=== PATIENT | female | born 1955 | race Caucasian/White ===

== ENCOUNTER 2019-12-30 08:37 | Outpatient (REF) | payer BC, SELFPAY ==
--- NOTE | 2019-12-30 | XR_ITS ---
EXAMINATION: XR SHOULDER, RIGHT CLINICAL INFORMATION: Right shoulder pain COMPARISON: None. TECHNIQUE: Right shoulder is imaged in 4 views. FINDINGS: There is no fracture, dislocation, or destructive process. The acromioclavicular alignment is normal. There are mild degenerative changes glenohumeral joint with spurring at the inferior medial humeral head. There is no erosive change. Small corticated cyst present superior humeral head. There is a 5 mm calcification just inferior to the coracoid process likely calcific tendinosis involving short head biceps. No other visible tendon calcifications. IMPRESSION: 1. Mild degenerative changes glenohumeral joint with inferior medial spur humeral head. 2. Calcific tendinosis in region short head biceps.
== END 2019-12-30 08:38 | disposition home or self-care (01) ==
LOC: HO.HMGCX 08:37
DX: M25.511 Pain in right shoulder (principal)
CPT/HCPCS: 73030

== ENCOUNTER 2019-12-31 11:54 | Outpatient (REF) | payer BC, SELFPAY ==
--- NOTE | 2019-12-31 | XR_ITS ---
EXAMINATION: XR SHOULDER, LEFT CLINICAL INFORMATION: Left shoulder pain. COMPARISON: None. TECHNIQUE: AP external rotation, Grashey, scapular Y, and axillary views of the left shoulder. FINDINGS: There is no evidence of acute fracture or dislocation of the left shoulder. No evidence of calcific tendinitis. There is degenerative spurring seen about the inferior aspect of the left humeral head. There is mild spurring inferior aspect of the glenoid. IMPRESSION: No evidence of acute fracture, dislocation, or calcific tendinitis of the left shoulder. Degenerative change glenohumeral joint.
== END 2019-12-31 11:55 | disposition home or self-care (01) ==
LOC: HO.HMGCX 11:54
DX: M25.512 Pain in left shoulder (principal)
CPT/HCPCS: 73030

== ENCOUNTER 2020-01-29 07:56 | Outpatient (REF) | payer BC, SELFPAY ==
[2020-01-29 12:08] LABS: Estimated Average Glucose 151 mg/dL; Hemoglobin A1c % 6.9 %
[2020-01-29 12:31] LABS: Alanine Aminotransferase 40 U/L (0-31); Albumin Level 3.9 g/dL (3.5-5.0); Alkaline Phosphatase 88 U/L (39-117); Anion Gap 15 (12-20); Aspartate Amino Transferase 39 U/L (5-31); Bilirubin Direct 0.2 mg/dL (0.0-0.5); Bilirubin Total 0.5 mg/dL (0.0-1.0); Blood Urea Nitrogen 20 mg/dL (9-16); Calcium 9.2 mg/dL (8.4-10.2); Carbon Dioxide 27 mmol/L (22-29); Chloride 98 mmol/L (96-108); Cholesterol 151 mg/dL; Estimated Glomerular Filt Rate 46; Glucose Fasting 106 mg/dL (60-99); HDL Cholesterol 28 mg/dL; LDL Cholesterol Calculated 69 mg/dl; Potassium 3.8 mmol/l (3.3-5.1); Sodium 136 mmol/L (135-145); Triglycerides 272 mg/dL
== END 2020-01-29 07:57 | disposition home or self-care (01) ==
LOC: HO.HMGCLDS 07:56
DX: E78.5 Hyperlipidemia, unspecified (principal); E11.9 Type 2 diabetes mellitus without complications
CPT/HCPCS: 80053; 80061; 80076; 82248; 83036

== ENCOUNTER 2020-05-01 07:50 | Outpatient (REF) | payer BC, SELFPAY ==
--- NOTE | ~2020-05-01 | XR_ITS ---
EXAMINATION: XR FOOT, LEFT CLINICAL INFORMATION: Psoriatic arthritis involving the foot joints COMPARISON: None TECHNIQUE: AP, lateral, and oblique views of the left foot. FINDINGS: No fracture or dislocation. Normal mineralization and alignment. Joint spaces are maintained. No erosions or periostitis. Moderate plantar calcaneal osteophyte. There is enthesopathy of the distal Achilles tendon attachment. XR/XR foot LT min 3V IMPRESSION: No findings to suggest active inflammatory arthropathy.
--- NOTE | ~2020-05-01 | XR_ITS ---
EXAMINATION: XR FOOT, RIGHT CLINICAL INFORMATION: Psoriatic arthritis involving the joints COMPARISON: None TECHNIQUE: AP, lateral, and oblique views of the right foot. FINDINGS: No fracture or dislocation. Moderate plantar calcaneal osteophyte. Enthesopathy of the distal Achilles tendon attachment. Joint spaces are maintained. No erosions or periostitis. XR/XR foot RT min 3V IMPRESSION: No findings to suggest active inflammatory arthropathy.
[2020-05-01 11:10] LABS: MANUAL DIFF FLAG NO
[2020-05-01 11:20] LABS: Basophils Percent Auto 0.3 % (0-2); Eosinophils Absolute Auto 0.3 X10*3/uL (0.0-0.4); Eosinophils Percent Auto 2.8 % (0-4); Hematocrit 41.9 % (37-47); Hemoglobin 13.8 g/dl (12.0-16.0); Imm Gran Abs Auto 0.03 X10*3/uL (0.00-0.03); Imm Gran Pct Auto 0.3 % (0.0-0.4); Lymphocytes Absolute Auto 4.7 X10*3/uL (1.2-4.9); Lymphocytes Percent Auto 45.8 % (20-40); Mean Corpuscular HGB Conc 32.9 g/dl (31.0-35.0); Mean Corpuscular Hemoglobin 28.2 pg (27.0-33.0); Mean Corpuscular Volume 85.5 fL (80-98); Mean Platelet Volume 11.1 fL (9.4-12.3); Monocytes Absolute Auto 0.6 X10*3/uL (0.1-1.2); Monocytes Percent Auto 5.4 % (2-11); Neutrophils Absolute Auto 4.6 X10*3/uL (2.0-8.3); Neutrophils Percent Auto 45.4 % (45-73); Platelet Count 262 X10*3/uL (160-400); White Blood Count 10.2 X10*3/uL (4.8-10.8)
[2020-05-01 11:53] LABS: Alanine Aminotransferase 36 U/L (0-31); Albumin Level 3.9 g/dL (3.5-5.0); Alkaline Phosphatase 96 U/L (39-117); Anion Gap 15 (12-20); Aspartate Amino Transferase 36 U/L (5-31); Bilirubin Total 0.6 mg/dL (0.0-1.0); Blood Urea Nitrogen 15 mg/dL (9-16); Calcium 8.9 mg/dL (8.4-10.2); Carbon Dioxide 26 mmol/L (22-29); Chloride 100 mmol/L (96-108); Cholesterol 155 mg/dL; Estimated Glomerular Filt Rate 53; Glucose Fasting 173 mg/dL (60-99); HDL Cholesterol 30 mg/dL; LDL Cholesterol Calculated 68 mg/dl; Potassium 4.4 mmol/L (3.3-5.1); Sodium 137 mmol/L (135-145); Total Protein 7.1 g/dL (6.5-8.0); Triglycerides 286 mg/dL
[2020-05-01 11:59] LABS: Thyroid Stimulating Hormone 1.86 uIU/mL (0.32-4.0)
[2020-05-01 12:07] LABS: Estimated Average Glucose 200 mg/dL; Hemoglobin A1c % 8.6 %
[2020-05-01 12:25] LABS: Erythrocyte Sedimentation Rate 14 MM/HR (0-20)
== END 2020-05-01 07:51 | disposition home or self-care (01) ==
LOC: HO.HMGCX 07:50
PROVIDERS: PCP Internal Medicine; Visit Provider Internal Medicine Rheumatology
DX: Z00.00 Encounter for general adult medical examination without abnormal findings (principal); L40.50 Arthropathic psoriasis, unspecified; M89.49 Other hypertrophic osteoarthropathy, multiple sites; E11.9 Type 2 diabetes mellitus without complications; E03.9 Hypothyroidism, unspecified; Z79.899 Other long term (current) drug therapy
CPT/HCPCS: 36415; 73630; 80053; 80061; 83036; 84443; 85025; 85652; 86140

== ENCOUNTER 2020-05-11 09:37 | Outpatient (REF) | payer BC, SELFPAY ==
[2020-05-11 12:27] LABS: Vitamin D 25-OH Total 99.5 ng/mL (>30)
== END 2020-05-11 09:38 | disposition home or self-care (01) ==
LOC: HO.HMGCLDS 09:37
PROVIDERS: PCP Internal Medicine; Visit Provider Dermatology
DX: L40.0 Psoriasis vulgaris (principal); Z79.899 Other long term (current) drug therapy
CPT/HCPCS: 36415; 82306

== ENCOUNTER 2020-08-21 08:23 | Outpatient (REF) | payer BC, SELFPAY ==
[2020-08-21 11:08] LABS: MANUAL DIFF FLAG NO
[2020-08-21 11:30] LABS: Basophils Percent Auto 0.3 % (0-2); Eosinophils Absolute Auto 0.2 X10*3/uL (0.0-0.4); Eosinophils Percent Auto 1.7 % (0-4); Hematocrit 40.1 % (37-47); Hemoglobin 13.3 g/dl (12.0-16.0); Imm Gran Abs Auto 0.03 X10*3/uL (0.00-0.03); Imm Gran Pct Auto 0.3 % (0.0-0.4); Lymphocytes Absolute Auto 3.2 X10*3/uL (1.2-4.9); Lymphocytes Percent Auto 33.4 % (20-40); Mean Corpuscular HGB Conc 33.2 g/dl (31.0-35.0); Mean Corpuscular Hemoglobin 28.6 pg (27.0-33.0); Mean Corpuscular Volume 86.2 fL (80-98); Mean Platelet Volume 11.2 fL (9.4-12.3); Monocytes Absolute Auto 0.5 X10*3/uL (0.1-1.2); Monocytes Percent Auto 5.3 % (2-11); Neutrophils Absolute Auto 5.6 X10*3/uL (2.0-8.3); Platelet Count 206 X10*3/uL (160-400); Red Blood Count 4.65 X10*6/uL (4.20-5.50); Red Cell Distribution Width 13.3 % (11.0-16.0); White Blood Count 9.5 X10*3/uL (4.8-10.8)
[2020-08-21 12:17] LABS: Erythrocyte Sedimentation Rate 12 MM/HR (0-20); Thyroid Stimulating Hormone 0.86 uIU/mL (0.32-4.0)
[2020-08-21 12:30] LABS: Microalbum/Creatinine Ratio Ur 28.1 ug/mg cr
[2020-08-21 12:36] LABS: Alanine Aminotransferase 26 U/L (0-31); Albumin Level 4.1 g/dL (3.5-5.0); Alkaline Phosphatase 99 U/L (39-117); Anion Gap 17 (12-20); Aspartate Amino Transferase 31 U/L (5-31); Bilirubin Total 0.7 mg/dL (0.0-1.0); Blood Urea Nitrogen 20 mg/dL (9-16); Carbon Dioxide 23 mmol/L (22-29); Chloride 102 mmol/L (96-108); Estimated Glomerular Filt Rate 44; Glucose Fasting 255 mg/dL (60-99); Potassium 4.2 mmol/L (3.3-5.1); Sodium 138 mmol/L (135-145)
[2020-08-21 12:46] LABS: C Reactive Protein 0.34 mg/dL (< or = 0.50)
[2020-08-21 13:45] LABS: Estimated Average Glucose 237 mg/dL; Hemoglobin A1c % 9.9 %
== END 2020-08-21 08:24 | disposition home or self-care (01) ==
LOC: HO.HMGCLDS 08:23
PROVIDERS: PCP Internal Medicine; Visit Provider Internal Medicine Rheumatology
DX: E03.9 Hypothyroidism, unspecified (principal); E11.9 Type 2 diabetes mellitus without complications; L40.50 Arthropathic psoriasis, unspecified; Z79.899 Other long term (current) drug therapy
CPT/HCPCS: 36415; 80053; 82043; 83036; 84443; 85025; 85652; 86140

== ENCOUNTER 2020-12-15 08:57 | Outpatient (REF) | payer BC, SELFPAY ==
[2020-12-15 11:52] LABS: MANUAL DIFF FLAG NO
[2020-12-15 12:01] LABS: Basophils Percent Auto 0.2 % (0-2); Eosinophils Absolute Auto 0.5 X10*3/uL (0.0-0.4); Eosinophils Percent Auto 4.7 % (0-4); Hematocrit 39.8 % (37-47); Hemoglobin 13.4 g/dl (12.0-16.0); Imm Gran Abs Auto 0.03 X10*3/uL (0.00-0.03); Imm Gran Pct Auto 0.3 % (0.0-0.4); Lymphocytes Absolute Auto 4.3 X10*3/uL (1.2-4.9); Lymphocytes Percent Auto 38.5 % (20-40); Mean Corpuscular HGB Conc 33.7 g/dl (31.0-35.0); Mean Corpuscular Hemoglobin 28.8 pg (27.0-33.0); Mean Corpuscular Volume 85.6 fL (80-98); Mean Platelet Volume 11.6 fL (9.4-12.3); Monocytes Absolute Auto 0.6 X10*3/uL (0.1-1.2); Monocytes Percent Auto 4.9 % (2-11); Neutrophils Absolute Auto 5.7 X10*3/uL (2.0-8.3); Neutrophils Percent Auto 51.4 % (45-73); Platelet Count 219 X10*3/uL (160-400); Red Blood Count 4.65 X10*6/uL (4.20-5.50); White Blood Count 11.1 X10*3/uL (4.8-10.8)
[2020-12-15 12:19] LABS: Estimated Average Glucose 200 mg/dL; Hemoglobin A1c % 8.6 %
[2020-12-15 12:30] LABS: Alanine Aminotransferase 31 U/L (0-31); Albumin Level 3.9 g/dL (3.5-5.0); Alkaline Phosphatase 86 U/L (39-117); Anion Gap 16 (12-20); Aspartate Amino Transferase 33 U/L (5-31); Bilirubin Total 0.7 mg/dL (0.0-1.0); Blood Urea Nitrogen 18 mg/dL (9-16); Calcium 9.4 mg/dL (8.4-10.2); Carbon Dioxide 25 mmol/L (22-29); Chloride 102 mmol/L (96-108); Estimated Glomerular Filt Rate 46; Glucose Random 154 mg/dL (60-115); Potassium 4.4 mmol/L (3.3-5.1); Sodium 139 mmol/L (135-145); Total Protein 7.1 g/dL (6.5-8.0)
[2020-12-15 12:43] LABS: Erythrocyte Sedimentation Rate 17 MM/HR (0-20)
== END 2020-12-15 08:58 | disposition home or self-care (01) ==
LOC: HO.HMGCLDS 08:57
PROVIDERS: PCP Internal Medicine; Visit Provider Internal Medicine Rheumatology
DX: L40.50 Arthropathic psoriasis, unspecified (principal); E11.9 Type 2 diabetes mellitus without complications; Z79.899 Other long term (current) drug therapy
CPT/HCPCS: 36415; 80053; 83036; 85025; 85652; 86140

== ENCOUNTER 2021-04-15 11:17 | Outpatient (REF) | payer MEDICARE, BC, SELFPAY ==
--- NOTE | ~2021-04-15 | XR_ITS ---
EXAMINATION: XR foot RT min 3V, XR foot LT min 3V CLINICAL INFORMATION: Psoriatic arthritis. COMPARISON: Bilateral feet radiographs 05/01/2020 TECHNIQUE: 3 views of the bilateral feet XR/XR foot RT min 3V FINDINGS/IMPRESSION: RIGHT FOOT: No fracture or dislocation. Mild degenerative changes of the dorsal midfoot with osteophytosis. Plantar calcaneal and Achilles tendon enthesopathy. No cortical erosion. No joint effusion. Soft tissues are unremarkable. LEFT FOOT: No fracture or dislocation. Small well corticated osseous fragment along the lateral aspect of the base of the fifth metatarsal may reflect squarely of remote avulsion injury. Moderate degenerative changes of the dorsal midfoot with osteophytosis similar to prior. Plantar calcaneal and Achilles tendon enthesopathy. No cortical erosion. No joint effusion. Mild soft tissue swelling along the dorsum of the foot.
--- NOTE | ~2021-04-15 | XR_ITS ---
EXAMINATION: XR foot RT min 3V, XR foot LT min 3V CLINICAL INFORMATION: Psoriatic arthritis. COMPARISON: Bilateral feet radiographs 05/01/2020 TECHNIQUE: 3 views of the bilateral feet XR/XR foot LT min 3V FINDINGS/IMPRESSION: RIGHT FOOT: No fracture or dislocation. Mild degenerative changes of the dorsal midfoot with osteophytosis. Plantar calcaneal and Achilles tendon enthesopathy. No cortical erosion. No joint effusion. Soft tissues are unremarkable. LEFT FOOT: No fracture or dislocation. Small well corticated osseous fragment along the lateral aspect of the base of the fifth metatarsal may reflect squarely of remote avulsion injury. Moderate degenerative changes of the dorsal midfoot with osteophytosis similar to prior. Plantar calcaneal and Achilles tendon enthesopathy. No cortical erosion. No joint effusion. Mild soft tissue swelling along the dorsum of the foot.
[2021-04-15 14:04] LABS: MANUAL DIFF FLAG NO
[2021-04-15 14:05] LABS: Basophils Percent Auto 0.4 % (0-2); Eosinophils Absolute Auto 0.2 X10*3/uL (0.0-0.4); Eosinophils Percent Auto 2.1 % (0-4); Hematocrit 43.6 % (37.0-47.0); Hemoglobin 14.1 g/dl (12.0-16.0); Imm Gran Abs Auto 0.04 X10*3/uL (0.00-0.03); Imm Gran Pct Auto 0.4 % (0.0-0.4); Lymphocytes Absolute Auto 2.9 X10*3/uL (1.2-4.9); Lymphocytes Percent Auto 31.1 % (20-40); Mean Corpuscular HGB Conc 32.3 g/dl (31.0-35.0); Mean Corpuscular Hemoglobin 27.9 pg (27.0-33.0); Mean Corpuscular Volume 86.2 fL (80.0-98.0); Monocytes Absolute Auto 0.6 X10*3/uL (0.1-1.2); Monocytes Percent Auto 6.1 % (2-11); Neutrophils Absolute Auto 5.5 x10*3/uL (2.0-8.3); Neutrophils Percent Auto 59.9 % (45-73); Platelet Count 285 X10*3/uL (160-400); Red Blood Count 5.06 X10*6/uL (4.20-5.50); Red Cell Distribution Width 13.4 % (11.0-16.0); White Blood Count 9.3 X10*3/uL (4.8-10.8)
[2021-04-15 14:37] LABS: Alanine Aminotransferase 56 U/L (0-31); Albumin Level 4.4 g/dL (3.5-5.0); Alkaline Phosphatase 138 U/L (39-117); Anion Gap 15 (12-20); Aspartate Amino Transferase 56 U/L (5-31); Bilirubin Total 0.6 mg/dL (0.0-1.0); Blood Urea Nitrogen 20 mg/dL (9-16); C Reactive Protein 0.48 mg/dL (< or = 0.50); Carbon Dioxide 29 mmol/L (22-29); Chloride 99 mmol/L (96-108); Estimated Glomerular Filt Rate 38; Glucose Random 281 mg/dL (60-115); Potassium 4.8 mmol/L (3.3-5.1); Sodium 138 mmol/L (135-145); Total Protein 8.2 g/dL (6.5-8.0)
[2021-04-15 14:52] LABS: Erythrocyte Sedimentation Rate 27 MM/HR (0-20)
== END 2021-04-15 11:18 | disposition home or self-care (01) ==
LOC: HO.HMGCX 11:17
PROVIDERS: Absent Provider Internal Medicine; PCP Internal Medicine; Visit Provider Internal Medicine Rheumatology
DX: L40.50 Arthropathic psoriasis, unspecified (principal); Z79.899 Other long term (current) drug therapy
CPT/HCPCS: 36415; 73630; 80053; 85025; 85652; 86140

== ENCOUNTER 2021-05-18 09:53 | Outpatient (REF) | payer MEDICARE, BC, SELFPAY ==
[2021-05-20 11:47] LABS: TS Negative Control Passed; TS Panel A 0; TS Panel B 0; TS Positive Control Passed; TSpotTB Negative (Negative)
== END 2021-05-18 09:54 | disposition home or self-care (01) ==
LOC: HO.HMGCLDS 09:53
PROVIDERS: PCP Internal Medicine; Visit Provider Dermatology
DX: L40.0 Psoriasis vulgaris (principal); L40.51 Distal interphalangeal psoriatic arthropathy; Z79.899 Other long term (current) drug therapy
CPT/HCPCS: 36415; 86481

== ENCOUNTER 2021-06-10 08:22 | Outpatient (REF) | payer MEDICARE, BC, SELFPAY ==
[2021-06-10 11:14] LABS: MANUAL DIFF FLAG NO
[2021-06-10 11:37] LABS: Basophils Percent Auto 0.3 % (0-2); Eosinophils Absolute Auto 0.2 X10*3/uL (0.0-0.4); Eosinophils Percent Auto 2.1 % (0-4); Hematocrit 37.9 % (37.0-47.0); Hemoglobin 12.5 g/dl (12.0-16.0); Imm Gran Abs Auto 0.02 X10*3/uL (0.00-0.03); Imm Gran Pct Auto 0.3 % (0.0-0.4); Lymphocytes Absolute Auto 2.9 X10*3/uL (1.2-4.9); Lymphocytes Percent Auto 39.6 % (20-40); Mean Corpuscular Hemoglobin 28.8 pg (27.0-33.0); Mean Corpuscular Volume 87.3 fL (80.0-98.0); Mean Platelet Volume 11.3 fL (9.4-12.3); Monocytes Absolute Auto 0.5 X10*3/uL (0.1-1.2); Neutrophils Absolute Auto 3.7 x10*3/uL (2.0-8.3); Neutrophils Percent Auto 50.7 % (45-73); Platelet Count 223 X10*3/uL (160-400); Red Blood Count 4.34 X10*6/uL (4.20-5.50); White Blood Count 7.3 X10*3/uL (4.8-10.8)
[2021-06-10 11:56] LABS: Alanine Aminotransferase 39 U/L (0-31); Albumin Level 3.9 g/dL (3.5-5.0); Alkaline Phosphatase 127 U/L (39-117); Anion Gap 16 (12-20); Aspartate Amino Transferase 50 U/L (5-31); Bilirubin Total 0.5 mg/dL (0.0-1.0); Blood Urea Nitrogen 16 mg/dL (9-16); C Reactive Protein 0.31 mg/dL (< or = 0.50); Calcium 9.2 mg/dL (8.4-10.2); Carbon Dioxide 25 mmol/L (22-29); Chloride 101 mmol/L (96-108); Estimated Glomerular Filt Rate 41; Glucose Random 267 mg/dL (60-115); Potassium 4.4 mmol/L (3.3-5.1); Sodium 138 mmol/L (135-145); Total Protein 7.5 g/dL (6.5-8.0)
[2021-06-10 11:58] LABS: Cholesterol 149 mg/dL; Glucose Fasting 270 mg/dL (60-99); HDL Cholesterol 29 mg/dL; LDL Cholesterol Calculated 51 mg/dl; Triglycerides 347 mg/dL
[2021-06-10 12:33] LABS: Erythrocyte Sedimentation Rate 23 MM/HR (0-20); Estimated Average Glucose 260 mg/dL; Hemoglobin A1c % 10.7 %
== END 2021-06-10 08:23 | disposition home or self-care (01) ==
LOC: HO.HMGCLDS 08:22
PROVIDERS: PCP Internal Medicine; Visit Provider Internal Medicine Rheumatology
DX: Z00.00 Encounter for general adult medical examination without abnormal findings (principal); E11.65 Type 2 diabetes mellitus with hyperglycemia; L40.50 Arthropathic psoriasis, unspecified; Z79.899 Other long term (current) drug therapy
CPT/HCPCS: 36415; 80053; 80061; 82947; 83036; 85025; 85652; 86140

== ENCOUNTER 2021-07-30 09:25 | Outpatient (REF) | payer MEDICARE, BC, SELFPAY ==
[2021-07-30 11:10] LABS: MANUAL DIFF FLAG NO
[2021-07-30 11:16] LABS: Basophils Percent Auto 0.4 % (0-2); Eosinophils Absolute Auto 0.4 X10*3/uL (0.0-0.4); Hematocrit 38.7 % (37.0-47.0); Hemoglobin 12.8 g/dl (12.0-16.0); Imm Gran Abs Auto 0.03 X10*3/uL (0.00-0.03); Imm Gran Pct Auto 0.4 % (0.0-0.4); Lymphocytes Absolute Auto 2.6 X10*3/uL (1.2-4.9); Mean Corpuscular HGB Conc 33.1 g/dl (31.0-35.0); Mean Corpuscular Hemoglobin 27.7 pg (27.0-33.0); Mean Corpuscular Volume 83.8 fL (80.0-98.0); Mean Platelet Volume 11.3 fL (9.4-12.3); Monocytes Absolute Auto 0.5 X10*3/uL (0.1-1.2); Monocytes Percent Auto 6.4 % (2-11); Neutrophils Absolute Auto 4.4 x10*3/uL (2.0-8.3); Neutrophils Percent Auto 54.8 % (45-73); Platelet Count 233 X10*3/uL (160-400); Red Blood Count 4.62 X10*6/uL (4.20-5.50); Red Cell Distribution Width 13.7 % (11.0-16.0)
[2021-07-30 11:23] LABS: Estimated Average Glucose 223 mg/dL; Hemoglobin A1c % 9.4 %
[2021-07-30 11:34] LABS: Cholesterol 131 mg/dL; Glucose Fasting 214 mg/dL (60-99); HDL Cholesterol 25 mg/dL; LDL Cholesterol Calculated 77 mg/dl; Triglycerides 148 mg/dL
[2021-07-30 11:38] LABS: Alanine Aminotransferase 30 U/L (0-31); Albumin Level 3.8 g/dL (3.5-5.0); Alkaline Phosphatase 109 U/L (39-117); Anion Gap 13 (12-20); Aspartate Amino Transferase 30 U/L (5-31); Bilirubin Total 0.7 mg/dL (0.0-1.0); Blood Urea Nitrogen 17 mg/dL (9-16); C Reactive Protein 0.53 mg/dL (< or = 0.50); Calcium 9.2 mg/dL (8.4-10.2); Carbon Dioxide 29 mmol/L (22-29); Chloride 100 mmol/L (96-108); Estimated Glomerular Filt Rate 41; Glucose Random 214 mg/dL (60-115); Potassium 4.1 mmol/L (3.3-5.1); Sodium 138 mmol/L (135-145); Total Protein 7.1 g/dL (6.5-8.0)
[2021-07-30 11:54] LABS: Erythrocyte Sedimentation Rate 23 MM/HR (0-20)
[2021-08-01 15:47] LABS: TS Negative Control Passed; TS Panel A 0; TS Panel B 0; TS Positive Control Passed; TSpotTB Negative (Negative)
== END 2021-07-30 09:26 | disposition home or self-care (01) ==
LOC: HO.HMGCLR 09:25
PROVIDERS: Absent Provider Internal Medicine Rheumatology; PCP Internal Medicine; Visit Provider Internal Medicine
DX: Z00.00 Encounter for general adult medical examination without abnormal findings (principal); Z11.1 Encounter for screening for respiratory tuberculosis; E11.65 Type 2 diabetes mellitus with hyperglycemia; L40.50 Arthropathic psoriasis, unspecified; Z79.899 Other long term (current) drug therapy
CPT/HCPCS: 36415; 80053; 80061; 82947; 83036; 85025; 85652; 86140; 86481

== ENCOUNTER 2021-09-24 10:07 | Outpatient (REF) | payer MEDICARE, BC, SELFPAY ==
[2021-09-24 11:33] LABS: MANUAL DIFF FLAG NO
[2021-09-24 11:38] LABS: Basophils Percent Auto 0.4 % (0-2); Eosinophils Absolute Auto 0.2 X10*3/uL (0.0-0.4); Hematocrit 37.4 % (37.0-47.0); Hemoglobin 12.5 g/dl (12.0-16.0); Imm Gran Abs Auto 0.02 X10*3/uL (0.00-0.03); Imm Gran Pct Auto 0.3 % (0.0-0.4); Lymphocytes Absolute Auto 3.2 X10*3/uL (1.2-4.9); Lymphocytes Percent Auto 40.3 % (20-40); Mean Corpuscular HGB Conc 33.4 g/dl (31.0-35.0); Mean Corpuscular Hemoglobin 27.8 pg (27.0-33.0); Mean Corpuscular Volume 83.1 fL (80.0-98.0); Mean Platelet Volume 10.6 fL (9.4-12.3); Monocytes Absolute Auto 0.5 X10*3/uL (0.1-1.2); Monocytes Percent Auto 6.1 % (2-11); Neutrophils Percent Auto 50.9 % (45-73); Platelet Count 254 X10*3/uL (160-400); Red Cell Distribution Width 13.8 % (11.0-16.0); White Blood Count 7.8 X10*3/uL (4.8-10.8)
[2021-09-24 11:53] LABS: Alanine Aminotransferase 28 U/L (0-31); Albumin Level 3.8 g/dL (3.5-5.0); Alkaline Phosphatase 108 U/L (39-117); Anion Gap 13 (12-20); Aspartate Amino Transferase 32 U/L (5-31); Bilirubin Total 0.5 mg/dL (0.0-1.0); Blood Urea Nitrogen 19 mg/dL (9-16); C Reactive Protein 0.31 mg/dL (< or = 0.50); Calcium 8.8 mg/dL (8.4-10.2); Carbon Dioxide 27 mmol/L (22-29); Chloride 101 mmol/L (96-108); Estimated Glomerular Filt Rate 40; Glucose Random 178 mg/dL (60-115); Potassium 4.3 mmol/L (3.3-5.1); Sodium 137 mmol/L (135-145); Total Protein 7.3 g/dL (6.5-8.0)
[2021-09-24 12:25] LABS: Erythrocyte Sedimentation Rate 23 MM/HR (0-20)
== END 2021-09-24 10:08 | disposition home or self-care (01) ==
LOC: HO.HMGCLR 10:07
PROVIDERS: PCP Internal Medicine; Visit Provider Internal Medicine Rheumatology
DX: L40.50 Arthropathic psoriasis, unspecified (principal); Z79.899 Other long term (current) drug therapy
CPT/HCPCS: 36415; 80053; 85025; 85652; 86140

== ENCOUNTER 2021-11-18 09:58 | Outpatient (REF) | payer MEDICARE, BC, SELFPAY ==
[2021-11-18 11:17] LABS: MANUAL DIFF FLAG NO
[2021-11-18 11:45] LABS: Basophils Percent Auto 0.4 % (0-2); Eosinophils Absolute Auto 0.2 X10*3/uL (0.0-0.4); Eosinophils Percent Auto 2.2 % (0-4); Hematocrit 40.1 % (37.0-47.0); Hemoglobin 13.2 g/dl (12.0-16.0); Imm Gran Abs Auto 0.01 X10*3/uL (0.00-0.03); Imm Gran Pct Auto 0.1 % (0.0-0.4); Lymphocytes Absolute Auto 2.9 X10*3/uL (1.2-4.9); Lymphocytes Percent Auto 38.4 % (20-40); Mean Corpuscular HGB Conc 32.9 g/dl (31.0-35.0); Mean Corpuscular Hemoglobin 27.6 pg (27.0-33.0); Mean Corpuscular Volume 83.7 fL (80.0-98.0); Monocytes Absolute Auto 0.5 X10*3/uL (0.1-1.2); Monocytes Percent Auto 6.2 % (2-11); Neutrophils Absolute Auto 3.9 x10*3/uL (2.0-8.3); Neutrophils Percent Auto 52.7 % (45-73); Platelet Count 164 X10*3/uL (160-400); Red Blood Count 4.79 X10*6/uL (4.20-5.50); Red Cell Distribution Width 14.5 % (11.0-16.0); White Blood Count 7.4 X10*3/uL (4.8-10.8)
[2021-11-18 12:15] LABS: Erythrocyte Sedimentation Rate 16 MM/HR (0-20)
[2021-11-18 12:49] LABS: Alanine Aminotransferase 53 U/L (0-31); Albumin Level 3.9 g/dL (3.5-5.0); Alkaline Phosphatase 120 U/L (39-117); Anion Gap 19 (12-20); Aspartate Amino Transferase 44 U/L (5-31); Bilirubin Total 0.7 mg/dL (0.0-1.0); Blood Urea Nitrogen 17 mg/dL (9-16); C Reactive Protein 0.25 mg/dL (< or = 0.50); Calcium 9.1 mg/dL (8.4-10.2); Carbon Dioxide 24 mmol/L (22-29); Chloride 101 mmol/L (96-108); Estimated Glomerular Filt Rate 43; Glucose Random 183 mg/dL (60-115); Potassium 4.5 mmol/L (3.3-5.1); Sodium 139 mmol/L (135-145); Total Protein 7.4 g/dL (6.5-8.0)
[2021-11-22 16:11] LABS: TS Negative Control Passed; TS Panel A 3; TS Panel B 1; TS Positive Control Passed; TSpotTB Negative (Negative)
== END 2021-11-18 09:59 | disposition home or self-care (01) ==
LOC: HO.LABR 09:58
PROVIDERS: PCP Internal Medicine; Visit Provider Internal Medicine Rheumatology
DX: Z11.1 Encounter for screening for respiratory tuberculosis (principal); L40.50 Arthropathic psoriasis, unspecified; Z79.899 Other long term (current) drug therapy
CPT/HCPCS: 36415; 80053; 85025; 85652; 86140; 86481

== ENCOUNTER 2022-01-19 08:17 | Outpatient (REF) | payer MEDICARE, BC, SELFPAY ==
[2022-01-19 11:22] LABS: MANUAL DIFF FLAG NO
[2022-01-19 11:33] LABS: Basophils Percent Auto 0.4 % (0-2); Eosinophils Absolute Auto 0.2 X10*3/uL (0.0-0.4); Eosinophils Percent Auto 1.7 % (0-4); Hematocrit 40.8 % (37.0-47.0); Hemoglobin 13.5 g/dl (12.0-16.0); Imm Gran Abs Auto 0.03 X10*3/uL (0.00-0.03); Imm Gran Pct Auto 0.3 % (0.0-0.4); Lymphocytes Absolute Auto 3.7 X10*3/uL (1.2-4.9); Lymphocytes Percent Auto 39.9 % (20-40); Mean Corpuscular HGB Conc 33.1 g/dl (31.0-35.0); Mean Corpuscular Hemoglobin 28.1 pg (27.0-33.0); Mean Platelet Volume 10.9 fL (9.4-12.3); Monocytes Absolute Auto 0.6 X10*3/uL (0.1-1.2); Monocytes Percent Auto 6.2 % (2-11); Neutrophils Absolute Auto 4.8 x10*3/uL (2.0-8.3); Neutrophils Percent Auto 51.5 % (45-73); Platelet Count 319 X10*3/uL (160-400); Red Cell Distribution Width 14.2 % (11.0-16.0); White Blood Count 9.3 X10*3/uL (4.8-10.8)
[2022-01-19 11:55] LABS: Alanine Aminotransferase 36 U/L (0-31); Albumin Level 4.4 g/dL (3.5-5.0); Alkaline Phosphatase 119 U/L (39-117); Anion Gap 18 (12-20); Aspartate Amino Transferase 43 U/L (5-31); Bilirubin Total 0.5 mg/dL (0.0-1.0); Blood Urea Nitrogen 20 mg/dL (9-16); C Reactive Protein 0.18 mg/dL (< or = 0.50); Calcium 9.5 mg/dL (8.4-10.2); Carbon Dioxide 29 mmol/L (22-29); Chloride 97 mmol/L (96-108); Cholesterol 134 mg/dL; Estimated Glomerular Filt Rate 37; Glucose Random 220 mg/dL (60-115); HDL Cholesterol 29 mg/dL; LDL Cholesterol Calculated 65 mg/dl; Potassium 4.3 mmol/L (3.3-5.1); Sodium 140 mmol/L (135-145); Total Protein 7.9 g/dL (6.5-8.0); Triglycerides 204 mg/dL
[2022-01-19 12:13] LABS: Erythrocyte Sedimentation Rate 18 MM/HR (0-20)
== END 2022-01-19 08:18 | disposition home or self-care (01) ==
LOC: HO.HMGCLDS 08:17
PROVIDERS: Absent Provider Internal Medicine Rheumatology; PCP Internal Medicine; Visit Provider Internal Medicine
DX: L40.50 Arthropathic psoriasis, unspecified (principal); E78.5 Hyperlipidemia, unspecified; Z79.899 Other long term (current) drug therapy
CPT/HCPCS: 36415; 80053; 80061; 85025; 85652; 86140

== ENCOUNTER 2022-01-24 08:20 | Outpatient (REF) | payer MEDICARE, BC, SELFPAY ==
[2022-01-26 15:57] LABS: TS Negative Control Passed; TS Panel A 0; TS Panel B 0; TS Positive Control Passed; TSpotTB Negative (Negative)
== END 2022-01-24 08:21 | disposition home or self-care (01) ==
LOC: HO.HMGCLDS 08:20
PROVIDERS: PCP Internal Medicine; Visit Provider Internal Medicine Rheumatology
DX: L40.50 Arthropathic psoriasis, unspecified (principal); Z79.899 Other long term (current) drug therapy
CPT/HCPCS: 36415; 86481

== ENCOUNTER 2022-01-28 10:35 | Outpatient (REF) | payer MEDICARE, BC, SELFPAY ==
--- NOTE | ~2022-01-28 | MM_ITS ---
EXAMINATION: BONE DENSITOMETRY CLINICAL INDICATION: Postmenopausal. COMPARISON: This is the patient's baseline examination. TECHNIQUE: Using a [employer] DXA System (software version: 13.1) manufactured by [email or web address], dual-energy x-ray absorptiometry was performed of the lumbar spine and left hip. The images are of good technical quality. Summary results are attached. FINDINGS: AP SPINE L1-L4: BMD 1.617 g/cm2, Z-score 4.6, T-score 3.6, normal. LEFT FEMUR, NECK: BMD 1.008 g/cm2, Z-score 0.9, T-score -0.2, normal. LEFT FEMUR, TOTAL: BMD 1.130 g/cm2, Z-score 1.7, T-score 1.0, normal. IDENTIFIED RISK FACTORS: Menopause. HISTORY OF FRACTURE: None listed. MEDICATIONS: Vitamin D. MM/XR DEXA axial skeleton IMPRESSION: 1. DIAGNOSIS: Normal bone density based on the lowest T-score value of -0.2 in the femoral neck applying World Health Organization criteria. 2. 10-YEAR FRACTURE RISK PREDICTION, FRAX: According to the guidelines, FRAX calculation should only be performed on patients in the osteopenia bone density category. Therefore, FRAX was not performed on this patient. 3. Treatment Recommendations: NOF guidelines recommend consideration for treatment in postmenopausal women and men age 50 and older presenting with the following: -A hip or vertebral (clinical or morphometric) fracture. -T-score less than or equal to -2.5 at the femoral neck or spine after appropriate evaluation to exclude secondary causes. -Low bone mass at the hip or spine and a 10-year fracture probability by FRAX of greater than or equal to 3% for hip fracture or greater than or equal to 20% for major osteoporotic fracture based on the [place] adapted WHO algorithm. 4. Other Recommendations: All treatment decisions require clinical judgment and consideration of individual patient factors, including patient preferences, comorbidities, previous drug use, risk factors not captured in the FRAX model (e.g. frailty, falls, vitamin D deficiency, increased bone turnover, interval significant decline in bone density) and possible under or overestimation of fracture risk by FRAX. FUTURE SCAN RECOMMENDATION: People with diagnosed cases of osteoporosis or at high risk for fracture should have regular bone mineral density tests. For patients eligible for Medicare, routine testing is allowed once every 2 years. The testing frequency can be increased to one year for patients who have rapidly progressing disease, those who are receiving or discontinuing medical therapy to restore bone mass, or have additional risk factors.
== END 2022-01-28 10:36 | disposition home or self-care (01) ==
LOC: HO.MAMMO 10:35
PROVIDERS: PCP Internal Medicine; Visit Provider Internal Medicine Rheumatology
DX: Z13.820 Encounter for screening for osteoporosis (principal); L40.50 Arthropathic psoriasis, unspecified; Z78.0 Asymptomatic menopausal state
CPT/HCPCS: 77080

== ENCOUNTER 2022-03-10 08:57 | Outpatient (REF) | payer MEDICARE, BC, SELFPAY ==
[2022-03-10 11:14] LABS: MANUAL DIFF FLAG NO
[2022-03-10 11:20] LABS: Basophils Percent Auto 0.4 % (0-2); Eosinophils Absolute Auto 0.1 X10*3/uL (0.0-0.4); Eosinophils Percent Auto 1.4 % (0-4); Hematocrit 38.8 % (37.0-47.0); Hemoglobin 13.1 g/dl (12.0-16.0); Imm Gran Abs Auto 0.02 X10*3/uL (0.00-0.03); Imm Gran Pct Auto 0.2 % (0.0-0.4); Lymphocytes Percent Auto 44.5 % (20-40); Mean Corpuscular HGB Conc 33.8 g/dl (31.0-35.0); Mean Corpuscular Hemoglobin 28.6 pg (27.0-33.0); Mean Corpuscular Volume 84.7 fL (80.0-98.0); Mean Platelet Volume 10.4 fL (9.4-12.3); Monocytes Absolute Auto 0.5 X10*3/uL (0.1-1.2); Monocytes Percent Auto 5.8 % (2-11); Neutrophils Absolute Auto 4.3 x10*3/uL (2.0-8.3); Neutrophils Percent Auto 47.7 % (45-73); Platelet Count 325 X10*3/uL (160-400); Red Blood Count 4.58 X10*6/uL (4.20-5.50); Red Cell Distribution Width 13.9 % (11.0-16.0)
[2022-03-10 11:38] LABS: Alanine Aminotransferase 21 U/L (0-31); Alkaline Phosphatase 75 U/L (39-117); Anion Gap 13 (12-20); Aspartate Amino Transferase 25 U/L (5-31); Bilirubin Total 0.6 mg/dL (0.0-1.0); Blood Urea Nitrogen 20 mg/dL (9-16); C Reactive Protein 0.13 mg/dL (< or = 0.50); Carbon Dioxide 31 mmol/L (22-29); Chloride 101 mmol/L (96-108); Estimated Glomerular Filt Rate 40; Glucose Random 167 mg/dL (60-115); Potassium 3.9 mmol/L (3.3-5.1); Sodium 141 mmol/L (135-145)
[2022-03-10 11:53] LABS: Erythrocyte Sedimentation Rate 18 MM/HR (0-20)
[2022-03-12 08:38] LABS: TS Negative Control Passed; TS Panel A 0; TS Panel B 0; TS Positive Control Passed; TSpotTB Negative (Negative)
== END 2022-03-10 08:58 | disposition home or self-care (01) ==
LOC: HO.HMGCLR 08:57
PROVIDERS: PCP Internal Medicine; Visit Provider Internal Medicine Rheumatology
DX: Z11.1 Encounter for screening for respiratory tuberculosis (principal); L40.50 Arthropathic psoriasis, unspecified; Z79.899 Other long term (current) drug therapy
CPT/HCPCS: 36415; 80053; 85025; 85652; 86140; 86481

== ENCOUNTER 2022-05-06 09:43 | Outpatient (REF) | payer MEDICARE, BC, SELFPAY ==
[2022-05-06 11:32] LABS: MANUAL DIFF FLAG NO
[2022-05-06 11:47] LABS: Basophils Absolute Auto 0.1 X10*3/uL (0.0-0.2); Basophils Percent Auto 0.5 % (0-2); Eosinophils Absolute Auto 0.2 X10*3/uL (0.0-0.4); Eosinophils Percent Auto 2.2 % (0-4); Hematocrit 42.1 % (37.0-47.0); Hemoglobin 14.1 g/dl (12.0-16.0); Imm Gran Abs Auto 0.02 X10*3/uL (0.00-0.03); Imm Gran Pct Auto 0.2 % (0.0-0.4); Lymphocytes Absolute Auto 4.7 X10*3/uL (1.2-4.9); Lymphocytes Percent Auto 46.8 % (20-40); Mean Corpuscular HGB Conc 33.5 g/dl (31.0-35.0); Mean Corpuscular Hemoglobin 28.8 pg (27.0-33.0); Mean Corpuscular Volume 86.1 fL (80.0-98.0); Mean Platelet Volume 10.7 fL (9.4-12.3); Monocytes Absolute Auto 0.6 X10*3/uL (0.1-1.2); Monocytes Percent Auto 5.5 % (2-11); Neutrophils Absolute Auto 4.5 x10*3/uL (2.0-8.3); Neutrophils Percent Auto 44.8 % (45-73); Platelet Count 328 X10*3/uL (160-400); Red Blood Count 4.89 X10*6/uL (4.20-5.50); Red Cell Distribution Width 13.8 % (11.0-16.0)
[2022-05-06 11:50] LABS: Estimated Average Glucose 157 mg/dL; Hemoglobin A1c % 7.1 %
[2022-05-06 11:58] LABS: Glucose Fasting 134 mg/dL (60-99)
[2022-05-06 12:04] LABS: Alanine Aminotransferase 20 U/L (0-31); Albumin Level 4.2 g/dL (3.5-5.0); Alkaline Phosphatase 93 U/L (39-117); Anion Gap 15 (12-20); Aspartate Amino Transferase 24 U/L (5-31); Bilirubin Total 0.9 mg/dL (0.0-1.0); Blood Urea Nitrogen 25 mg/dL (9-16); Calcium 9.5 mg/dL (8.4-10.2); Carbon Dioxide 29 mmol/L (22-29); Chloride 99 mmol/L (96-108); Estimated Glomerular Filt Rate 38; Glucose Random 132 mg/dL (60-115); Potassium 4.3 mmol/L (3.3-5.1); Sodium 139 mmol/L (135-145); Total Protein 7.2 g/dL (6.5-8.0)
[2022-05-06 12:30] LABS: Erythrocyte Sedimentation Rate 18 MM/HR (0-20)
== END 2022-05-06 09:44 | disposition home or self-care (01) ==
LOC: HO.HMGCLR 09:43
PROVIDERS: Absent Provider Internal Medicine Rheumatology; PCP Internal Medicine; Visit Provider Internal Medicine
DX: R73.9 Hyperglycemia, unspecified (principal); L40.50 Arthropathic psoriasis, unspecified; Z79.620 Long term (current) use of immunosuppressive biologic; Z79.61 Long term (current) use of immunomodulator; Z79.1 Long term (current) use of non-steroidal anti-inflammatories (NSAID)
CPT/HCPCS: 36415; 80053; 82947; 83036; 85025; 85652

== ENCOUNTER 2022-08-24 08:49 | Outpatient (REF) | payer MEDICARE, BC, SELFPAY ==
[2022-08-24 11:22] LABS: MANUAL DIFF FLAG NO
[2022-08-24 11:39] LABS: Basophils Percent Auto 0.3 % (0-2); Eosinophils Absolute Auto 0.2 X10*3/uL (0.0-0.4); Eosinophils Percent Auto 2.5 % (0-4); Hematocrit 40.4 % (37.0-47.0); Hemoglobin 13.2 g/dl (12.0-16.0); Imm Gran Abs Auto 0.02 X10*3/uL (0.00-0.03); Imm Gran Pct Auto 0.2 % (0.0-0.4); Lymphocytes Absolute Auto 3.2 X10*3/uL (1.2-4.9); Lymphocytes Percent Auto 35.5 % (20-40); Mean Corpuscular HGB Conc 32.7 g/dl (31.0-35.0); Mean Corpuscular Hemoglobin 28.1 pg (27.0-33.0); Mean Corpuscular Volume 86.1 fL (80.0-98.0); Mean Platelet Volume 10.7 fL (9.4-12.3); Monocytes Absolute Auto 0.6 X10*3/uL (0.1-1.2); Monocytes Percent Auto 6.5 % (2-11); Neutrophils Absolute Auto 4.9 x10*3/uL (2.0-8.3); Platelet Count 278 X10*3/uL (160-400); Red Blood Count 4.69 X10*6/uL (4.20-5.50); Red Cell Distribution Width 13.2 % (11.0-16.0); White Blood Count 8.9 X10*3/uL (4.8-10.8)
[2022-08-24 11:51] LABS: Estimated Average Glucose 143 mg/dL; Hemoglobin A1c % 6.6 %
[2022-08-24 11:59] LABS: Alanine Aminotransferase 32 U/L (0-31); Albumin Level 3.9 g/dL (3.5-5.0); Alkaline Phosphatase 134 U/L (39-117); Anion Gap 15 (12-20); Aspartate Amino Transferase 39 U/L (5-31); Bilirubin Total 0.5 mg/dL (0.0-1.0); Blood Urea Nitrogen 20 mg/dL (9-16); C Reactive Protein 0.19 mg/dL (< or = 0.50); Calcium 9.9 mg/dL (8.4-10.2); Carbon Dioxide 30 mmol/L (22-29); Chloride 99 mmol/L (96-108); Cholesterol 155 mg/dL; Estimated Glomerular Filt Rate 38; Glucose Fasting 201 mg/dL (60-99); Glucose Random 203 mg/dL (60-115); HDL Cholesterol 32 mg/dL; LDL Cholesterol Calculated 64 mg/dl; Potassium 4.3 mmol/L (3.3-5.1); Sodium 140 mmol/L (135-145); Total Protein 7.7 g/dL (6.5-8.0); Triglycerides 297 mg/dL
[2022-08-24 12:12] LABS: Erythrocyte Sedimentation Rate 24 MM/HR (0-20)
== END 2022-08-24 08:50 | disposition home or self-care (01) ==
LOC: HO.HMGCLR 08:49
PROVIDERS: Absent Provider Internal Medicine Rheumatology; PCP Internal Medicine; Visit Provider Internal Medicine
DX: R73.9 Hyperglycemia, unspecified (principal); E78.5 Hyperlipidemia, unspecified; L40.50 Arthropathic psoriasis, unspecified; Z79.620 Long term (current) use of immunosuppressive biologic; Z79.61 Long term (current) use of immunomodulator; Z79.1 Long term (current) use of non-steroidal anti-inflammatories (NSAID)
CPT/HCPCS: 36415; 80053; 80061; 82947; 83036; 85025; 85652; 86140

== ENCOUNTER 2022-10-21 06:40 | Outpatient (REF) | payer MEDICARE, BC, SELFPAY ==
[2022-10-21 11:32] LABS: MANUAL DIFF FLAG NO
[2022-10-21 11:47] LABS: Basophils Percent Auto 0.4 % (0-2); Eosinophils Absolute Auto 0.1 X10*3/uL (0.0-0.4); Eosinophils Percent Auto 1.9 % (0-4); Hematocrit 39.7 % (37.0-47.0); Hemoglobin 12.9 g/dl (12.0-16.0); Imm Gran Abs Auto 0.02 X10*3/uL (0.00-0.03); Imm Gran Pct Auto 0.3 % (0.0-0.4); Lymphocytes Absolute Auto 3.6 X10*3/uL (1.2-4.9); Lymphocytes Percent Auto 48.1 % (20-40); Mean Corpuscular HGB Conc 32.5 g/dl (31.0-35.0); Mean Corpuscular Hemoglobin 27.7 pg (27.0-33.0); Mean Corpuscular Volume 85.4 fL (80.0-98.0); Mean Platelet Volume 10.8 fL (9.4-12.3); Monocytes Absolute Auto 0.6 X10*3/uL (0.1-1.2); Monocytes Percent Auto 7.3 % (2-11); Neutrophils Absolute Auto 3.2 x10*3/uL (2.0-8.3); Platelet Count 260 X10*3/uL (160-400); Red Blood Count 4.65 X10*6/uL (4.20-5.50); Red Cell Distribution Width 13.8 % (11.0-16.0); White Blood Count 7.6 X10*3/uL (4.8-10.8)
[2022-10-21 12:01] LABS: Glucose Fasting 144 mg/dL (60-99)
[2022-10-21 12:14] LABS: Estimated Average Glucose 160 mg/dL; Hemoglobin A1c % 7.2 %
[2022-10-21 12:22] LABS: Erythrocyte Sedimentation Rate 18 MM/HR (0-20)
[2022-10-21 12:47] LABS: Alanine Aminotransferase 65 U/L (0-31); Albumin Level 3.8 g/dL (3.5-5.0); Alkaline Phosphatase 114 U/L (39-117); Anion Gap 13 (12-20); Aspartate Amino Transferase 47 U/L (5-31); Bilirubin Total 0.4 mg/dL (0.0-1.0); Blood Urea Nitrogen 24 mg/dL (9-16); C Reactive Protein 0.15 mg/dL (< or = 0.50); Calcium 9.9 mg/dL (8.4-10.2); Carbon Dioxide 30 mmol/L (22-29); Chloride 102 mmol/L (96-108); Estimated Glomerular Filt Rate 33; Glucose Random 141 mg/dL (60-115); Potassium 4.2 mmol/L (3.3-5.1); Sodium 141 mmol/L (135-145); Total Protein 7.3 g/dL (6.5-8.0)
[2022-10-21 14:30] LABS: Creatinine Urine 100.27 mg/dL; Microalbum/Creatinine Ratio Ur 16.9 ug/mg cr
== END 2022-10-21 06:41 | disposition home or self-care (01) ==
LOC: HO.HMGCLDS 06:40
PROVIDERS: Absent Provider Internal Medicine Rheumatology; PCP Internal Medicine; Visit Provider Internal Medicine
DX: E11.69 Type 2 diabetes mellitus with other specified complication (principal); E11.65 Type 2 diabetes mellitus with hyperglycemia; E66.01 Morbid (severe) obesity due to excess calories; L40.50 Arthropathic psoriasis, unspecified; Z79.620 Long term (current) use of immunosuppressive biologic; Z79.61 Long term (current) use of immunomodulator
CPT/HCPCS: 36415; 80053; 82043; 82947; 83036; 85025; 85652; 86140

== ENCOUNTER 2022-12-16 09:21 | Outpatient (REF) | payer MEDICARE, BC, SELFPAY | END 2022-12-16 09:22 | disposition home or self-care (01) | LOC: HO.HMGCLR 09:21 | PROVIDERS: PCP Internal Medicine; Visit Provider Internal Medicine Rheumatology | DX: L40.50 Arthropathic psoriasis, unspecified (principal); Z79.620 Long term (current) use of immunosuppressive biologic; Z79.61 Long term (current) use of immunomodulator; Z79.1 Long term (current) use of non-steroidal anti-inflammatories (NSAID) | CPT/HCPCS: 36415; 80053; 85025; 85652; 86140 ==

== ENCOUNTER 2022-12-23 10:51 | Outpatient (AMB) | payer MEDICARE, BC, SELFPAY ==
[2022-12-23 10:57] VITALS: BP 102/68; PULSE 92; O2SAT 98; BMI 27.0
--- NOTE | 2022-12-23 10:57 | MHC.PC.OV ---
Vital Signs 12/23/22 10:57 Height 5 ft 10 in Weight 188 lb BMI 27.0 BP 102/68 Blood Pressure Location Lt brachial Position Sitting Pulse 92 Pulse Source Pulse Oximeter Pulse Oximetry (%) 98 Oxygen Delivery Method Room Air Intake Visit Reasons: 3mth f/u Allergies No Known Allergies Allergy (Verified 12/23/22 10:57) Medication List - Last Reconciled 12/23/22 by Harpreet Harvey MD apremilast (Otezla) 30 mg PO BID certolizumab pegol (Cimzia) mg subcut doxepin [id number] mg PO BEDTIME dulaglutide (Trulicity) 1.5 mg subcut QWEEK gabapentin 300 mg PO TID PRN glipizide 5 mg PO BID hydrochlorothiazide 25 mg PO DAILY hydroxyzine HCl 25 mg PO BID PRN insulin degludec (Tresiba U-100 Insulin) 25 units subcut DAILY insulin lispro 5 units subcut TID lisinopril 2.5 mg PO DAILY meloxicam 15 mg PO DAILY metformin 1,000 mg PO DAILY metoclopramide HCl 5 mg PO TID omeprazole magnesium 20 mg PO DAILY propranolol 20 mg PO BID simvastatin 40 mg PO BEDTIME Tobacco use date assessed: 03/21/22 Fall risk assessment: No Falls in past year Last assessed Fall Risk: 12/23/22 Dental Screening Dental Screen Date: 12/23/22 Did you have a dental visit in the last 12 months?: Yes Did you have a dental problem in the last 6 months where you did not have access to dental care?: No Was dental information given to patient?: Patient has dentist HPI 3mth f/u HPI Details DM HTN and hyperlip on rx; sees endo; compliant [facility] Medical History Diabetes mellitus with coincident hypertension Diabetes mellitus Hypertension Surgical History No pertinent past surgical history Family History Father No problems noted. Mother No problems noted. Social History Housing: House Alcohol intake: never Patient Tobacco Use Status: Never used Tobacco e-Cigarette/Vaping Use: Never Used Second Hand Smoke Exposure: No service: No Current occupational status: retired Cognitive needs: No Hearing needs: No Vision needs: Yes (glasses) Questionnaire PHQ-9 Over the last 2 weeks, how often have you been bothered by any of the following problems? 1. Little interest or pleasure in doing things: not at all 2. Feeling down, depressed, or hopeless: not at all 3. Trouble falling or staying asleep, or sleeping too much: not at all 4. Feeling tired or having little energy: not at all 5. Poor appetite or overeating: not at all 6. Feeling bad about yourself - or that you are a failure or have let yourself or your family down: not at all 7. Trouble concentrating on things, such as reading the newspaper or watching television: not at all 8. Moving or speaking so slowly that other people could have noticed. Or the opposite - being so fidgety or restless that you have been moving around a lot more than usual: not at all 9. Thoughts that you would be better off or of hurting yourself in some way: not at all Total score: 0 Depression Screening Interpretation: Negative Depression Screening Done: Yes 31061 - PHQ-9 Billing: Yes Source: Developed by Drs. Gaston Armenta, Trevin Crowe and colleagues, with an educational obey from [employer]. Thrive Questionnaire Date Thrive assessed: 03/21/22 AUDIT C Alcohol Use Questionnaire (AUDIT-C) 1. How often do you have a drink containing alcohol?: Never Total Score: 0 Score Reviewed/Action Taken: Yes SB-7 AMB Questionnaire SB-7 Date SB - 7 assessed: 09/19/22 Source: Developed by Drs. Gaston Armenta, Trevin Crowe and colleagues, with an educational obey from [employer]. Review of Systems Const Denies chills, Denies headache(s) and Denies weight loss ENT Denies headache(s) Card Denies chest pain, Denies syncope, Denies irregular heart rhythm and Denies dyspnea Resp Denies chest congestion, Denies cough and Denies dyspnea GI Denies abdominal pain, Denies change in stool character, Denies nausea and Denies vomiting Musc Denies deformity and Denies joint swelling Neuro Denies syncope and Denies headache(s) Physical exam (Primary Care) Vital Signs: Last Vital Signs Pulse 92 12/23/22 10:57 BP 102/68 12/23/22 10:57 Pulse Ox 98 12/23/22 10:57 Oxygen Delivery Method Room Air 12/23/22 10:57 BMI result Body Mass Index 27.0 Tobacco/Smoking Status: Tobacco use Status Tobacco use date assessed 03/21/22 12/23/22 10:58 Patient Tobacco Use Status Never used Tobacco 12/23/22 10:58 e-Cigarette/Vaping Use Never Used 12/23/22 10:58 PHQ-9: PHQ-9 Score PHQ-9: Total score 0 12/23/22 10:58 Depression Screening Interpretation: Negative Thrive Assessment: Date of Thrive Assessment Date Thrive assessed 03/21/22 12/23/22 10:58 Const General: cooperative, comfortable, no acute distress and alert Neck Neck: Yes no lymphadenopathy Thyroid: Thyroid normal Resp Effort & Inspection: normal respiratory effort Auscultation: clear to auscultation bilaterally Percussion: percussion normal Cardio Jugular venous distension: no JVD Palpation: normal PMI Rate: regular rate Rhythm: regular rhythm Heart sounds: S1 normal heart sound present and S2 normal heart sound present GI Inspection: Yes normal to inspection Palpation (GI): No hepatosplenomegaly present Skin General skin exam: no rashes or lesions noted Extrem General: Yes no clubbing, cyanosis or edema Assessment and Plan Assessment & Plan (1) Hyperlipidemia: Code(s): E78.5 - Hyperlipidemia, unspecified Plan: stable; same rx (2) Diabetes mellitus with coincident hypertension: Code(s): E11.9 - Type 2 diabetes mellitus without complications; I10 - Essential (primary) hypertension Plan: as per endo (3) Hypertension: Code(s): I10 - Essential (primary) hypertension Plan: stable; same rx Orders: Orders Lipid Panel Today E78.5 - Hyperlipidemia, unspecified Thyroid Stimulating Hormone Today E03.9 - Hypothyroidism, unspecified Complete Blood Count Auto Diff Today D64.9 - Anemia, unspecified Comprehensive Wolf. Panel Fast Today N28.9 - Disorder of kidney and ureter, unspecified Microalbumin, Random (w Creat) Today E11.69 - Type 2 diabetes mellitus with other specified complication, E66.01 - Morbid (severe) obesity due to excess calories Hemoglobin A1c Today R73.9 - Hyperglycemia, unspecified Coding Level of Care Code Est Pt Level 4 (17818) Diagnoses Hyperlipidemia E78.5 Diabetes mellitus with coincident hypertension E11.9; I10 Hypertension I10
== END 2022-12-23 11:23 | disposition home or self-care (01) ==
PROVIDERS: PCP Internal Medicine; Visit Provider Internal Medicine
DX: E78.5 Hyperlipidemia, unspecified (principal); E11.65 Type 2 diabetes mellitus with hyperglycemia; I10 Essential (primary) hypertension
CPT/HCPCS: 99214

== ENCOUNTER 2023-02-16 06:05 | Outpatient (REF) | payer MEDICARE, BC, SELFPAY ==
[2023-02-16 11:14] LABS: MANUAL DIFF FLAG NO
[2023-02-16 11:39] LABS: Basophils Percent Auto 0.3 % (0-2); Eosinophils Absolute Auto 0.4 X10*3/uL (0.0-0.4); Eosinophils Percent Auto 4.2 % (0-4); Hematocrit 39.5 % (37.0-47.0); Hemoglobin 12.7 g/dl (12.0-16.0); Imm Gran Abs Auto 0.03 X10*3/uL (0.00-0.03); Imm Gran Pct Auto 0.3 % (0.0-0.4); Lymphocytes Absolute Auto 4.1 X10*3/uL (1.2-4.9); Lymphocytes Percent Auto 42.4 % (20-40); Mean Corpuscular HGB Conc 32.2 g/dl (31.0-35.0); Mean Corpuscular Hemoglobin 27.8 pg (27.0-33.0); Mean Corpuscular Volume 86.4 fL (80.0-98.0); Mean Platelet Volume 10.5 fL (9.4-12.3); Monocytes Absolute Auto 0.7 X10*3/uL (0.1-1.2); Monocytes Percent Auto 7.2 % (2-11); Neutrophils Absolute Auto 4.4 x10*3/uL (2.0-8.3); Neutrophils Percent Auto 45.6 % (45-73); Platelet Count 281 X10*3/uL (160-400); Red Blood Count 4.57 X10*6/uL (4.20-5.50); Red Cell Distribution Width 14.2 % (11.0-16.0); White Blood Count 9.7 X10*3/uL (4.8-10.8)
[2023-02-16 11:51] LABS: Estimated Average Glucose 131 mg/dL; Hemoglobin A1c % 6.2 % (<6.0)
[2023-02-16 12:02] LABS: C Reactive Protein 0.11 mg/dL (< or = 0.50)
[2023-02-16 12:15] LABS: Alanine Aminotransferase 25 U/L (0-31); Albumin Level 3.9 g/dL (3.5-5.0); Alkaline Phosphatase 101 U/L (39-117); Anion Gap 13 (12-20); Aspartate Amino Transferase 27 U/L (5-31); Bilirubin Total 0.5 mg/dL (0.0-1.0); Blood Urea Nitrogen 24 mg/dL (9-16); Calcium 9.6 mg/dL (8.4-10.2); Carbon Dioxide 29 mmol/L (22-29); Chloride 105 mmol/L (96-108); Cholesterol 154 mg/dL (<200); Estimated Glomerular Filt Rate 41; Glucose Fasting 94 mg/dL (60-99); HDL Cholesterol 40 mg/dL (>40); LDL Cholesterol Calculated 81 mg/dL (<100); Potassium 4.9 mmol/L (3.3-5.1); Sodium 142 mmol/L (135-145); Total Protein 7.4 g/dL (6.5-8.0); Triglycerides 166 mg/dL (<150)
[2023-02-16 12:20] LABS: Thyroid Stimulating Hormone 1.89 uIU/mL (0.32-4.0)
[2023-02-16 12:22] LABS: Creatinine Urine 43.27 mg/dL; Erythrocyte Sedimentation Rate 16 MM/HR (0-20); Microalbum/Creatinine Ratio Ur 13.8 ug/mg cr (<30)
[2023-02-16 12:25] LABS: Vitamin B12 207 pg/mL (200-900)
== END 2023-02-16 06:06 | disposition home or self-care (01) ==
LOC: HO.HMGCLDS 06:05
PROVIDERS: Absent Provider Internal Medicine Rheumatology; PCP Internal Medicine; Visit Provider Internal Medicine
DX: E11.65 Type 2 diabetes mellitus with hyperglycemia (principal); E66.01 Morbid (severe) obesity due to excess calories; D64.9 Anemia, unspecified; N28.9 Disorder of kidney and ureter, unspecified; E78.5 Hyperlipidemia, unspecified; E03.9 Hypothyroidism, unspecified; L40.50 Arthropathic psoriasis, unspecified; Z79.61 Long term (current) use of immunomodulator; Z51.81 Encounter for therapeutic drug level monitoring; Z79.1 Long term (current) use of non-steroidal anti-inflammatories (NSAID); Z79.899 Other long term (current) drug therapy
CPT/HCPCS: 36415; 80053; 80061; 82043; 82570; 82607; 83036; 84443; 85025; 85652; 86140

== ENCOUNTER 2023-04-10 08:41 | Outpatient (REF) | payer MEDICARE, BC, SELFPAY ==
[2023-04-10 11:07] LABS: MANUAL DIFF FLAG NO
[2023-04-10 11:09] LABS: Basophils Percent Auto 0.2 % (0-2); Eosinophils Absolute Auto 0.2 X10*3/uL (0.0-0.4); Eosinophils Percent Auto 2.3 % (0-4); Hematocrit 39.1 % (37.0-47.0); Hemoglobin 12.9 g/dl (12.0-16.0); Imm Gran Abs Auto 0.02 X10*3/uL (0.00-0.03); Imm Gran Pct Auto 0.2 % (0.0-0.4); Lymphocytes Percent Auto 41.2 % (20-40); Mean Corpuscular Hemoglobin 27.2 pg (27.0-33.0); Mean Corpuscular Volume 82.3 fL (80.0-98.0); Mean Platelet Volume 10.4 fL (9.4-12.3); Monocytes Absolute Auto 0.7 X10*3/uL (0.1-1.2); Monocytes Percent Auto 7.6 % (2-11); Neutrophils Absolute Auto 4.7 x10*3/uL (2.0-8.3); Neutrophils Percent Auto 48.5 % (45-73); Platelet Count 280 X10*3/uL (160-400); Red Blood Count 4.75 X10*6/uL (4.20-5.50); Red Cell Distribution Width 13.3 % (11.0-16.0); White Blood Count 9.7 X10*3/uL (4.8-10.8)
[2023-04-10 11:48] LABS: Erythrocyte Sedimentation Rate 14 MM/HR (0-20)
[2023-04-10 12:04] LABS: Alanine Aminotransferase 23 U/L (0-31); Albumin Level 3.9 g/dL (3.5-5.0); Alkaline Phosphatase 89 U/L (39-117); Anion Gap 15 (12-20); Aspartate Amino Transferase 27 U/L (5-31); Bilirubin Total 0.5 mg/dL (0.0-1.0); Blood Urea Nitrogen 22 mg/dL (9-16); C Reactive Protein < 0.10 mg/dL (< or = 0.50); Calcium 9.5 mg/dL (8.4-10.2); Carbon Dioxide 25 mmol/L (22-29); Chloride 105 mmol/L (96-108); Estimated Glomerular Filt Rate 40; Glucose Random 135 mg/dL (60-115); Potassium 4.3 mmol/L (3.3-5.1); Sodium 141 mmol/L (135-145); Total Protein 7.3 g/dL (6.5-8.0)
== END 2023-04-10 08:42 | disposition home or self-care (01) ==
LOC: HO.HMGCLR 08:41
PROVIDERS: PCP Internal Medicine; Visit Provider Internal Medicine Rheumatology
DX: L40.50 Arthropathic psoriasis, unspecified (principal); Z79.899 Other long term (current) drug therapy; Z79.61 Long term (current) use of immunomodulator; Z79.1 Long term (current) use of non-steroidal anti-inflammatories (NSAID)
CPT/HCPCS: 36415; 80053; 85025; 85652; 86140

== ENCOUNTER 2023-04-26 09:09 | Outpatient (AMB) | payer MEDICARE, BC, SELFPAY ==
[2023-04-26 09:13] VITALS: BP 128/68; PULSE 97; O2SAT 98; BMI 28.1
--- NOTE | 2023-04-26 09:13 | A.OFFPC_ITS ---
Vital Signs 04/26/23 09:13 Height 5 ft 10 in Weight 196 lb BMI 28.1 BP 128/68 Blood Pressure Location Lt brachial Position Sitting Pulse 97 Pulse Source Pulse Oximeter Pulse Oximetry (%) 98 Oxygen Delivery Method Room Air Intake Visit Reasons: 4 month f/u Food Service Worker Required: No Singing Teacher: Not Required per policy Accompanied by: Self / Same As Patient Allergies No Known Allergies Allergy (Verified 04/26/23 09:13) Medication List - Last Reconciled 04/26/23 by Harpreet Harvey MD apremilast (Otezla) 30 mg PO BID certolizumab pegol (Cimzia) mg subcut doxepin [id number] mg PO BEDTIME dulaglutide (Trulicity) 1.5 mg subcut QWEEK gabapentin 300 mg PO TID PRN glipizide 5 mg PO BID hydrochlorothiazide 25 mg PO DAILY hydroxyzine HCl 25 mg PO BID PRN insulin degludec (Tresiba U-100 Insulin) 25 units subcut DAILY insulin lispro 5 units subcut TID lisinopril 2.5 mg PO DAILY meloxicam 15 mg PO DAILY metformin 1,000 mg PO DAILY metoclopramide HCl 5 mg PO TID omeprazole magnesium 20 mg PO DAILY propranolol 20 mg PO BID simvastatin 40 mg PO BEDTIME Tobacco use date assessed: 04/26/23 Fall risk assessment: No Falls in past year Last assessed Fall Risk: 04/26/23 Dental Screening Dental Screen Date: 04/26/23 Did you have a dental visit in the last 12 months?: Yes Did you have a dental problem in the last 6 months where you did not have access to dental care?: No Was dental information given to patient?: Patient has dentist HPI 4 month f/u HPI Details DM and sees endo in [place]; doing well PFSH Medical History Diabetes mellitus with coincident hypertension Diabetes mellitus Hypertension Surgical History No pertinent past surgical history Family History Father No problems noted. Mother No problems noted. Social History Housing: House Alcohol intake: never Patient Tobacco Use Status: Never used Tobacco e-Cigarette/Vaping Use: Never Used Second Hand Smoke Exposure: No service: No Current occupational status: retired Cognitive needs: No Hearing needs: No Vision needs: Yes (glasses) Questionnaire PHQ-9 Over the last 2 weeks, how often have you been bothered by any of the following problems? 1. Little interest or pleasure in doing things: not at all 2. Feeling down, depressed, or hopeless: not at all 3. Trouble falling or staying asleep, or sleeping too much: not at all 4. Feeling tired or having little energy: not at all 5. Poor appetite or overeating: not at all 6. Feeling bad about yourself - or that you are a failure or have let yourself or your family down: not at all 7. Trouble concentrating on things, such as reading the newspaper or watching television: not at all 8. Moving or speaking so slowly that other people could have noticed. Or the opposite - being so fidgety or restless that you have been moving around a lot more than usual: not at all 9. Thoughts that you would be better off or of hurting yourself in some way: not at all Total score: 0 Depression Screening Interpretation: Negative Depression Screening Done: Yes 35216 - PHQ-9 Billing: Yes Source: Developed by Drs. Gaston Armenta, Elizabeth Goins, Trevin Bello and colleagues, with an educational obey from [employer]. Thrive Questionnaire Date Thrive assessed: 04/26/23 I am a: Patient What is your living situation today?: I have a steady place to live Within the past 12 months, did the food you bought not last and you didn't have the money to get more?: Never true Within the past 12 months, did you worry whether your food would run out before you got money to buy more?: Never true Do you have trouble paying for medicines?: No Do you have trouble getting transportation to medical appointments?: No Do you have trouble paying your heating and electricity bill?: No Do you have trouble taking care of your child, family member or friend?: No Do you have trouble with day-to-day activities such as bathing, preparing meals, shopping, managing finances, etc.?: No Are you currently unemployed and looking for a job?: No Are you interested in more education?: No Please select the resources that you would like help with: None THRIVE Score: 0 AUDIT C Alcohol Use Questionnaire (AUDIT-C) 1. How often do you have a drink containing alcohol?: Never Total Score: 0 Score Reviewed/Action Taken: Yes SB-7 AMB Questionnaire SB-7 Date SB - 7 assessed: 04/26/23 Feeling nervous, anxious, or on edge: 0 = Not at all Not being able to stop or control worryin = Not at all Worrying too much about different things: 0 = Not at all Trouble relaxin = Not at all Being so restless that it is hard to sit still: 0 = Not at all Becoming easily annoyed or irritable: 0 = Not at all Feeling afraid as if something awful might happen: 0 = Not at all Total SB-7 score (0-4 normal; 5-9 mild; 10-14 moderate; 15-21 severe): 0 Source: Developed by Drs. Gaston Armenta, Elizabeth Goins, Trevin Bello and colleagues, with an educational obey from [employer]. Review of Systems Const Denies chills, Denies headache(s) and Denies weight loss ENT Denies headache(s) Card Denies chest pain, Denies syncope, Denies irregular heart rhythm and Denies dyspnea Resp Denies chest congestion, Denies cough and Denies dyspnea GI Denies abdominal pain, Denies change in stool character, Denies nausea and Denies vomiting Musc Denies deformity and Denies joint swelling Neuro Denies syncope and Denies headache(s) Physical exam (Primary Care) Vital Signs: Last Vital Signs Pulse 97 04/26/23 09:13 BP 128/68 04/26/23 09:13 Pulse Ox 98 04/26/23 09:13 Oxygen Delivery Method Room Air 04/26/23 09:13 BMI result Body Mass Index 28.1 Tobacco/Smoking Status: Tobacco use Status Tobacco use date assessed 04/26/23 04/26/23 09:15 Patient Tobacco Use Status Never used Tobacco 04/26/23 09:15 e-Cigarette/Vaping Use Never Used 04/26/23 09:15 PHQ-9: PHQ-9 Score PHQ-9: Total score 0 04/26/23 09:15 Depression Screening Interpretation: Negative Thrive Assessment: Date of Thrive Assessment Date Thrive assessed 04/26/23 04/26/23 09:15 Const General: cooperative, comfortable, no acute distress and alert Neck Neck: Yes no lymphadenopathy Thyroid: Thyroid normal Resp Effort & Inspection: normal respiratory effort Auscultation: clear to auscultation bilaterally Percussion: percussion normal Cardio Jugular venous distension: no JVD Palpation: normal PMI Rate: regular rate Rhythm: regular rhythm Heart sounds: S1 normal heart sound present and S2 normal heart sound present GI Inspection: Yes normal to inspection Palpation (GI): No hepatosplenomegaly present Skin General skin exam: no rashes or lesions noted Extrem General: Yes no clubbing, cyanosis or edema Assessment and Plan Assessment & Plan (1) Diabetes mellitus with coincident hypertension: Code(s): E11.9 - Type 2 diabetes mellitus without complications; I10 - Essential (primary) hypertension Plan: stable; same rx per endo (2) Hypertension: Code(s): I10 - Essential (primary) hypertension Plan: stable; same rx (3) Hyperlipidemia: Code(s): E78.5 - Hyperlipidemia, unspecified Plan: stable; same rx Orders: Orders Glucose Fasting Today R73.9 - Hyperglycemia, unspecified Hemoglobin A1c Today R73.9 - Hyperglycemia, unspecified Lipid Panel Today E78.5 - Hyperlipidemia, unspecified Coding Level of Care Code Est Pt Level 4 (94549) Diagnoses Diabetes mellitus with coincident hypertension E11.9; I10 Hypertension I10 Hyperlipidemia E78.5
== END 2023-04-26 09:41 | disposition home or self-care (01) ==
PROVIDERS: PCP Internal Medicine; Visit Provider Internal Medicine
DX: E11.9 Type 2 diabetes mellitus without complications (principal); I10 Essential (primary) hypertension; E78.5 Hyperlipidemia, unspecified
CPT/HCPCS: 99214

== ENCOUNTER 2023-05-05 14:35 | Outpatient (REF) | payer MEDICARE, BC, SELFPAY ==
--- NOTE | ~2023-05-05 | XR_ITS ---
EXAMINATION: XR ABDOMEN KUB CLINICAL INDICATION: Constipation. COMPARISON: None available. TECHNIQUE: AP view of the abdomen. FINDINGS: There is moderate scattered stool seen throughout the colon without significant distention. The small bowel loops are normal caliber. There is no organomegaly. No bony abnormality. XR/XR abdomen 1V IMPRESSION: Mild constipation. Moderate constipation. No acute process seen.
== END 2023-05-05 14:36 | disposition home or self-care (01) ==
LOC: HO.HMGCX 14:35
PROVIDERS: PCP Internal Medicine; Visit Provider Physician Assistant Medical
DX: K59.00 Constipation, unspecified (principal); K31.84 Gastroparesis
CPT/HCPCS: 74018

== ENCOUNTER 2023-06-09 10:39 | Outpatient (REF) | payer MEDICARE, BC, SELFPAY ==
[2023-06-09 13:37] LABS: MANUAL DIFF FLAG NO
[2023-06-09 13:46] LABS: Basophils Percent Auto 0.4 % (0-2); Eosinophils Absolute Auto 0.3 X10*3/uL (0.0-0.4); Eosinophils Percent Auto 2.9 % (0-4); Hematocrit 40.4 % (37.0-47.0); Hemoglobin 13.2 g/dl (12.0-16.0); Imm Gran Abs Auto 0.02 X10*3/uL (0.00-0.03); Imm Gran Pct Auto 0.2 % (0.0-0.4); Lymphocytes Absolute Auto 3.1 X10*3/uL (1.2-4.9); Mean Corpuscular HGB Conc 32.7 g/dl (31.0-35.0); Mean Corpuscular Hemoglobin 26.7 pg (27.0-33.0); Mean Corpuscular Volume 81.8 fL (80.0-98.0); Monocytes Absolute Auto 0.6 X10*3/uL (0.1-1.2); Monocytes Percent Auto 6.8 % (2-11); Neutrophils Absolute Auto 5.3 x10*3/uL (2.0-8.3); Neutrophils Percent Auto 56.7 % (45-73); Platelet Count 317 X10*3/uL (160-400); Red Blood Count 4.94 X10*6/uL (4.20-5.50); Red Cell Distribution Width 14.6 % (11.0-16.0); White Blood Count 9.4 X10*3/uL (4.8-10.8)
[2023-06-09 14:26] LABS: Alanine Aminotransferase 20 U/L (0-31); Albumin Level 3.9 g/dL (3.5-5.0); Alkaline Phosphatase 83 U/L (39-117); Anion Gap 14 (12-20); Aspartate Amino Transferase 26 U/L (5-31); Bilirubin Total 0.6 mg/dL (0.0-1.0); Blood Urea Nitrogen 20 mg/dL (9-16); C Reactive Protein < 0.10 mg/dL (< or = 0.50); Calcium 9.6 mg/dL (8.4-10.2); Carbon Dioxide 28 mmol/L (22-29); Chloride 102 mmol/L (96-108); Estimated Glomerular Filt Rate 42; Glucose Random 102 mg/dL (60-115); Potassium 4.4 mmol/L (3.3-5.1); Sodium 140 mmol/L (135-145); Total Protein 7.6 g/dL (6.5-8.0)
[2023-06-09 14:36] LABS: Erythrocyte Sedimentation Rate 16 MM/HR (0-20)
== END 2023-06-09 10:40 | disposition home or self-care (01) ==
LOC: HO.HMGCLR 10:39
PROVIDERS: PCP Internal Medicine; Visit Provider Internal Medicine Rheumatology
DX: L40.50 Arthropathic psoriasis, unspecified (principal); Z79.61 Long term (current) use of immunomodulator; Z79.899 Other long term (current) drug therapy; Z79.1 Long term (current) use of non-steroidal anti-inflammatories (NSAID)
CPT/HCPCS: 36415; 80053; 85025; 85652; 86140

== ENCOUNTER 2023-07-05 09:00 | Outpatient (AMB) | payer MEDICARE, BC, SELFPAY ==
--- NOTE | 2023-07-05 09:03 | A.OFFVIS_ITS ---
Vital Signs 07/05/23 09:13 Height 5 ft 10 in Weight 190 lb BMI 27.3 BP 157/67 H Blood Pressure Location Lt brachial Position Sitting Pulse 96 Intake Visit Reasons: Gastroparesis Intake Note: Patient new consult for Gastroparesis. Patient cc: nauseas, abdominal bloating with gas, better BM with Miralax, and denies any other GI. 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 Required: No Accompanied by: Self / Same As Patient Allergies No Known Allergies Allergy (Verified 07/05/23 09:02) Medication List - Last Reconciled 07/05/23 by Yesenia Lawrence PA-C apremilast (Otezla) 30 mg PO BID certolizumab pegol (Cimzia) mg subcut cholecalciferol (vitamin D3) 50 mcg PO DAILY doxepin 2160f69 mg PO BEDTIME dulaglutide (Trulicity) 1.5 mg subcut QWEEK gabapentin 300 mg PO TID PRN hydroxyzine HCl 25 mg PO BID PRN insulin lispro 5 units subcut TID lisinopril 2.5 mg PO DAILY meloxicam 15 mg PO DAILY metformin 1,000 mg PO DAILY metoclopramide HCl 5 mg PO TID omeprazole magnesium 20 mg PO DAILY polyethylene glycol 3350 (Miralax) 17 grams PO DAILY propranolol 20 mg PO BID simvastatin 40 mg PO BEDTIME trazodone 100 mg PO DAILY HPI Comments Details: A 68 y/o female referred for 2nd opinion from [facility] for gastropearesis- initially N/V daily- about 1 year ago she had full w/u- GES, EGD, negative cologuard 1 yr ago-[facility] GI Family hx- gastroparesis- mother, niece, cousin- had surgery She is very frustrated-made dietary change- no better-never hungry- forces herself to eat- Taking metoclopromide- bid or tid no improvement-> year- Trulicity for the past 2 years- dose degreased. C/O early satiety, she is losing wt- intentionally-bloating- glucose has been well controlled- Long hx chronic constipation-she has used many OTC preps currently using stool softeners and MiraLax-without very good response No cardiac or respiratory issues Occ nausea- no further vomiting [facility] Medical History (Updated 07/05/23 @ 15:02 by Yesenia Lawrence PA-C) Diabetes mellitus with coincident hypertension Diabetes mellitus Hypertension Surgical History No pertinent past surgical history Family History (Updated 07/05/23 @ 15:01 by Yesenia Lawrence PA-C) Father No problems noted. Mother Gastroparesis Paternal Grandmother Gastroparesis Family/Other Gastroparesis Social History Housing: House Alcohol intake: never Patient Tobacco Use Status: Never used Tobacco e-Cigarette/Vaping Use: Never Used Second Hand Smoke Exposure: No service: No Current occupational status: retired Cognitive needs: No Hearing needs: No Vision needs: Yes (glasses) Review of Systems Const All systems reviewed & are unremarkable except as noted in HPI and below Card Denies chest pain and Denies dyspnea Resp Denies dyspnea GI Reports bloating, Denies hematochezia, Reports constipation, Denies nausea and Denies vomiting Physical Exam Vital Signs: Last Vital Signs Pulse 96 07/05/23 09:13 BP 157/67 H 07/05/23 09:13 BMI result Body Mass Index 27.3 Const General: cooperative, healthy appearing, comfortable and no acute distress Orientation/consciousness: patient oriented x3 Limitations: no limitations Eyes Sclerae: sclerae normal Resp Effort & Inspection: normal respiratory effort and able to speak in complete sentences Cardio Rate: regular rate Rhythm: regular rhythm Heart sounds: S1 normal heart sound present and S2 normal heart sound present GI Palpation (GI): Soft to palpation and nontender Auscultation: normal bowel sounds Neuro General: patient oriented x3 Extrem General: Yes full ROM Psych Appearance: grossly normal Mental Status: mental status grossly normal Speech and movement: Normal speech and movement present and Clear speech present Affect: normal affect Attitude: cooperative Thought process: Normal thought process present Thought content: Normal thought content present Insight: Good insight present (Psych) Judgement: Good judgement present (Psych) Results Reviewed Results Reviewed: Reviewed [facility] GI note-Rob PAc Assessment & Plan Assessment & Plan (1) Gastroparesis: Comment: DM, trulicity, fam hx- gastrpoparesis Code(s): K31.84 - Gastroparesis Category: Medical Plan: reglan- no improvement > 1 yr- she will d/c (2) Bloating: Code(s): R14.0 - Abdominal distension (gaseous) Category: Medical Plan: Fodmap- hopefully gives some benefit She may continue anti gas Needs further eval (3) Chronic constipation: Comment: Currently MiraLax stool softener Code(s): K59.09 - Other constipation Category: Medical Plan: Consider trulance- Plan Consult with MD given 2nd opinion-previous full GI workup with no symptom improvement Orders: Orders NM gastric emptying study Today E11.9 - Type 2 diabetes mellitus without complications Medications: New plecanatide (Trulance) 3 mg PO DAILY 30 days 30 tabs 0RF Patient Instructions: Very pleasant 68-year-old female diabetic, gastroparesis self-referred for 2nd opinion Review of records- She will continue with dietary modifications and continue to try to identify any culprits She will stay well hydrated Consider Trulance for constipation however-will hold off as she will be seeing MD over the next couple of days. She will follow-up with MD at his expertise will serve her well Plan of care dependent on above Appreciate the opportunity assist in the care this pleasant Coding Level of Care Code Tele New Pt Level 4 (40387) Diagnoses Gastroparesis K31.84 Bloating R14.0 Chronic constipation K59.09 Time Spent (min) 50 Comment 2nd GI opinion
[2023-07-05 09:13] VITALS: BP 157/67; PULSE 96; BMI 27.3
== END 2023-07-05 10:32 | disposition home or self-care (01) ==
PROVIDERS: PCP Internal Medicine; Visit Provider Physician Assistant
DX: K31.84 Gastroparesis (principal); R14.0 Abdominal distension (gaseous); K59.09 Other constipation
CPT/HCPCS: 99204

== ENCOUNTER → 2023-07-05 09:00 | Outpatient (BNVA) | payer MEDICARE, BC, SELFPAY | PROVIDERS: PCP Internal Medicine; Visit Provider Physician Assistant | DX: K31.84 Gastroparesis (principal); K59.09 Other constipation; R14.0 Abdominal distension (gaseous) | CPT/HCPCS: 99202 ==

== ENCOUNTER 2023-07-07 10:06 | Outpatient (AMB) | payer MEDICARE, BC, SELFPAY ==
--- NOTE | 2023-07-07 10:15 | MHC.OFFVIS ---
Vital Signs 07/07/23 10:17 Height 5 ft 10 in Weight 194 lb 0.108 oz BMI 27.8 BP 162/80 H Blood Pressure Location Lt brachial Position Sitting Pulse 85 Intake Visit Reasons: Gastroparesis - 2nd opinion Intake Note: Yumiko presents in the office as a 2nd opinion appt. CC: She seen Yesenia 2 days ago - she states that she needs a second opinion because there is no changes since she has been coming here. States that she is bloated and has an issue with having a bowel movement. She states the gas does not really come out. Design Engineer Required: No Allergies grass pollen Allergy (Mild, Verified 07/07/23 10:17) Unknown HPI HPI Gastroparesis - 2nd opinion: Details: 68 y/o female here for f/u RECAP: [place] [facility] [place] opinion from [facility] for gastroparesis [phone]%--retention) initially N/V daily- about 1 year ago she had full w/u- GES, EGD, negative cologuard 1 yr ago-[facility] GI Trulicity for the past 2 years- Taking metoclopromide- bid or tid no improvement- Long hx chronic constipation-she has used many OTC preps currently using stool softeners and MiraLax-without very good response INTERIM: SHe has issues with constipation all her life, she goes every few days been diabetic for about 15 yrs she feels trulicity has not made her worse no depression she has blaoting and satiety feels like regaln not been working EXAM: GENERAL: The patient is well developed and nontoxic. VITAL SIGNS:see workflow HEENT: Nonicteric sclerae, PERRLA, EOMI. Oropharynx clear. Moist mucous membranes. Conjunctivae appear well perfused. No thyroid mass. CHEST: Chest wall is nontender. HEART: Regular rate and rhythm without murmurs. LUNGS: Clear to auscultation bilaterally. ABDOMEN: Soft, positive bowel sounds, nontender, no organomegaly.no flank tenderness SKIN: No rash, no excessive bruising, petechiae, or purpura. NEUROLOGIC: Cranial nerves II-XII intact without motor/sensory deficit. Psych: normal affect A/P: 1/ Possible global GI tract dysmotility with constipation and gastroparesis, may also have effects from meds and SIBO PLAN: 1/ trial of rifaximin 2/ motegrity, start with 1 mg 3/ increase fluid intake 4/ check for vitmain def, thyroid, and hu ab, Ig levels, RAST [facility] Medical History Diabetes mellitus with coincident hypertension Diabetes mellitus Hypertension Surgical History No pertinent past surgical history Family History (Updated 07/05/23 @ 15:01 by Yesenia Lawrence PA-C) Father No problems noted. Mother Gastroparesis Paternal Grandmother Gastroparesis Family/Other Gastroparesis Social History Housing: House Alcohol intake: never Patient Tobacco Use Status: Never used Tobacco e-Cigarette/Vaping Use: Never Used Second Hand Smoke Exposure: No service: No Current occupational status: retired Cognitive needs: No Hearing needs: No Vision needs: Yes (glasses) Physical Exam Vital Signs: Last Vital Signs Pulse 85 07/07/23 10:17 BP 162/80 H 07/07/23 10:17 BMI result Body Mass Index 27.8 Assessment & Plan Assessment & Plan (1) Gastroparesis: Comment: DM, trulicity, fam hx- gastrpoparesis Code(s): K31.84 - Gastroparesis Category: Medical Plan: PLAN: 1/ trial of rifaximin 2/ motegrity, start with 1 mg 3/ increase fluid intake 4/ check for vitmain def, thyroid, and hu ab, Ig levels, RAST Plan PLAN: 1/ trial of rifaximin 2/ motegrity, start with 1 mg 3/ increase fluid intake 4/ check for vitmain def, thyroid, and hu ab, Ig levels, RAST Orders: Orders Transglutaminase Ab IgG Today E46 - Unspecified protein-calorie malnutrition, G89.29 - Other chronic pain, K31.84 - Gastroparesis, R10.33 - Periumbilical pain Vitamin A Today E46 - Unspecified protein-calorie malnutrition, K31.84 - Gastroparesis Vitamin B1 Today E46 - Unspecified protein-calorie malnutrition, K31.84 - Gastroparesis Vitamin B12 and Folate Today E46 - Unspecified protein-calorie malnutrition, K31.84 - Gastroparesis Vitamin D 25-OH Total Today E46 - Unspecified protein-calorie malnutrition, K3.84 - Gastroparesis Vitamin E Today E46 - Unspecified protein-calorie malnutrition, K3.84 - Gastroparesis Vitamin K1 Today E46 - Unspecified protein-calorie malnutrition, K31.84 - Gastroparesis Zinc Today E46 - Unspecified protein-calorie malnutrition, K3.84 - Gastroparesis Ferritin Today E46 - Unspecified protein-calorie malnutrition, K31.84 - Gastroparesis Magnesium Today E46 - Unspecified protein-calorie malnutrition, K31.84 - Gastroparesis Complete Blood Count Auto Diff Today E46 - Unspecified protein-calorie malnutrition, K3. - Gastroparesis Comprehensive Met. Panel Today E46 - Unspecified protein-calorie malnutrition, K3 - Gastroparesis, K75.81 - Nonalcoholic steatohepatitis (FUENTES) HU Antibody Today E46 - Unspecified protein-calorie malnutrition, K3. - Gastroparesis Transglutaminase IgA Today E46 - Unspecified protein-calorie malnutrition, K3.84 - Gastroparesis Immunoglobulins,IgG IgA IgM Today E46 - Unspecified protein-calorie malnutrition, K3.84 - Gastroparesis Vitamin B3 (Niacin) Today E46 - Unspecified protein-calorie malnutrition, K3.84 - Gastroparesis Vitamin B5 (Pantothenic Acid) Today E46 - Unspecified protein-calorie malnutrition, K3.84 - Gastroparesis Vitamin B6 Today E46 - Unspecified protein-calorie malnutrition, K3. - Gastroparesis Vitamin C Today E46 - Unspecified protein-calorie malnutrition, K3. - Gastroparesis TSH reflex Free T4 Today E46 - Unspecified protein-calorie malnutrition, K3.84 - Gastroparesis Rast Allergen Today E46 - Unspecified protein-calorie malnutrition, K3. - Gastroparesis, Z91.018 - Allergy to other foods Medications: New prucalopride (Motegrity) 1 mg PO DAILY 30 tabs 2RF rifaximin 550 mg PO TID 2 weeks 42 tabs 0RF Discontinued plecanatide (Trulance) Discontinued Reason: Doctor's Order 3 mg PO DAILY 30 days 30 tabs 0RF Coding Level of Care Code Est Pt Level 4 (83700) Diagnoses Gastroparesis K31.84
[2023-07-07 10:17] VITALS: BP 162/80; PULSE 85; BMI 27.8
== END 2023-07-07 11:12 | disposition home or self-care (01) ==
PROVIDERS: PCP Internal Medicine; Visit Provider Internal Medicine Gastroenterology
DX: K31.84 Gastroparesis (principal)
CPT/HCPCS: 99214

== ENCOUNTER 2023-07-07 11:32 | Outpatient (REF) | payer MEDICARE, BC, SELFPAY ==
[2023-07-07 12:45] LABS: MANUAL DIFF FLAG NO
[2023-07-07 12:54] LABS: Basophils Percent Auto 0.5 % (0-2); Eosinophils Absolute Auto 0.2 X10*3/uL (0.0-0.4); Eosinophils Percent Auto 2.5 % (0-4); Hematocrit 40.9 % (37.0-47.0); Hemoglobin 13.4 g/dl (12.0-16.0); Imm Gran Abs Auto 0.01 X10*3/uL (0.00-0.03); Imm Gran Pct Auto 0.1 % (0.0-0.4); Lymphocytes Absolute Auto 3.1 X10*3/uL (1.2-4.9); Lymphocytes Percent Auto 37.2 % (20-40); Mean Corpuscular HGB Conc 32.8 g/dl (31.0-35.0); Mean Corpuscular Hemoglobin 26.6 pg (27.0-33.0); Mean Corpuscular Volume 81.3 fL (80.0-98.0); Mean Platelet Volume 10.4 fL (9.4-12.3); Monocytes Absolute Auto 0.6 X10*3/uL (0.1-1.2); Monocytes Percent Auto 6.7 % (2-11); Neutrophils Absolute Auto 4.4 x10*3/uL (2.0-8.3); Platelet Count 251 X10*3/uL (160-400); Red Blood Count 5.03 X10*6/uL (4.20-5.50); Red Cell Distribution Width 15.1 % (11.0-16.0); White Blood Count 8.3 X10*3/uL (4.8-10.8)
[2023-07-07 13:04] LABS: Estimated Average Glucose 131 mg/dL; Hemoglobin A1c % 6.2 % (<6.0)
[2023-07-07 13:05] LABS: Glucose Fasting 102 mg/dL (60-99)
[2023-07-07 13:21] LABS: Alanine Aminotransferase 47 U/L (0-31); Albumin Level 4.2 g/dL (3.5-5.0); Alkaline Phosphatase 108 U/L (39-117); Anion Gap 12 (12-20); Aspartate Amino Transferase 34 U/L (5-31); Bilirubin Total 0.5 mg/dL (0.0-1.0); Blood Urea Nitrogen 18 mg/dL (9-16); Calcium 9.7 mg/dL (8.4-10.2); Carbon Dioxide 31 mmol/L (22-29); Chloride 104 mmol/L (96-108); Cholesterol 138 mg/dL (<200); Estimated Glomerular Filt Rate 51; Glucose Random 105 mg/dL (60-115); HDL Cholesterol 34 mg/dL (>40); LDL Cholesterol Calculated 74 mg/dL (<100); Magnesium 1.7 mg/dL (1.6-2.6); Sodium 142 mmol/L (135-145); Total Protein 7.8 g/dL (6.5-8.0); Triglycerides 151 mg/dL (<150)
[2023-07-07 13:37] LABS: Ferritin 21 ng/mL (10-250); TSH reflex Free T4 0.57 uIU/mL (0.32-4.0); Vitamin D 25-OH Total 65.2 ng/mL (>30)
[2023-07-07 13:46] LABS: Folate 12.7 ng/mL (> or = 4.0); Vitamin B12 193 pg/mL (200-900)
[2023-07-10 11:04] LABS: IgA 443 mg/dL (70-320); IgG 1134 mg/dL (600-1540); IgM 69 mg/dL (50-300)
[2023-07-10 21:09] LABS: Transglutaminase Ab IgG <1.0 U/mL; Transglutaminase IgA <1.0 U/mL
[2023-07-11 16:48] LABS: Zinc 78 mcg/dL (60-130)
[2023-07-12 02:33] LABS: Vitamin A 48 mcg/dL (38-98)
[2023-07-12 13:04] LABS: Vitamin B6 6.8 ng/mL (2.1-21.7)
[2023-07-12 17:28] LABS: Alpha-Tocopherol 8.4 mg/L (5.7-19.9); Beta-Gamma Tocopherol <1.0 mg/L (<=4.3)
[2023-07-12 21:48] LABS: Vitamin B1 13 nmol/L (8-30)
[2023-07-13 02:59] LABS: Vitamin C 0.7 mg/dL (0.3-2.7)
[2023-07-13 07:38] LABS: Hu Antibody Screen, IFA Serum NEGATIVE (NEGATIVE)
[2023-07-13 15:24] LABS: Vitamin K1 487 pg/mL (130-1500)
[2023-07-14 02:43] LABS: Nicotinamide 22 ng/mL; Vit B3 - Nicotinic Acid <20 ng/mL; Vitamin B5 (Pantothenic Acid) 51 ng/mL (<275)
== END 2023-07-07 11:33 | disposition home or self-care (01) ==
LOC: HO.HMGCLDS 11:32
PROVIDERS: PCP Internal Medicine; Visit Provider Internal Medicine Gastroenterology
DX: E46 Unspecified protein-calorie malnutrition (principal); K31.84 Gastroparesis; R10.33 Periumbilical pain; G89.29 Other chronic pain; K75.81 Nonalcoholic steatohepatitis (NASH); Z91.018 Allergy to other foods; R73.9 Hyperglycemia, unspecified; E78.5 Hyperlipidemia, unspecified
CPT/HCPCS: 36415; 80053; 80061; 82180; 82306; 82607; 82728; 82746; 82784; 82947; 83036; 83735; 84181; 84207; 84425; 84443; 84446; 84590; 84591; 84597; 84630; 85025; 86003; 86255; 86256; 86364; 99212

== ENCOUNTER 2023-07-31 11:20 | Outpatient (REF) | payer MEDICARE, BC, SELFPAY ==
[2023-07-31 13:19] LABS: MANUAL DIFF FLAG NO
[2023-07-31 13:35] LABS: Basophils Percent Auto 0.5 % (0-2); Eosinophils Absolute Auto 0.2 X10*3/uL (0.0-0.4); Hematocrit 40.4 % (37.0-47.0); Hemoglobin 13.1 g/dl (12.0-16.0); Imm Gran Abs Auto 0.02 X10*3/uL (0.00-0.03); Imm Gran Pct Auto 0.2 % (0.0-0.4); Lymphocytes Absolute Auto 3.1 X10*3/uL (1.2-4.9); Lymphocytes Percent Auto 36.9 % (20-40); Mean Corpuscular HGB Conc 32.4 g/dl (31.0-35.0); Mean Corpuscular Hemoglobin 26.8 pg (27.0-33.0); Mean Corpuscular Volume 82.6 fL (80.0-98.0); Mean Platelet Volume 10.4 fL (9.4-12.3); Monocytes Absolute Auto 0.5 X10*3/uL (0.1-1.2); Monocytes Percent Auto 6.5 % (2-11); Neutrophils Absolute Auto 4.5 x10*3/uL (2.0-8.3); Neutrophils Percent Auto 53.9 % (45-73); Platelet Count 316 X10*3/uL (160-400); Red Blood Count 4.89 X10*6/uL (4.20-5.50); Red Cell Distribution Width 15.2 % (11.0-16.0); White Blood Count 8.3 X10*3/uL (4.8-10.8)
[2023-07-31 14:18] LABS: Erythrocyte Sedimentation Rate 11 MM/HR (0-20)
[2023-07-31 14:27] LABS: Alanine Aminotransferase 14 U/L (0-31); Albumin Level 4.1 g/dL (3.5-5.0); Alkaline Phosphatase 77 U/L (39-117); Anion Gap 16 (12-20); Aspartate Amino Transferase 22 U/L (5-31); Bilirubin Total 0.6 mg/dL (0.0-1.0); Blood Urea Nitrogen 21 mg/dL (9-16); C Reactive Protein < 0.10 mg/dL (< or = 0.50); Calcium 9.5 mg/dL (8.4-10.2); Carbon Dioxide 25 mmol/L (22-29); Chloride 105 mmol/L (96-108); Estimated Glomerular Filt Rate 41; Glucose Random 71 mg/dL (60-115); Potassium 4.2 mmol/L (3.3-5.1); Sodium 142 mmol/L (135-145); Total Protein 7.5 g/dL (6.5-8.0)
[2023-07-31 14:52] LABS: Folate 15.5 ng/mL (> or = 4.0); Vitamin B12 > 2000 pg/mL (200-900)
== END 2023-07-31 11:21 | disposition home or self-care (01) ==
LOC: HO.HMGCLR 11:20
PROVIDERS: PCP Internal Medicine; Referring Provider Internal Medicine Gastroenterology; Visit Provider Internal Medicine Rheumatology
DX: L40.50 Arthropathic psoriasis, unspecified (principal); Z51.81 Encounter for therapeutic drug level monitoring; Z79.61 Long term (current) use of immunomodulator; Z79.1 Long term (current) use of non-steroidal anti-inflammatories (NSAID); Z79.899 Other long term (current) drug therapy
CPT/HCPCS: 36415; 80053; 82607; 82746; 85025; 85652; 86140

== ENCOUNTER 2023-08-28 09:03 | Outpatient (AMB) | payer MEDICARE, BC, SELFPAY ==
--- NOTE | 2023-08-28 09:07 | MHC.PC.OV ---
Vital Signs 08/28/23 09:09 Height 5 ft 10 in Weight 183 lb BMI 26.3 BP 116/72 Blood Pressure Location Lt brachial Position Sitting Pulse 115 H Pulse Source Pulse Oximeter Pulse Oximetry (%) 98 Oxygen Delivery Method Room Air Intake Visit Reasons: 4mth f/u Allergies grass pollen Allergy (Mild, Verified 07/07/23 10:17) Unknown Tobacco use date assessed: 04/26/23 Fall risk assessment: No Falls in past year Last assessed Fall Risk: 08/28/23 Dental Screening Dental Screen Date: 04/26/23 HPI 4mth f/u HPI Details cough for 10 days PFSH Medical History Diabetes mellitus with coincident hypertension Diabetes mellitus Hypertension Surgical History No pertinent past surgical history Family History (Updated 07/05/23 @ 15:01 by Yesenia Lawrence PA-C) Father No problems noted. Mother Gastroparesis Paternal Grandmother Gastroparesis Family/Other Gastroparesis Social History Housing: House Alcohol intake: never Patient Tobacco Use Status: Never used Tobacco e-Cigarette/Vaping Use: Never Used Second Hand Smoke Exposure: No service: No Current occupational status: retired Cognitive needs: No Hearing needs: No Vision needs: Yes (glasses) Questionnaire Thrive Questionnaire Date Thrive assessed: 04/26/23 SB-7 AMB Questionnaire SB-7 Date SB - 7 assessed: 04/26/23 Source: Developed by Drs. Gaston Armenta, Elizabeth Goins, Trevin Bello and colleagues, with an educational obey from [employer]. Review of Systems Const Denies chills, Denies headache(s) and Denies weight loss ENT Denies headache(s) Card Denies chest pain, Denies syncope, Denies irregular heart rhythm and Reports dyspnea Resp Reports chest congestion, Reports cough and Reports dyspnea GI Denies abdominal pain, Denies change in stool character, Denies nausea and Denies vomiting Musc Denies deformity and Denies joint swelling Neuro Denies syncope and Denies headache(s) Physical exam (Primary Care) Vital Signs: Last Vital Signs Pulse 115 H 08/28/23 09:09 BP 116/72 08/28/23 09:09 Pulse Ox 98 08/28/23 09:09 Oxygen Delivery Method Room Air 08/28/23 09:09 BMI result Body Mass Index 26.3 Tobacco/Smoking Status: Tobacco use Status Tobacco use date assessed 04/26/23 08/28/23 09:08 Patient Tobacco Use Status Never used Tobacco 08/28/23 09:08 e-Cigarette/Vaping Use Never Used 08/28/23 09:08 Thrive Assessment: Date of Thrive Assessment Date Thrive assessed 04/26/23 08/28/23 09:08 Const General: cooperative, comfortable, no acute distress and alert Neck Neck: Yes no lymphadenopathy Thyroid: Thyroid normal Resp Effort & Inspection: normal respiratory effort Auscultation: clear to auscultation bilaterally Percussion: percussion normal Cardio Jugular venous distension: no JVD Palpation: normal PMI Rate: regular rate Rhythm: regular rhythm Heart sounds: S1 normal heart sound present and S2 normal heart sound present GI Inspection: Yes normal to inspection Palpation (GI): No hepatosplenomegaly present Skin General skin exam: no rashes or lesions noted Extrem General: Yes no clubbing, cyanosis or edema Assessment and Plan Assessment & Plan (1) Cough: Code(s): R05.9 - Cough, unspecified Plan: cxr rx Orders: Orders XR chest 2V Today R05.9 - Cough, unspecified Medications: New azithromycin take 500 mg today (day 1), then 250 mg for 4 days (days 2-5) PO 6 tabs 0RF azithromycin take 500 mg today (day 1), then 250 mg for 4 days (days 2-5) PO 6 tabs 0RF Coding Level of Care Code Est Pt Level 3 (00474) Diagnoses Cough R05.9
[2023-08-28 09:09] VITALS: BP 116/72; PULSE 115; O2SAT 98; BMI 26.3
== END 2023-08-28 09:39 | disposition home or self-care (01) ==
PROVIDERS: PCP Internal Medicine; Visit Provider Internal Medicine
DX: R05.9 Cough, unspecified (principal)
CPT/HCPCS: 99213

== ENCOUNTER 2023-09-01 09:15 | Outpatient (REF) | payer MEDICARE, BC, SELFPAY ==
--- NOTE | ~2023-09-01 | XR_ITS ---
EXAMINATION: XR CHEST CLINICAL INFORMATION: Cough COMPARISON: None available. TECHNIQUE: 2 views of the chest were obtained. FINDINGS: Lungs are well-inflated. There are a few small patchy airspace opacities of the right upper lobe. It is difficult to determine whether a small opacity in the left perihilar region is merely from the pulmonary vasculature or nodule or small airspace focus. Trachea is midline in position. No interstitial disease. No pleural effusion or pneumothorax. Cardiac silhouette and pulmonary vessels are normal in size. The mediastinum and bailey have normal contour. Mild and moderate spondylosis of the visualized spine. There is humeral osteophyte formation at degenerated glenohumeral joints. XR/XR chest 2V IMPRESSION: The small patchy airspace opacities in the right upper lobe are consistent with pneumonia. Possible small airspace opacity in left perihilar region as well. No pleural effusion. If patient clinically has pneumonia, then recommend chest radiographic follow-up in 6 weeks to ensure improvement or resolution of disease.
[2023-09-03 22:53] LABS: TS Negative Control Passed; TS Panel A 0; TS Panel B 0; TS Positive Control Passed; TSpotTB Negative (Negative)
== END 2023-09-01 09:16 | disposition home or self-care (01) ==
LOC: HO.HMGCX 09:15
PROVIDERS: PCP Internal Medicine; Referring Provider Dermatology; Visit Provider Internal Medicine
DX: R05.9 Cough, unspecified (principal); L40.0 Psoriasis vulgaris; Z79.899 Other long term (current) drug therapy
CPT/HCPCS: 36415; 71046; 86481

== ENCOUNTER 2023-09-04 13:04 | Outpatient (REF) | payer MEDICARE, BC, SELFPAY ==
--- NOTE | ~2023-09-04 | XR_ITS ---
EXAMINATION: XR CHEST CLINICAL INFORMATION: Chest pain COMPARISON: None available. TECHNIQUE: 2 views of the chest were obtained. FINDINGS: There is been no interval change in the right upper lobe opacities compared to the study from 3 days ago. The exam is otherwise unremarkable No significant abnormality is noted involving the heart, left lung, mediastinum, bony thorax or soft tissues. XR/XR chest 2V IMPRESSION: No acute intrathoracic disease. Persistent right upper lobe opacities.
== END 2023-09-04 13:05 | disposition home or self-care (01) ==
LOC: HO.HMGCX 13:04
PROVIDERS: PCP Internal Medicine; Visit Provider Internal Medicine
DX: R07.9 Chest pain, unspecified (principal)
CPT/HCPCS: 71046

== ENCOUNTER 2023-09-19 14:14 | Outpatient (AMB) | payer MEDICARE, BC, SELFPAY ==
[2023-09-19 14:16] VITALS: BP 104/67; PULSE 85; O2SAT 97; BMI 26.6
--- NOTE | 2023-09-19 14:16 | MHC.OFFVIS ---
Vital Signs 09/19/23 14:16 Height 5 ft 10 in Weight 185 lb 3.013 oz BMI 26.6 BP 104/67 Blood Pressure Location Rt brachial Position Sitting Pulse 85 Pulse Source Doppler Pulse Oximetry (%) 97 Oxygen Delivery Method Room Air Intake Visit Reasons: Abnormal chest X-ray Allergies grass pollen Allergy (Mild, Verified 09/19/23 14:19) Unknown HPI HPI Abnormal chest X-ray: Details: 68-year-old lady, nonsmoker, with no prior history of pulmonary concerns presents complaining of persistent dry cough after recent COVID-19 infection approximately 1 months prior to presentation. Patient also complains of underlying acid reflux that is well controlled on omeprazole. She does have family history of COPD and lung cancer in her mother and grandfather. [facility] Medical History Diabetes mellitus with coincident hypertension Diabetes mellitus Hypertension Surgical History No pertinent past surgical history Family History (Updated 07/05/23 @ 15:01 by Yesenia Lawrence PA-C) Father No problems noted. Mother Gastroparesis Paternal Grandmother Gastroparesis Family/Other Gastroparesis Social History Housing: House Alcohol intake: never Patient Tobacco Use Status: Never used Tobacco e-Cigarette/Vaping Use: Never Used Second Hand Smoke Exposure: No service: No Current occupational status: retired Cognitive needs: No Hearing needs: No Vision needs: Yes (glasses) Review of Systems Const Denies daytime sleepiness, Denies excessive sweating, Denies fatigue, Denies fever(s), Denies lethargy, Denies malaise, Denies night sweats, Denies snoring and Denies weight loss Eyes Denies blurry vision and Denies itchy eyes ENT Denies nasal congestion, Denies post nasal drip, Denies sinus pain, Denies sinus pressure and Denies other ( Thrush) Card Denies chest pain, Denies pedal edema, Denies dyspnea, Denies orthopnea and Denies paroxysmal nocturnal dyspnea Resp Reports cough, Denies hemoptysis, Denies excessive phlegm production, Denies dyspnea, Denies snoring and Denies wheezing GI Denies abdominal pain and Denies heartburn Musc Denies myalgias, Denies arthralgias and Denies joint swelling Skin/Breast Denies rash Neuro Denies memory loss and Denies seizure-like activity Psych Denies abnormal sleep pattern, Denies anxiety and Denies memory loss Endo Denies excessive sweating, Denies fatigue and Denies heat intolerance Myles/Lymph Denies easy bruising Aller/Immun Denies itchy eyes, Denies seasonal rhinorrhea and Denies wheezing Physical Exam Vital Signs: Last Vital Signs Pulse 85 09/19/23 14:16 BP 104/67 09/19/23 14:16 Pulse Ox 97 09/19/23 14:16 Oxygen Delivery Method Room Air 09/19/23 14:16 BMI result Body Mass Index 26.6 Const General: no acute distress and alert Nutritional Appearance: not obese Orientation/consciousness: Other orientation findings ( oriented) HEENT Head: Yes atraumatic Eyes General: appearance normal, both eyes and all related structures Sclerae: sclerae normal EOM: EOMs intact bilaterally Neck Neck: Yes supple Lymphatic: no lymphadenopathy noted Resp Effort & Inspection: normal respiratory effort and no use of accessory muscles Auscultation: clear to auscultation bilaterally Cardio Rate: regular rate Rhythm: regular rhythm Heart sounds: no gallops, no murmurs and no rubs Skin General skin exam: other ( warm) Extrem General: No clubbing, No cyanosis and No edema Assessment & Plan Assessment & Plan (1) Opacity of lung on imaging study: Code(s): R91.8 - Other nonspecific abnormal finding of lung field Category: Medical Plan: Family history of lung cancer. Will obtain CT chest for further evaluation. (2) Chronic cough: Code(s): R05.3 - Chronic cough Category: Medical Plan: Likely postinfectious/viral syndrome cough. Will proceed with symptomatic therapy with codeine. Orders: Orders CT chest wo IV con Today R91.8 - Other nonspecific abnormal finding of lung field Medications: New codeine-guaifenesin 10-100 mg/5 mL 10 mL PO Q4-6H PRN 473 mL 0RF cough R91.8 - Other nonspecific abnormal finding of lung field Coding Level of Care Code New Pt Level 4 (94363) Diagnoses Opacity of lung on imaging study R91.8 Chronic cough R05.3
== END 2023-09-19 14:33 | disposition home or self-care (01) ==
PROVIDERS: PCP Internal Medicine; Referring Provider Internal Medicine; Visit Provider Internal Medicine Pulmonary Disease
DX: R91.8 Other nonspecific abnormal finding of lung field (principal); R05.3 Chronic cough
CPT/HCPCS: 99204

== ENCOUNTER → 2023-09-19 14:14 | Outpatient (BNVA) | payer MEDICARE, BC, SELFPAY | PROVIDERS: PCP Internal Medicine; Referring Provider Internal Medicine; Visit Provider Internal Medicine Pulmonary Disease | DX: R91.8 Other nonspecific abnormal finding of lung field (principal); R05.3 Chronic cough; Z80.1 Family history of malignant neoplasm of trachea, bronchus and lung | CPT/HCPCS: 99202 ==

== ENCOUNTER 2023-09-22 10:12 | Outpatient (REF) | payer MEDICARE, BC, SELFPAY ==
[2023-09-22 13:08] LABS: MANUAL DIFF FLAG NO
[2023-09-22 13:13] LABS: Basophils Percent Auto 0.4 % (0-2); Eosinophils Absolute Auto 0.1 X10*3/uL (0.0-0.4); Eosinophils Percent Auto 1.7 % (0-4); Hematocrit 41.5 % (37.0-47.0); Hemoglobin 13.3 g/dl (12.0-16.0); Imm Gran Abs Auto 0.01 X10*3/uL (0.00-0.03); Imm Gran Pct Auto 0.1 % (0.0-0.4); Lymphocytes Absolute Auto 2.8 X10*3/uL (1.2-4.9); Lymphocytes Percent Auto 34.7 % (20-40); Mean Corpuscular Hemoglobin 26.8 pg (27.0-33.0); Mean Corpuscular Volume 83.7 fL (80.0-98.0); Monocytes Absolute Auto 0.5 X10*3/uL (0.1-1.2); Monocytes Percent Auto 5.7 % (2-11); Neutrophils Absolute Auto 4.7 x10*3/uL (2.0-8.3); Neutrophils Percent Auto 57.4 % (45-73); Platelet Count 315 X10*3/uL (160-400); Red Blood Count 4.96 X10*6/uL (4.20-5.50); White Blood Count 8.1 X10*3/uL (4.8-10.8)
[2023-09-22 13:42] LABS: Alanine Aminotransferase 18 U/L (0-31); Albumin Level 3.9 g/dL (3.5-5.0); Alkaline Phosphatase 95 U/L (39-117); Anion Gap 12 (12-20); Aspartate Amino Transferase 21 U/L (5-31); Bilirubin Total 0.6 mg/dL (0.0-1.0); Blood Urea Nitrogen 15 mg/dL (9-16); C Reactive Protein 0.13 mg/dL (< or = 0.50); Calcium 10.1 mg/dL (8.4-10.2); Carbon Dioxide 30 mmol/L (22-29); Chloride 102 mmol/L (96-108); Estimated Glomerular Filt Rate 45; Glucose Random 105 mg/dL (60-115); Potassium 5.2 mmol/L (3.3-5.1); Sodium 139 mmol/L (135-145); Total Protein 7.4 g/dL (6.5-8.0)
[2023-09-22 13:52] LABS: Erythrocyte Sedimentation Rate 27 MM/HR (0-20)
== END 2023-09-22 10:13 | disposition home or self-care (01) ==
LOC: HO.HMGCLR 10:12
PROVIDERS: PCP Internal Medicine; Visit Provider Internal Medicine Rheumatology
DX: L40.50 Arthropathic psoriasis, unspecified (principal); Z79.61 Long term (current) use of immunomodulator; Z79.01 Long term (current) use of anticoagulants; Z51.81 Encounter for therapeutic drug level monitoring; Z79.899 Other long term (current) drug therapy
CPT/HCPCS: 36415; 80053; 85025; 85652; 86140

== ENCOUNTER 2023-10-20 13:47 | Outpatient (REF) | payer MEDICARE, BC, SELFPAY ==
--- NOTE | ~2023-10-20 | CT_ITS ---
EXAMINATION: CT CHEST WITHOUT CONTRAST CLINICAL INFORMATION: Prior abnormal imaging. COMPARISON: Chest radiographs 09/04/2023 TECHNIQUE: Multidetector volumetric CT imaging of the chest was done. Axial MIP volume rendering provided. Sagittal and coronal reformatted images were obtained. This CT examination was performed using dose optimization techniques as appropriate, variously including the following: *Automated exposure control *Adjustment of mA and/or kV according to patient size (this includes techniques or standardized protocols for targeted exams where dose is matched to indication/reason for exam; i.e. extremities or head) *Use of iterative reconstruction technique DLP: 146 mGy-cm FINDINGS: LUNGS: Peribronchial groundglass opacities involving right upper lobe, right middle lobe and right lower lobe and to a lesser extent left upper lobe. Central airways are patent. MEDIASTINUM: The thyroid gland is heterogeneous. No bulky axillary, hilar or mediastinal lymphadenopathy. Great vessels are of normal caliber. Heart size is normal. No pericardial effusion. CORONARY ARTERY CALCIFICATION: Mild. PLEURA: No pleural effusion. UPPER ABDOMEN: Unremarkable. OSSEOUS STRUCTURES: No destructive bone lesions. CT/CT chest wo IV con IMPRESSION: Multifocal peribronchial groundglass opacities. An infectious and inflammatory etiologies should be considered. Advise clinical correlation and short interval follow-up imaging. Consider consultation with pulmonology.
== END 2023-10-20 13:48 | disposition home or self-care (01) ==
LOC: HO.CT 13:47
PROVIDERS: PCP Internal Medicine; Visit Provider Internal Medicine Pulmonary Disease
DX: R91.8 Other nonspecific abnormal finding of lung field (principal)
CPT/HCPCS: 71250

== ENCOUNTER 2023-10-26 13:19 | Outpatient (AMB) | payer MEDICARE, BC, SELFPAY ==
--- NOTE | 2023-10-26 13:40 | MHC.OFFVIS ---
Vital Signs 10/26/23 13:41 Height 5 ft 10 in Weight 187 lb BMI 26.8 BP 122/68 Blood Pressure Location Lt brachial Position Sitting Pulse 86 Pulse Source Doppler Pulse Oximetry (%) 98 Oxygen Delivery Method Room Air Intake Visit Reasons: Abnormal chest X-ray Allergies grass pollen Allergy (Mild, Verified 09/19/23 14:19) Unknown HPI HPI Abnormal chest X-ray: Details: 68-year-old lady, nonsmoker, with no prior history of pulmonary concerns presents complaining of persistent dry cough after recent COVID-19 infection approximately 1 months prior to presentation. Patient also complains of underlying acid reflux that is well controlled on omeprazole. She does have family history of COPD and lung cancer in her mother and grandfather. After the last office visit patient was treated with codeine for symptomatic relief and reports resolution of her prior post viral cough. She also had CT chest that showed mild bilateral peribronchial ground-glass opacities that appear to be related to resolving prior infection. Patient states that overall she continues to improve from her prior COVID infection. [facility] Medical History Diabetes mellitus with coincident hypertension Diabetes mellitus Hypertension Surgical History No pertinent past surgical history Family History (Updated 07/05/23 @ 15:01 by Yesenia Lawrence PA-C) Father No problems noted. Mother Gastroparesis Paternal Grandmother Gastroparesis Family/Other Gastroparesis Social History Housing: House Alcohol intake: never Patient Tobacco Use Status: Never used Tobacco e-Cigarette/Vaping Use: Never Used Second Hand Smoke Exposure: No service: No Current occupational status: retired Cognitive needs: No Hearing needs: No Vision needs: Yes (glasses) Review of Systems Const Denies daytime sleepiness, Denies excessive sweating, Denies fatigue, Denies fever(s), Denies lethargy, Denies malaise, Denies night sweats, Denies snoring and Denies weight loss Eyes Denies blurry vision and Denies itchy eyes ENT Denies nasal congestion, Denies post nasal drip, Denies sinus pain, Denies sinus pressure and Denies other ( Thrush) Card Denies chest pain, Denies pedal edema, Denies dyspnea, Denies orthopnea and Denies paroxysmal nocturnal dyspnea Resp Denies cough, Denies hemoptysis, Denies excessive phlegm production, Denies dyspnea, Denies snoring and Denies wheezing GI Denies abdominal pain and Denies heartburn Musc Denies myalgias, Denies arthralgias and Denies joint swelling Skin/Breast Denies rash Neuro Denies memory loss and Denies seizure-like activity Psych Denies abnormal sleep pattern, Denies anxiety and Denies memory loss Endo Denies excessive sweating, Denies fatigue and Denies heat intolerance Myles/Lymph Denies easy bruising Aller/Immun Denies itchy eyes, Denies seasonal rhinorrhea and Denies wheezing Physical Exam Vital Signs: Last Vital Signs Pulse 86 10/26/23 13:41 BP 122/68 10/26/23 13:41 Pulse Ox 98 10/26/23 13:41 Oxygen Delivery Method Room Air 10/26/23 13:41 BMI result Body Mass Index 26.8 Const General: no acute distress and alert Nutritional Appearance: not obese Orientation/consciousness: Other orientation findings ( oriented) HEENT Head: Yes atraumatic Eyes General: appearance normal, both eyes and all related structures Sclerae: sclerae normal EOM: EOMs intact bilaterally Neck Neck: Yes supple Lymphatic: no lymphadenopathy noted Resp Effort & Inspection: normal respiratory effort and no use of accessory muscles Auscultation: clear to auscultation bilaterally Cardio Rate: regular rate Rhythm: regular rhythm Heart sounds: no gallops, no murmurs and no rubs Skin General skin exam: other ( warm) Extrem General: No clubbing, No cyanosis and No edema Assessment & Plan Assessment & Plan (1) Chronic cough: Code(s): R05.3 - Chronic cough Category: Medical (2) Post covid-19 condition, unspecified: Code(s): U09.9 - Post COVID-19 condition, unspecified Category: Medical Plan Post viral cough has essentially resolved. CT chest demonstrates what appears to be resolving sequela of prior infection. Symptomatically continues to improve from her prior COVID infection. Will recheck symptoms in 3 months. Coding Level of Care Code Est Pt Level 4 (51954) Diagnoses Chronic cough R05.3 Post covid-19 condition, unspecified U09.9
[2023-10-26 13:41] VITALS: BP 122/68; PULSE 86; O2SAT 98; BMI 26.8
== END 2023-10-26 13:52 | disposition home or self-care (01) ==
PROVIDERS: PCP Internal Medicine; Visit Provider Internal Medicine Pulmonary Disease
DX: R05.3 Chronic cough (principal); U09.9 Post COVID-19 condition, unspecified
CPT/HCPCS: 99214

== ENCOUNTER → 2023-10-26 13:19 | Outpatient (BNVA) | payer MEDICARE, BC, SELFPAY | PROVIDERS: PCP Internal Medicine; Visit Provider Internal Medicine Pulmonary Disease | DX: R05.3 Chronic cough (principal); U09.9 Post COVID-19 condition, unspecified | CPT/HCPCS: 99212 ==

== ENCOUNTER 2023-11-14 11:55 | Outpatient (REF) | payer MEDICARE, BC, SELFPAY ==
[2023-11-14 13:15] LABS: MANUAL DIFF FLAG NO
[2023-11-14 13:35] LABS: Basophils Percent Auto 0.4 % (0-2); Eosinophils Absolute Auto 0.2 X10*3/uL (0.0-0.4); Eosinophils Percent Auto 1.9 % (0-4); Hematocrit 39.5 % (37.0-47.0); Hemoglobin 12.6 g/dl (12.0-16.0); Imm Gran Abs Auto 0.03 X10*3/uL (0.00-0.03); Imm Gran Pct Auto 0.3 % (0.0-0.4); Lymphocytes Absolute Auto 3.4 X10*3/uL (1.2-4.9); Lymphocytes Percent Auto 36.8 % (20-40); Mean Corpuscular HGB Conc 31.9 g/dl (31.0-35.0); Mean Corpuscular Hemoglobin 26.6 pg (27.0-33.0); Mean Corpuscular Volume 83.5 fL (80.0-98.0); Mean Platelet Volume 10.1 fL (9.4-12.3); Monocytes Absolute Auto 0.6 X10*3/uL (0.1-1.2); Monocytes Percent Auto 6.8 % (2-11); Neutrophils Percent Auto 53.8 % (45-73); Platelet Count 317 X10*3/uL (160-400); Red Blood Count 4.73 X10*6/uL (4.20-5.50); Red Cell Distribution Width 14.8 % (11.0-16.0); White Blood Count 9.4 X10*3/uL (4.8-10.8)
[2023-11-14 13:50] LABS: Alanine Aminotransferase 20 U/L (0-31); Alkaline Phosphatase 101 U/L (39-117); Anion Gap 12 (12-20); Aspartate Amino Transferase 22 U/L (5-31); Bilirubin Total 0.5 mg/dL (0.0-1.0); Blood Urea Nitrogen 19 mg/dL (9-16); C Reactive Protein 0.45 mg/dL (< or = 0.50); Calcium 9.9 mg/dL (8.4-10.2); Carbon Dioxide 30 mmol/L (22-29); Chloride 103 mmol/L (96-108); Estimated Glomerular Filt Rate 44; Glucose Random 177 mg/dL (60-115); Potassium 4.6 mmol/L (3.3-5.1); Sodium 140 mmol/L (135-145); Total Protein 7.8 g/dL (6.5-8.0)
[2023-11-14 14:20] LABS: Erythrocyte Sedimentation Rate 30 MM/HR (0-20)
== END 2023-11-14 11:56 | disposition home or self-care (01) ==
LOC: HO.HMGCLR 11:55
PROVIDERS: PCP Internal Medicine; Visit Provider Internal Medicine Rheumatology
DX: L40.50 Arthropathic psoriasis, unspecified (principal); Z79.61 Long term (current) use of immunomodulator; Z51.81 Encounter for therapeutic drug level monitoring; Z79.899 Other long term (current) drug therapy; Z79.1 Long term (current) use of non-steroidal anti-inflammatories (NSAID)
CPT/HCPCS: 36415; 80053; 85025; 85652; 86140

== ENCOUNTER 2023-12-04 09:20 | Outpatient (AMB) | payer MEDICARE, BC, SELFPAY ==
--- NOTE | 2023-12-04 09:24 | A.OFFVIS_ITS ---
Vital Signs 12/04/23 09:29 Height 5 ft 10 in Weight 189 lb 9.561 oz BMI 27.2 BP 135/77 Blood Pressure Location Lt brachial Position Sitting Pulse 101 H Intake Visit Reasons: Follow up Intake Note: Yumiko presents in the office as a follow up. CC: She states that she still feels bloated although she is having bowel movements every day to every other day. Hardware Installation Coordinator Required: No Allergies grass pollen Allergy (Mild, Verified 12/04/23 09:29) Unknown HPI HPI Follow up: Details: 68 y/o female here for f/u RECAP: Initially [place] [facility] [place] 2nd opinion from [facility] for gastroparesis [phone]%--retention) initially N/V daily- about 1 year ago she had full w/u- [facility], EGD, negative cologuard 1 yr ago-[facility] GI Trulicity for the past 2 years- Taking metoclopromide- bid or tid no improvement- Long hx chronic constipation-she has used many OTC preps currently using stool softeners and MiraLax-without very good response INTERIM: She has been taking motegrity 1 mg daily and she felt it has helped her constipation a lot it has not helped her bloating she feels rifaximin did not help her bloating denies nausea or vomiting no worsening depression with motegrity still taking trulicity EXAM: GENERAL: The patient is well developed and nontoxic. VITAL SIGNS:see workflow HEENT: Nonicteric sclerae, PERRLA, EOMI. Oropharynx clear. Moist mucous membranes. Conjunctivae appear well perfused. No thyroid mass. CHEST: Chest wall is nontender. HEART: Regular rate and rhythm without murmurs. LUNGS: Clear to auscultation bilaterally. ABDOMEN: Soft, positive bowel sounds, nontender, no organomegaly.no flank tenderness SKIN: No rash, no excessive bruising, petechiae, or purpura. NEUROLOGIC: Cranial nerves II-XII intact without motor/sensory deficit. Psych: normal affect A/P: 1/ Possible global GI tract dysmotility with constipation and gastroparesis, may also have effects from meds and SIBO--tsh and hu ab negative PLAN: 1/Sent trial of amitriptiline 10 mg at night, she will stop dothepin as not sure it is working for her--only takes trazodone prn 2/ if not working then fodmap diet 3/ US ovaries, r/o other path 4/ cont with motegrity 1 mg PFSH Medical History Diabetes mellitus with coincident hypertension Diabetes mellitus Hypertension Surgical History No pertinent past surgical history Family History Father No problems noted. Mother Gastroparesis Paternal Grandmother Gastroparesis Family/Other Gastroparesis Social History Housing: House Alcohol intake: never Patient Tobacco Use Status: Never used Tobacco e-Cigarette/Vaping Use: Never Used Second Hand Smoke Exposure: No service: No Current occupational status: retired Cognitive needs: No Hearing needs: No Vision needs: Yes (glasses) Physical Exam Vital Signs: Last Vital Signs Pulse 101 H 12/04/23 09:29 BP 135/77 12/04/23 09:29 BMI result Body Mass Index 27.2 Assessment & Plan Assessment & Plan (1) Bloating: Code(s): R14.0 - Abdominal distension (gaseous) Category: Medical Plan: see above Orders: Orders US pelvic and transvaginal Today R14.0 - Abdominal distension (gaseous) Medications: New amitriptyline 10 mg PO BEDTIME 30 tabs 2RF Discontinued meloxicam Discontinued Reason: Patient no longer taking 15 mg PO DAILY 90 tabs 8RF azithromycin Discontinued Reason: Patient Completed Course take 500 mg today (day 1), then 250 mg for 4 days (days 2-5) PO 6 tabs 0RF azithromycin Discontinued Reason: Patient Completed Course take 500 mg today (day 1), then 250 mg for 4 days (days 2-5) PO 6 tabs 0RF codeine-guaifenesin 8-200 mg/5 mL Discontinued Reason: Patient Completed Course 5 mL PO Q6H PRN 473 mL 0RF allergy symptoms mecobalamin (vitamin B12) Discontinued Reason: Duplicate 5,000 mcg PO DAILY 90 tabs 1RF codeine-guaifenesin 10-100 mg/5 mL Discontinued Reason: Patient Completed Course 10 mL PO Q4-6H PRN 473 mL 0RF cough R91.8 - Other nonspecific abnormal finding of lung field rifaximin Discontinued Reason: Patient Completed Course 550 mg PO TID 2 weeks 42 tabs 0RF Coding Level of Care Code Est Pt Level 3 (88415) Diagnoses Bloating R14.0
[2023-12-04 09:29] VITALS: BP 135/77; PULSE 101; BMI 27.2
== END 2023-12-04 10:13 | disposition home or self-care (01) ==
PROVIDERS: PCP Internal Medicine; Visit Provider Internal Medicine Gastroenterology
DX: R14.0 Abdominal distension (gaseous) (principal)
CPT/HCPCS: 99213

== ENCOUNTER → 2023-12-04 09:20 | Outpatient (BNVA) | payer MEDICARE, BC, SELFPAY | PROVIDERS: PCP Internal Medicine; Visit Provider Internal Medicine Gastroenterology | DX: R14.0 Abdominal distension (gaseous) (principal) | CPT/HCPCS: 99212 ==

== ENCOUNTER 2023-12-11 12:58 | Outpatient (REF) | payer MEDICARE, BC, SELFPAY ==
--- NOTE | ~2023-12-11 | US_ITS ---
EXAMINATION: US PELVIS, LIMITED/FOLLOW UP CLINICAL INFORMATION: Abdominal bloating. COMPARISON: None available. TECHNIQUE: Transabdominal ultrasound was performed. The patient could not tolerate the endovaginal study. The exam is suboptimal as the patient was not prepped for a transabdominal exam. FINDINGS: An anteverted anteflexed uterus is seen measuring 5.5 x 3.0 x 3.5 cm. The endometrium could not be visualized. There is a question of a 0.9 cm fibroid in the lower uterine segment. Neither ovary could be seen. No free fluid present in the cul-de-sac. US/US pelvic limited IMPRESSION: Limited exam. The uterus is grossly normal with a question of a small fibroid. The endometrium could not be adequately evaluated. Neither ovary could be seen. Electronically signed by: Girma Hannon MD 01/26/2024 12:55 PM SARIAH
== END 2023-12-11 12:59 | disposition home or self-care (01) ==
LOC: HO.HMGCX 12:58
PROVIDERS: PCP Internal Medicine; Visit Provider Internal Medicine Gastroenterology
DX: R14.0 Abdominal distension (gaseous) (principal)
CPT/HCPCS: 76857

== ENCOUNTER 2023-12-29 08:22 | Outpatient (AMB) | payer MEDICARE, BC, SELFPAY ==
--- NOTE | 2023-12-29 08:36 | MHC.PC.OV ---
Vital Signs 12/29/23 08:38 Height 5 ft 10 in Weight 194 lb 6 oz BMI 27.9 BP 140/72 H Blood Pressure Location Lt brachial Position Sitting Pulse 92 Pulse Source Pulse Oximeter Pulse Oximetry (%) 98 Oxygen Delivery Method Room Air Intake Visit Reasons: 4mth f/u Intake Note: Patient is here to follow up on DM, HLD, HTN. Business Intelligence Reporting Analyst Required: No Sweet Pickle Maker: Not Required per policy Accompanied by: Self / Same As Patient Allergies grass pollen Allergy (Mild, Verified 12/29/23 08:37) Unknown Medication List - Last Reconciled 12/29/23 by Harpreet Harvey MD amitriptyline 20 mg (2 x 10 mg) PO BEDTIME 90 days apremilast (Otezla) 30 mg PO BID ascorbate calcium (vitamin C) 1 g PO Q6H atogepant (Qulipta) mg PO certolizumab pegol (Cimzia) mg subcut cholecalciferol (vitamin D3) 50 mcg PO DAILY dulaglutide (Trulicity) mg subcut gabapentin 100 mg PO TID PRN hydroxyzine HCl 25 mg PO BID PRN insulin degludec (Tresiba FlexTouch U-100 insulin) units subcut insulin lispro (Humalog Tien KwikPen (U-100)) 1 sliding scale dose subcut USEASDIRECTD lisinopril 2.5 mg PO DAILY metformin ER 500 mg PO DAILY metoclopramide HCl 5 mg PO TID omeprazole magnesium 20 mg PO DAILY propranolol 20 mg PO BID prucalopride (Motegrity) 1 mg PO DAILY simvastatin 40 mg PO BEDTIME Tobacco use date assessed: 12/29/23 Fall risk assessment: 1 Fall in past year Last assessed Fall Risk: 12/29/23 Dental Screening Dental Screen Date: 04/26/23 HPI 4mth f/u HPI Details DM; sees endo; doing well; compliant with regimen [facility] Medical History Diabetes mellitus with coincident hypertension Diabetes mellitus Hypertension Surgical History No pertinent past surgical history Family History Father No problems noted. Mother Gastroparesis Paternal Grandmother Gastroparesis Family/Other Gastroparesis Social History Housing: House Alcohol intake: never Patient Tobacco Use Status: Never used Tobacco e-Cigarette/Vaping Use: Never Used Second Hand Smoke Exposure: No service: No Current occupational status: retired Cognitive needs: No Hearing needs: No Vision needs: Yes (glasses) Questionnaire Thrive Questionnaire Date Thrive assessed: 04/26/23 SB-7 AMB Questionnaire SB-7 Date SB - 7 assessed: 04/26/23 Source: Developed by Drs. Gaston Armenta, Elizabeth Goins, Trevin Bello and colleagues, with an educational obey from [employer]. Review of Systems Const Denies chills, Denies headache(s) and Denies weight loss ENT Denies headache(s) Card Denies chest pain, Denies syncope, Denies irregular heart rhythm and Denies dyspnea Resp Denies chest congestion, Denies cough and Denies dyspnea GI Denies abdominal pain, Denies change in stool character, Denies nausea and Denies vomiting Musc Denies deformity and Denies joint swelling Neuro Denies syncope and Denies headache(s) Physical exam (Primary Care) Vital Signs: Last Vital Signs Pulse 92 12/29/23 08:38 BP 140/72 H 12/29/23 08:38 Pulse Ox 98 12/29/23 08:38 Oxygen Delivery Method Room Air 12/29/23 08:38 BMI result Body Mass Index 27.9 Tobacco/Smoking Status: Tobacco use Status Tobacco use date assessed 12/29/23 12/29/23 08:44 Patient Tobacco Use Status Never used Tobacco 12/29/23 08:44 e-Cigarette/Vaping Use Never Used 12/29/23 08:44 Thrive Assessment: Date of Thrive Assessment Date Thrive assessed 04/26/23 12/29/23 08:44 Const General: cooperative, comfortable, no acute distress and alert Neck Neck: Yes no lymphadenopathy Thyroid: Thyroid normal Resp Effort & Inspection: normal respiratory effort Auscultation: clear to auscultation bilaterally Percussion: percussion normal Cardio Jugular venous distension: no JVD Palpation: normal PMI Rate: regular rate Rhythm: regular rhythm Heart sounds: S1 normal heart sound present and S2 normal heart sound present GI Inspection: Yes normal to inspection Palpation (GI): No hepatosplenomegaly present Skin General skin exam: no rashes or lesions noted Extrem General: Yes no clubbing, cyanosis or edema Results AMB Hemoglobin A1c AMB Hemoglobin A1c 6.6 % Last Edit by LIZ Curry on 12/29/23 08:46 Results Reviewed Results Reviewed: Laboratory Last Values Hgb A1c (Clinic) 6.6 % (4.0-6.0) H 12/29/23 08:35 Coding Level of Care Code Est Pt Level 3 (67263) Diagnoses Diabetes mellitus with coincident hypertension E11.9; I10 Assessment & Plan Assessment & Plan (1) Diabetes mellitus with coincident hypertension: Code(s): E11.9 - Type 2 diabetes mellitus without complications; I10 - Essential (primary) hypertension Category: Medical Plan: stable; as per endo Orders: Orders AMB Hemoglobin A1c Today E11.9 - Type 2 diabetes mellitus without complications, I10 - Essential (primary) hypertension
[2023-12-29 08:38] VITALS: BP 140/72; PULSE 92; O2SAT 98; BMI 27.9
== END 2023-12-29 09:51 | disposition home or self-care (01) ==
PROVIDERS: PCP Internal Medicine; Visit Provider Internal Medicine
DX: E11.9 Type 2 diabetes mellitus without complications (principal); I10 Essential (primary) hypertension

== ENCOUNTER → 2023-12-29 08:22 | Outpatient (BNVA) | payer MEDICARE, BC, SELFPAY | PROVIDERS: PCP Internal Medicine; Visit Provider Internal Medicine | DX: E11.9 Type 2 diabetes mellitus without complications (principal); I10 Essential (primary) hypertension | CPT/HCPCS: 83036; 99212 ==

== ENCOUNTER 2024-01-11 08:21 | Outpatient (REF) | payer MEDICARE, BC, SELFPAY ==
[2024-01-11 09:54] LABS: MANUAL DIFF FLAG NO
[2024-01-11 10:06] LABS: Basophils Percent Auto 0.3 % (0-2); Eosinophils Absolute Auto 0.2 X10*3/uL (0.0-0.4); Eosinophils Percent Auto 2.1 % (0-4); Hematocrit 37.2 % (37.0-47.0); Hemoglobin 11.9 g/dl (12.0-16.0); Imm Gran Abs Auto 0.02 X10*3/uL (0.00-0.03); Imm Gran Pct Auto 0.2 % (0.0-0.4); Lymphocytes Absolute Auto 4.1 X10*3/uL (1.2-4.9); Lymphocytes Percent Auto 47.2 % (20-40); Mean Corpuscular Hemoglobin 26.3 pg (27.0-33.0); Mean Corpuscular Volume 82.3 fL (80.0-98.0); Mean Platelet Volume 9.5 fL (9.4-12.3); Monocytes Absolute Auto 0.5 X10*3/uL (0.1-1.2); Monocytes Percent Auto 5.7 % (2-11); Neutrophils Absolute Auto 3.9 x10*3/uL (2.0-8.3); Neutrophils Percent Auto 44.5 % (45-73); Platelet Count 321 X10*3/uL (160-400); Red Blood Count 4.52 X10*6/uL (4.20-5.50); Red Cell Distribution Width 14.6 % (11.0-16.0); White Blood Count 8.8 X10*3/uL (4.8-10.8)
[2024-01-11 10:42] LABS: Erythrocyte Sedimentation Rate 39 MM/HR (0-20)
[2024-01-11 10:47] LABS: Alanine Aminotransferase 45 U/L (0-31); Albumin Level 3.7 g/dL (3.5-5.0); Alkaline Phosphatase 122 U/L (39-117); Anion Gap 13 (12-20); Aspartate Amino Transferase 47 U/L (5-31); Bilirubin Total 0.3 mg/dL (0.0-1.0); Blood Urea Nitrogen 20 mg/dL (9-16); C Reactive Protein 0.29 mg/dL (< or = 0.50); Calcium 9.5 mg/dL (8.4-10.2); Carbon Dioxide 29 mmol/L (22-29); Chloride 103 mmol/L (96-108); Estimated Glomerular Filt Rate 44; Glucose Random 157 mg/dL (60-115); Potassium 4.4 mmol/L (3.3-5.1); Sodium 141 mmol/L (135-145); Total Protein 7.5 g/dL (6.5-8.0)
== END 2024-01-11 08:22 | disposition home or self-care (01) ==
LOC: HO.HMGCLR 08:21
PROVIDERS: PCP Internal Medicine; Visit Provider Internal Medicine Rheumatology
DX: L40.50 Arthropathic psoriasis, unspecified (principal); Z79.61 Long term (current) use of immunomodulator; Z51.81 Encounter for therapeutic drug level monitoring; Z79.899 Other long term (current) drug therapy; Z79.1 Long term (current) use of non-steroidal anti-inflammatories (NSAID)
CPT/HCPCS: 36415; 80053; 85025; 85652; 86140

== ENCOUNTER 2024-02-26 10:05 | Outpatient (AMB) | payer MEDICARE, BC, SELFPAY ==
[2024-02-26 10:07] VITALS: BP 122/77; PULSE 101; O2SAT 100; BMI 27.1
--- NOTE | 2024-02-26 10:07 | A.OFFVIS_ITS ---
Vital Signs 02/26/24 10:07 Height 5 ft 10 in Weight 189 lb BMI 27.1 BP 122/77 Blood Pressure Location Rt brachial Position Sitting Pulse 101 H Pulse Source Doppler Pulse Oximetry (%) 100 Oxygen Delivery Method Room Air Intake Visit Reasons: Cough Allergies grass pollen Allergy (Mild, Verified 02/26/24 10:12) Unknown HPI HPI Cough: Details: 68-year-old lady, nonsmoker, with no prior history of pulmonary concerns presents complaining of persistent dry cough after recent COVID-19 infection ap proximately 1 months prior to presentation. Patient also complains of underlying acid reflux that is well controlled on omeprazole. She does have family history of COPD and lung cancer in her mother and grandfather. After the last office visit patient states that overall her symptoms have improved, however she did realize that she had a multi residential asbestos exposure she is worried that some of his symptoms are related to asbestos exposure. [facility] Medical History Diabetes mellitus with coincident hypertension Diabetes mellitus Hypertension Surgical History No pertinent past surgical history Family History Father No problems noted. Mother Gastroparesis Paternal Grandmother Gastroparesis Family/Other Gastroparesis Social History Housing: House Alcohol intake: never Patient Tobacco Use Status: Never used Tobacco e-Cigarette/Vaping Use: Never Used Second Hand Smoke Exposure: No service: No Current occupational status: retired Cognitive needs: No Hearing needs: No Vision needs: Yes (glasses) Review of Systems Const Denies daytime sleepiness, Denies excessive sweating, Denies fatigue, Denies fever(s), Denies lethargy, Denies malaise, Denies night sweats, Denies snoring and Denies weight loss Eyes Denies blurry vision and Denies itchy eyes ENT Denies nasal congestion, Denies post nasal drip, Denies sinus pain, Denies sinus pressure and Denies other ( Thrush) Card Denies chest pain, Denies pedal edema, Denies dyspnea, Denies orthopnea and Denies paroxysmal nocturnal dyspnea Resp Denies cough, Denies hemoptysis, Denies excessive phlegm production, Denies dyspnea, Denies snoring and Denies wheezing GI Denies abdominal pain and Denies heartburn Musc Denies myalgias, Denies arthralgias and Denies joint swelling Skin/Breast Denies rash Neuro Denies memory loss and Denies seizure-like activity Psych Denies abnormal sleep pattern, Denies anxiety and Denies memory loss Endo Denies excessive sweating, Denies fatigue and Denies heat intolerance Myles/Lymph Denies easy bruising Aller/Immun Denies itchy eyes, Denies seasonal rhinorrhea and Denies wheezing Physical Exam Vital Signs: Last Vital Signs Pulse 101 H 02/26/24 10:07 BP 122/77 02/26/24 10:07 Pulse Ox 100 02/26/24 10:07 Oxygen Delivery Method Room Air 02/26/24 10:07 BMI result Body Mass Index 27.1 Const General: no acute distress and alert Nutritional Appearance: not obese Orientation/consciousness: Other orientation findings ( oriented) HEENT Head: Yes atraumatic Eyes General: appearance normal, both eyes and all related structures Sclerae: sclerae normal EOM: EOMs intact bilaterally Neck Neck: Yes supple Lymphatic: no lymphadenopathy noted Resp Effort & Inspection: normal respiratory effort and no use of accessory muscles Auscultation: clear to auscultation bilaterally Cardio Rate: regular rate Rhythm: regular rhythm Heart sounds: no gallops, no murmurs and no rubs Skin General skin exam: other ( warm) Extrem General: No clubbing, No cyanosis and No edema Assessment & Plan Assessment & Plan (1) Asbestos in residence: Code(s): Z77.090 - Contact with and (suspected) exposure to asbestos; Z59.19 - Other inadequate housing Category: Medical Plan: Will obtain CT chest and pulmonary function test for further evaluation. (2) Post covid-19 condition, unspecified: Code(s): U09.9 - Post COVID-19 condition, unspecified Category: Medical Plan: Has essentially improved to baseline. Orders: Orders PFT pulmonary function test Today R05.3 - Chronic cough CT chest wo IV con Today R05.3 - Chronic cough, Z77.090 - Contact with and (suspected) exposure to asbestos Coding Level of Care Code Est Pt Level 4 (05405) Diagnoses Asbestos in residence Z77.090; Z59.19 Post covid-19 condition, unspecified U09.9
== END 2024-02-26 10:20 | disposition home or self-care (01) ==
PROVIDERS: PCP Internal Medicine; Visit Provider Internal Medicine Pulmonary Disease
DX: Z77.090 Contact with and (suspected) exposure to asbestos (principal); Z59.19 Other inadequate housing; U09.9 Post COVID-19 condition, unspecified
CPT/HCPCS: 99214

== ENCOUNTER → 2024-02-26 10:05 | Outpatient (BNVA) | payer MEDICARE, BC, SELFPAY | PROVIDERS: PCP Internal Medicine; Visit Provider Internal Medicine Pulmonary Disease | DX: R05.3 Chronic cough (principal); U09.9 Post COVID-19 condition, unspecified; Z59.19 Other inadequate housing; Z77.090 Contact with and (suspected) exposure to asbestos | CPT/HCPCS: 99212 ==

== ENCOUNTER 2024-03-20 08:28 | Outpatient (REF) | payer MEDICARE, BC, SELFPAY ==
[2024-03-20 09:58] LABS: MANUAL DIFF FLAG NO
[2024-03-20 10:06] LABS: Basophils Percent Auto 0.4 % (0-2); Eosinophils Absolute Auto 0.1 X10*3/uL (0.0-0.4); Eosinophils Percent Auto 1.2 % (0-4); Hemoglobin 12.4 g/dl (12.0-16.0); Imm Gran Abs Auto 0.02 X10*3/uL (0.00-0.03); Imm Gran Pct Auto 0.3 % (0.0-0.4); Lymphocytes Absolute Auto 2.9 X10*3/uL (1.2-4.9); Mean Corpuscular HGB Conc 31.8 g/dl (31.0-35.0); Mean Corpuscular Hemoglobin 26.1 pg (27.0-33.0); Mean Corpuscular Volume 82.1 fL (80.0-98.0); Mean Platelet Volume 9.6 fL (9.4-12.3); Monocytes Absolute Auto 0.7 X10*3/uL (0.1-1.2); Neutrophils Absolute Auto 3.6 x10*3/uL (2.0-8.3); Neutrophils Percent Auto 49.1 % (45-73); Platelet Count 406 X10*3/uL (160-400); Red Blood Count 4.75 X10*6/uL (4.20-5.50); Red Cell Distribution Width 15.3 % (11.0-16.0); White Blood Count 7.3 X10*3/uL (4.8-10.8)
[2024-03-20 10:22] LABS: Alanine Aminotransferase 24 U/L (0-31); Albumin Level 3.8 g/dL (3.5-5.0); Alkaline Phosphatase 108 U/L (39-117); Anion Gap 12 (12-20); Aspartate Amino Transferase 30 U/L (5-31); Bilirubin Total 0.5 mg/dL (0.0-1.0); Blood Urea Nitrogen 18 mg/dL (9-16); C Reactive Protein 0.21 mg/dL (< or = 0.50); Calcium 9.3 mg/dL (8.4-10.2); Carbon Dioxide 28 mmol/L (22-29); Chloride 108 mmol/L (96-108); Estimated Glomerular Filt Rate 47; Glucose Random 139 mg/dL (60-115); Sodium 143 mmol/L (135-145); Total Protein 7.1 g/dL (6.5-8.0)
[2024-03-20 10:45] LABS: Erythrocyte Sedimentation Rate 14 MM/HR (0-20)
== END 2024-03-20 08:29 | disposition home or self-care (01) ==
LOC: HO.HMGCLDS 08:28
PROVIDERS: PCP Internal Medicine; Visit Provider Internal Medicine Rheumatology
DX: L40.50 Arthropathic psoriasis, unspecified (principal); Z51.81 Encounter for therapeutic drug level monitoring; Z79.899 Other long term (current) drug therapy; Z79.61 Long term (current) use of immunomodulator; Z79.1 Long term (current) use of non-steroidal anti-inflammatories (NSAID)
CPT/HCPCS: 36415; 80053; 85025; 85652; 86140

== ENCOUNTER 2024-04-01 09:24 | Outpatient (AMB) | payer MEDICARE, BC, SELFPAY ==
[2024-04-01 09:27] VITALS: BP 137/68; PULSE 93; BMI 27.5
--- NOTE | 2024-04-01 09:27 | MHC.OFFVIS ---
Vital Signs 04/01/24 09:27 Height 5 ft 10 in Weight 191 lb 12.835 oz BMI 27.5 BP 137/68 Blood Pressure Location Lt brachial Position Sitting Pulse 93 Intake Visit Reasons: 4 mnth follow up Intake Note: Yumiko presents in the office as a 4 month follow up. CC: She states that she is not having any concerns since she was taken off Metformin BID - her stomach has gotten a lot better. There are some days she suffers from bloating but not as bad as it was before. Power Checker Required: No Allergies grass pollen Allergy (Mild, Verified 04/01/24 09:37) Unknown HPI HPI 4 mnth follow up: Details: 68 y/o female here for f/u RECAP: Initially saw [facility] referred for 2nd opinion from [facility] for gastroparesis 949%--retention) initially N/V daily- about 1 year ago she had full w/u- GES, EGD, negative cologuard 1 yr ago-[facility] Trulicity for the past 2 years- Taking metoclopromide- bid or tid no improvement- Long hx chronic constipation-she has used many OTC preps currently using stool softeners and MiraLax-without very good response INTERIM: she feels better cutting down on metformin less bloating she is happy with motegrity 1 mg and it helps a lot no depression still taking trulicity she feels benefit from 20 mg but not full EXAM: GENERAL: The patient is well developed and nontoxic. VITAL SIGNS:see workflow HEENT: Nonicteric sclerae, PERRLA, EOMI. Oropharynx clear. Moist mucous membranes. Conjunctivae appear well perfused. No thyroid mass. CHEST: Chest wall is nontender. HEART: Regular rate and rhythm without murmurs. LUNGS: Clear to auscultation bilaterally. ABDOMEN: Soft, positive bowel sounds, nontender, no organomegaly.no flank tenderness SKIN: No rash, no excessive bruising, petechiae, or purpura. NEUROLOGIC: Cranial nerves II-XII intact without motor/sensory deficit. Psych: normal affect A/P: 1/ Possible global GI tract dysmotility with constipation and gastroparesis, may also have effects from meds and SIBO--tsh and hu ab negative --doing better with motegrity and reducing metformin --TSH has been normal in past PLAN: 1/ increase amitriptiline to 25 mg at night 2/ increase motegrity to 2 mg prn and cont with scheduled dose 1 mg daily PFSH Medical History Diabetes mellitus with coincident hypertension Diabetes mellitus Hypertension Surgical History No pertinent past surgical history Family History Father No problems noted. Mother Gastroparesis Paternal Grandmother Gastroparesis Family/Other Gastroparesis Social History Housing: House Alcohol intake: never Patient Tobacco Use Status: Never used Tobacco e-Cigarette/Vaping Use: Never Used Second Hand Smoke Exposure: No service: No Current occupational status: retired Cognitive needs: No Hearing needs: No Vision needs: Yes (glasses) Physical Exam Vital Signs: Last Vital Signs Pulse 93 04/01/24 09:27 BP 137/68 04/01/24 09:27 BMI result Body Mass Index 27.5 Assessment & Plan Assessment & Plan (1) Bloating: Code(s): R14.0 - Abdominal distension (gaseous) Category: Medical Plan: as above Medications: New amitriptyline 25 mg PO BEDTIME 60 tabs 1RF prucalopride 1 mg PO DAILY 90 tabs 2RF amitriptyline 25 mg PO BEDTIME 90 tabs 1RF Discontinued amitriptyline Discontinued Reason: Doctor's Order 20 mg (2 x 10 mg) PO BEDTIME 90 days 180 tabs 2RF Coding Level of Care Code Est Pt Level 3 (33742) Diagnoses Bloating R14.0
== END 2024-04-01 10:14 | disposition home or self-care (01) ==
PROVIDERS: PCP Internal Medicine; Visit Provider Internal Medicine Gastroenterology
DX: R14.0 Abdominal distension (gaseous) (principal)
CPT/HCPCS: 99213

== ENCOUNTER → 2024-04-01 09:24 | Outpatient (BNVA) | payer MEDICARE, BC, SELFPAY | PROVIDERS: PCP Internal Medicine; Visit Provider Internal Medicine Gastroenterology | DX: R14.0 Abdominal distension (gaseous) (principal); Z79.84 Long term (current) use of oral hypoglycemic drugs | CPT/HCPCS: 99212 ==

== ENCOUNTER 2024-04-03 07:13 | Outpatient (REF) | payer MEDICARE, BC, SELFPAY ==
--- NOTE | ~2024-04-03 | CT_ITS ---
CLINICAL HISTORY: Z77.090 - Contact with and (suspected) exposure to asbestos CT chest without contrast Comparison: CT/MI/SR - CT CHEST WO IV CON - 10/20/23 13:54 EDT Findings: The heart is normal in size. There is no pericardial effusion. Multiple hypodense thyroid nodules are seen measuring up to 1.0 cm in the left thyroid lobe. There is no mediastinal, hilar, or axillary lymphadenopathy. There is no focal consolidation or pleural effusion. Mild bilateral bronchial wall thickening is present. There is no bronchiectasis or honeycombing. Limited examination of the upper abdomen demonstrates no significant abnormality. [id number]-dz-[id number] degenerative changes are seen in the spine. No acute osseous abnormality is identified. No aggressive lytic or blastic lesion is seen. IMPRESSION: 1. Mild bilateral bronchial wall thickening. No evidence of bronchiectasis. This document has been electronically signed by: Catalina Basilio on 04/04/2024 09:51:22
--- OUTSIDE RECORDS SUMMARY | 2024-04-03 07:15 | XMS_ITS | Patient Health Record ---
[facility] Address [address] [place] [address] Care Team Providers Care Refrigeration Plant Operator Name Role Phone Harpreet Harvey MD Primary Care Provider Tiffany Russell Unavailable [phone] Wang Navas Unavailable [phone] Allergies No Known Allergies Results Component Value Reference Range Notes HEMOGLOBIN A1C (GLYCOHEMOGLO BIN) Reviewed date:08/02/2023 07:56:23 AM Interpretation: Performing Lab: Notes/Report: HEMOGLOBIN A1C % (HH) 5.8 Reason For Referral No Information Medications Medication SIG (Take, Route, Frequency, Duration) Notes Start Date End Date Status Meloxicam 15 MG 1 tablet Orally Once a day for 30 day(s) Not-Taking glipiZIDE 5 MG 1 tablet Orally Once a day for 30 day(s) Not-Taking metFORMIN HCl 500 MG 1 tablet with meals Orally Twice a day for 30 day(s) 1000 mg once a day Active Folic Acid 1 MG 1 tablet Orally Once a day for 30 day(s) Not-Taking Humira 40 MG/0.8ML 0.8 Subcutaneous for 30 day(s) Not-Taking Gabapentin 100 MG 1 capsule Orally Once a day for 30 day(s) Active Januvia 40mg Twice a day Not-T aking Propranolol HCl Acti ve Methotrexate 2.5 MG 1 tablet Orally Three times a Week for 30 day(s) Not-Taking Simvastatin 10 MG 1 tablet in the evening Orally Once a day for 30 day(s) Active CeleBREX 100 MG 1 capsule Orally Twice a day for 30 day(s) Not-Taking Lisinopril 2.5 MG 1 tablet Orally Once a day Active Keflex 500 MG 1 capsule Orally every 12 hrs for 10 day(s) 04/13/2015 Not-Taking Otezla Active Cosentyx Not-Taking Trulicity Active hydroCHLOROthiazide 25 MG 1 tablet Orall y Once a day for 30 day(s) Not-Taking Doxepin HCl 10 MG 1 capsule at bedtime Orally Once a day for 30 day(s) Not-Taking Tresiba Active Lamisil 250 250 MG 1 Tab Oral Daily for 90 02/22/2013 Not-Taking Cimzia Active Extra-Depth Diabetic Shoes with 3 Pair Custom heat-molded multi-density innersoles . 1pair shoes/3sets inserts . . for 1 year 02/20/2013 Active Work Note . . .Dx: Niddm with neuropathy, arthritic toe deformity .Rx: this patient must avoid steel toe shoes permanently to avoid infection for . 08/28/2013 Not-Taking Immunizations Vaccine Route Administration Date Status Comme nts Pneumococcal Unknown 11/11/2020 Administered Influenza Unknown 07/29/2015 Pending Influenza Unknown 02/15/2017 Refused Influenza Unknown 05/24/2017 Refused Influenza Unknown 12/25/2017 Refused Influenza Unknown 09/04/2019 Refused Influenza Unknown 11/25/2020 Administered COVID-19 Justin & Justin/Camilo Unknown 11/25/2020 Administered 1st 05/17/2020 Social History Tobacco Use: Social History Observation Description Date Details (start date - stop date) Never Smoker NA - NA Tobacco Use/Smoking Question Answer Notes Are you a: nonsmoker Alcohol Screen Question Answer Notes Did you have a drink containing alcohol in the p ast year? No Points 0 Interpretation Negative Tobacco use other than smoking: Question Answer Notes Are you an other tobacco user? No Problems Problem Type SNOMED Code ICD Code Onset Dates Problem Status W/U Status Risk Notes Problem Localized, primary osteoarthritis of the ankle and/or foot (641608875) Primary osteoarthritis, right ankle and foot (M19.071) Active confirmed Problem Localized, primary osteoarthritis of the ankle and/or foot (149216125) Primary osteoarthritis, left ankle and foot (M19.072) Active confirmed Problem Polyneuropathy due to type 2 diabetes mellitus (088797805) Type 2 diabetes mellitus with diabetic polyneuropathy (E11.42) Active confirmed Problem Non-pressure chronic ulcer of other part of left foot limited to breakdown of skin (L97.521) Active confirmed Problem Non-pressure chronic ulcer of other part of right foot limited to breakdown of skin (L97.511) Active confirmed Problem Acquired hammer toe of right foot (2496284817405536 ) Other hammer toe(s) (acquired), right foot (M20.41) Active confirmed Problem Acquired hammer toe of left foot (5527353143040905 ) Other hammer toe(s) (acquired), left foot (M20.42) Active confirmed Vital Signs Height [id number] in 12/06/2023 Weight 185 lbs 12/06/2023 BMI 25.8 kg/m2 12/06/2023 Encounters Encounter Location Date Provider Diagnosis [address] [address] 08/02/2023 Wang Navas Tinea unguium B35.1 ; Pain in right toe(s) M79.674 ; Pain in left toe(s) M79.675 ; Type 2 diabetes mellitus with diabetic polyneuropathy E11.42 ; Other hammer toe(s) (acquired), left foot M20.42 ; Other hammer toe(s) (acquired), right foot M20.41 ; Ingrowing nail L60.0 ; Primary osteoarthritis, right ankle and foot M19.071 and Primary osteoarthritis, left ankle and foot M19.[address] [address] 12/06/2023 Wang Navas Tinea unguium B35.1 ; Pain in right toe(s) M79.674 ; Pain in left toe(s) M79.675 ; Type 2 diabetes mellitus with diabetic polyneuropathy E11.42 ; Other hammer toe(s) (acquired), left foot M20.42 ; Other hammer toe(s) (acquired), right foot M20.41 ; Primary osteoarthritis, right ankle and foot M19.071 ; Ingrowing nail L60.0 and Primary osteoarthritis, left ankle and foot M19.[address] [address] 08/02/2023 Wang Navas Assessments Encounter Date Diagnosis (ICD Code) Assessment Notes Treatment Notes Treatment Clinical Notes Section Notes 08/02/2023 Pain in right toe(s) (ICD-10 - M79.674) 08/02/2023 Tinea unguium (ICD-10 - B35.1) 12/06/2023 Pain in right toe(s) (ICD-10 - M79.674) 12/06/2023 Tinea unguium (ICD-10 - B35.1) 12/06/2023 Pain in left toe(s) (ICD-10 - M79.675) 08/02/2023 Pain in left toe(s) (ICD-10 - M79.675) 08/02/2023 Type 2 diabetes mellitus with diabetic polyneuropathy (ICD-10 - E11.42) 12/06/2023 Type 2 diabetes mellitus with diabetic polyneuropathy (ICD-10 - E11.42) 08/02/2023 Other hammer toe(s) (acquired), left foot (ICD-10 - M20.42) 12/06/2023 Other hammer toe(s) (acquired), left foot (ICD-10 - M20.42) 12/06/2023 Other hammer toe(s) (acquired), right foot (ICD-10 - M20.41) 08/02/2023 Other hammer toe(s) (acquired), right foot (ICD-10 - M20.41) 08/02/2023 Ingrowing nail (ICD-10 - L60.0) 12/06/2023 Primary osteoarthritis, right ankle and foot (ICD-10 - M19.071) 08/02/2023 Primary osteoarthritis, right ankle and foot (ICD-10 - M19.071) 08/02/2023 Primary osteoarthritis, left ankle and foot (ICD-10 - M19.072) 12/06/2023 Primary osteoarthritis, left ankle and foot (ICD-10 - M19.072) 12/06/2023 Ingrowing nail (ICD-10 - L60.0) Plan Of Treatment Pending Test Test Name Order Date 30271-JRWGVWQ NAIL, 6 OR MORE 02/20/2013 34411-LJKPJZT NAIL, 6 OR MORE 05/29/2013 52868-JJMQQZQ NAIL, 6 OR MORE 08/28/2013 33213-VJUKZFE NAIL, 6 OR MORE 12/11/2013 77116-AWLSLFL NAIL, 6 OR MORE 05/07/2014 60994-XNOTYCJ NAIL, 6 OR MORE 08/06/2014 71546-MJIQOTD NAIL, 6 OR MORE 04/13/2015 24793-RBPSXWD NAIL, 6 OR MORE 12/31/2014 20764-QVJQLDC NAIL, 6 OR MORE 07/29/2015 11680-HSAEXCO NAIL, 6 OR MORE 10/28/2015 94841-CEXUHDZ NAIL, 6 OR MORE 01/27/2016 03200-GYDLCND NAIL, 6 OR MORE 04/27/2016 49014-UZBRMHO NAIL, 6 OR MORE 11/02/2016 69770-LIDEQFC NAIL, 6 OR MORE 02/15/2017 26012-CMMJULV NAIL, 6 OR MORE 05/24/2017 06858-AMKIBWE NAIL, 6 OR MORE 08/30/2017 85131-JFJOCOL NAIL, 6 OR MORE 12/25/2017 36780-Idjnmvnh Plate 08/30/2017 82472-Xxyywocg Plate 11/02/2016 57643-Ulwpyxdb Plate 12/31/2014 74784-Ysejcbkh Plate 04/13/2015 96226-Kowbylgm Plate 08/06/2014 67315-Ndvybzjt Plate 05/07/2014 70370-Ypsyvqcs Plate 12/11/2013 96475-Bxzcexmp Plate 09/11/2013 38749-Bajrxfno Plate 05/29/2013 47110-Gknusswv Plate 02/20/2013 39578-Nabjfoop Plate Each Additional 04/2013 78022-Pnamkfiv Plate Each Additional 18587-Xzhkulko Plate Each Additional 56718-Jpdbiffz Plate Each Additional 03/2015 57393-Frlpqxdt Plate Each Additional 54879- Debride <25 sq cm 07/06/2020 79262- Debride <25 sq cm 08/28/2013 71490-NYVK SKIN LESIONS, OVER 4 05/07/19 15 00181-QEPY SKIN LESIONS, OVER 4 12/12/19 14 58553-OZDU SKIN LESIONS, OVER 4 02/21/20 13 66355-PVAN SKIN LESIONS, OVER 4 05/30/19 14 45528-LVPR SKIN LESIONS, OVER 4 08/29/19 14 78090-DNZB SKIN LESIONS, OVER 4 04/13/19 16 57791-SXQX SKIN LESIONS, OVER 4 08/07/19 15 11199-BIET SKIN LESIONS, OVER 4 01/01/20 15 01497-CKBS SKIN LESIONS, OVER 4 07/29/19 16 74094-PJXX SKIN LESIONS, OVER 4 01/27/20 16 93820-IMFB SKIN LESIONS, OVER 4 10/28/19 16 10130-DCDC SKIN LESIONS, OVER 4 07/07/19 21 27046-ESPA SKIN LESIONS, OVER 4 01/14/20 81987-ADEO SKIN LESIONS, OVER 4 11/03/19 17 29662-GPUC SKIN LESIONS, OVER 4 04/27/19 17 28264-WTEK SKIN LESIONS, OVER 4 07/28/19 17 58878-LYMX SKIN LESIONS, OVER 4 05/25/19 18 72966-MPEO SKIN LESIONS, OVER 4 02/16/20 85073-FMPC SKIN LESIONS, OVER 4 08/31/19 18 15287-WPTY SKIN LESIONS, OVER 4 12/26/19 18 83418-QHXQ SKIN LESIONS, OVER 4 04/16/19 49693-SPWY SKIN LESIONS, OVER 4 08/16/19 19 10089-DABS SKIN LESIONS, OVER 4 11/15/19 19 24643-XOZD SKIN LESIONS, OVER 4 03/18/19 63666-JFER SKIN LESIONS, OVER 4 09/04/19 35259-ZECA SKIN LESIONS, OVER 4 01/06/20 Next Appt Details Provider Name:Tiffany Gandhi bean, 04/10/2024 09:00:00 AM, [address] [place], [address], Insurance Providers Payer Name Payer Address Payer Phone Subscriber Number Group Number Insured Name Patient Relationship to Insured Coverage Start Date Coverage End Date Medicare [facility] [address] [place] [address] [id number] Yumiko Rodgers Self - patient is the insured [facility] [address] [place] [address] [id number] Yumiko Rodgers Self - patient is the insured Medical (General) History Medical History History ICD Code Arthritis headaches/migraines high blood pressure psoriasis/eczema type II diabetes Surgical History Surgery Date(Month/Year) bx left leg 2015
--- OUTSIDE RECORDS SUMMARY | 2024-04-03 07:15 | XMS_ITS ---
Author Organization [facility] Address [address] [place] [address] Care Team Providers Care Director Stars Name Role Phone Harpreet Harvey MD Primary Care Provider Tiffany Russell Unavailable [phone] Wang Navas [phone] REASON FOR VISIT rs appt 12/03 Encounters Encounter Location Date Provider Diagnosis [address] [address] 08/02/2023 Wang Navas Plan Of Treatment Next Appt Details Provider Name:Tiffany del angel, 04/10/2024 09:00:00 AM, [address] [place] [address], [phone], Progress Notes * Yumiko RODGERS MDOB: (68 yo F)Acc No.[id number]:08/02/2023 Patient:?Yumiko Rodgers :1955???Age:68 Y???Sex:Female Address:[address] [place] [address], [place], [address] * true * Date:? Generated for Richiei he/Azul/eTransmitting on:?04/03/2024 07:14 AM EST
--- OUTSIDE RECORDS SUMMARY | 2024-04-03 07:15 | XMS_ITS ---
Author Organization [facility] Address [address] [place] [address] Care Team Providers Care Blankbook Stitching Machine Operator Name Role Phone Candice SANTOS, Harpreet Primary Care Provider Tiffany Russell Unavailable [phone] Wang Navas [phone] Encounters Encounter Location Date Provider Diagnosis [address] [address] 12/04/2023 Wang Navas Plan Of Treatment Next Appt Details Provider Name:Tiffany del angel, 04/10/2024 09:00:00 AM, [address] [place] [address], [phone], Progress Notes * Yumiko VELÁZQUEZ MDOB: (68 yo F)Acc No.[id number]:12/04/2023 Progress Note Patient:?VISHAL Yumiko Obrien Provider:?Wang Navas DPM :1955???Age:68 Y???Sex:Female D ate:12/04/2023 Address:[address] [place], [place] [id number] Pcp:Harpreet Harvey MD Subjective: * Chief Complaints: * ??? * Medical History:? Objective: * Vitals:? Assessment: Plan: * Treatment: * Images: * The named appointment provid er may or may not be the originator of this progress note, and it is not deemed complete until electronically signed by the appointment provider. Sign off status: Pending * Provider:?Wang Navas DPM Date:? 024 Generated for Raj cutler/Azul/Sonyaitting on:?04/03/2024 07:14 AM EST
== END 2024-04-03 07:14 | disposition home or self-care (01) ==
LOC: HO.CT 07:13
PROVIDERS: PCP Internal Medicine; Visit Provider Internal Medicine Pulmonary Disease
DX: R05.3 Chronic cough (principal); Z77.090 Contact with and (suspected) exposure to asbestos
CPT/HCPCS: 71250

== ENCOUNTER → 2024-04-03 07:14 | Outpatient (BNV) | payer MEDICARE, BC, SELFPAY | PROVIDERS: PCP Internal Medicine; Visit Provider Radiology Vascular & Interventional Radiology | DX: Z77.090 Contact with and (suspected) exposure to asbestos (principal) | CPT/HCPCS: 71250 ==

== ENCOUNTER 2024-04-03 07:32 | Outpatient (REF) | payer MEDICARE, BC, SELFPAY ==
--- OUTSIDE RECORDS SUMMARY | 2024-04-03 07:36 | XMS_ITS ---
Author Organization [facility] Address [address] [place] [address] Care Team Providers Care Podiatric Surgeon Name Role Phone Candice SANTOS, Harpreet Primary Care Provider Tiffany Russell Unavailable [phone] Wang Navas Unavailable [phone] Allergies No Known Allergies REASON FOR VISIT Painful nail(s) aggrevated by shoes and causing difficulty standing/walking., Foot pain Medications Medication SIG (Take, Route, Frequency, Duration) Notes Start Date End Date Status Methotrexate 2.5 MG 1 tablet Orally Three times a Week for 30 day(s) Not-Taking CeleBREX 100 MG 1 capsule Orally Twice a day for 30 day(s) Not-Taking Cosentyx Not-Taking Lamisil 250 250 MG 1 Tab Oral Daily for 90 02/22/2013 Not-Taking Work Note . . .Dx: Niddm with neuropathy, arthritic toe deformity .Rx: this patient must avoid steel toe shoes permanently to avoid infection for . 08/28/2013 Not-Taking glipiZIDE 5 MG 1 tablet Orally Once a day for 30 day(s) Not-Taking Folic Acid 1 MG 1 tablet Orally Once a day for 30 day(s) Not-Taking Humira 40 MG/0.8ML 0.8 Subcutaneous for 30 day(s) Not-Taking Januvia 40mg Twice a day Not-T aking Keflex 500 MG 1 capsule Orally every 12 hrs for 10 day(s) 04/13/2015 Not-Taking Propranolol HCl Acti ve Simvastatin 10 MG 1 tablet in the evening Orally Once a day for 30 day(s) Active hydroCHLOROthiazide 25 MG 1 tablet Orall y Once a day for 30 day(s) Not-Taking Tresiba Active Extra-Depth Diabetic Shoes with 3 Pair Custom heat-molded multi-density innersoles . 1pair shoes/3sets inserts . . for 1 year 02/20/2013 Active Meloxicam 15 MG 1 tablet Orally Once a day for 30 day(s) Not-Taking metFORMIN HCl 500 MG 1 tablet with meals Orally Twice a day for 30 day(s) 1000 mg once a day Active Gabapentin 100 MG 1 capsule Orally Once a day for 30 day(s) Active Lisinopril 2.5 MG 1 tablet Orally Once a day Active Otezla Active Trulicity Active Doxepin HCl 10 MG 1 capsule at bedtime Orally Once a day for 30 day(s) Not-Taking Cimzia Active Social History Tobacco Use: Social History Observation Description Date Details (start date - stop date) Never Smoker NA - NA Tobacco Use/Smoking Question Answer Notes Are you a: nonsmoker Tobacco use other than smoking: Question Answer Notes Are you an other tobacco user? No Vital Signs Height 5xg06eg in 12/06/2023 Weight 185 lbs 12/06/2023 BMI 25.8 kg/m2 12/06/2023 Encounters Encounter Location Date Provider Diagnosis [facility] [place] [address] [place] [address] 12/06/2023 Wang Navas Tinea unguium B35.1 ; Pain in right toe(s) M79.674 ; Pain in left toe(s) M79.675 ; Type 2 diabetes mellitus with diabetic polyneuropathy E11.42 ; Other hammer toe(s) (acquired), left foot M20.42 ; Other hammer toe(s) (acquired), right foot M20.41 ; Primary osteoarthritis, right ankle and foot M19.071 ; Ingrowing nail L60.0 and Primary osteoarthritis, left ankle and foot M19.072 Assessments Encounter Date Diagnosis (ICD Code) Assessment Notes Treatment Notes Treatment Clinical Notes Section Notes 12/06/2023 Tinea unguium (ICD-10 - B35.1) 12/06/2023 Pain in right toe(s) (ICD-10 - M79.674) 12/06/2023 Pain in left toe(s) (ICD-10 - M79.675) 12/06/2023 Type 2 diabetes mellitus with diabetic polyneuropathy (ICD-10 - E11.42) 12/06/2023 Other hammer toe(s) (acquired), left foot (ICD-10 - M20.42) 12/06/2023 Other hammer toe(s) (acquired), right foot (ICD-10 - M20.41) 12/06/2023 Primary osteoarthritis, right ankle and foot (ICD-10 - M19.071) 12/06/2023 Ingrowing nail (ICD-10 - L60.0) 12/06/2023 Primary osteoarthritis, left ankle and foot (ICD-10 - M19.072) Plan Of Treatment Next Appt Details Follow Up: 4 Months, Reason: Provider Name:Tiffany Gandhi bean, 04/10/2024 09:00:00 AM, [address] [place] [address], [id number], Procedure Notes * Category Sub-Category Detail Notes Debride Nail 6-10 Nail debridement Nail debridem ent performed extensively to reduce/remove overall nail length and girth, subungual debris, and necrotic tissue, by manual and electrical means with use of a nail nipper and/or dremel, to more viable healthy nail plate or bed tissue 6-10. Silver nitrate used for any petechial bleeding as necessary. Patient chooses, no pharmaceutical tx (58094) Keratoma Treatment Parring or Cutting o f Benign Hyperkeratotic Lesion(s) 81045 ( >4 Lesions) - The Benign hyperkeratotic lesions, as described above were pared, and/or cut utilizing a sterile #15 blade, tissue nippers, and/or dremel Progress Notes * Yumiko RODGERS MDOB: [birth year] (68 yo F)Acc No.[id number]:12/06/2023 Progress Note Patient:?Yumiko Rodgers Provider:?Wang Navas DPM :1955???Age:68 Y???Sex:Female D ate:12/06/2023 Address:[address] [place], [place] [id number] Pcp:Harpreet Harvey MD Subjective: * Chief Complaints: * ???Painful nail(s) aggrevate d by shoes and causing difficulty standing/walking.Foot pain * HPI: ???Painful Nails:?Pt States Last PCP Visit:?Date:?09/11/2023 ???Foot Pain:?Nature:?aching, tingling.?Location?B/L, Forefoot and ankles.?Duration:?several months.?Onset/Cause:?unknown.?Course:?improved.?Aggrevated:?cold and damp weather.?Treatments:?physical therapy, biofreeze.?Toe pain:?Nature:?aching.?Location:?Great toe, Left foot.?Duration:?several months.?Onset/Cause:?gradual.?Course:?worse.?Aggravated by:?shoes.? * ROS:?General/Constitutional:?Nausea?denies.?Vomiting?denies.?Hunger Thirst?denies.?Loss appetite?denies.?Chills?denies.?Fatigue?denies.?Fever?denies.?Night Sweats?denies.?Unexplained weight loss?denies.?Unexplained weight gain?denies.?HEENTM:?Dentures?denies.?Dizziness?denies.?Glasses/contacts?admits.?Retinopathy?de nies.?Blurred/double vision?denies.?TMJ?denies.?Discharge/drainage?denies.?Implants?denies.?Sore throat?denies.?Dental implants?denies.?Hard of hearing ?denies.?Difficulty chewing/swallowing/speaking?denies.?Nose bleeds?denies.?Sore mouth?denies.?Respiratory:?On Oxygen?denies.?Pneumonia/pleurisy?denies.?Bronchitis?denies.?Emphysema?denies.?C oughing?denies.?Cough blood?denies.?Shortness of breath?denies.?Wheezing?denies.?Cardiovascular:?Pacemaker?denies.?MVP?denies.?WPW?denies.?CHF?denies.?Heart attack?denies.?Septal defect?denies.?Rapid beat?denies.?Chest pain ?denies.?Atrial Fib.?denies.?Murmur/Palpitations?denies.?Gastrointestinal:?Hemorrhoids?denies.?Stomach/Abdominal pain?denies.?Dark blood stool?denies.?Irritable bowel ?denies.?Constipation?denies.?Diarrhea?denies.?Hematology:?Swelling?denies.?Clots?denies.?Varicose Veins?denies.?Bruising?denies.?Bleeding problem?denies.?Genitourinary:?Blood urine?denies.?Frequent/Painfu/urination/bladder control?denies.?Kidney stones?denies.?Infection (UTI)?denies.?Nephropathy?denies.?sex trans dis (STD)?denies.?Prostate?denies.?Musculoskeletal:?Hammertoes?denies.?Bunions?denies.?Back Pain?denies.?Muscle Cramps/ Resting?denies.?Muscle cramps / walking?denies.?Generalized aches and pains?denies.?Weakness?denies.?Integ.:?Lima?denies.?Scars?denies.?Corns/calluses?denies.?Ingrown nails?denies.?Painful nails?denies.?Open Sores?denies.?Rashes?denies.?Neurologic:?Difficulty sleeping?denies.?Brain disorder?denies.?Numbness?denies.?Balance trouble?denies.?Confusion?denies.?Fainting/blackouts?denies.?Tingling?denies.?Tr emors?denies.? * Medical History:? * Surgical History:?bx left le g 2014 * Hospitalization/Major Diagno stic Procedure:?Denies Past Hospitalization * Family History:?Mother: dece ased, diagnosed with Diabetic - NIDDM, Unspecified essential hypertension.?Father: , diagnosed with Diabetic - NIDDM, Unspecified essential hypertension.?Paternal Grand Mother: , type II diabetes, hypertension, diagnosed with Diabetic - NIDDM, Unspecified essential hypertension.?Paternal Grand Father: , type II diabetesh, hypertension, diagnosed with Unspecified essential hypertension, Diabetic - NIDDM.?Maternal Grand Mother: , type II diabetes, hypertension, diagnosed with Unspecified essential hypertension, Diabetic - NIDDM.?Maternal Grand Father: , type II diabetes, hypertension, diagnosed with Diabetic - NIDDM, Unspecified essential hypertension.?Siblings: alive, type II diabetes, diagnosed with Diabetic - NIDDM.? * Social History:?Tobacco Use:?Tobacco Use/Smoking?Are you a:?nonsmoker ?Tobacco use other than smoking?Are you an other tobacco user??No ???Miscellaneous:?Caffeine: yes, frequency: coffee , 1-2 cups per day. ?no Children. ?Exercise: yes, swimming, walking, PT. ?Marital status: single. 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 * Medications:?TakingCimzia Tr ulicity Gabapentin 100 MG Capsule 1 capsule Orally Once a daymetFORMIN HCl 500 MG Tablet 1 tablet with meals Orally Twice a day, Notes: 1000 mg once a dayLisinopril 2.5 MG Tablet 1 tablet Orally Once a dayOtezla Propranolol HCl Simvastatin 10 MG Tablet 1 tablet in the evening Orally Once a dayTresiba Extra- Depth Diabetic Shoes with 3 Pair Custom heat-molded multi-density innersoles . . 1pair shoes/3sets inserts . .Taking Cimzia Taking Trulicity Taking Gabapentin 100 MG Capsule 1 capsule Orally Once a dayTaking metFORMIN HCl 500 MG Tablet 1 tablet with meals Orally Twice a day, Notes: 1000 mg once a dayTaking Lisinopril 2.5 MG Tablet 1 tablet Orally Once a dayTaking Otezla Taking Propranolol HCl Taking Simvastatin 10 MG Tablet 1 tablet in the evening Orally Once a dayTaking Tresiba Taking Extra- Depth Diabetic Shoes with 3 Pair Custom heat-molded multi-density innersoles . . 1pair shoes/3sets inserts . .Not-Taking/PRNDoxepin HCl 10 MG Capsule 1 capsule at bedtime Orally Once a dayMeloxicam 15 MG Tablet 1 tablet Orally Once a dayhydroCHLOROthiazide 25 MG Tablet 1 tablet Orally Once a dayHumira 40 MG/0.8ML Kit 0.8 Subcutaneous Januvia 40mg Twice a dayglipiZIDE 5 MG Tablet 1 tablet Orally Once a dayFolic Acid 1 MG Tablet 1 tablet Orally Once a dayKeflex 500 MG Capsule 1 capsule Orally every 12 hrsCosentyx Methotrexate 2.5 MG Tablet 1 tablet Orally Three times a WeekCeleBREX 100 MG Capsule 1 capsule Orally Twice a dayLamisil 250 250 MG Tablet 1 Tab Oral DailyWork Note . . . .Dx: Niddm with neuropathy, arthritic toe deformity .Rx: this patient must avoid steel toe shoes permanently to avoid infectionMedication List reviewed and reconciled with the patientNot-Taking/PRN Doxepin HCl 10 MG Capsule 1 capsule at bedtime Orally Once a dayNot-Taking/PRN Meloxicam 15 MG Tablet 1 tablet Orally Once a dayNot-Taking/PRN hydroCHLOROthiazide 25 MG Tablet 1 tablet Orally Once a dayNot-Taking/PRN Humira 40 MG/0.8ML Kit 0.8 Subcutaneous Not-Taking/PRN Januvia 40mg Twice a dayNot-Taking/PRN glipiZIDE 5 MG Tablet 1 tablet Orally Once a dayNot-Taking/PRN Folic Acid 1 MG Tablet 1 tablet Orally Once a dayNot- Taking/PRN Keflex 500 MG Capsule 1 capsule Orally every 12 hrsNot-Taking/PRN Cosentyx Not-Taking/PRN Methotrexate 2.5 MG Tablet 1 tablet Orally Three times a WeekNot-Taking/PRN CeleBREX 100 MG Capsule 1 capsule Orally Twice a dayNot- Taking/PRN Lamisil 250 250 MG Tablet 1 Tab Oral DailyNot-Taking/PRN Work Note . . . .Dx: Niddm with neuropathy, arthritic toe deformity .Rx: this patient must avoid steel toe shoes permanently to avoid infectionMedication List reviewed and reconciled with the patient * Allergies:?N.K.D.A.yes[Aller gies Verified] Objective: * Vitals:?Ht: 9wn07tg, Wt:185, BMI:25.8, Shoe size: 10, BS: 139, Ht-cm: 180.34 cm, Wt-k.91 kg. * ???Past Orders: ???Lab:HEMOGLOBIN A1C (GLYCO HEMOGLOBIN) (Order Date - 08/02/2023) (Collection Date - 08/02/2023) ? Value Reference Range ?HEMOGLOBIN A1C % (HH) 5.8 * Examination: ???Dermatologic: ?SKIN FINDINGS:?Skin exam reveals Keratotic lesion(s) located at, SUB MTH (s), 1, 5, B/L , Heel(s), B/L , T9, SUB MTH (s), 2, 3, Right .?Nails: ?NAILS are:?Elongated, overgrown, dystrophic, lytic, greater than 3mm thick, discolored and friable with crumbly malodorous subungual debris, with dull to no pain on palpation due to neuropathy, 1-5 B/L.?Neurological: ?SENSORY:? Neurological exam demonstrates, reduced vibration sensation, B/L, at Forefoot, ..., Neurological exam demonstrates pop AL chelsey ankles.?Ophthalmology Referral: ?DIABETES EYE EXAM?Orthopedic: ?MUSCLE STRENGTH:?5/5 all groups in a symmetrical fashion , B/L.?DIGITAL DEFORMITIES:? Digital contracture, PIPJ, 2-5 B/L, incompl- reducable with WB, or to push-up test, no over, nor underlapping.?General Examination: ?GENERAL APPEARANCE:?Reveals a pleasant, alert, well nourished, well developed, well hydrated individual, who demonstrates proper attention to hygene/body habitus, and is in no acute distress.?ORIENTED:?person, place, and time.?FOOT EXAM:?Vascular: ?DP PULSES(B):? 1/4, B/L.?PT PULSES(B):? 0/4, B/L.?Ingrown Nail: ?INSPECTION:? Reveals nail incurvation, dull pain on palpation due to neuropathy, groove hypertrophy, Medial nail border, T5.? Assessment: * Assessment: 1.?Pain in right toe(s) - M7 9.674?2.?Tinea unguium - B35.1 (Primary)?3.?Pain in left toe(s) - M79.675?4.?Type 2 diabetes mellitus with diabetic polyneuropathy - E11.42?5.?Other hammer toe(s) (acquired), left foot - M20.42?6.?Other hammer toe(s) (acquired), right foot - M20.41?7.?Primary osteoarthritis, right ankle and foot - M19.071?8.?Primary osteoarthritis, left ankle and foot - M19.072?9.?Ingrowing nail - L60.0 (Primary)? Plan: * Treatment: * Procedures:?Debride Nail 6-10:?Nail debridement?Nail debridement performed extensively to reduce/remove overall nail length and girth, subungual debris, and necrotic tissue, by manual and electrical means with use of a nail nipper and/or dremel, to more viable healthy nail plate or bed tissue 6-10. Silver nitrate used for any petechial bleeding as necessary. Patient chooses, no pharmaceutical tx (23026).?Keratoma Treatment:?Parring or Cutting of Benign Hyperkeratotic Lesion(s)?99729 ( >4 Lesions) - The Benign hyperkeratotic lesions, as described above were pared, and/or cut utilizing a sterile #15 blade, tissue nippers, and/or dremel.? * Procedure Codes:?26774 DEBRI DE NAIL, 6 OR MORE, Modifiers: XS 26912 TRIM SKIN LESIONS, OVER 4, Modifiers: XS * Follow Up:?4 Months * Images: * Sign off status: Completed true * Provider:?Wang Navas DPM Date:? 024 Generated for Richiei he/Azul/eTransmitting on:?04/03/2024 07:36 AM EST History and Physical Notes * HPI (History of Present Illness) Category Sub-Category Detail Notes Category Not es Toe pain Nature: aching Location: Great toe, Left foot Duration: several months Onset/Cause: gradual Course: worse Aggravated by: shoes Painful Nails Pt States Last PCP Visit: Date:: 09/11/2023 Foot Pain Aggrevated: cold and damp weather Onset/Cause: unknown Course: improved Duration: several months Nature: aching, tingling Treatments: physical therapy, bi ofreeze Location B/L, Forefoot and an kles Examination Category Sub-Category Detail Notes Category Not es Ingrown Nail INSPECTION: Reveals nail inc urvation, dull pain on palpation due to neuropathy, groove hypertrophy, Medial nail border, T5 Neurological SENSORY: Neurological exa m demonstrates, reduced vibration sensation, B/L, at Forefoot, ..., Neurological exam demonstrates pop AL chelsey ankles Dermatologic SKIN FINDINGS: Skin exam reveal s Keratotic lesion(s) located at, SUB MTH (s), 1, 5, B/L , Heel(s), B/L , T9, SUB MTH (s), 2, 3, Right Orthopedic DIGITAL DEFORMITIES: Digital con tracture, PIPJ, 2-5 B/L, incompl-reducable with WB, or to push-up test, no over, nor underlapping MUSCLE STRENGTH: 5/5 all groups in a symmetrical fashion , B/L General Examination GENERAL APPEARANCE: Reveals a pleasant, alert, well nourished, well developed, well hydrated individual, who demonstrates proper attention to hygene/body habitus, and is in no acute distress FOOT EXAM: Lower Extremity Neurological Exa m performed:: Yes Visual exam of foot performed:: Yes Sensory and motor testing performed:: [facility] diminished Pedal pulse taking performed:: absent ORIENTED: person, place, and t wilner Ophthalmology Referral DIABETES EYE EXAM Diabetic Retinopa thy Screening:: Yes Findings of Diabetic Eye Exam:: no retin opathy Vascular DP PULSES (B): 1/4, B/L PT PULSES (B): 0/4, B/L Nails NAILS are: Elongated, overg rown, dystrophic, lytic, greater than 3mm thick, discolored and friable with crumbly malodorous subungual debris, with dull to no pain on palpation due to neuropathy, 1-5 B/L
--- NOTE | 2024-04-03 08:34 | PFT_ITS ---
Indication: Cough Spirometry FEV1 to FVC 71%; FEV1 2.33 L; FVC 3.27 L. no significant response to bronchodilators noted. Lung Volumes Total lung capacity 75% predicted; expiratory reserve volume 80% predicted Diffusion Capacity DLCO 70% predicted Comparisons [none] Interpretation The patient appears have a mild obstructive ventilatory defect based on a concavity to the expiratory limb of the flow volume loop. No significant response to bronchodilators noted. In addition, the patient also has a restrictive ventilatory defect consistent mild restrictive lung disease. There is a mild diffusion impairment. MTDD
== END 2024-04-03 07:33 | disposition home or self-care (01) ==
LOC: HO.RESP 07:32
PROVIDERS: PCP Internal Medicine; Visit Provider Internal Medicine Pulmonary Disease
DX: R05.3 Chronic cough (principal)
CPT/HCPCS: 71250; 94010; 94640; 94727; 94729

== ENCOUNTER 2024-04-26 10:49 | Outpatient (AMB) | payer MEDICARE, BC, SELFPAY ==
[2024-04-26 10:52] VITALS: BP 136/70; PULSE 92; O2SAT 100; BMI 28.1
--- NOTE | 2024-04-26 10:52 | MHC.OFFVIS ---
Vital Signs 04/26/24 10:52 Height 5 ft 10 in Weight 196 lb BMI 28.1 BP 136/70 Blood Pressure Location Lt brachial Position Sitting Pulse 92 Pulse Source Doppler Pulse Oximetry (%) 100 Oxygen Delivery Method Room Air Intake Visit Reasons: cough Allergies grass pollen Allergy (Mild, Verified 04/26/24 10:59) Unknown HPI HPI cough: Details: 68-year-old lady, nonsmoker, with no prior history of pulmonary concerns presents complaining of persistent dry cough after recent COVID-19 infection approximately 1 months prior to presentation. Patient also complains of underlying acid reflux that is well controlled on omeprazole. She does have family history of COPD and lung cancer in her mother and grandfather. After the last office visit patient states that her cough has flared up after pulmonary function testing, but has essentially resolved after that. She does get very intermittent paroxysms of cough rarely productive of some clear phlegm. She did complete her CT chest. [facility] Medical History Diabetes mellitus with coincident hypertension Diabetes mellitus Hypertension Surgical History No pertinent past surgical history Family History Father No problems noted. Mother Gastroparesis Paternal Grandmother Gastroparesis Family/Other Gastroparesis Social History Housing: House Alcohol intake: never Patient Tobacco Use Status: Never used Tobacco e-Cigarette/Vaping Use: Never Used Second Hand Smoke Exposure: No service: No Current occupational status: retired Cognitive needs: No Hearing needs: No Vision needs: Yes (glasses) Review of Systems Const Denies daytime sleepiness, Denies excessive sweating, Denies fatigue, Denies fever(s), Denies lethargy, Denies malaise, Denies night sweats, Denies snoring and Denies weight loss Eyes Denies blurry vision and Denies itchy eyes ENT Denies nasal congestion, Denies post nasal drip, Denies sinus pain, Denies sinus pressure and Denies other ( Thrush) Card Denies chest pain, Denies pedal edema, Denies dyspnea, Denies orthopnea and Denies paroxysmal nocturnal dyspnea Resp Denies cough, Denies hemoptysis, Denies excessive phlegm production, Denies dyspnea, Denies snoring and Denies wheezing GI Denies abdominal pain and Denies heartburn Musc Denies myalgias, Denies arthralgias and Denies joint swelling Skin/Breast Denies rash Neuro Denies memory loss and Denies seizure-like activity Psych Denies abnormal sleep pattern, Denies anxiety and Denies memory loss Endo Denies excessive sweating, Denies fatigue and Denies heat intolerance Myles/Lymph Denies easy bruising Aller/Immun Denies itchy eyes, Denies seasonal rhinorrhea and Denies wheezing Physical Exam Vital Signs: Last Vital Signs Pulse 92 04/26/24 10:52 BP 136/70 04/26/24 10:52 Pulse Ox 100 04/26/24 10:52 Oxygen Delivery Method Room Air 04/26/24 10:52 BMI result Body Mass Index 28.1 Const General: no acute distress and alert Nutritional Appearance: not obese Orientation/consciousness: Other orientation findings ( oriented) HEENT Head: Yes atraumatic Eyes General: appearance normal, both eyes and all related structures Sclerae: sclerae normal EOM: EOMs intact bilaterally Neck Neck: Yes supple Lymphatic: no lymphadenopathy noted Resp Effort & Inspection: normal respiratory effort and no use of accessory muscles Auscultation: clear to auscultation bilaterally Cardio Rate: regular rate Rhythm: regular rhythm Heart sounds: no gallops, no murmurs and no rubs Skin General skin exam: other ( warm) Extrem General: No clubbing, No cyanosis and No edema Assessment & Plan Assessment & Plan (1) Chronic cough: Code(s): R05.3 - Chronic cough Category: Medical Plan: Essentially resolved. Patient does complain of rare episodes of paroxysmal cough productive of small amount of clear phlegm. She does continue on as needed cough suppressant. (2) Restrictive ventilatory defect: Code(s): R94.2 - Abnormal results of pulmonary function studies Category: Medical Plan: Results of pulmonary function test reviewed, underlying borderline restrictive ventilatory defect with decreased diffusion capacity. CT chest with no evidence of underlying fibrosis. At this time would monitor clinically. Coding Level of Care Code Est Pt Level 4 (19962) Diagnoses Chronic cough R05.3 Restrictive ventilatory defect R94.2
--- OUTSIDE RECORDS SUMMARY | 2024-04-26 11:45 | XMS_ITS ---
Author Organization [facility] Address [address] [place] [address] Care Team Providers Care Financial Systems Manager Name Role Phone Candice SANTOS, Harpreet Primary Care Provider Tiffany Russell Unavailable [phone] Wang Navas Unavailable [phone] Allergies No Known Allergies REASON FOR VISIT [...] other tobacco user? No Vital Signs Height 5pn12rg in 12/06/2023 Weight 185 lbs 12/06/2023 BMI 25.8 kg/m2 12/06/2023 Encounters Encounter Location Date Provider Diagnosis [facility] [place] [address] [place] [address] 12/06/2023 Wang Navas Tinea unguium B35.1 ; [...] 4 Months, Reason: Provider Name:Tiffany Gandhi bean, 07/11/2024 09:45:00 AM, [address] [place] [address], [phone], Procedure Notes * Category Sub-Category Detail Notes [...] as necessary. Patient chooses, no pharmaceutical tx (03820) Keratoma Treatment Parring or Cutting o f Benign Hyperkeratotic Lesion(s) 01356 ( >4 Lesions) - The Benign hyperkeratotic lesions, as described above were pared, and/or cut utilizing a sterile #15 blade, tissue nippers, and/or dremel Progress Notes * Yumiko RODGERS MDOB: 7 (68 yo F)Acc No.[id number]:12/06/2023 Progress Note Patient:?Yumiko Rodgers Provider:?Wang Navas DPM :1955???Age:68 Y???Sex:Female D ate:12/06/2023 Address:[address] [place], [place] [id number] Pcp:Harpreet Harvey MD Subjective: * Chief Complaints: [...] * Allergies:?N.K.D.A.yes[Aller gies Verified] Objective: * Vitals:?Ht: 2kv87ev, Wt:185, BMI:25.8, Shoe size: 10, BS: 139, [...] as necessary. Patient chooses, no pharmaceutical tx (06096).?Keratoma Treatment:?Parring or Cutting of Benign Hyperkeratotic Lesion(s)?10263 ( >4 Lesions) - The Benign hyperkeratotic lesions, as described above were pared, and/or cut utilizing a sterile #15 blade, tissue nippers, and/or dremel.? * Procedure Codes:?78413 DEBRI DE NAIL, 6 OR MORE, Modifiers: XS 33779 TRIM SKIN LESIONS, OVER 4, Modifiers: XS * Follow Up:?4 Months * Images: * Sign off status: Completed true * Provider:?Wang Navas DPM Date:? 024 Generated for Richiei he/Azul/eTransmitting on:?04/26/2024 11:45 AM EST History and Physical Notes * [...] Yes Sensory and motor testing performed:: [facility] diminished Pedal pulse taking performed:: absent ORIENTED: [...]
--- OUTSIDE RECORDS SUMMARY | 2024-04-26 11:46 | XMS_ITS ---
Author Organization [facility] Address [address] [place] [id number] Care Team Providers Care Author Agent Name Role Phone Candice SANTOS, Harpreet Primary Care Provider Tiffany Russell Unavailable [phone] Wang Navas [phone] Encounters Encounter Location Date Provider Diagnosis [address] [address] 12/04/2023 Wang Navas Plan Of Treatment Next Appt Details Provider Name:Tiffany del angel, 07/11/2024 09:45:00 AM, [address] [place] [address], [phone], Progress Notes * Yumiko VELÁZQUEZ MDOB: (68 yo F)Acc No.[id number]:12/04/2023 Progress Note Patient:?VISHAL Yumiko Obrien Provider:?Wang Navas DPM :1955???Age:68 Y???Sex:Female D ate:12/04/2023 Address:[address] [place], [place] [phone] Pcp:Harpreet Harvey MD Subjective: * Chief Complaints: [...] DPM Date:? 024 Generated for Raj cutler/Azul/Sonyaitting on:?04/26/2024 11:45 AM EST
--- OUTSIDE RECORDS SUMMARY | 2024-04-26 11:46 | XMS_ITS | Patient Health Record ---
[facility] Address [address] [place] [address] Care Team Providers Care Filler Feeder Name Role Phone Harpreet Harvey MD Primary Care Provider Tiffany Russell Unavailable [phone] NavasWang Unavailable [phone] Allergies No Known Allergies Results Component Value Reference Range Notes HEMOGLOBIN A1C (GLYCOHEMOGLO BIN) Reviewed date:08/02/2023 07:56:23 AM Interpretation: Performing Lab: Notes/Report: HEMOGLOBIN A1C % (HH) 5.8 HEMOGLOBIN A1C (GLYCOHEMOGLO BIN) Reviewed date:04/10/2024 08:56:04 AM Interpretation: Performing Lab: Notes/Report: HEMOGLOBIN A1C % (HH) 6.7 Reason For Referral No Information Medications Medication SIG (Take, Route, Frequency, Duration) Notes Start Date End Date Status Cimzia Active Work Note . . .Dx: Niddm with neuropathy, arthritic toe deformity .Rx: this patient must avoid steel toe shoes permanently to avoid infection for . 08/28/2013 Not-Taking Trulicity Active CeleBREX 100 MG 1 capsule Orally Twice a day for 30 day(s) Not-Taking Lamisil 250 250 MG 1 Tab Oral Daily for 90 02/22/2013 Not-Taking Lisinopril 2.5 MG 1 tablet Orally Once a day Active Otezla Active Gabapentin 100 MG 1 capsule Orally Once a day for 30 day(s) Active metFORMIN HCl 500 MG 1 tablet with meals Orally Twice a day for 30 day(s) 1000 mg once a day Active Tresiba Active Extra-Depth Diabetic Shoes with 3 Pair Custom heat-molded multi-density innersoles . 1pair shoes/3sets inserts . . for 1 year 02/20/2013 Active Propranolol HCl Acti ve Simvastatin 10 MG 1 tablet in the evening Orally Once a day for 30 day(s) Active Meloxicam 15 MG 1 tablet Orally Once a day for 30 day(s) Not-Taking hydroCHLOROthiazide 25 MG 1 tablet Orall y Once a day for 30 day(s) Not-Taking Doxepin HCl 10 MG 1 capsule at bedtime Orally Once a day for 30 day(s) Not-Taking Omeprazole Active glipiZIDE 5 MG 1 tablet Orally Once a day for 30 day(s) Not-Taking Folic Acid 1 MG 1 tablet Orally Once a day for 30 day(s) Not-Taking Humira 40 MG/0.8ML 0.8 Subcutaneous for 30 day(s) Not-Taking Januvia 40mg Twice a day Not-T aking Extra Depth Orthopedic Shoes (1 Pair) with Customized Heat Molded Multidensity Innersoles (3 Pair) as directed Dx: IDDM/Polyneuropathy (E10.42), Hammertoe Foot Deformity (M20.41,M20.42), Preulcerative Skin Lesion(s) (L85.1) 04/10/2024 Active Amitriptyline HCl Ac tive Methotrexate 2.5 MG 1 tablet Orally Three times a Week for 30 day(s) Not-Taking HumaLOG Active Keflex 500 MG 1 capsule Orally every 12 hrs for 10 day(s) 04/13/2015 Not-Taking Cosentyx Not-Taking Immunizations Vaccine Route Administration Date Status Comme nts COVID-19 Justin & Justin/Camilo Unknown 11/25/2020 Administered 1st 05/17/2020 Influenza Unknown 07/29/2015 Pending Influenza Unknown 02/15/2017 Refused Influenza Unknown 05/24/2017 Refused Influenza Unknown 12/25/2017 Refused Influenza Unknown 09/04/2019 Refused Influenza Unknown 11/25/2020 Administered Pneumococcal Unknown 11/11/2020 Administered Social History Tobacco Use: Social History Observation Description Date Details (start date - stop date) Never Smoker NA - NA Tobacco use other than smoking: Question Answer Notes Are you an other tobacco user? No Tobacco Control (Standard) Question Answer Notes Tobacco use: Nonsmoker Additional Findings: Tobacco non-user Current no nsmoker AUDIT-C (Standard) Question Answer Notes Did you have a drink containing alcohol in the p ast year? No Points 0 Interpretation Negative Problems Problem Type SNOMED Code ICD Code Onset Dates Problem Status W/U Status Risk Notes Problem Polyneuropathy due to type 2 diabetes mellitus (903514290) Type 2 diabetes mellitus with diabetic polyneuropathy (E11.42) Active confirmed Vital Signs Blood pressure diastolic 80 mm Hg 04/10/2024 Height 5hz01vf in 04/10/2024 Blood pressure systolic 120 mm Hg 04/10/2024 Weight 185 lbs 04/10/2024 BMI 25.8 kg/m2 04/10/2024 Procedures Procedure Date Ordered Date Performed Result Body Sit e 50371-YSMHALQ NAIL, 6 OR MORE 04/10/2024 N/A 55461-VNKY SKIN LESIONS, 2 TO 4 04/10/2024 N/A Encounters Encounter Location Date Provider Diagnosis [address] [address] 08/02/2023 Wang Navas Tinea unguium B35.1 ; Pain in right toe(s) M79.674 ; Pain in left toe(s) M79.675 ; Type 2 diabetes mellitus with diabetic polyneuropathy E11.42 ; Other hammer toe(s) (acquired), left foot M20.42 ; Other hammer toe(s) (acquired), right foot M20.41 ; Ingrowing nail L60.0 ; Primary osteoarthritis, right ankle and foot M19.071 and Primary osteoarthritis, left ankle and foot M19.[address] [address] 12/06/2023 Wang Navas Tinea unguium B35.1 ; Pain in right toe(s) M79.674 ; Pain in left toe(s) M79.675 ; Type 2 diabetes mellitus with diabetic polyneuropathy E11.42 ; Other hammer toe(s) (acquired), left foot M20.42 ; Other hammer toe(s) (acquired), right foot M20.41 ; Primary osteoarthritis, right ankle and foot M19.071 ; Ingrowing nail L60.0 and Primary osteoarthritis, left ankle and foot M19.[address] [address] 04/10/2024 Tiffany Salas Other hammer toe(s) (acquired), right foot M20.41 ; Other hammer toe(s) (acquired), left foot M20.42 ; Type 2 diabetes mellitus with diabetic polyneuropathy E11.42 and Tinea unguium B35.1 [facility] [address] [place] [address] 08/02/2023 Wang Navas Assessments Encounter Date Diagnosis (ICD Code) Assessment Notes Treatment Notes Treatment Clinical Notes Section Notes 08/02/2023 Pain in right toe(s) (ICD-10 - M79.674) 08/02/2023 Tinea unguium (ICD-10 - B35.1) 12/06/2023 Pain in right toe(s) (ICD-10 - M79.674) 12/06/2023 Tinea unguium (ICD-10 - B35.1) 04/10/2024 Other hammer toe(s) (acquired), right foot (ICD-10 - M20.41) Patient Educated with: DIABETIC FOOT CARE INSTRUCTIONS. pdf (DIABETIC FOOT CARE INSTRUCTIONS. pdf) 04/10/2024 Other hammer toe(s) (acquired), left foot (ICD-10 - M20.42) 04/10/2024 Type 2 diabetes mellitus with diabetic polyneuropathy (ICD-10 - E11.42) 12/06/2023 Pain in left toe(s) (ICD-10 - M79.675) 08/02/2023 Pain in left toe(s) (ICD-10 - M79.675) 08/02/2023 Type 2 diabetes mellitus with diabetic polyneuropathy (ICD-10 - E11.42) 04/10/2024 Tinea unguium (ICD-10 - B35.1) 12/06/2023 Type 2 diabetes mellitus with diabetic [...] Treatment Pending Test Test Name Order Date 34335-DAOXGKR NAIL, 6 OR MORE 02/20/2013 92766-RNDUKSE NAIL, 6 OR MORE 05/29/2013 36168-QYXLKLR NAIL, 6 OR MORE 08/28/2013 31069-FEEPJXU NAIL, 6 OR MORE 12/11/2013 93472-WRZBRLN NAIL, 6 OR MORE 05/07/2014 02886-HPJGAJX NAIL, 6 OR MORE 08/06/2014 03165-CEPLMHH NAIL, 6 OR MORE 04/13/2015 29306-CWMEZTW NAIL, 6 OR MORE 12/31/2014 66023-WAYFAOZ NAIL, 6 OR MORE 07/29/2015 91047-SPDLSYK NAIL, 6 OR MORE 10/28/2015 46652-FEXRUWY NAIL, 6 OR MORE 01/27/2016 22743-ZVMCLLU NAIL, 6 OR MORE 04/27/2016 83030-XYHQIWQ NAIL, 6 OR MORE 11/02/2016 96465-WTSULUV NAIL, 6 OR MORE 02/15/2017 17280-ZXVAGZN NAIL, 6 OR MORE 05/24/2017 12950-VAKPAQC NAIL, 6 OR MORE 08/30/2017 96479-GCDZMNM NAIL, 6 OR MORE 12/25/2017 46433-IDMQLMY NAIL, 6 OR MORE 04/10/2024 05259-Kvykgvbh Plate 08/30/2017 61423-Mtmpjjxt Plate 11/02/2016 32499-Thagzulb Plate 12/31/2014 45152-Ubvrykyw Plate 04/13/2015 33837-Lskiwvwb Plate 08/06/2014 36312-Pveqcosm Plate 05/07/2014 90210-Geodafqb Plate 12/11/2013 22947-Banmcnxm Plate 09/11/2013 01856-Mhzrqfmr Plate 05/29/2013 86184-Zojmxhjc Plate 02/20/2013 85532-Iwjfizep Plate Each Additional 04/2013 35225-Zafptyqk Plate Each Additional 04651-Gocjcggv Plate Each Additional 89158-Vmklpcgf Plate Each Additional 03/2015 60387-Asmlnpvh Plate Each Additional 19745- Debride <25 sq cm 07/06/2020 94860- Debride <25 sq cm 08/28/2013 07330-QPBM SKIN LESIONS, OVER 4 05/07/19 15 88874-KUPN SKIN LESIONS, OVER 4 12/12/19 14 26282-LWDU SKIN LESIONS, OVER 4 02/21/20 13 71306-TCKT SKIN LESIONS, OVER 4 05/30/19 14 03508-SNAQ SKIN LESIONS, OVER 4 08/29/19 14 44647-DXUV SKIN LESIONS, OVER 4 04/13/19 16 07901-OUPX SKIN LESIONS, OVER 4 08/07/19 15 33949-LKZO SKIN LESIONS, OVER 4 01/01/20 15 25994-BPZV SKIN LESIONS, OVER 4 07/29/19 16 33472-OJLZ SKIN LESIONS, OVER 4 01/27/20 16 29384-LJTX SKIN LESIONS, OVER 4 10/28/19 16 31415-NRYC SKIN LESIONS, OVER 4 07/07/19 21 22421-HSGP SKIN LESIONS, OVER 4 01/14/20 21 80319-SQRN SKIN LESIONS, OVER 4 11/03/19 17 31005-UYFD SKIN LESIONS, OVER 4 04/27/19 17 02224-IKUS SKIN LESIONS, OVER 4 07/28/19 17 97738-GSWS SKIN LESIONS, OVER 4 05/25/19 18 49841-HTGI SKIN LESIONS, OVER 4 02/16/20 17 96826-JZRM SKIN LESIONS, OVER 4 08/31/19 18 20439-NSOT SKIN LESIONS, OVER 4 12/26/19 18 99082-EFSD SKIN LESIONS, OVER 4 04/16/19 19 78195-XCMO SKIN LESIONS, OVER 4 08/16/19 19 19497-OUUO SKIN LESIONS, OVER 4 11/15/19 19 79408-XQHR SKIN LESIONS, OVER 4 03/18/19 20 25170-DLWI SKIN LESIONS, OVER 4 09/04/19 20 81710-LRIY SKIN LESIONS, OVER 4 01/06/20 20 58337-JTJE SKIN LESIONS, 2 TO 4 04/10/19 25 Next Appt Details Provider Name:Tiffany del angel, 07/11/2024 09:45:00 AM, [address] [place], [address], Insurance Providers Payer Name Payer Address Payer Phone Subscriber Number Group Number Insured Name Patient Relationship to Insured Coverage Start Date Coverage End Date [employer] [address] [place] [address] [id number] Yumiko Rodgers Self - patient is the insured [facility] [address] [place] [address] [id number] Yumiko Rodgers Self - patient is the insured Medical (General) History Medical History History ICD Code Arthritis headaches/migraines high blood pressure psoriasis/eczema type II diabetes Surgical History Surgery Date(Month/Year) bx left leg 2014
--- OUTSIDE RECORDS SUMMARY | 2024-04-26 11:46 | XMS_ITS ---
Author Organization [facility] Address [address] [place] [address] Care Team Providers Care Cuff Runner Name Role Phone Candice SANTOS, Harpreet Primary Care Provider Tiffany Russell Unavailable [phone] Allergies No Known Allergies REASON FOR VISIT Toe Irritation, At Risk Footcare Medications Medication SIG (Take, Route, Frequency, Duration) Notes Start Date End Date Status Work Note . . .Dx: Niddm with neuropathy, arthritic toe deformity .Rx: this patient must avoid steel toe shoes permanently to avoid infection for . 08/28/2013 Not-Taking CeleBREX 100 MG 1 capsule Orally Twice a day for 30 day(s) Not-Taking Lamisil 250 250 MG 1 Tab Oral Daily for 90 02/22/2013 Not-Taking Methotrexate 2.5 MG 1 tablet Orally Three times a Week for 30 day(s) Not-Taking Cosentyx Not-Taking glipiZIDE 5 MG 1 tablet Orally Once a day for 30 day(s) Not-Taking Folic Acid 1 MG 1 tablet Orally Once a day for 30 day(s) Not-Taking Januvia 40mg Twice a day Not-T aking Extra Depth Orthopedic Shoes (1 Pair) with Customized Heat Molded Multidensity Innersoles (3 Pair) as directed Dx: IDDM/Polyneuropathy (E10.42), Hammertoe Foot Deformity (M20.41,M20.42), Preulcerative Skin Lesion(s) (L85.1) 04/10/2024 Active Keflex 500 MG 1 capsule Orally every 12 hrs for 10 day(s) 04/13/2015 Not-Taking Meloxicam 15 MG 1 tablet Orally Once a day for 30 day(s) Not-Taking hydroCHLOROthiazide 25 MG 1 tablet Orall y Once a day for 30 day(s) Not-Taking Doxepin HCl 10 MG 1 capsule at bedtime Orally Once a day for 30 day(s) Not-Taking Humira 40 MG/0.8ML 0.8 Subcutaneous for 30 day(s) Not-Taking Extra-Depth Diabetic Shoes with 3 Pair Custom heat-molded multi-density innersoles . 1pair shoes/3sets inserts . . for 1 year 02/20/2013 Active Lisinopril 2.5 MG 1 tablet Orally Once a day Active Otezla Active Tresiba Active Propranolol HCl Acti ve Simvastatin 10 MG 1 tablet in the evening Orally Once a day for 30 day(s) Active Omeprazole Active Cimzia Active Trulicity Active Gabapentin 100 MG 1 capsule Orally Once a day for 30 day(s) Active metFORMIN HCl 500 MG 1 tablet with meals Orally Twice a day for 30 day(s) 1000 mg once a day Active Amitriptyline HCl Ac tive HumaLOG Active Social History Tobacco Use: Social History [...] ast year? No Points 0 Interpretation Negative Vital Signs Height 4bt10cl in 04/10/2024 Weight 185 lbs 04/10/2024 BMI 25.8 kg/m2 04/10/2024 Blood pressure systolic 120 mm Hg 04/10/19 25 Blood pressure diastolic 80 mm Hg 025 Procedures Procedure Date Ordered Date Performed Result Body Sit e 08155-FFXJWXN NAIL, 6 OR MORE 04/10/2024 N/A 61250-EFZZ SKIN LESIONS, 2 TO 4 04/10/2024 N/A Encounters Encounter Location Date Provider Diagnosis [facility] [address] [place] [address] 04/10/2024 Tiffany Salas Other hammer toe(s) (acquired), right foot M20.41 ; Other hammer toe(s) (acquired), left foot M20.42 ; Type 2 diabetes mellitus with diabetic polyneuropathy E11.42 and Tinea unguium B35.1 Assessments Encounter Date Diagnosis (ICD Code) Assessment Notes Treatment Notes Treatment Clinical Notes Section Notes 04/10/2024 Other hammer toe(s) (acquired), right foot (ICD-10 - M20.41) Patient Educated with: DIABETIC FOOT CARE INSTRUCTIONS. pdf (DIABETIC FOOT CARE INSTRUCTIONS. pdf) 04/10/2024 Other hammer toe(s) (acquired), left foot (ICD-10 - M20.42) 04/10/2024 Type 2 diabetes mellitus with diabetic polyneuropathy (ICD-10 - E11.42) 04/10/2024 Tinea unguium (ICD-10 - B35.1) Plan Of Treatment Medication Medication Name Sig Start Date Stop Date Notes Extra Depth Orthopedic Shoes (1 Pair) with Customized Heat Molded Multidensity Innersoles (3 Pair) as directed Dx: IDDM/Polyneuropathy (E10.42), Hammertoe Foot Deformity (M20.41,M20.42), Preulcerative Skin Lesion(s) (L85.1) 04/10/2024 Treatment Notes Assessment Notes Other hammer toe(s) (acquired), right fo ot Patient Educated with: DIABETIC FOOT CARE INSTRUCTIONS.pdf (DIABETIC FOOT CARE INSTRUCTIONS.pdf) Pending Test Test Name Order Date [id number]-[id number] NAIL, 6 OR MORE 04/10/2024 78688-DQOE SKIN LESIONS, 2 TO 4 04/10/19 25 Next Appt Details Follow Up: 3 Months, Reason: Provider Name:Tiffany del angel, 07/11/2024 09:45:00 AM, [address] [place] [address], [id number], Procedure Notes * Category Sub-Category Detail Notes Debride Nail 6-10 Nail debridement Due to the cl inical pathology outlined in the exam findings, performance of this nail treatment is medically necessary as its management by an unskilled/untrained nonprofessional would put this patients foot and overall health at risk. Therefore, debridement to affected nail(s), as described in exam ( TA, T1, T2, T3, T4, T5, T6, T7, T8, T9, ), was performed exclusively by the physician of record to reduce/remove overall nail length, girth, thickness, subungual debris, and necrotic tissue, by manual and/or electrical means through the use of a nail nipper and/or dremel-type bench grinder, to a more viable healthy nail plate or bed tissue 6-10 nails in total. Silver nitrate was used for any petechial bleeding as necessary. Definitive antifungal treatment options, both pharmaceutical and surgical, have been reviewed and discussed with the patient. The patient solely prefers the use of intermittent/as needed professional debridement services for their nail condition and understands the need for additional periodic treatments to maintain effectiveness in symptomatic relief - 64735 Keratoma Treatment Parring or Cutting o f Benign Hyperkeratotic Lesion(s) (-56) 2-4 Lesions - Due to the at risk nature of the patients medical condition as documented in the exam findings, performance of this keratoderma treatment is medically necessary as its management by an unskilled/untrained nonprofessional would put this patients foot and overall health at risk. Therefore, the benign hyperkeratotic lesions, ( 2 ) in total, locations as stated and described in the exam ( plantar heels B/L ), were pared, and/or cut utilizing a sterile 15 blade, tissue nippers, and/or power dremel instrumentation by the physician of record - 82130 Progress Notes * Yumiko RODGERS MDOB: (68 yo F)Acc No.[id number]:04/10/2024 Progress Note Patient:?Yumiko RODGERS Provider:?Tiffany Salas DPM :1955???Age:68 Y???Sex:Female D ate:04/10/2024 Address:[address] [place] [address] Pcp:Harpreet Harvey MD Subjective: * Chief Complaints: * ???Toe IrritationAt Risk Jered tcare * HPI: ???Toe pain:?Location:?B/L feet.?Duration:?several years.?Course:?worse.?Aggravated by:?shoes, any pressure.?Treatments:?change in shoes.?At Risk footcare:?Pt States Last PCP Visit:?Date?02/12/2024 * ROS:?General/Constitutional:?Nausea?denies.?Vomiting?denies.?Hunger Thirst?denies.?Loss appetite?denies.?Chills?denies.?Fatigue?denies.?Fever?denies.?Night Sweats?denies.?Unexplained weight loss?denies.?Unexplained weight gain?denies.?HEENTM:?Dentures?denies.?Dizziness?denies.?Glasses/contacts?admits.?Retinopathy?den ies.?Blurred/double vision?denies.?TMJ?denies.?Discharge/drainage?denies.?Implants?denies.?Sore throat?denies.?Dental implants?denies.?Hard of hearing ?denies.?Difficulty chewing/swallowing/speaking?denies.?Nose bleeds?denies.?Sore mouth?denies.?Respiratory:?On O xygen?denies.?Pneumonia/pleurisy?denies.?Bronchitis?denies.?Emphysema?denies.?Co ughing?denies.?Cough blood?denies.?Shortness of breath?denies.?Wheezing?denies.?Cardiovascular:?Pacemaker?denies.?MVP?denies.?WPW?denies.?CHF?denies.?Heart attack?denies.?Septal defect?denies.?Rapid beat?denies.?Chest pain ?denies.?Atrial Fib.?denies.?Murmur/Palpitations?denies.?Gastrointestinal:?Hemorrhoids?denies.?Stomach/Abdominal pain?denies.?Dark blood stool?denies.?Irritable bowel ?denies.?Constipation?denies.?Diarrhea?denies.?Hematology:?Swelling?denies.?Clots?denies.?Varicose Veins?denies.?Bruising?denies.?Bleeding problem?denies.?Genitourinary:?Blood urine?denies.?Frequent/Painfu/urination/bladder control?denies.?Kidney stones?denies.?Infection (UTI)?denies.?Nephropathy?denies.?sex trans dis (STD)?denies.?Prostate?denies.?Musculoskeletal:?Hammertoes?denies.?Bunions?denies.?Back Pain?denies.?Muscle Cramps/ Resting?denies.?Muscle cramps / walking?denies.?Generalized aches and pains?denies.?Weakness?denies.?Integ.:?Lima?denies.?Scars?denies.?Corns/calluses?denies.?Ingrown nails?denies.?Painful nails?denies.?Open Sores?denies.?Rashes?denies.?Neurologic:?Difficulty sleeping?denies.?Brain disorder?denies.?Numbness?denies.?Balance t rouble?denies.?Confusion?denies.?Fainting/blackouts?denies.?Tingling?denies.?Blane mors?denies.? * Medical History:? * Surgical History:?bx left le g 2014 * Hospitalization/Major Diagno stic Procedure:?Denies Past Hospitalization * Family History:?Mother: dece ased, diagnosed with Diabetic - NIDDM, Unspecified essential hypertension.?Father: , diagnosed with Diabetic - NIDDM, Unspecified essential hypertension.?Paternal Grand Mother: , type II diabetes, hypertension, diagnosed with Diabetic - NIDDM, Unspecified essential hypertension.?Paternal Grand Father: , type II diabetesh, hypertension, diagnosed with Diabetic - NIDDM, Unspecified essential hypertension.?Maternal Grand Mother: , type II diabetes, hypertension, diagnosed with Diabetic - NIDDM, Unspecified essential hypertension.?Maternal Grand Father: , type II diabetes, hypertension, diagnosed with Diabetic - NIDDM, Unspecified essential hypertension.?Siblings: alive, type II diabetes, diagnosed with Diabetic - NIDDM.? * Social History:?Tobacco Use:?Tobacco use other than smoking?Are you an other tobacco user??No ?Tobacco Control (Standard)?Tobacco use:?Nonsmoker ?Additional Findings: Tobacco non-user?Current nonsmoker ???Drugs/Alcohol:?Drugs?Have you used drugs other than those for medical reasons in the past 12 months??No ???Miscellaneous:?Caffeine: yes, frequency: coffee , 1-2 cups per day. ?Children: no. ?Exercise: yes, swimming, walking, PT. ?Marital status: single. 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 ???Drug/Alcohol:?AUDIT-C (Standard)?Did you have a drink containing alcohol in the past year??No ?Points?0 ?Interpretation?Negative * Medications:?TakingAmitripty line HCl HumaLOG Omeprazole Cimzia Trulicity Gabapentin 100 MG Capsule 1 capsule Orally Once a day metFORMIN HCl 500 MG Tablet 1 tablet with meals Orally Twice a day , Notes to Pharmacist: 1000 mg once a dayLisinopril 2.5 MG Tablet 1 tablet Orally Once a day Otezla Propranolol HCl Simvastatin 10 MG Tablet 1 tablet in the evening Orally Once a day Tresiba Extra-Depth Diabetic Shoes with 3 Pair Custom heat-molded multi-density innersoles . . 1pair shoes/3sets inserts . . Taking Amitriptyline HCl Taking HumaLOG Taking Omeprazole Taking Cimzia Taking Trulicity Taking Gabapentin 100 MG Capsule 1 capsule Orally Once a day Taking metFORMIN HCl 500 MG Tablet 1 tablet with meals Orally Twice a day , Notes to Pharmacist: 1000 mg once a dayTaking Lisinopril 2.5 MG Tablet 1 tablet Orally Once a day Taking Otezla Taking Propranolol HCl Taking Simvastatin 10 MG Tablet 1 tablet in the evening Orally Once a day Taking Tresiba Taking Extra-Depth Diabetic Shoes with 3 Pair Custom heat-molded multi-density innersoles . . 1pair shoes/3sets inserts . . Not-Taking/PRNDoxepin HCl 10 MG Capsule 1 capsule at bedtime Orally Once a day Meloxicam 15 MG Tablet 1 tablet Orally Once a day hydroCHLOROthiazide 25 MG Tablet 1 tablet Orally Once a day Humira 40 MG/0.8ML Kit 0.8 Subcutaneous Januvia 40mg Twice a day glipiZIDE 5 MG Tablet 1 tablet Orally Once a day Folic Acid 1 MG Tablet 1 tablet Orally Once a day Keflex 500 MG Capsule 1 capsule Orally every 12 hrs Cosentyx Methotrexate 2.5 MG Tablet 1 tablet Orally Three times a Week CeleBREX 100 MG Capsule 1 capsule Orally Twice a day Lamisil 250 250 MG Tablet 1 Tab Oral Daily Work Note . . . .Dx: Niddm with neuropathy, arthritic toe deformity .Rx: this patient must avoid steel toe shoes permanently to avoid infection Medication List reviewed and reconciled with the patientNot-Taking/PRN Doxepin HCl 10 MG Capsule 1 capsule at bedtime Orally Once a day Not-Taking/PRN Meloxicam 15 MG Tablet 1 tablet Orally Once a day Not-Taking/PRN hydroCHLOROthiazide 25 MG Tablet 1 tablet Orally Once a day Not-Taking/PRN Humira 40 MG/0.8ML Kit 0.8 Subcutaneous Not-Taking/PRN Januvia 40mg Twice a day Not-Taking/PRN glipiZIDE 5 MG Tablet 1 tablet Orally Once a day Not-Taking/PRN Folic Acid 1 MG Tablet 1 tablet Orally Once a day Not-Taking/PRN Keflex 500 MG Capsule 1 capsule Orally every 12 hrs Not-Taking/PRN Cosentyx Not-Taking/PRN Methotrexate 2.5 MG Tablet 1 tablet Orally Three times a Week Not-Taking/PRN CeleBREX 100 MG Capsule 1 capsule Orally Twice a day Not- Taking/PRN Lamisil 250 250 MG Tablet 1 Tab Oral Daily Not-Taking/PRN Work Note . . . .Dx: Niddm with neuropathy, arthritic toe deformity .Rx: this patient must avoid steel toe shoes permanently to avoid infection Medication List reviewed and reconciled with the patient * Allergies:?N.K.D.A.yes[Aller gies Verified] Objective: * Vitals:?Ht:1ms43yg, Wt:185, BMI:25.8, Shoe size:10, BP:120/80mm Hg, BS:172, Ht- cm: 180.34 cm, Wt-k.92 kg. * ???Past Orders: ???Lab:HEMOGLOBIN A1C (GLYCO HEMOGLOBIN) (Order Date - 04/01/2024) (Collection Date & Time - 04/10/2024 08:55 AM) ? Value Reference Range ?HEMOGLOBIN A1C % (HH) 6.7 * Examination: ???Ophthalmology Referral: ?DIABETES EYE EXAM?Orthopedic: ?MUSCLE STRENGTH:?5/5 all groups in a symmetrical fashion, B/L.?DIGITAL DEFORMITIES:?Digital contracture, PIPJ, 2-5 B/L, incompl-reducible to push-up test, no over, nor underlapping,?there is?evidence of shoe producing skin irritation.?FOOTWEAR:?worn, non-supportive, shoe gear properties exacerbate patient's foot/toe deformity.?General Examination: ?GENERAL APPEARANCE:?Reveals a pleasant, alert, well nourished, well- developed, well hydrated individual, who demonstrates proper attention to hygiene/body habitus, and is in no acute distress, Pt serves as own historian for office visit today.?ORIENTED:?person, place, and time.?FOOT EXAM:?Footwear Evaluation?Neurological: ?SENSORY:? Neurological exam demonstrates, reduced light touch sensation, reduced sharp/dull pin prick discrimination , B/L, 5.07 monofilament test performed at plantar aspects of 5 varied sites per foot shows sensation, reduced , B/L.?Nails: ?NAILS are:?Elongated, overgrown, dystrophic, lytic, greater than 3mm thick, discolored and friable with crumbly malodorous subungual debris, with dull to no pain on palpation due to neuropathy, TA, T1, T2, T3, T4, T5, T6, T7, T8, T9.?Dermatologic: ?SKIN FINDINGS:?Skin exam reveals Keratotic lesion(s) located at plantar heels B/L.?Vascular: ?DP PULSES (B):?03/16, B/L.?PT PULSES (B):?/, B/L.? Assessment: * Assessment: 1.?Other hammer toe(s) (acqu ired), right foot - M20.41 (Primary)???Specify :Chronic problem, Worse (4),Rx Management (4)???2.?Other hammer toe(s) (acquired), left foot - M20.42???Specify :Chronic problem, Worse (4),Rx Management (4)???3.?Type 2 diabetes mellitus with diabetic polyneuropathy - E11.42???4.?Tinea unguium - B35.1??? Plan: * Treatment: 2.?Other hammer toe(s) (acqu ired), left foot? Start Extra Depth Orthopedic Shoes (1 Pair) with Customized Heat Molded Multidensity Innersoles (3 Pair), as directed, Dx: IDDM/Polyneuropathy (E10.42), Hammertoe Foot Deformity (M20.41,M20.42), Preulcerative Skin Lesion(s) (L85.1), 1, Refills 0.?? 3.?Type 2 diabetes mellitus with diabetic polyneuropathy?Procedure: 26898-QYMIDEU NAIL, 6 OR MORE ?Procedure: 81121-MBIP SKIN LESIONS, 2 TO 4 * Procedures:?Debride Nail 6-10:?Nail debridement?Due to the clinical pathology outlined in the exam findings, performance of this nail treatment is medically necessary as its management by an unskilled/untrained nonprofessional would put this patients foot and overall health at risk. Therefore, debridement to affected nail(s), as described in exam ( TA, T1, T2, T3, T4, T5, T6, T7, T8, T9, ), was performed exclusively by the physician of record to reduce/remove overall nail length, girth, thickness, subungual debris, and necrotic tissue, by manual and/or electrical means through the use of a nail nipper and/or dremel-type bench grinder, to a more viable healthy nail plate or bed tissue 6- 10 nails in total. Silver nitrate was used for any petechial bleeding as necessary. Definitive antifungal treatment options, both pharmaceutical and surgical, have been reviewed and discussed with the patient. The patient solely prefers the use of intermittent/as needed professional debridement services for their nail condition and understands the need for additional periodic treatments to maintain effectiveness in symptomatic relief - 54957.?Keratoma Treatment:?Parring or Cutting of Benign Hyperkeratotic Lesion(s)?(-56) 2-4 Lesions - Due to the at risk nature of the patients medical condition as documented in the exam findings, performance of this keratoderma treatment is medically necessary as its management by an unskilled/untrained nonprofessional would put this patients foot and overall health at risk. Therefore, the benign hyperkeratotic lesions, ( 2 ) in total, locations as stated and described in the exam ( plantar heels B/L ), were pared, and/or cut utilizing a sterile 15 blade, tissue nippers, and/or power dremel instrumentation by the physician of record - 23416.? * Procedure Codes:?28836 DEBRI DE NAIL, 6 OR MORE, Modifiers: XS 74916 TRIM SKIN LESIONS, 2 TO 4, Modifiers: XS 3044F HG A1C LEVEL LT 7.0% * Preventive Medicine:? ??Counseling:?Discussion:?-14: Office or other outpatient visit for the evaluation and management of an established patient, which required a medically appropriate history and/or examination and MODERATE level of DECISION MAKING for: 1 OR MORE CHRONIC PROBLEM(S) THATS WORSENING, 2 STABLE CHRONIC PROBLEMS, A NEWLY DIAGNOSED PROBLEM WITH UNCERTAIN PROGNOSIS, AN ACUTE COMPLICATED INJURY WITH MULTIPLE TREATMENT OPTIONS, OR AN ACUTE PROBLEM WITH ACCOMPANYING SYSTEMIC SYMPTOMS, THAT POSE(S) A MODERATE RISK OF MORBIDITY. THIS CONDITION MAY ALSO INCLUDE RX DRUG MANAGEMENT, OR A DECISON FOR MINOR SURGERY. The visit on the day of the encounter encompassed interpreting the data and educating the patient as to the nature of their condition, treatment options available according to their individual PMH, meds, allergies, and overall health/living conditions, as well as any potential risks or complications that may occur from a failure to adhere to, and participate in, the recommended course of therapy. The discussion included a complete verbal, and/or written explanation of the examination results, any x-rays taken, the proposed diagnosis, and outline of the treatment plan. A schedule for future care needs was also explained. The patient verbalized an understanding of the instructions at this time and agreed to be an active participant in their treatment. If the patient should think of any questions or concerns after the visit, I have encouraged the patient to call the office.?Digital Surgery:?Digital surgery was discussed with the patient, We elected to try conservative treatment at the present time, due to the patients medical history and increased asssociated post-operative risks.?Digital Treatment:?HT- I explained to the patient the possible etiologies of Hammertoes, including genetics/foot type/shoegear/activity level/exercise routine and the risks/benefits of all the different treatment options for their pain including: No treatment at all, Rest, Ice, New/supportive/wider/deeper Shoegear, Digital Padding/Strapping/Taping/Bracing/Gel protective sleeves, Foot/Ankle AFO Bracing, Stretching exercises, Deep Tissue Massage, Arch support/shoe inserts with splay metatarsal padding, and Custom orthoses. I insisted that any digital devices be removed daily and not worn overnight for safety. The patient is to carefully examine the toes daily for any skin irritation while using any splinting or padding device. The advantages and disadvantages of each option were discussed and the patients questions re: shoegear, padding, custom vs prefabricated inserts, activity level, and consistency in home treatment regimens for optimal success were answered to their verbally confirmed satisfaction.?Shoe Gear Counseling:?SHOE Rx - The patient was counseled in great detail on their muscoloskeletal foot and toe deformities which coincided with the dermatological presentations visualized on exam. We discussed how their deformities put the integrity of their feet at risk for potential pedal complications which makes the accomidative diabetic shoes and cutomizable inserts medically necessary. We discussed the different shoe and insert treatment types and options, as well as the important advantages for adhering to regularly wearing these accomidative devices daily. The patient was made aware of the fact that a failure to abide by these recommedations may be deleterious to their foot health as they are able to prevent many pedal complications such as skin irritation, skin ulceration, infection, and even loss of toe/foot/leg/or life. Time was also spent with the patient dispensing and discussing proper diabetic footcare techniques including daily skin moisturization, daily foot inspection for any interruption in skin integrity including open lesions, or sign of infection such as redness/malodor/drainage/swelling. Also discussed and recommended were procedures regarding daily shoe inspection for the presence of internal foreign bodies as well as any visualized irregular shoe or insert wear. Patient questions re: shoes, inserts, and self foot inspections were answered to their satisfaction as the patient verbally confirmed a full understanding of the above information. A Rx for Extra Depth Orthopedic Shoes with 3 pair of custom heat-molded inserts was dispensed.? ??Screening/Special Tests:?Fall Risk?Screening:?No falls in the past year ?FALLS: Screening for Future Fall Risk?Have you had any falls with injury in the past year??No * Follow Up:?3 Months * Images: * Sign off status: Completed true * Provider:?Tiffany Salas DPM Date:?0 04/10/2024 Generated for Raj cutler/Azul/Antoinettesmitting on:?04/26/2024 11:45 AM EST History and Physical Notes * HPI (History of Present Illness) Category Sub-Category Detail Notes Category Not es Toe pain Location: B/L feet Duration: several years Course: worse Aggravated by: shoes, any pressure Treatments: change in shoes At Risk footcare Pt States Last PCP Visit: Date: Examination Category Sub-Category Detail Notes Category Not es Neurological SENSORY: Neurological exa m demonstrates, reduced light touch sensation, reduced sharp/dull pin prick discrimination , B/L, 5.07 monofilament test performed at plantar aspects of 5 varied sites per foot shows sensation, reduced , B/L Dermatologic SKIN FINDINGS: Skin exam reveal s Keratotic lesion(s) located at plantar heels B/L Orthopedic FOOTWEAR: worn, non-suppor tive, shoe gear properties exacerbate patient's foot/toe deformity DIGITAL DEFORMITIES: Digital contracture , PIPJ, 2-5 B/L, incompl-reducible to push-up test, no over, nor underlapping, there is evidence of shoe producing skin irritation MUSCLE STRENGTH: 5/5 all groups in a symmetrical fashion, B/L General Examination GENERAL APPEARANCE: Reveals a pleasant, alert, well nourished, well-developed, well hydrated individual, who demonstrates proper attention to hygiene/body habitus, and is in no acute distress, Pt serves as own historian for office visit today FOOT EXAM: Lower Extremity Neurological Exa m performed:: Yes Date 04/10/24 Visual exam of foot performed:: Yes Date: 04/10/2024 Sensory testing performed:: sensations d iminished Sensory and motor testing performed:: st renh normal Pedal pulse taking performed:: 1+ ORIENTED: person, place, and t wilner Footwear Evaluation Footwear Evaluation performe d:: Yes Ophthalmology Referral DIABETES EYE EXAM Procedure Perform ed:: Yes ?Date of Exam Performed: 11/13/2023 Retinal Screening Performed:: Yes Findings of Diabetic Eye Exam:: no retin opathy Vascular DP PULSES (B): 1/4, B/L PT PULSES (B): 1/4, B/L Nails NAILS are: Elongated, overg rown, dystrophic, lytic, greater than 3mm thick, discolored and friable with crumbly malodorous subungual debris, with dull to no pain on palpation due to neuropathy, TA, T1, T2, T3, T4, T5, T6, T7, T8, T9
== END 2024-04-26 11:17 | disposition home or self-care (01) ==
PROVIDERS: PCP Internal Medicine; Visit Provider Internal Medicine Pulmonary Disease
DX: R05.3 Chronic cough (principal); R94.2 Abnormal results of pulmonary function studies
CPT/HCPCS: 99214

== ENCOUNTER → 2024-04-26 10:49 | Outpatient (BNVA) | payer MEDICARE, BC, SELFPAY | PROVIDERS: PCP Internal Medicine; Visit Provider Internal Medicine Pulmonary Disease | DX: R05.3 Chronic cough (principal); R94.2 Abnormal results of pulmonary function studies | CPT/HCPCS: 99212 ==

== ENCOUNTER 2024-05-01 08:14 | Outpatient (AMB) | payer MEDICARE, BC, SELFPAY ==
--- OUTSIDE RECORDS SUMMARY | 2024-05-01 08:19 | XMS_ITS ---
Author Organization [facility] Address [address] [place] [address] Care Team Providers Care Measurement Operator Name Role Phone Candice SANTOS, Harpreet Primary Care Provider Tiffany Russell Unavailable [phone] Wang Navas Unavailable [phone] Allergies No Known Allergies REASON FOR VISIT [...] other tobacco user? No Vital Signs Height 4ib78ue in 12/06/2023 Weight 185 lbs 12/06/2023 BMI 25.8 kg/m2 12/06/2023 Encounters Encounter Location Date Provider Diagnosis [facility] [place] [address] [place] [address] 12/06/2023 Wang Navas Tinea unguium B35.1 ; [...] Provider Name:Tiffany Gandhi bean, 07/11/2024 09:45:00 AM, [address] [place] [address], [phone], Procedure Notes * Category Sub-Category Detail Notes [...] as necessary. Patient chooses, no pharmaceutical tx (41429) Keratoma Treatment Parring or Cutting o f Benign Hyperkeratotic Lesion(s) 65059 ( >4 Lesions) - The Benign hyperkeratotic lesions, as described above were pared, and/or cut utilizing a sterile #15 blade, tissue nippers, and/or dremel Progress Notes * Yumiko RODGERS MDOB: 7 (68 yo F)Acc No.[id number]:12/06/2023 Progress Note Patient:?Yumiko Rodgers Provider:?Wang Navas DPM :1955???Age:68 Y???Sex:Female D ate:12/06/2023 Address:[address] [place], [place] [address] Pcp:Harpreet Harvey MD Subjective: * Chief Complaints: [...] * Allergies:?N.K.D.A.yes[Aller gies Verified] Objective: * Vitals:?Ht: 5ab33mm, Wt:185, BMI:25.8, Shoe size: 10, BS: 139, [...] as necessary. Patient chooses, no pharmaceutical tx (15997).?Keratoma Treatment:?Parring or Cutting of Benign Hyperkeratotic Lesion(s)?80583 ( >4 Lesions) - The Benign hyperkeratotic lesions, as described above were pared, and/or cut utilizing a sterile #15 blade, tissue nippers, and/or dremel.? * Procedure Codes:?07653 DEBRI DE NAIL, 6 OR MORE, Modifiers: XS 55143 TRIM SKIN LESIONS, OVER 4, Modifiers: XS * Follow Up:?4 Months * Images: * Sign off status: Completed true * Provider:?Wang Navas DPM Date:? 024 Generated for Richiei he/Azul/eTransmitting on:?05/01/2024 08:19 AM EST History and Physical Notes * [...] Yes Sensory and motor testing performed:: [facility] diminished Pedal pulse taking performed:: absent [...]
--- OUTSIDE RECORDS SUMMARY | 2024-05-01 08:19 | XMS_ITS | Patient Health Record ---
[facility] Address [address] [place] [address] Care Team Providers Care Bond Manager Name Role Phone Harpreet Harvey MD Primary Care Provider Tiffany Russell Unavailable [phone] NavasWang Unavailable [phone] Allergies No Known Allergies Results Component Value Reference Range Notes HEMOGLOBIN A1C (GLYCOHEMOGLO BIN) Reviewed date:04/10/2024 08:56:04 AM Interpretation: Performing Lab: Notes/Report: HEMOGLOBIN A1C % (HH) 6.7 HEMOGLOBIN A1C (GLYCOHEMOGLO BIN) Reviewed date:08/02/2023 07:56:23 [...] Polyneuropathy due to type 2 diabetes mellitus (904934770) Type 2 diabetes mellitus with diabetic polyneuropathy (E11.42) Active confirmed Vital Signs Blood pressure diastolic 80 mm Hg 04/10/2024 Height 5ic71us in 04/10/2024 Blood pressure systolic 120 mm Hg 04/10/2024 Weight 185 lbs 04/10/2024 BMI 25.8 kg/m2 04/10/2024 Procedures Procedure Date Ordered Date Performed Result Body Sit e 20319-YOFXQFR NAIL, 6 OR MORE 04/10/2024 N/A 25787-ZFPN SKIN LESIONS, 2 TO 4 04/10/2024 N/A Encounters Encounter Location Date Provider Diagnosis [address] [address] 08/02/2023 Wang Navas Tinea unguium B35.1 ; Pain in right toe(s) M79.674 ; Pain in left toe(s) M79.675 ; Type 2 diabetes mellitus with diabetic polyneuropathy E11.42 ; Other hammer toe(s) (acquired), left foot M20.42 ; Other hammer toe(s) (acquired), right foot M20.41 ; Ingrowing nail L60.0 ; Primary osteoarthritis, right ankle and foot M19.071 and Primary osteoarthritis, left ankle and foot M19.[address] [address] 12/06/2023 Wang Navas Tinea unguium B35.1 ; Pain in right toe(s) M79.674 ; Pain in left toe(s) M79.675 ; Type 2 diabetes mellitus with diabetic polyneuropathy E11.42 ; Other hammer toe(s) (acquired), left foot M20.42 ; Other hammer toe(s) (acquired), right foot M20.41 ; Primary osteoarthritis, right ankle and foot M19.071 ; Ingrowing nail L60.0 and Primary osteoarthritis, left ankle and foot M19.[address] [address] 04/10/2024 Tiffany Salas Other hammer toe(s) (acquired), right foot M20.41 ; Other hammer toe(s) (acquired), left foot M20.42 ; Type 2 diabetes mellitus with diabetic polyneuropathy E11.42 and Tinea unguium B35.1 [facility] [place] [address] [place] [address] 08/02/2023 Wang Navas Assessments Encounter Date Diagnosis [...] Treatment Pending Test Test Name Order Date 86262-MKPJJNL NAIL, 6 OR MORE 02/20/2013 54264-NALBUFK NAIL, 6 OR MORE 05/29/2013 14856-SPQHWSX NAIL, 6 OR MORE 08/28/2013 03285-LXAZWJK NAIL, 6 OR MORE 12/11/2013 78294-WLHFIIM NAIL, 6 OR MORE 05/07/2014 91847-DVOBRTX NAIL, 6 OR MORE 08/06/2014 57019-DAIFGUX NAIL, 6 OR MORE 04/13/2015 08959-HRGZJGG NAIL, 6 OR MORE 12/31/2014 73959-PDIQXXQ NAIL, 6 OR MORE 07/29/2015 79160-BCFSUVA NAIL, 6 OR MORE 10/28/2015 23711-FZSPIGS NAIL, 6 OR MORE 01/27/2016 19307-YAGGCXI NAIL, 6 OR MORE 04/27/2016 78856-CORREES NAIL, 6 OR MORE 11/02/2016 54507-EBVWBGJ NAIL, 6 OR MORE 02/15/2017 82599-JQZGTBL NAIL, 6 OR MORE 05/24/2017 92334-BXUVNSW NAIL, 6 OR MORE 08/30/2017 01986-WTNNIGJ NAIL, 6 OR MORE 12/25/2017 01484-DNBUAPQ NAIL, 6 OR MORE 04/10/2024 19435-Mfqqaeib Plate 08/30/2017 00778-Cvphotpn Plate 11/02/2016 79242-Ddioyguf Plate 12/31/2014 04410-Huipyuzx Plate 04/13/2015 61951-Qdiouvls Plate 08/06/2014 59620-Jlgjrsju Plate 05/07/2014 35112-Pzqbsprq Plate 12/11/2013 33848-Evdbtlcb Plate 09/11/2013 82616-Tsfsohfw Plate 05/29/2013 88652-Ekpbdbvj Plate 02/20/2013 50440-Qsdnujdb Plate Each Additional 04/2013 02070-Naxropnv Plate Each Additional 28713-Wfmmupie Plate Each Additional 37699-Zjyinspc Plate Each Additional 03/2015 78316-Snwtbcnn Plate Each Additional 88606- Debride <25 sq cm 07/06/2020 65920- Debride <25 sq cm 08/28/2013 61073-ICZG SKIN LESIONS, OVER 4 05/07/19 15 17910-IMUG SKIN LESIONS, OVER 4 12/12/19 14 85878-AJJX SKIN LESIONS, OVER 4 02/21/20 13 33392-IIRI SKIN LESIONS, OVER 4 05/30/19 14 89379-OMOF SKIN LESIONS, OVER 4 08/29/19 14 32935-LIOJ SKIN LESIONS, OVER 4 04/13/19 16 46022-ZPDW SKIN LESIONS, OVER 4 08/07/19 15 58010-DLBV SKIN LESIONS, OVER 4 01/01/20 15 87909-DRXJ SKIN LESIONS, OVER 4 07/29/19 16 01133-PGTZ SKIN LESIONS, OVER 4 01/27/20 16 54992-YTKD SKIN LESIONS, OVER 4 10/28/19 16 93342-DANV SKIN LESIONS, OVER 4 07/07/19 21 18094-KVND SKIN LESIONS, OVER 4 01/14/20 21 22696-YGAH SKIN LESIONS, OVER 4 11/03/19 17 86687-XQDE SKIN LESIONS, OVER 4 04/27/19 17 45109-CMOD SKIN LESIONS, OVER 4 07/28/19 17 04247-IOUC SKIN LESIONS, OVER 4 05/25/19 18 50283-YCIT SKIN LESIONS, OVER 4 02/16/20 17 74522-IUHD SKIN LESIONS, OVER 4 08/31/19 18 47770-NVEN SKIN LESIONS, OVER 4 12/26/19 18 07208-RUZN SKIN LESIONS, OVER 4 04/16/19 19 44311-ITSM SKIN LESIONS, OVER 4 08/16/19 19 67738-BZLS SKIN LESIONS, OVER 4 11/15/19 19 76612-AAZH SKIN LESIONS, OVER 4 03/18/19 20 75887-BGZB SKIN LESIONS, OVER 4 09/04/19 20 27744-MESE SKIN LESIONS, OVER 4 01/06/20 20 07634-OCRX SKIN LESIONS, 2 TO 4 04/10/19 25 Next Appt Details Provider Name:Tiffany del angel, 07/11/2024 09:45:00 AM, [address] [place], [address], Insurance Providers Payer Name Payer Address Payer Phone Subscriber Number Group Number Insured Name Patient Relationship to Insured Coverage Start Date Coverage End Date Medicare National [employer]t [employer] [address] [facility] [address] [id number] Yumiko Rodgers Self - patient is the insured [facility] [address] [place] [address] [id number] Yumiko Rodgers Self - patient is the insured Medical (General) History Medical History History ICD Code Arthritis headaches/migraines high blood pressure psoriasis/eczema type II diabetes Surgical History Surgery Date(Month/Year) bx left leg 2014
--- OUTSIDE RECORDS SUMMARY | 2024-05-01 08:20 | XMS_ITS ---
Author Organization [facility] Address [address] [place] [address] Care Team Providers Care Distribution A Class Lineman Name Role Phone Candice SANTOS, Harpreet Primary Care Provider Tiffany Russell Unavailable [phone] Allergies No Known Allergies REASON FOR VISIT [...] Points 0 Interpretation Negative Vital Signs Height 7zg39dj in 04/10/2024 Weight 185 lbs 04/10/2024 BMI 25.8 kg/m2 04/10/2024 Blood pressure systolic 120 mm Hg 04/10/19 25 Blood pressure diastolic 80 mm Hg 025 Procedures Procedure Date Ordered Date Performed Result Body Sit e 77385-YCLCADH NAIL, 6 OR MORE 04/10/2024 N/A 68741-NRWF SKIN LESIONS, 2 TO 4 04/10/2024 N/A Encounters Encounter Location Date Provider Diagnosis [facility] [place] [address] [place] [address] 04/10/2024 Tiffany Salas Other hammer toe(s) (acquired), [...] INSTRUCTIONS.pdf) Pending Test Test Name Order Date 51632-HRAMTWJ NAIL, 6 OR MORE 04/10/2024 57567-SSIW SKIN LESIONS, 2 TO 4 04/10/19 25 Next Appt Details Follow Up: 3 Months, Reason: Provider Name:Tiffany del angel, 07/11/2024 09:45:00 AM, [address] [place] [address], [phone], Procedure Notes * Category Sub-Category Detail [...] use of a nail nipper and/or dremel-type grinder operator surface tool, to a more viable healthy nail plate [...] to maintain effectiveness in symptomatic relief - 93224 Keratoma Treatment Parring or Cutting o f [...] instrumentation by the physician of record - 10400 Progress Notes * Yumiko RODGERS MDOB: (68 yo F)Acc No.[id number]:04/10/2024 Progress Note Patient:?Yumiko RODGERS Provider:?Tiffany Salas DPM :1955???Age:68 Y???Sex:Female D ate:04/10/2024 Address:[address] [place] [address] Pcp:Harpreet Harvey MD Subjective: * Chief Complaints: [...] patient * Allergies:?N.K.D.A.yes[Aller gies Verified] Objective: * Vitals:?Ht:2wm04ry, Wt:185, BMI:25.8, Shoe size:10, BP:120/80mm Hg, BS:172, [...] 3.?Type 2 diabetes mellitus with diabetic polyneuropathy?Procedure: 16987-BHOELIR NAIL, 6 OR MORE ?Procedure: 70275-VWYF SKIN LESIONS, 2 TO 4 * Procedures:?Debride [...] use of a nail nipper and/or dremel-type grinder operator surface tool, to a more viable healthy nail plate [...] to maintain effectiveness in symptomatic relief - 50231.?Keratoma Treatment:?Parring or Cutting of Benign Hyperkeratotic Lesion(s)?(-56) [...] instrumentation by the physician of record - 15927.? * Procedure Codes:?92687 DEBRI DE NAIL, 6 OR MORE, Modifiers: XS 47472 TRIM SKIN LESIONS, 2 TO 4, Modifiers: [...] DPM Date:?0 04/10/2024 Generated for Raj cutler/Azul/Antoinettesmitting on:?05/01/2024 08:19 AM EST History and Physical [...]
--- OUTSIDE RECORDS SUMMARY | 2024-05-01 08:20 | XMS_ITS ---
Author Organization [facility] Address [address] [place] [address] Care Team Providers Care Wheel Alignment Technician Name Role Phone Candice SANTOS, Harpreet Primary Care Provider Tiffany Russell Unavailable [phone] Wang Navas [phone] Encounters Encounter Location Date Provider Diagnosis [address] [address] 12/04/2023 Wang Navas Plan Of Treatment Next Appt Details Provider Name:Tiffany del angel, 07/11/2024 09:45:00 AM, [address] [place] [address], [phone], Progress Notes * Yumiko VELÁZQUEZ MDOB: (69 yo F)Acc No.[id number]:12/04/2023 Progress Note Patient:?VISHAL Yumiko Obrien Provider:?Wang Navas DPM :1955???Age:68 Y???Sex:Female D ate:12/04/2023 Address:[address] [place], [place] [id number] Pcp:Harpreet Harvey MD Subjective: * Chief Complaints: [...] DPM Date:? 024 Generated for Raj cutler/Azul/Sonyaitting on:?05/01/2024 08:20 AM EST
--- NOTE | 2024-05-01 08:25 | A.OFFPC_ITS ---
Vital Signs 05/01/24 08:29 Height 5 ft 10 in Weight 196 lb 6 oz BMI 28.2 BP 112/66 Blood Pressure Location Rt brachial Position Sitting Pulse 92 Pulse Source Pulse Oximeter Temp 97.1 F Temp Source Temporal Artery Scan Pulse Oximetry (%) 98 Oxygen Delivery Method Room Air Intake Visit Reasons: 4mth f/u Intake Note: Patient is here to follow up on HTN, DM. Pump Servicer Helper Required: No Urgent Care: Not Required per policy Accompanied by: Self / Same As Patient Allergies grass pollen Allergy (Mild, Verified 05/01/24 08:28) Unknown Medication List - Last Reconciled 05/01/24 by Harpreet Harvey MD amitriptyline 25 mg PO BEDTIME apremilast (Otezla) 30 mg PO BID ascorbate calcium (vitamin C) 1 g PO Q6H atogepant (Qulipta) mg PO certolizumab pegol (Cimzia) mg subcut cholecalciferol (vitamin D3) 50 mcg PO DAILY cyanocobalamin (vitamin B-12) 5,000 mcg PO DAILY dulaglutide (Trulicity) mg subcut flash glucose scanning reader (SesameaStyle Natasha 2 [place]) As directed flash glucose sensor (FreeStyle Natasha 2 Sensor kit) As directed gabapentin 100 mg PO TID PRN hydroxyzine HCl 25 mg PO BID PRN insulin degludec (Tresiba FlexTouch U-100 insulin) units subcut insulin lispro subcut lisinopril 2.5 mg PO DAILY metformin ER 500 mg PO DAILY metoclopramide HCl 5 mg PO TID omeprazole magnesium 20 mg PO DAILY propranolol 20 mg PO BID prucalopride 1 mg PO DAILY simvastatin 40 mg PO BEDTIME Tobacco use date assessed: 05/01/24 Fall risk assessment: No Falls in past year Last assessed Fall Risk: 05/01/24 Dental Screening Dental Screen Date: 05/01/24 Did you have a dental visit in the last 12 months?: Yes Did you have a dental problem in the last 6 months where you did not have access to dental care?: No Was dental information given to patient?: Patient has dentist HPI 4mth f/u HPI Details DM; stable and doing well; A1C 7.2; difficulty with diet PFSH Medical History Diabetes mellitus with coincident hypertension Diabetes mellitus Hypertension Surgical History No pertinent past surgical history Family History Father No problems noted. Mother Gastroparesis Paternal Grandmother Gastroparesis Family/Other Gastroparesis Social History Housing: House Alcohol intake: never Patient Tobacco Use Status: Never used Tobacco e-Cigarette/Vaping Use: Never Used Second Hand Smoke Exposure: No service: No Current occupational status: retired Cognitive needs: No Hearing needs: No Vision needs: Yes (glasses) Questionnaire PHQ-9 Over the last 2 weeks, how often have you been bothered by any of the following problems? 1. Little interest or pleasure in doing things: not at all 2. Feeling down, depressed, or hopeless: not at all 3. Trouble falling or staying asleep, or sleeping too much: not at all 4. Feeling tired or having little energy: not at all 5. Poor appetite or overeating: not at all 6. Feeling bad about yourself - or that you are a failure or have let yourself or your family down: not at all 7. Trouble concentrating on things, such as reading the newspaper or watching television: not at all 8. Moving or speaking so slowly that other people could have noticed. Or the opposite - being so fidgety or restless that you have been moving around a lot more than usual: not at all 9. Thoughts that you would be better off or of hurting yourself in some way: not at all Total score: 0 Depression Screening Interpretation: Negative Depression Screening Done: Yes Source: Developed by Drs. Gaston Armenta, Elizabeth Goins, Trevin Bello and colleagues, with an educational obey from [employer]. Thrive Questionnaire Date Thrive assessed: 05/01/24 I am a: Patient What is your living situation today?: I have a steady place to live Within the past 12 months, did the food you bought not last and you didn't have the money to get more?: Never true Within the past 12 months, did you worry whether your food would run out before you got money to buy more?: Never true Do you have trouble paying for medicines?: No Do you have trouble getting transportation to medical appointments?: No Do you have trouble paying your heating and electricity bill?: No Do you have trouble taking care of your child, family member or friend?: No Do you have trouble with day-to-day activities such as bathing, preparing meals, shopping, managing finances, etc.?: No Are you currently unemployed and looking for a job?: No Are you interested in more education?: No Please select the resources that you would like help with: None Currently or been in a relationship where the following occur: No concerns reported THRIVE Score: 0 AUDIT C Alcohol Use Questionnaire (AUDIT-C) 1. How often do you have a drink containing alcohol?: Never Total Score: 0 SB-7 AMB Questionnaire SB-7 Date SB - 7 assessed: 05/01/24 Feeling nervous, anxious, or on edge: 0 = Not at all Not being able to stop or control worryin = Not at all Worrying too much about different things: 0 = Not at all Trouble relaxin = Not at all Being so restless that it is hard to sit still: 0 = Not at all Becoming easily annoyed or irritable: 0 = Not at all Feeling afraid as if something awful might happen: 0 = Not at all Total SB-7 score (0-4 normal; 5-9 mild; 10-14 moderate; 15-21 severe): 0 Source: Developed by Drs. Gaston Armenta, Elizabeth Goins, Trevin Bello and colleagues, with an educational obey from [employer]. Review of Systems Const Denies chills, Denies headache(s) and Denies weight loss ENT Denies headache(s) Card Denies chest pain, Denies syncope, Denies irregular heart rhythm and Denies dyspnea Resp Denies chest congestion, Denies cough and Denies dyspnea GI Denies abdominal pain, Denies change in stool character, Denies nausea and Denies vomiting Musc Denies deformity and Denies joint swelling Neuro Denies syncope and Denies headache(s) Physical exam (Primary Care) Vital Signs: Last Vital Signs Temp 97.1 F 05/01/24 08:29 Pulse 92 05/01/24 08:29 BP 112/66 05/01/24 08:29 Pulse Ox 98 05/01/24 08:29 Oxygen Delivery Method Room Air 05/01/24 08:29 BMI result Body Mass Index 28.2 Tobacco/Smoking Status: Tobacco use Status Tobacco use date assessed 05/01/24 05/01/24 08:40 Patient Tobacco Use Status Never used Tobacco 05/01/24 08:27 e-Cigarette/Vaping Use Never Used 05/01/24 08:27 PHQ-9: PHQ-9 Score PHQ-9: Total score 0 05/01/24 08:27 Depression Screening Interpretation: Negative Thrive Assessment: Date of Thrive Assessment Date Thrive assessed 05/01/24 05/01/24 08:27 Currently or been in a relationship where the following occur: No concerns reported Const General: cooperative, comfortable, no acute distress and alert Neck Neck: Yes no lymphadenopathy Thyroid: Thyroid normal Resp Effort & Inspection: normal respiratory effort Auscultation: clear to auscultation bilaterally Percussion: percussion normal Cardio Jugular venous distension: no JVD Palpation: normal PMI Rate: regular rate Rhythm: regular rhythm Heart sounds: S1 normal heart sound present and S2 normal heart sound present GI Inspection: Yes normal to inspection Palpation (GI): No hepatosplenomegaly present Skin General skin exam: no rashes or lesions noted Extrem General: Yes no clubbing, cyanosis or edema Results AMB Hemoglobin A1c AMB Hemoglobin A1c 7.2 % Last Edit by LIZ Curry on 05/01/24 08:43 Results Reviewed Results Reviewed: Laboratory Last Values Hgb A1c (Clinic) 7.2 % (4.0-6.0) H 05/01/24 08:28 Coding Level of Care Code Est Pt Level 3 (54548) Diagnoses Diabetes mellitus with coincident hypertension E11.9; I10 Assessment & Plan Assessment & Plan (1) Diabetes mellitus with coincident hypertension: Code(s): E11.9 - Type 2 diabetes mellitus without complications; I10 - Essential (primary) hypertension Category: Medical Plan: same rx Orders: Orders AMB Hemoglobin A1c Today E11.9 - Type 2 diabetes mellitus without complications
[2024-05-01 08:29] VITALS: BP 112/66; PULSE 92; TEMP 36.2; O2SAT 98; BMI 28.2
== END 2024-05-01 09:08 | disposition home or self-care (01) ==
PROVIDERS: PCP Internal Medicine; Visit Provider Internal Medicine
DX: E11.9 Type 2 diabetes mellitus without complications (principal); I10 Essential (primary) hypertension

== ENCOUNTER → 2024-05-01 08:14 | Outpatient (BNVA) | payer MEDICARE, BC, SELFPAY | PROVIDERS: PCP Internal Medicine; Visit Provider Internal Medicine | DX: E11.9 Type 2 diabetes mellitus without complications (principal); I10 Essential (primary) hypertension | CPT/HCPCS: 83036; 99212 ==

== ENCOUNTER 2024-06-19 09:14 | Outpatient (REF) | payer MEDICARE, BC, SELFPAY ==
--- OUTSIDE RECORDS SUMMARY | 2024-06-19 09:53 | XMS_ITS ---
Author Organization [facility] Address [address] [place] [address] Care Team Providers Care Fire Tower Keeper Name Role Phone Candice SANTOS, Harpreet Primary Care Provider Tiffany Russell Unavailable [phone] Wang Navas Unavailable [phone] Allergies No Known Allergies REASON FOR VISIT [...] other tobacco user? No Vital Signs Height 6vh34gm in 12/06/2023 Weight 185 lbs 12/06/2023 BMI 25.8 kg/m2 12/06/2023 Encounters Encounter Location Date Provider Diagnosis [facility] [place] [address] [place] [address] 12/06/2023 Wang Navas Tinea unguium B35.1 ; [...] Provider Name:Tiffany Gandhi bean, 07/11/2024 09:45:00 AM, [address] [place] [address], [phone], Procedure Notes * Category Sub-Category Detail Notes [...] as necessary. Patient chooses, no pharmaceutical tx (10085) Keratoma Treatment Parring or Cutting o f Benign Hyperkeratotic Lesion(s) 25697 ( >4 Lesions) - The Benign hyperkeratotic lesions, as described above were pared, and/or cut utilizing a sterile #15 blade, tissue nippers, and/or dremel Progress Notes * Yumiko RODGERS MDOB: 7 (68 yo F)Acc No.[id number]:12/06/2023 Progress Note Patient:?Yumiko Rodgers Provider:?Wang Navas DPM :1955???Age:68 Y???Sex:Female D ate:12/06/2023 Address:[address] [place], [place] [id number] Pcp:Harpreet Harvey MD Subjective: * Chief Complaints: [...] * Allergies:?N.K.D.A.yes[Aller gies Verified] Objective: * Vitals:?Ht: 2cy72nr, Wt:185, BMI:25.8, Shoe size: 10, BS: 139, [...] Forefoot, ..., Neurological exam demonstrates pop AL hcelsey ankles.?Ophthalmology Referral: ?DIABETES EYE EXAM?Diabetic Retinopathy Screening:?Yes ?Findings of Diabetic Eye Exam:?no retinopathy?Orthopedic: ?MUSCLE STRENGTH:?5/5 all groups in a symmetrical fashion , B/L.?DIGITAL DEFORMITIES:? Digital contracture, PIPJ, 2-5 B/L, incompl- reducable with WB, or to push-up test, no over, nor underlapping.?General Examination: ?GENERAL APPEARANCE:?Reveals a pleasant, alert, well nourished, well developed, well hydrated individual, who demonstrates proper attention to hygene/body habitus, and is in no acute distress.?ORIENTED:?person, place, and time.?FOOT EXAM:?Lower Extremity Neurological Exam performed:?Yes ?Visual exam of foot performed:?Yes ?Sensory and motor testing performed:?strength diminished ?Pedal pulse taking performed:?absent?Vascular: ?DP PULSES(B):? 1/4, B/L.?PT PULSES(B):? 0/4, B/L.?Ingrown [...] as necessary. Patient chooses, no pharmaceutical tx (50652).?Keratoma Treatment:?Parring or Cutting of Benign Hyperkeratotic Lesion(s)?46186 ( >4 Lesions) - The Benign hyperkeratotic lesions, as described above were pared, and/or cut utilizing a sterile #15 blade, tissue nippers, and/or dremel.? * Procedure Codes:?68105 DEBRI DE NAIL, 6 OR MORE, Modifiers: XS 26538 TRIM SKIN LESIONS, OVER 4, Modifiers: XS * Follow Up:?4 Months * Images: * Sign off status: Completed true * Provider:?Wang Navas DPM Date:? 024 Generated for Raj cutler/Azul/eTransmitting on:?06/19/2024 09:53 AM EDT History and Physical Notes * HPI (History [...] Yes Sensory and motor testing performed:: [facility] diminished Pedal pulse taking performed:: absent ORIENTED: [...]
--- OUTSIDE RECORDS SUMMARY | 2024-06-19 09:53 | XMS_ITS | Patient Health Record ---
[facility] Address [address] [place] [address] Care Team Providers Care Director Patient Name Role Phone Harpreet Harvey MD Primary Care Provider Tiffany Russell Unavailable [phone] NavasWang Unavailable [phone] Allergies No Known Allergies Results Component Value [...] Polyneuropathy due to type 2 diabetes mellitus (685093590) Type 2 diabetes mellitus with diabetic polyneuropathy (E11.42) Active confirmed Vital Signs Blood pressure diastolic 80 mm Hg 04/10/2024 Height 8mx54no in 04/10/2024 Blood pressure systolic 120 mm Hg 04/10/2024 Weight 185 lbs 04/10/2024 BMI 25.8 kg/m2 04/10/2024 Procedures Procedure Date Ordered Date Performed Result Body Sit e 34633-SPYKTMF NAIL, 6 OR MORE 04/10/2024 N/A 04472-JSIB SKIN LESIONS, 2 TO 4 04/10/2024 N/A Encounters Encounter Location Date Provider Diagnosis [address] [address] 08/02/2023 Wang Navas Tinea unguium B35.1 ; Pain in right toe(s) M79.674 ; Pain in left toe(s) M79.675 ; Type 2 diabetes mellitus with diabetic polyneuropathy E11.42 ; Other hammer toe(s) (acquired), left foot M20.42 ; Other hammer toe(s) (acquired), right foot M20.41 ; Ingrowing nail L60.0 ; Primary osteoarthritis, right ankle and foot M19.071 and Primary osteoarthritis, left ankle and foot M19.[address] [address] 12/06/2023 Wang Navas Tinea unguium B35.1 ; Pain in right toe(s) M79.674 ; Pain in left toe(s) M79.675 ; Type 2 diabetes mellitus with diabetic polyneuropathy E11.42 ; Other hammer toe(s) (acquired), left foot M20.42 ; Other hammer toe(s) (acquired), right foot M20.41 ; Primary osteoarthritis, right ankle and foot M19.071 ; Ingrowing nail L60.0 and Primary osteoarthritis, left ankle and foot M19.[address] [address] 04/10/2024 Tiffany Salas Other hammer toe(s) (acquired), right foot M20.41 ; Other hammer toe(s) (acquired), left foot M20.42 ; Type 2 diabetes mellitus with diabetic polyneuropathy E11.42 and Tinea unguium B35.1 [facility] [place] [address] [place] [address] 08/02/2023 Wang Navas Assessments Encounter Date Diagnosis [...] Treatment Pending Test Test Name Order Date 76439-YTDKUEV NAIL, 6 OR MORE 02/20/2013 93685-GBNMBAR NAIL, 6 OR MORE 05/29/2013 48347-EQAZBJI NAIL, 6 OR MORE 08/28/2013 10357-ZGTYHWY NAIL, 6 OR MORE 12/11/2013 08914-OJFXQWU NAIL, 6 OR MORE 05/07/2014 80869-QMZNZNX NAIL, 6 OR MORE 08/06/2014 21444-IXNMOOP NAIL, 6 OR MORE 04/13/2015 75402-YCSCREU NAIL, 6 OR MORE 12/31/2014 94926-NATYBEV NAIL, 6 OR MORE 07/29/2015 38428-IZGUGAA NAIL, 6 OR MORE 10/28/2015 69827-YMJSPRY NAIL, 6 OR MORE 01/27/2016 14680-KENEHNJ NAIL, 6 OR MORE 04/27/2016 29879-GVCXRLB NAIL, 6 OR MORE 11/02/2016 98181-SPHIBIQ NAIL, 6 OR MORE 02/15/2017 72178-OTBMDLN NAIL, 6 OR MORE 05/24/2017 84978-OOCTDXZ NAIL, 6 OR MORE 08/30/2017 27612-HBFDGDV NAIL, 6 OR MORE 12/25/2017 05865-AFROZOV NAIL, 6 OR MORE 04/10/2024 78946-Prnnxkan Plate 08/30/2017 02370-Arxqdhsc Plate 11/02/2016 74600-Olojtuef Plate 12/31/2014 09835-Mjpudunr Plate 04/13/2015 21177-Aqghalfx Plate 08/06/2014 00691-Szynpmlu Plate 05/07/2014 76540-Tpuygpxh Plate 12/11/2013 53470-Ufwgovjv Plate 09/11/2013 48725-Cgygukuf Plate 05/29/2013 11739-Rqlwmpvi Plate 02/20/2013 51048-Mlmtlltd Plate Each Additional 04/2013 29961-Etorqscb Plate Each Additional 57365-Ahexglek Plate Each Additional 86524-Nlfzjtsu Plate Each Additional 03/2015 03771-Icnceizu Plate Each Additional 08058- Debride <25 sq cm 07/06/2020 66465- Debride <25 sq cm 08/28/2013 55018-NNHD SKIN LESIONS, OVER 4 05/07/19 15 54127-VRUL SKIN LESIONS, OVER 4 12/12/19 14 78336-XEOI SKIN LESIONS, OVER 4 02/21/20 13 80646-DATQ SKIN LESIONS, OVER 4 05/30/19 14 66886-JJAC SKIN LESIONS, OVER 4 08/29/19 14 88277-WAFT SKIN LESIONS, OVER 4 04/13/19 16 16728-ZHJF SKIN LESIONS, OVER 4 08/07/19 15 59160-ZQKL SKIN LESIONS, OVER 4 01/01/20 15 56232-RUNO SKIN LESIONS, OVER 4 07/29/19 16 97601-KALT SKIN LESIONS, OVER 4 01/27/20 16 67717-RPAM SKIN LESIONS, OVER 4 10/28/19 16 33222-PTXZ SKIN LESIONS, OVER 4 07/07/19 21 65691-OOGN SKIN LESIONS, OVER 4 01/14/20 21 75904-BZIT SKIN LESIONS, OVER 4 11/03/19 17 27447-JBWJ SKIN LESIONS, OVER 4 04/27/19 17 31606-RSDV SKIN LESIONS, OVER 4 07/28/19 17 52858-FBYH SKIN LESIONS, OVER 4 05/25/19 18 89216-EOEZ SKIN LESIONS, OVER 4 02/16/20 17 14239-MVEK SKIN LESIONS, OVER 4 08/31/19 18 34490-YYOY SKIN LESIONS, OVER 4 12/26/19 18 82859-BWPS SKIN LESIONS, OVER 4 04/16/19 19 42336-ASAA SKIN LESIONS, OVER 4 08/16/19 19 16154-WHUR SKIN LESIONS, OVER 4 11/15/19 19 63107-QVQW SKIN LESIONS, OVER 4 03/18/19 20 05258-SDZQ SKIN LESIONS, OVER 4 09/04/19 20 48910-ZFCR SKIN LESIONS, OVER 4 01/06/20 20 85738-FDYG SKIN LESIONS, 2 TO 4 04/10/19 25 Next Appt Details Provider Name:Tiffany del angel, 07/11/2024 09:45:00 AM, [address] [place], [address], Insurance Providers Payer Name Payer Address Payer Phone Subscriber Number Group Number Insured Name Patient Relationship to Insured Coverage Start Date Coverage End Date Medicare National [employer] [address] [place] [address] [id number] Yumiko Rodgers Self - patient is the insured [facility] [address] [place] [address] [id number] Yumiko Rodgers Self - patient is the insured Medical (General) History Medical History History ICD Code Arthritis headaches/migraines high blood pressure psoriasis/eczema type II diabetes Surgical History Surgery Date(Month/Year) bx left leg 2014
--- OUTSIDE RECORDS SUMMARY | 2024-06-19 09:54 | XMS_ITS ---
[facility] Address [address] [place] [address] Care Team Providers Care Hot Car Charger Name Role Phone Candice SANTOS, Harpreet Primary Care Provider Tiffany Russell Unavailable [phone] Allergies No Known Allergies REASON FOR VISIT [...] Points 0 Interpretation Negative Vital Signs Height 7zc53pj in 04/10/2024 Weight 185 lbs 04/10/2024 BMI 25.8 kg/m2 04/10/2024 Blood pressure systolic 120 mm Hg 04/10/19 25 Blood pressure diastolic 80 mm Hg 025 Procedures Procedure Date Ordered Date Performed Result Body Sit e 66431-FCQITUW NAIL, 6 OR MORE 04/10/2024 N/A 81305-QPPI SKIN LESIONS, 2 TO 4 04/10/2024 N/A Encounters Encounter Location Date Provider Diagnosis [facility] [place] [address] [place] [address] 04/10/2024 Tiffany Salas Other hammer toe(s) (acquired), [...] INSTRUCTIONS.pdf) Pending Test Test Name Order Date 36373-BNZAZXH NAIL, 6 OR MORE 04/10/2024 33427-GYKA SKIN LESIONS, 2 TO 4 04/10/19 25 Next Appt Details Follow Up: 3 Months, Reason: Provider Name:Tiffany del angel, 07/11/2024 09:45:00 AM, [address] [place] [address], [phone], Procedure Notes * Category Sub-Category Detail [...] of a nail nipper and/or dremel-type grinder chipper, to a more viable healthy nail plate [...] to maintain effectiveness in symptomatic relief - 24624 Keratoma Treatment Parring or Cutting o f [...] instrumentation by the physician of record - 23787 Progress Notes * Yumiko RODGERS MDOB: (68 yo F)Acc No.[id number]:04/10/2024 Progress Note Patient:?Yumiko RODGERS Provider:?Tiffany Salas DPM :1955???Age:68 Y???Sex:Female D ate:04/10/2024 Address:[address] [place] [address] Pcp:Harpreet Harvey MD Subjective: * Chief Complaints: [...] patient * Allergies:?N.K.D.A.yes[Aller gies Verified] Objective: * Vitals:?Ht:4ao29kc, Wt:185, BMI:25.8, Shoe size:10, BP:120/80mm Hg, BS:172, Ht- cm: 180.34 cm, Wt-k.92 kg. * ???Past Orders: ???Lab:HEMOGLOBIN A1C (GLYCO HEMOGLOBIN) (Order Date - 04/01/2024) (Collection Date & Time - 04/10/2024 08:55 AM) ? Value Reference Range ?HEMOGLOBIN A1C % (HH) 6.7 * Examination: ???Ophthalmology Referral: ?DIABETES EYE EXAM?Procedure Performed:?Yes ?Date of Exam Performed?11/13/2023 ?Retinal Screening Performed:?Yes ?Findings of Diabetic Eye Exam:?no retinopathy?Orthopedic: ?MUSCLE [...] for office visit today.?ORIENTED:?person, place, and time.?FOOT EXAM:?Lower Extremity Neurological Exam performed:?Yes Date 04/10/24 ?Visual exam of foot performed:?Yes ?Date?04/10/2024 ?Sensory testing performed:?sensations diminished ?Sensory and motor testing performed:?strength normal ?Pedal pulse taking performed:?1+ ?Footwear Evaluation?Footwear Evaluation performed:?Yes?Neurological: ?SENSORY:? Neurological exam demonstrates, reduced light touch [...] heels B/L.?Vascular: ?DP PULSES (B):?03/16, B/L.?PT PULSES (B):?03/16, B/L.? Assessment: * Assessment: 1.?Other hammer toe(s) [...] 3.?Type 2 diabetes mellitus with diabetic polyneuropathy?Procedure: 75012-IVTYPAV NAIL, 6 OR MORE ?Procedure: 28795-WHBH SKIN LESIONS, 2 TO 4 * Procedures:?Debride [...] of a nail nipper and/or dremel-type grinder chipper, to a more viable healthy nail plate [...] to maintain effectiveness in symptomatic relief - 72738.?Keratoma Treatment:?Parring or Cutting of Benign Hyperkeratotic Lesion(s)?(-56) [...] instrumentation by the physician of record - 46553.? * Procedure Codes:?86956 DEBRI DE NAIL, 6 OR MORE, Modifiers: XS 92808 TRIM SKIN LESIONS, 2 TO 4, Modifiers: [...] Provider:?Tiffany Salas DPM Date:?0 04/10/2024 Generated for Richiei he/Azul/eTransmitting on:?06/19/2024 09:53 AM EDT History and Physical Notes * HPI (History of Present Illness) Category Sub-Category Detail Notes Category Not es Toe pain Location: B/L feet Duration: several years Course: worse Aggravated by: shoes, any pressure Treatments: change in shoes At Risk footcare Pt States Last PCP Visit: Date: 4 Examination Category Sub-Category Detail Notes Category Not es Neurological SENSORY: Neurological exa m demonstrates, reduced light touch sensation, reduced sharp/dull pin prick discrimination , B/L, 5.07 monofilament test performed at plantar aspects of 5 varied sites per foot shows sensation, reduced , B/L Dermatologic SKIN FINDINGS: Skin exam reveal s Keratotic lesion(s) located at plantar heels B/L Orthopedic FOOTWEAR EVALUATION: worn, non-s upportive, shoe gear properties exacerbate patient's foot/toe deformity [...] no retin opathy Vascular DP PULSES (B): 03/16, B/L PT PULSES (B): 03/16, B/L Nails NAILS are: Elongated, overg rown, dystrophic, lytic, greater than 3mm thick, discolored and friable with crumbly malodorous subungual debris, with dull to no pain on palpation due to neuropathy, TA, T1, T2, T3, T4, T5, T6, T7, T8, T9
--- OUTSIDE RECORDS SUMMARY | 2024-06-19 09:54 | XMS_ITS ---
Author Organization [facility] Address [address] [place] [address] Care Team Providers Care Adaptive Physical Education Specialist Name Role Phone Candiec SANTOS, Harpreet Primary Care Provider Tiffany Russell Unavailable [phone] Wang Navas [phone] Encounters Encounter Location Date Provider Diagnosis [address] [address] 12/04/2023 Wang Navas Plan Of Treatment Next Appt Details Provider Name:Tiffany del angel, 07/11/2024 09:45:00 AM, [address] [place] [address], [phone], Progress Notes * Yumiko VELÁZQUEZ MDOB: (69 yo F)Acc No.[id number]:12/04/2023 Progress Note Patient:?VISHAL Yumiko Obrien Provider:?Wang Navas DPM :1955???Age:68 Y???Sex:Female D ate:12/04/2023 Address:[address] [place], [place] [id number] Pcp:Harpreet Harvey MD Subjective: * Chief Complaints: [...] DPM Date:? 024 Generated for Raj cutler/Azul/Sonyaitting on:?06/19/2024 09:53 AM EDT
[2024-06-19 10:47] LABS: MANUAL DIFF FLAG NO
[2024-06-19 11:04] LABS: Basophils Percent Auto 0.4 % (0-2); Eosinophils Absolute Auto 0.2 X10*3/uL (0.0-0.4); Eosinophils Percent Auto 1.9 % (0-4); Hematocrit 38.8 % (37.0-47.0); Hemoglobin 12.7 g/dl (12.0-16.0); Imm Gran Abs Auto 0.03 X10*3/uL (0.00-0.03); Imm Gran Pct Auto 0.3 % (0.0-0.4); Lymphocytes Absolute Auto 3.4 X10*3/uL (1.2-4.9); Lymphocytes Percent Auto 37.7 % (20-40); Mean Corpuscular HGB Conc 32.7 g/dl (31.0-35.0); Mean Corpuscular Hemoglobin 25.9 pg (27.0-33.0); Mean Platelet Volume 9.5 fL (9.4-12.3); Monocytes Absolute Auto 0.6 X10*3/uL (0.1-1.2); Monocytes Percent Auto 6.1 % (2-11); Neutrophils Absolute Auto 4.8 x10*3/uL (2.0-8.3); Neutrophils Percent Auto 53.6 % (45-73); Platelet Count 312 X10*3/uL (160-400); Red Blood Count 4.91 X10*6/uL (4.20-5.50)
[2024-06-19 11:42] LABS: Alanine Aminotransferase 18 U/L (0-31); Albumin Level 3.9 g/dL (3.5-5.0); Alkaline Phosphatase 119 U/L (39-117); Anion Gap 13 (12-20); Aspartate Amino Transferase 24 U/L (5-31); Bilirubin Total 0.5 mg/dL (0.0-1.0); Blood Urea Nitrogen 23 mg/dL (9-16); C Reactive Protein 1.01 mg/dL (< or = 0.50); Calcium 9.6 mg/dL (8.4-10.2); Carbon Dioxide 28 mmol/L (22-29); Chloride 104 mmol/L (96-108); Estimated Glomerular Filt Rate 45; Glucose Random 142 mg/dL (60-115); Potassium 4.6 mmol/L (3.3-5.1); Sodium 140 mmol/L (135-145); Total Protein 7.6 g/dL (6.5-8.0)
[2024-06-19 12:13] LABS: Erythrocyte Sedimentation Rate 36 MM/HR (0-20)
== END 2024-06-19 09:15 | disposition home or self-care (01) ==
LOC: HO.HMGCLR 09:14
PROVIDERS: PCP Internal Medicine; Visit Provider Internal Medicine Rheumatology
DX: L40.50 Arthropathic psoriasis, unspecified (principal); Z79.899 Other long term (current) drug therapy; Z51.81 Encounter for therapeutic drug level monitoring; Z79.1 Long term (current) use of non-steroidal anti-inflammatories (NSAID); Z79.61 Long term (current) use of immunomodulator
CPT/HCPCS: 36415; 80053; 85025; 85652; 86140

== ENCOUNTER 2024-07-31 10:43 | Outpatient (AMB) | payer MEDICARE, BC, SELFPAY ==
[2024-07-31 10:46] VITALS: BP 126/80; PULSE 100; O2SAT 99; BMI 27.0
--- NOTE | 2024-07-31 10:46 | A.OFFPC_ITS ---
Vital Signs 07/31/24 10:46 Height 5 ft 10 in Weight 188 lb BMI 27.0 BP 126/80 Blood Pressure Location Lt brachial Position Sitting Pulse 100 Pulse Source Pulse Oximeter Pulse Oximetry (%) 99 Oxygen Delivery Method Room Air Intake Visit Reasons: low bp Data Visualization Developer Required: No Accompanied by: Self / Same As Patient Allergies grass pollen Allergy (Mild, Verified 07/31/24 11:09) Unknown Medication List - Last Reconciled 07/31/24 by Vinod Borjas MD apremilast (Otezla) 30 mg PO BID ascorbate calcium (vitamin C) 1 g PO Q6H atogepant (Qulipta) 60 mg PO PRN certolizumab pegol (Cimzia) 200 mg subcut QWEEK cholecalciferol (vitamin D3) 50 mcg PO DAILY cyanocobalamin (vitamin B-12) 5,000 mcg PO DAILY dulaglutide (Trulicity) 3 mg subcut QWEEK flash glucose scanning reader ([employer] Natasha 2 Welches) As directed flash glucose sensor (FreeStyle Natasha 2 Sensor kit) As directed gabapentin 100 to 300 mg orally bedtime PRN; hydroxyzine HCl 25 mg PO BID PRN insulin degludec (Tresiba FlexTouch U-100 insulin) 38 units subcut DAILY insulin lispro 10 units subcut .TID with meals lisinopril 2.5 mg PO DAILY metoclopramide HCl 5 mg PO TID omeprazole magnesium 20 mg PO DAILY propranolol 20 mg PO BID prucalopride 1 mg PO DAILY simvastatin 40 mg PO BEDTIME Tobacco use date assessed: 07/31/24 Fall risk assessment: No Falls in past year Last assessed Fall Risk: 07/31/24 Dental Screening Dental Screen Date: 07/31/24 Did you have a dental visit in the last 12 months?: Yes Did you have a dental problem in the last 6 months where you did not have access to dental care?: No Was dental information given to patient?: Patient has dentist HPI low bp HPI Details Patient comes in for further evaluation of her low blood pressure She used to see Dr. Harvey, who retired from the practice a couple of months ago Recalls that she felt very dizzy the other day and checked her blood pressure, which was at 99/51 mm and patient states that this is the lowest her blood pressure has gotten She has been on Propranolol 20 mg BID and Lisinopril 2.5 mg QD for years, ever since she was still seeing Dr. Fisher prior to starting with Dr. Harvey Patient states that she has since stopped taking both her Propranolol and Lisinopril and she has not had any recurrence of her dizziness - states that it did take almost the remainder of the day for her dizziness that she had back then to completely subside States that she currently feels okay She denies any headaches, chest pains or SOB lately No nausea/vomiting, no abdominal pain No change in bowel habits noted [facility] Medical History (Updated 07/31/24 @ 12:25 by Vinod Borjsa MD) Vitamin B12 deficiency Overweight (BMI 25.0-29.9) GERD without esophagitis Vitamin D deficiency Neuropathy Chronic kidney disease, stage III (moderate) Migraine Psoriatic arthritis Pure hypercholesterolemia Essential hypertension Diabetes mellitus Surgical History No pertinent past surgical history Family History Father No problems noted. Mother Gastroparesis Paternal Grandmother Gastroparesis Family/Other Gastroparesis Social History Housing: House Alcohol intake: never Patient Tobacco Use Status: Never used Tobacco e-Cigarette/Vaping Use: Never Used Second Hand Smoke Exposure: No service: No Current occupational status: retired Cognitive needs: No Hearing needs: No Vision needs: Yes (glasses) Questionnaire PHQ-9 Over the last 2 weeks, how often have you been bothered by any of the following problems? 1. Little interest or pleasure in doing things: not at all 2. Feeling down, depressed, or hopeless: not at all 3. Trouble falling or staying asleep, or sleeping too much: several days 4. Feeling tired or having little energy: not at all 5. Poor appetite or overeating: several days 6. Feeling bad about yourself - or that you are a failure or have let yourself or your family down: not at all 7. Trouble concentrating on things, such as reading the newspaper or watching television: not at all 8. Moving or speaking so slowly that other people could have noticed. Or the opposite - being so fidgety or restless that you have been moving around a lot more than usual: not at all 9. Thoughts that you would be better off or of hurting yourself in some way: not at all Total score: 2 Depression Screening Interpretation: Negative Depression Screening Done: Yes 88716 - PHQ-9 Billing: Yes Source: Developed by Drs. Gaston Amrenta, Elizabeth Goins, Trevin Bello and colleagues, with an educational obey from [employer]. Thrive Questionnaire Date Thrive assessed: 07/31/24 I am a: Patient What is your living situation today?: I have a steady place to live Within the past 12 months, did the food you bought not last and you didn't have the money to get more?: Never true Within the past 12 months, did you worry whether your food would run out before you got money to buy more?: Never true Do you have trouble paying for medicines?: No Do you have trouble getting transportation to medical appointments?: No Do you have trouble paying your heating and electricity bill?: No Do you have trouble taking care of your child, family member or friend?: No Do you have trouble with day-to-day activities such as bathing, preparing meals, shopping, managing finances, etc.?: No Are you currently unemployed and looking for a job?: No Are you interested in more education?: No Please select the resources that you would like help with: None Currently or been in a relationship where the following occur: No concerns reported THRIVE Score: 0 AUDIT C Alcohol Use Questionnaire (AUDIT-C) 1. How often do you have a drink containing alcohol?: Never 3. How often do you have six or more drinks on one occasion?: Never Total Score: 0 Score Reviewed/Action Taken: Yes SB-7 AMB Questionnaire SB-7 Date SB - 7 assessed: 07/31/24 Feeling nervous, anxious, or on edge: 0 = Not at all Not being able to stop or control worryin = Not at all Worrying too much about different things: 0 = Not at all Trouble relaxin = Not at all Being so restless that it is hard to sit still: 0 = Not at all Becoming easily annoyed or irritable: 0 = Not at all Feeling afraid as if something awful might happen: 0 = Not at all Total SB-7 score (0-4 normal; 5-9 mild; 10-14 moderate; 15-21 severe): 0 Source: Developed by Drs. Gaston Armenta, Elizabeth Goins, Trevin Bello and colleagues, with an educational obey from [employer]. Review of Systems Const Denies chills, Denies fatigue, Denies fever(s) and Denies headache(s) ENT Denies dysphagia, Reports dizziness (a couple of days ago - see HPI for d etails), Denies otalgia, Denies headache(s), Denies neck pain, Denies odynophagia and Denies sore throat Card Denies chest pain, Denies palpitations and Denies dyspnea Resp Denies chest congestion, Denies cough and Denies dyspnea GI Denies abdominal pain, Denies constipation, Denies dysphagia, Denies heartburn, Denies diarrhea, Denies nausea, Denies odynophagia and Denies vomiting Denies difficulty voiding, Denies nocturia, Denies dysuria and Denies urinary urgency Musc Denies back pain, Reports arthralgias (involving multiple joints) and Denies neck pain Skin/Breast Denies rash Neuro Reports dizziness (a couple of days ago - see HPI for details) and Denies headache(s) Endo Denies fatigue and Denies palpitations Physical exam (Primary Care) Vital Signs: Last Vital Signs Pulse 100 07/31/24 10:46 BP 126/80 07/31/24 10:46 Pulse Ox 99 07/31/24 10:46 Oxygen Delivery Method Room Air 07/31/24 10:46 BMI result Body Mass Index 27.0 Tobacco/Smoking Status: Tobacco use Status Tobacco use date assessed 07/31/24 07/31/24 10:48 Patient Tobacco Use Status Never used Tobacco 07/31/24 10:48 e-Cigarette/Vaping Use Never Used 07/31/24 10:48 PHQ-9: PHQ-9 Score PHQ-9: Total score 2 07/31/24 10:48 Depression Screening Interpretation: Negative Thrive Assessment: Date of Thrive Assessment Date Thrive assessed 07/31/24 07/31/24 10:48 Currently or been in a relationship where the following occur: No concerns reported Const General: no acute distress and alert HENMT Ears: TM's normal bilaterally and EAC's normal Throat: Yes posterior oropharynx normal and Yes tonsils normal (no TP congestion) Neck Neck: Yes supple and No lymphadenopathy Thyroid: Thyroid normal Resp Auscultation: clear to auscultation bilaterally, no rales and no wheezes Cardio Rate: regular rate Rhythm: regular rhythm Heart sounds: no murmurs GI Palpation (GI): Soft to palpation and nontender Auscultation: normal bowel sounds General: Yes no CVA tenderness Back/Spine/Pelvis Back: no CVA tenderness Thoracic/Lumbar Spine: No lumbar spinal tenderness Skin Rashes: no rashes Extrem General: Yes no clubbing, cyanosis or edema Results AMB Hemoglobin A1c AMB Hemoglobin A1c 7.0 % Last Edit by LIZ Marcano on 07/31/24 11 :13 Coding Level of Care Code Est Pt Level 4 (90534) Diagnoses Dizziness R42 Essential hypertension I10 Pure hypercholesterolemia E78.00 Type 2 diabetes mellitus with stage 3a chronic kidney disease, without long-term current use of insulin E11.22; N18.31 Diabetes mellitus type: type 2 Diabetes mellitus residential insulin use: without residential use Diabetes mellitus complication status: with kidney complications Diabetes mellitus complication detail: with chronic kidney disease Chronic kidney disease stage: stage 3 (moderate) Chronic kidney disease stage 3 subtype: stage 3a (GFR 45-59) Stage 3a chronic kidney disease N18.31 Chronic kidney disease stage 3 subtype: stage 3a (GFR 45-59) Migraine without status migrainosus, not intractable, unspecified migraine type G43.909 Migraine type: unspecified Status migrainosus presence: without status migrainosus Intractability: not intractable Neuropathy G62.9 Psoriatic arthritis L40.50 Chronic constipation K59.09 Vitamin D deficiency E55.9 Gastroparesis K31.84 GERD without esophagitis K21.9 Vitamin B12 deficiency E53.8 Overweight (BMI 25.0-29.9) E66.3 Additional Codes PHQ-9 - 11326 - PHQ-9 Billing: Yes ([id number]) Assessment & Plan Assessment & Plan (1) Dizziness: Code(s): R42 - Dizziness and giddiness Category: Medical Plan: Discussed with patient that it is possible that her recent dizzy spell was from low blood pressure As she has already been holding her Propranolol and Lisinopril for the past couple of days, will have her continue to hold these 2 Rx for now Have advised patient to continue monitoring her blood pressure regularly and as long as her systolic BP does not consistently go over 140 mm, she is to continue HOLDING her BP meds until her next follow up appointment in September 2024 She is instructed to call for further instructions if her systolic BP is consistently >140 mm (2) Essential hypertension: Code(s): I10 - Essential (primary) hypertension Category: Medical Plan: Reinforced low sodium diet - goal is systolic BP of at least 130 to 140 mm or less She was on Lisinopril 2.5 mg QD and Propranolol 20 mg BID but will be having her hold these meds for now - see above (3) Pure hypercholesterolemia: Code(s): E78.00 - Pure hypercholesterolemia, unspecified Category: Medical Plan: Reinforced low cholesterol diet Continue Simvastatin 40 mg QD Will have patient recheck her labs and fasting lipids in a couple of months for follow up (4) Diabetes mellitus: Code(s): E11.9 - Type 2 diabetes mellitus without complications Category: Medical Qualifiers: Diabetes mellitus type: type 2 Diabetes mellitus residential insulin use: without residential use Diabetes mellitus complication status: with kidney complications Diabetes mellitus complication detail: with chronic kidney disease Chronic kidney disease stage: stage 3 (moderate) Chronic kidney disease stage 3 subtype: stage 3a (GFR 45-59) Qualified Code(s): E11.22 - Type 2 diabetes mellitus with diabetic chronic kidney disease; N18.31 - Chronic kidney disease, stage 3a Plan: Her in-office HgbA1c done today is at 7.0% - goal is at least >7.0% Reinforced diabetic diet Continue Trulicity 3 mg SQ once a week, Tresiba 38 units QD and Humalog TID with meals per sliding scale Follow up with [facility] as scheduled (5) Chronic kidney disease, stage III (moderate): Code(s): N18.30 - Chronic kidney disease, stage 3 unspecified Category: Medical Qualifiers: Chronic kidney disease stage 3 subtype: stage 3a (GFR 45-59) Qualified Code(s): N18.31 - Chronic kidney disease, stage 3a Plan: Stable Will continue to monitor her renal function regularly (6) Migraine: Code(s): G43.909 - Migraine, unspecified, not intractable, without status migrainosus Category: Medical Qualifiers: Migraine type: unspecified Status migrainosus presence: without status migrainosus Intractability: not intractable Qualified Code(s): G43.909 - Migraine, unspecified, not intractable, without status migrainosus Plan: Patient states that this has been better controlled lately She takes Qulipta 60 mg PRN but states that she has not needed to take this in a while now Reinforced avoidance of any potential migraine triggers (7) Neuropathy: Code(s): G62.9 - Polyneuropathy, unspecified Category: Medical Plan: Continue Gabapentin 100 mg to 300 mg Q HS PRN (8) Psoriatic arthritis: Code(s): L40.50 - Arthropathic psoriasis, unspecified Category: Medical Plan: Continue Otezla 30 mg BID and Cimzia 200 mg SQ once a week Follow up with rheumatology (Dr. Kramer at [facility]) as scheduled (9) Chronic constipation: Comment: Currently MiraLax stool softener Code(s): K59.09 - Other constipation Category: Medical Plan: Reinforced increased oral fluids and dietary fiber Continue Prucalopride (Motegrity) 1 mg QD Follow up with GI as scheduled (10) Vitamin D deficiency: Code(s): E55.9 - Vitamin D deficiency, unspecified Category: Medical Plan: Continue Vitamin D3 2000 units QD (11) Gastroparesis: Comment: DM, trulicity, fam hx- gastrpoparesis Code(s): K31.84 - Gastroparesis Category: Medical Plan: Continue Metoclopramide 5 mg TID Follow up with GI as scheduled (12) GERD without esophagitis: Code(s): K21.9 - Gastro-esophageal reflux disease without esophagitis Category: Medical Plan: Dietary restrictions reinforced Continue Omeprazole 20 mg QD (13) Vitamin B12 deficiency: Code(s): E53.8 - Deficiency of other specified B group vitamins Category: Medical Plan: Continue Vitamin B12 tablets 5000 mcg QD (14) Overweight (BMI 25.0-29.9): Code(s): E66.3 - Overweight Category: Medical Plan: Reinforced diet; exercise and weight may not be realistic due to patient's physical issues and multiple comorbidities Plan Follow up as scheduled in September 2024 Orders: Orders Complete Blood Count Auto Diff 09/10/24 D64.9 - Anemia, unspecified TSH reflex Free T4 09/10/24 E78.00 - Pure hypercholesterolemia, unspecified Hemoglobin A1c 09/10/24 E11.9 - Type 2 diabetes mellitus without complications AMB Hemoglobin A1c Today Z13.9 - Encounter for screening, unspecified Comprehensive [place]. Panel Fast 09/10/24 E78.00 - Pure hypercholesterolemia, unspecified Lipid Panel 09/10/24 E78.00 - Pure hypercholesterolemia, unspecified UA CC w/rflx Micro + Cult 09/10/24 R30.0 - Dysuria Microalbumin, Random (w Creat) 09/10/24 E11.9 - Type 2 diabetes mellitus without complications
--- OUTSIDE RECORDS SUMMARY | 2024-07-31 12:10 | XMS_ITS | Patient Health Record ---
[facility] Address [address] [place] [address] Care Team Providers Care Corrugator Helper Name Role Phone Vinod Borjas MD Primary Care Provider Tiffany Stein Unavailable [phone] Wang Navas Unavailable [phone] Allergies No Known Allergies Results Component Value Reference Range Notes HEMOGLOBIN A1C (GLYCOHEMOGLO BIN) Reviewed date:08/02/2023 07:56:23 AM Interpretation: Performing Lab: Notes/Report: HEMOGLOBIN A1C % (HH) 5.8 HEMOGLOBIN A1C (GLYCOHEMOGLO BIN) Reviewed date:04/10/2024 08:56:04 AM Interpretation: Performing Lab: Notes/Report: HEMOGLOBIN A1C % (HH) 6.7 Reason For Referral No Information Medications Medication SIG (Take, Route, Frequency, Duration) Notes Start Date End Date Status Tresiba Active Extra-Depth Diabetic Shoes with 3 Pair Custom heat-molded multi-density innersoles . 1pair shoes/3sets inserts . . for 1 year 02/20/2013 Active Extra Depth Orthopedic Shoes (1 Pair) with Customized Heat Molded Multidensity Innersoles (3 Pair) as directed Dx: IDDM/Polyneuropathy (E10.42), Hammertoe Foot Deformity (M20.41,M20.42), Preulcerative Skin Lesion(s) (L85.1) 04/10/2024 Active Januvia 40mg Twice a day Not-T aking glipiZIDE 5 MG 1 tablet Orally Once a day for 30 day(s) Not-Taking Folic Acid 1 MG 1 tablet Orally Once a day for 30 day(s) Not-Taking Doxepin HCl 10 MG 1 capsule at bedtime Orally Once a day for 30 day(s) Not-Taking Meloxicam 15 MG 1 tablet Orally Once a day for 30 day(s) Not-Taking hydroCHLOROthiazide 25 MG 1 tablet Orall y Once a day for 30 day(s) Not-Taking Humira 40 MG/0.8ML 0.8 Subcutaneous for 30 day(s) Not-Taking Amitriptyline HCl Ac tive Keflex 500 MG 1 capsule Orally every 12 hrs for 10 day(s) 04/13/2015 Not-Taking Cosentyx Not-Taking HumaLOG Active Methotrexate 2.5 MG 1 tablet Orally Three times a Week for 30 day(s) Not-Taking Omeprazole Active CeleBREX 100 MG 1 capsule Orally Twice a day for 30 day(s) Not-Taking Lisinopril 2.5 MG 1 tablet Orally Once a day Active Otezla Active Propranolol HCl Acti ve Simvastatin 10 MG 1 tablet in the evening Orally Once a day for 30 day(s) Active Cimzia Active Lamisil 250 250 MG 1 Tab Oral Daily for 90 02/22/2013 Not-Taking Trulicity Active Work Note . . .Dx: Niddm with neuropathy, arthritic toe deformity .Rx: this patient must avoid steel toe shoes permanently to avoid infection for . 08/28/2013 Not-Taking Gabapentin 100 MG 1 capsule Orally Once a day for 30 day(s) Active metFORMIN HCl 500 MG 1 tablet with meals Orally Twice a day for 30 day(s) 1000 mg once a day Not-Taking Immunizations Vaccine Route Administration Date Status [...] Problem Status W/U Status Risk Notes Problem Acquired hammer toe of right foot (4797935704010642 ) Other hammer toe(s) (acquired), right foot (M20.41) Active confirmed Response to treatment, Danica calderon Problem Acquired hammer toe of left foot (2032228208511962 ) Other hammer toe(s) (acquired), left foot (M20.42) Active confirmed Response to treatment, Danica t Problem Polyneuropathy due to diabetes mellitus type I (943808419) Type 1 diabetes mellitus with diabetic polyneuropathy (E10.42) Active confirmed Problem Polyneuropathy due to type 2 diabetes mellitus (920324840) Type 2 diabetes mellitus with diabetic polyneuropathy (E11.42) Active confirmed Vital Signs Blood pressure diastolic 65 mm Hg 07/11/2024 Height 0fq28ul in 07/11/2024 Blood pressure systolic 115 mm Hg 07/11/2024 Weight 185 lbs 07/11/2024 BMI 25.8 kg/m2 07/11/2024 Procedures Procedure Date Ordered Date Performed Result Body Sit e 69264-LKBOZKB NAIL, 6 OR MORE 04/10/2024 N/A 27353-LBDM SKIN LESIONS, 2 TO 4 04/10/2024 N/A 98659-AKPRPYB NAIL, 6 OR MORE 07/11/2024 N/A 02854-JJXQ SKIN LESIONS, 2 TO 4 07/11/2024 N/A Encounters Encounter Location Date Provider Diagnosis [address] [address] 08/02/2023 Wang Navas Tinea unguium B35.1 ; Pain in right toe(s) M79.674 ; Pain in left toe(s) M79.675 ; Type 2 diabetes mellitus with diabetic polyneuropathy E11.42 ; Other hammer toe(s) (acquired), left foot M20.42 ; Other hammer toe(s) (acquired), right foot M20.41 ; Ingrowing nail L60.0 ; Primary osteoarthritis, right ankle and foot M19.071 and Primary osteoarthritis, left ankle and foot M19.[address] [address] 12/06/2023 Wang Navas Tinea unguium B35.1 ; Pain in right toe(s) M79.674 ; Pain in left toe(s) M79.675 ; Type 2 diabetes mellitus with diabetic polyneuropathy E11.42 ; Other hammer toe(s) (acquired), left foot M20.42 ; Other hammer toe(s) (acquired), right foot M20.41 ; Primary osteoarthritis, right ankle and foot M19.071 ; Ingrowing nail L60.0 and Primary osteoarthritis, left ankle and foot M19.[address] [address] 04/10/2024 Tiffany Salas Other hammer toe(s) (acquired), right foot M20.41 ; Other hammer toe(s) (acquired), left foot M20.42 ; Type 2 diabetes mellitus with diabetic polyneuropathy E11.42 and Tinea unguium B35.[address] [address] 07/11/2024 Tiffany Salas Type 2 diabetes mellitus with diabetic polyneuropathy E11.42 ; Tinea unguium B35.1 ; Other hammer toe(s) (acquired), right foot M20.41 and Other hammer toe(s) (acquired), left foot M20.[address] [address] 08/02/2023 Wang Navas Assessments Encounter Date Diagnosis [...] toe(s) (acquired), left foot (ICD-10 - M20.42) 07/11/2024 Type 2 diabetes mellitus with diabetic polyneuropathy (ICD-10 - E11.42) 07/11/2024 Tinea unguium (ICD-10 - B35.1) 07/11/2024 Other hammer toe(s) (acquired), right foot (ICD-10 - M20.41) Response to treatment,Impro vement 04/10/2024 Type 2 diabetes mellitus with diabetic polyneuropathy (ICD-10 - E11.42) 12/06/2023 Pain in left toe(s) (ICD-10 - M79.675) 08/02/2023 Pain in left toe(s) (ICD-10 - M79.675) 08/02/2023 Type 2 diabetes mellitus with diabetic polyneuropathy (ICD-10 - E11.42) 04/10/2024 Tinea unguium (ICD-10 - B35.1) 12/06/2023 Type 2 diabetes mellitus with diabetic polyneuropathy (ICD-10 - E11.42) 07/11/2024 Other hammer toe(s) (acquired), left foot (ICD-10 - M20.42) Response to treatment,Impro vement 08/02/2023 Other hammer toe(s) (acquired), left foot [...] Treatment Pending Test Test Name Order Date 62980-VCSFNFL NAIL, 6 OR MORE 02/20/2013 98341-OUDYVKR NAIL, 6 OR MORE 05/29/2013 43217-DBQLDWM NAIL, 6 OR MORE 08/28/2013 59357-KPFQURJ NAIL, 6 OR MORE 12/11/2013 93228-RPBXPMU NAIL, 6 OR MORE 05/07/2014 03523-BGDULQR NAIL, 6 OR MORE 08/06/2014 51419-ISGEPSN NAIL, 6 OR MORE 04/13/2015 33571-FBUJZNQ NAIL, 6 OR MORE 12/31/2014 09092-CETXVRR NAIL, 6 OR MORE 07/29/2015 67288-YFZEJSH NAIL, 6 OR MORE 10/28/2015 17225-IYMXRCO NAIL, 6 OR MORE 01/27/2016 40045-FBWMVNU NAIL, 6 OR MORE 04/27/2016 92533-JFQLZWN NAIL, 6 OR MORE 11/02/2016 32347-TKPPCQD NAIL, 6 OR MORE 02/15/2017 24427-GXSORSA NAIL, 6 OR MORE 05/24/2017 02185-WXVEMJI NAIL, 6 OR MORE 08/30/2017 73640-XMLIDJW NAIL, 6 OR MORE 12/25/2017 12162-IHFALAH NAIL, 6 OR MORE 04/10/2024 31484-YLRQECV NAIL, 6 OR MORE 07/11/2024 51909-Bxctjvhp Plate 08/30/2017 12889-Ymsoflwz Plate 11/02/2016 66630-Jwlenfhi Plate 12/31/2014 74945-Cyjkwrif Plate 04/13/2015 69359-Ewvekbbo Plate 08/06/2014 84093-Gzvjlyhe Plate 05/07/2014 63927-Tohrewzt Plate 12/11/2013 60604-Levuuqie Plate 09/11/2013 82735-Lygzndha Plate 05/29/2013 28994-Ltfyofgb Plate 02/20/2013 59443-Ovrpdxik Plate Each Additional 04/2013 74179-Czhyxynm Plate Each Additional 76743-Uqtvfatk Plate Each Additional 38125-Nxbtazav Plate Each Additional 03/2015 53421-Cpyazyvq Plate Each Additional 52485- Debride <25 sq cm 07/06/2020 06236- Debride <25 sq cm 08/28/2013 02193-FFZZ SKIN LESIONS, OVER 4 05/07/19 15 27501-RBAW SKIN LESIONS, OVER 4 12/12/19 14 58139-ESDE SKIN LESIONS, OVER 4 02/21/20 13 56029-NYOX SKIN LESIONS, OVER 4 05/30/19 14 10438-FWQV SKIN LESIONS, OVER 4 08/29/19 14 20725-ZVNM SKIN LESIONS, OVER 4 04/13/19 16 33060-QGVZ SKIN LESIONS, OVER 4 08/07/19 15 65259-JJOQ SKIN LESIONS, OVER 4 01/01/20 15 80156-GTQR SKIN LESIONS, OVER 4 07/29/19 16 07186-TNOL SKIN LESIONS, OVER 4 01/27/20 16 26831-GNUL SKIN LESIONS, OVER 4 10/28/19 16 64366-BZZR SKIN LESIONS, OVER 4 07/07/19 21 55351-XFBU SKIN LESIONS, OVER 4 01/14/20 21 09875-MLVS SKIN LESIONS, OVER 4 11/03/19 17 67712-SCYE SKIN LESIONS, OVER 4 04/27/19 17 34900-GOQX SKIN LESIONS, OVER 4 07/28/19 17 58148-ZAOS SKIN LESIONS, OVER 4 05/25/19 18 04322-KWMS SKIN LESIONS, OVER 4 02/16/20 17 49323-DEKC SKIN LESIONS, OVER 4 08/31/19 18 68639-XTZY SKIN LESIONS, OVER 4 12/26/19 18 46100-KJMU SKIN LESIONS, OVER 4 04/16/19 19 36699-TFDE SKIN LESIONS, OVER 4 08/16/19 19 21091-UWVE SKIN LESIONS, OVER 4 11/15/19 19 03972-BNRP SKIN LESIONS, OVER 4 03/18/19 20 93731-ODHE SKIN LESIONS, OVER 4 09/04/19 20 95151-JBQW SKIN LESIONS, OVER 4 01/06/20 20 38599-ACET SKIN LESIONS, 2 TO 4 04/10/19 90153-AFDF SKIN LESIONS, 2 TO 4 07/12/19 Next Appt Details Provider Name:Tiffany Oksana del angel, 10/16/2024 09:00:00 AM, [address] [facility], [place], [address], Insurance Providers Payer Name Payer Address Payer Phone Subscriber Number Group Number Insured Name Patient Relationship to Insured Coverage Start Date Coverage End Date Medicare National [employer] [address] [place] [address] [id number] Yumiko Rodgers Self - patient is the insured [facility] [address] [place] [address] [id number] Yumiko Rodgers Self - patient is the insured Medical (General) History Medical History History ICD Code Arthritis headaches/migraines high blood pressure psoriasis/eczema type II diabetes Surgical History Surgery Date(Month/Year) bx left leg 2015
--- OUTSIDE RECORDS SUMMARY | 2024-07-31 12:10 | XMS_ITS ---
Author Organization [facility] Address [address] [place] [address] Care Team Providers Care Draw In Hand Name Role Phone Indio SANTOS, [place] Primary Care Provider Tiffany Stein Unavailable [phone] Allergies No Known Allergies REASON FOR VISIT At Risk Footcare, Toe Irritation Medications Medication SIG (Take, Route, Frequency, Duration) Notes Start Date End Date Status Cosentyx Not-Taking Methotrexate 2.5 MG 1 tablet Orally [...] to avoid infection for . 08/28/2013 Not-Taking Keflex 500 MG 1 capsule Orally every 12 hrs for 10 day(s) 04/13/2015 Not-Taking Januvia 40mg Twice a day Not-T [...] (M20.41,M20.42), Preulcerative Skin Lesion(s) (L85.1) 04/10/2024 Active Doxepin HCl 10 MG 1 capsule at bedtime Orally Once a day for 30 day(s) Not-Taking Meloxicam 15 MG 1 tablet Orally Once a day for 30 day(s) Not-Taking hydroCHLOROthiazide 25 MG 1 tablet Orall y Once a day for 30 day(s) Not-Taking Tresiba Active Lisinopril 2.5 MG 1 tablet Orally [...] day(s) 1000 mg once a day Not-Taking HumaLOG Active Amitriptyline HCl Ac tive Social History Tobacco Use: Social History Observation [...] Status Risk Notes Problem Polyneuropathy due to diabetes mellitus type I (015371070) Type 1 diabetes mellitus with diabetic polyneuropathy (E10.42) Active confirmed Problem Acquired hammer toe of right foot (0854943868697642 ) Other hammer toe(s) (acquired), right foot (M20.41) Active confirmed Response to treatment, Improvemen t Problem Acquired hammer toe of left foot (7482494054839228 ) Other hammer toe(s) (acquired), left foot (M20.42) Active confirmed Response to treatment, Improvemen t Vital Signs Height 0us36vv in 07/11/2024 Weight 185 lbs 07/11/2024 BMI 25.8 kg/m2 07/11/2024 Blood pressure systolic 115 mm Hg 07/12/19 25 Blood pressure diastolic 65 mm Hg 025 Procedures Procedure Date Ordered Date Performed Result Body Sit e 62102-DXAMTQQ NAIL, 6 OR MORE 07/11/2024 N/A 71145-PFQS SKIN LESIONS, 2 TO 4 07/11/2024 N/A Encounters Encounter Location Date Provider Diagnosis [facility] [address] [place] [address] 07/11/2024 Tiffany Saals Type 2 diabetes mellitus with diabetic polyneuropathy E11.42 ; Tinea unguium B35.1 ; Other hammer toe(s) (acquired), right foot M20.41 and Other hammer toe(s) (acquired), left foot M20.42 Assessments Encounter Date Diagnosis (ICD Code) Assessment Notes Treatment Notes Treatment Clinical Notes Section Notes 07/11/2024 Type 2 diabetes mellitus with diabetic polyneuropathy (ICD-10 - E11.42) 07/11/2024 Tinea unguium (ICD-10 - B35.1) 07/11/2024 Other hammer toe(s) (acquired), right foot (ICD-10 - M20.41) Response to treatment,Impro vement 07/11/2024 Other hammer toe(s) (acquired), left foot (ICD-10 - M20.42) Response to treatment,Impro vement Plan Of Treatment Pending Test Test Name Order Date 63623-BKWKBAH NAIL, 6 OR MORE 07/11/2024 57203-GHTM SKIN LESIONS, 2 TO 4 07/12/19 25 Next Appt Details Follow Up: 3 Months, Reason: Provider Name:Tiffany Alonzojames bean, 10/16/2024 09:00:00 AM, [address] [place] [address], [phone], Procedure Notes * Category Sub-Category Detail Notes [...] use of a nail nipper and/or dremel-type coffee grinder, to a more viable healthy nail [...] to maintain effectiveness in symptomatic relief - 20529 Keratoma Treatment Parring or Cutting o f Benign Hyperkeratotic Lesion(s) (-56) 2-4 Lesions - Due to the at risk nature of the patients medical condition as documented in the exam findings, performance of this keratoderma treatment is medically necessary as its management by an unskilled/untrained nonprofessional would put this patients foot and overall health at risk. Therefore, the benign hyperkeratotic lesions, (2) in total, locations as stated and described in the exam (plantar heels B/L ), were pared, and/or cut utilizing a sterile 15 blade, tissue nippers, and/or power dremel instrumentation by the physician of record - 98490 Progress Notes * Yumiko RODGERS MDOB: (69 yo F)Acc No.[id number]:07/11/2024 Progress Note Patient:?Yumiko RODGERS M Provider:?Tiffany Salas DPM :1955???Age:69 Y???Sex:Female D ate:07/11/2024 Address:[address] [place], [place] [id number] Pcp:Vinod Borjas MD Subjective: * Chief Complaints: * ???At Risk FootcareToe Irrit ation * HPI: ???At Risk footcare:?Pt States Last PCP Visit:?Date?05/22/2024 ???Toe pain:?Treatments:?Rx shoes .? * ROS:?General/Constitutional:?Nausea?denies.?Vomiting?denies.?Hunger Thirst?denies.?Loss appetite?denies.?Chills?denies.?Fatigue?denies.?Fever?denies.?Night Sweats?denies.?Unexplained weight loss?denies.?Unexplained [...] * Medical History:? * Surgical History:?bx left marilyn g 2014 * Hospitalization/Major Diagno stic Procedure:?Denies Past Hospitalization * Family History:?Mother: dece ased, diagnosed with Diabetic - NIDDM, Unspecified essential hypertension.?Father: , diagnosed with Diabetic - NIDDM, Unspecified essential hypertension.?Paternal Grand Mother: , type II diabetes, hypertension, diagnosed with Unspecified essential hypertension, Diabetic - NIDDM.?Paternal Grand Father: , type II diabetesh, hypertension, [...] Capsule 1 capsule Orally Once a day Lisinopril 2.5 MG Tablet 1 tablet Orally Once a day Otezla Propranolol HCl Simvastatin 10 MG Tablet 1 tablet in the evening Orally Once a day Tresiba Extra-Depth Diabetic Shoes with 3 Pair Custom heat- molded multi-density innersoles . . 1pair shoes/3sets inserts . . Extra Depth Orthopedic Shoes (1 Pair) with Customized Heat Molded Multidensity Innersoles (3 Pair) as directed Dx: IDDM/Polyneuropathy (E10.42), Hammertoe Foot Deformity (M20.41,M20.42), Preulcerative Skin Lesion(s) (L85.1) Taking Amitriptyline HCl Taking HumaLOG Taking Omeprazole Taking Cimzia Taking Trulicity Taking Gabapentin 100 MG Capsule 1 capsule Orally Once a day Taking Lisinopril 2.5 MG Tablet 1 tablet Orally Once a day Taking Otezla Taking Propranolol HCl Taking Simvastatin 10 MG Tablet 1 tablet in the evening Orally Once a day Taking Tresiba Taking Extra-Depth Diabetic Shoes with 3 Pair Custom heat-molded multi-density innersoles . . 1pair shoes/3sets inserts . . Taking Extra Depth Orthopedic Shoes (1 Pair) with Customized Heat Molded Multidensity Innersoles (3 Pair) as directed Dx: IDDM/Polyneuropathy (E10.42), Hammertoe Foot Deformity (M20.41,M20.42), Preulcerative Skin Lesion(s) (L85.1) Not-Taking/PRNmetFORMIN HCl 500 MG Tablet 1 tablet with meals Orally Twice a day , Notes to Pharmacist: 1000 mg once a dayDoxepin HCl 10 MG Capsule 1 capsule at [...] List reviewed and reconciled with the patientNot-Taking/PRN metFORMIN HCl 500 MG Tablet 1 tablet with meals Orally Twice a day , Notes to Pharmacist: 1000 mg once a dayNot-Taking/PRN Doxepin HCl 10 MG Capsule 1 capsule [...] Tablet 1 tablet Orally Once a day Not- Taking/PRN Keflex 500 MG Capsule 1 capsule [...] patient * Allergies:?N.K.D.A.yes[Aller gies Verified] Objective: * Vitals:?Ht:4ni72dz, Wt:185, BMI:25.8, Shoe size:10, BP:115/65mm Hg, BS:143, Ht- cm: 180.34 cm, Wt-k.92 kg. * ???Past Orders: ???Lab:HEMOGLOBIN A1C (GLYCO HEMOGLOBIN) (Order Date - 04/01/2024) (Collection Date & Time - 04/10/2024 08:55 AM) ? Value Reference Range ?HEMOGLOBIN A1C % (HH) 6.7 * Examination: ???Ophthalmology Referral: ?DIABETES EYE EXAM?Procedure Performed:?Yes ?Date of Exam Performed?02/12/2024 ?Diabetic Retinopathy Screening:?Yes ?Findings of Diabetic Eye Exam:?no retinopathy?Neurological: ?SENSORY:? Neurological exam demonstrates, reduced light touch sensation, reduced sharp/dull pin prick discrimination , B/L, 5.07 monofilament test performed at plantar aspects of 5 varied sites per foot shows sensation, reduced , B/L.?Nails: ?NAILS are:?Elongated, overgrown, dystrophic, lytic, greater than 3mm thick, discolored and friable with crumbly malodorous subungual debris, TA, T1, T2, T3, T4, T5, T6, T7, T8, T9.?Dermatologic: ?SKIN FINDINGS:?Skin exam reveals Keratotic lesion(s) located at plantar heels B/L.?Vascular: ?DP PULSES (B):?03/16, B/L.?PT PULSES (B):?/, B/L.?Orthopedic: ?MUSCLE STRENGTH:?5/5 all groups in a symmetrical fashion, B/L.?FOOTWEAR EVALUATION:?good condition, exhibit proper fit and accommodation for pedal deformities. OT were inspected and noted to be worn, but in good condition giving proper support at the present time.?General Examination: ?GENERAL APPEARANCE:?Reveals a pleasant, alert, well nourished, well- developed, well hydrated individual, who demonstrates proper attention to hygiene/body habitus, and is in no acute distress, Pt serves as own historian for office visit today.?ORIENTED:?person, place, and time.?Footwear Evaluation?Footwear Evaluation performed:?Yes??? Assessment: * Assessment: 1.?Type 2 diabetes mellitus with diabetic polyneuropathy - E11.42 (Primary)???2.?Tinea unguium - B35.1???3.?Other hammer toe(s) (acquired), right foot - M20.41???Specify :Chronic problem, Stable (1=3,2=4)???Notes :Response to treatment,Improvement???4.?Other hammer toe(s) (acquired), left foot - M20.42???Specify :Chronic problem, Stable (1=3,2=4)???Notes :Response to treatment,Improvement??? Plan: * Treatment: * Procedures:?Debride Nail 6-10:?Nail debridement?Due to the [...] use of a nail nipper and/or dremel-type coffee grinder, to a more viable healthy nail [...] to maintain effectiveness in symptomatic relief - 24231.?Keratoma Treatment:?Parring or Cutting of Benign Hyperkeratotic Lesion(s)?(-56) 2-4 Lesions - Due to the at risk nature of the patients medical condition as documented in the exam findings, performance of this keratoderma treatment is medically necessary as its management by an unskilled/untrained nonprofessional would put this patients foot and overall health at risk. Therefore, the benign hyperkeratotic lesions, (2) in total, locations as stated and described in the exam (plantar heels B/L ), were pared, and/or cut utilizing a sterile 15 blade, tissue nippers, and/or power dremel instrumentation by the physician of record - 86006.? * Procedure Codes:?86332 DEBRI DE NAIL, 6 OR MORE, Modifiers: XS 14042 TRIM SKIN LESIONS, 2 TO 4, Modifiers: XS 3044F HG A1C LEVEL LT 7.0% * Preventive Medicine:? ??Counseling:?Discussion:?-13: Office or other outpatient visit for the evaluation and management of an established patient, which required a medically appropriate history and/or examination and LOW level of DECISION MAKING for: 1 STABLE ACUTE UNCOMPLICATED PROBLEM, 2 OR MORE MINOR PROBLEMS, OR 1 STABLE CHRONIC PROBLEM, THAT POSE(S) A LOW RISK FOR MORBIDITY/MORTALITY. The visit on the day of the [...] have encouraged the patient to call the office.?Shoe Gear Counseling:?A thorough inspection of the patients Rxed shoegear and inserts was performed and findings communicated. We reviewed the many important medical advantages for adhering to regularly wearing these shoe and insert accomidative devices daily as well as reviewed the fact that a failure in accepting these recommedations may be deleterious, unable to prevent, and disadvantagely result in, many pedal complications such as skin irritation, skin ulceration, infection, and even loss of toe/foot/leg/or even their life. Time was also spent reviewing the proper footcare techniques including daily skin moisturization, daily foot inspection for any interruption in skin integrity, open lesions, or sign of infection such as redness/malodor/drainage/swelling as well as daily shoe inspection for the presence of internal foreign bodies and shoe as well as insert wear. Patient questions re: shoes, inserts, and self foot inspections were answered to their satisfaction as the patient verbally confirmed a full understanding of the above information.? ??Screening/Special Tests:?Fall Risk?Screening:?No falls in the past year ?FALLS: Screening for Future Fall Risk?Have you had any falls with injury in the past year??No * Follow Up:?3 Months * Images: * Sign off status: Completed true * Provider:?Tiffany Salas DPM Date:?0 07/11/2024 Generated for Raj cutler/Azul/eTransmitting on:?07/31/2024 12:10 PM EDT History and Physical Notes * HPI (History of Present Illness) Category Sub-Category Detail Notes Category Not es Toe pain Treatments: Rx shoes At Risk footcare Pt States Last PCP Visit: Date: 5 Examination Category Sub-Category Detail Notes Category Not es Neurological SENSORY: Neurological exa m demonstrates, reduced light touch sensation, reduced sharp/dull pin prick discrimination , B/L, 5.07 monofilament test performed at plantar aspects of 5 varied sites per foot shows sensation, reduced , B/L Dermatologic SKIN FINDINGS: Skin exam reveal s Keratotic lesion(s) located at plantar heels B/L Orthopedic FOOTWEAR EVALUATION: good condit ion, exhibit proper fit and accommodation for pedal deformities. OT were inspected and noted to be worn, but in good condition giving proper support at the present time MUSCLE STRENGTH: 5/5 all groups in a symmetrical fashion, B/L General Examination GENERAL APPEARANCE: Reveals a pleasant, alert, well nourished, well-developed, well hydrated individual, who demonstrates proper attention to hygiene/body habitus, and is in no acute distress, Pt serves as own historian for office visit today ORIENTED: person, place, and t wilner Footwear Evaluation Footwear Evaluation performe d:: Yes Ophthalmology Referral DIABETES EYE EXAM Procedure Perform ed:: Yes ?Date of Exam Performed: 02/12/2024 Diabetic Retinopathy Screening:: Yes Findings of Diabetic Eye Exam:: no retin opathy Vascular DP PULSES (B): 1/4, B/L PT PULSES (B): 1/4, B/L Nails NAILS are: Elongated, overg rown, dystrophic, lytic, greater than 3mm thick, discolored and friable with crumbly malodorous subungual debris, TA, T1, T2, T3, T4, T5, T6, T7, T8, T9
--- OUTSIDE RECORDS SUMMARY | 2024-07-31 12:10 | XMS_ITS ---
Author Organization [facility] Address [address] [place] [address] Care Team Providers Care Top Frame Fitter Name Role Phone Indio SANTOS, Vinod Primary Care Provider Tiffany Stein Unavailable [phone] Wang Navas Unavailable [phone] Allergies No Known Allergies REASON FOR VISIT [...] other tobacco user? No Vital Signs Height 6pr51ef in 12/06/2023 Weight 185 lbs 12/06/2023 BMI 25.8 kg/m2 12/06/2023 Encounters Encounter Location Date Provider Diagnosis [facility] [address] [place] [address] 12/06/2023 Wang Navas Tinea unguium B35.1 ; [...] 4 Months, Reason: Provider Name:Tiffany Gandhi bean, 10/16/2024 09:00:00 AM, [address] [place] [address], [phone], Procedure Notes * Category Sub-Category Detail Notes [...] as necessary. Patient chooses, no pharmaceutical tx (48245) Keratoma Treatment Parring or Cutting o f Benign Hyperkeratotic Lesion(s) 07626 ( >4 Lesions) - The Benign hyperkeratotic lesions, as described above were pared, and/or cut utilizing a sterile #15 blade, tissue nippers, and/or dremel Progress Notes * Yumiko RODGERS MDOB: 7 (68 yo F)Acc No.[id number]:12/06/2023 Progress Note Patient:?Yumiko Rodgers Provider:?Wang Navas DPM :1955???Age:68 Y???Sex:Female D ate:12/06/2023 Address:[address] [place], [place] [id number] Pcp:Harpreet Harvey MD Subjective: * Chief Complaints: [...] * Allergies:?N.K.D.A.yes[Aller gies Verified] Objective: * Vitals:?Ht: 0jb42ty, Wt:185, BMI:25.8, Shoe size: 10, BS: 139, [...] pop [place] chelsey ankles.?Ophthalmology Referral: ?DIABETES EYE EXAM?Diabetic Retinopathy Screening:?Yes [...] as necessary. Patient chooses, no pharmaceutical tx (53938).?Keratoma Treatment:?Parring or Cutting of Benign Hyperkeratotic Lesion(s)?65246 ( >4 Lesions) - The Benign hyperkeratotic lesions, as described above were pared, and/or cut utilizing a sterile #15 blade, tissue nippers, and/or dremel.? * Procedure Codes:?18764 DEBRI DE NAIL, 6 OR MORE, Modifiers: XS 47440 TRIM SKIN LESIONS, OVER 4, Modifiers: XS * Follow Up:?4 Months * Images: * Sign off status: Completed true * Provider:?Wang Navas DPM Date:? 024 Generated for Raj cutler/Azul/eTransmitting on:?07/31/2024 12:10 PM [...] Yes Sensory and [facility] testing performed[facility] Pedal pulse taking performed:: absent [...]
--- OUTSIDE RECORDS SUMMARY | 2024-07-31 12:11 | XMS_ITS ---
Author Organization [facility] Address [address] [place] [address] Care Team Providers Care Parts Administrator Name Role Phone Indio SANTOS, Vinod Primary Care Provider Tiffany Stein Unavailable [phone] Allergies No Known Allergies REASON FOR VISIT [...] Points 0 Interpretation Negative Vital Signs Height 1ws28va in 04/10/2024 Weight 185 lbs 04/10/2024 BMI 25.8 kg/m2 04/10/2024 Blood pressure systolic 120 mm Hg 04/10/19 25 Blood pressure diastolic 80 mm Hg 025 Procedures Procedure Date Ordered Date Performed Result Body Sit e 54930-DXRBNDF NAIL, 6 OR MORE 04/10/2024 N/A 37673-VMER SKIN LESIONS, 2 TO 4 04/10/2024 N/A Encounters Encounter Location Date Provider Diagnosis [facility] [place] [address] [place] [address] 04/10/2024 Tiffany Salas Other hammer toe(s) (acquired), [...] INSTRUCTIONS.pdf) Pending Test Test Name Order Date 43451-BNBHHQT NAIL, 6 OR MORE 04/10/2024 60083-BMYT SKIN LESIONS, 2 TO 4 04/10/19 25 Next Appt Details Follow Up: 3 Months, Reason: Provider Name:Tiffany del angel, 10/16/2024 09:00:00 AM, [address] [place] [address], [phone], Procedure Notes * Category Sub-Category Detail [...] use of a nail nipper and/or dremel-type universal grinder operator, to a more viable healthy nail plate [...] to maintain effectiveness in symptomatic relief - 48725 Keratoma Treatment Parring or Cutting o f [...] instrumentation by the physician of record - 82648 Progress Notes * Yumiko RODGERS MDOB: (68 yo F)Acc No.[id number]:04/10/2024 Progress Note Patient:?Yumiko RODGERS Provider:?Tiffany Salas DPM :1955???Age:68 Y???Sex:Female D ate:04/10/2024 Address:[address] [place] [address], [place], [place] Pcp:Harpreet Harvey MD Subjective: * Chief Complaints: [...] patient * Allergies:?N.K.D.A.yes[Aller gies Verified] Objective: * Vitals:?Ht:7pb20fj, Wt:185, BMI:25.8, Shoe size:10, BP:120/80mm Hg, BS:172, [...] 3.?Type 2 diabetes mellitus with diabetic polyneuropathy?Procedure: 16437-QPQVUAR NAIL, 6 OR MORE ?Procedure: 87632-WZZL SKIN LESIONS, 2 TO 4 * Procedures:?Debride [...] use of a nail nipper and/or dremel-type universal grinder operator, to a more viable healthy nail plate [...] to maintain effectiveness in symptomatic relief - 28034.?Keratoma Treatment:?Parring or Cutting of Benign Hyperkeratotic Lesion(s)?(-56) [...] instrumentation by the physician of record - 49993.? * Procedure Codes:?74234 DEBRI DE NAIL, 6 OR MORE, Modifiers: XS 98202 TRIM SKIN LESIONS, 2 TO 4, Modifiers: [...] Provider:?Tiffany Salas DPM Date:?0 04/10/2024 Generated for Printi ng/Azul/eTransmitting on:?07/31/2024 12:10 PM EDT History and Physical [...] iminished Sensory and motor testing performed:: [facility] normal Pedal pulse taking performed:: 1+ ORIENTED: [...]
== END 2024-07-31 11:23 | disposition home or self-care (01) ==
LOC: HO.HMCH 10:44
PROVIDERS: PCP Internal Medicine; Visit Provider Internal Medicine
DX: I12.9 Hypertensive chronic kidney disease with stage 1 through stage 4 chronic kidney disease, or unspecified chronic kidney disease (principal); E11.22 Type 2 diabetes mellitus with diabetic chronic kidney disease; N18.31 Chronic kidney disease, stage 3a; L40.50 Arthropathic psoriasis, unspecified; R42 Dizziness and giddiness; E78.00 Pure hypercholesterolemia, unspecified; G43.909 Migraine, unspecified, not intractable, without status migrainosus; G62.9 Polyneuropathy, unspecified; K59.09 Other constipation; E55.9 Vitamin D deficiency, unspecified; K31.84 Gastroparesis; K21.9 Gastro-esophageal reflux disease without esophagitis

== ENCOUNTER → 2024-07-31 10:43 | Outpatient (BNVA) | payer MEDICARE, BC, SELFPAY | PROVIDERS: PCP Internal Medicine; Visit Provider Internal Medicine | DX: R42 Dizziness and giddiness (principal); I12.9 Hypertensive chronic kidney disease with stage 1 through stage 4 chronic kidney disease, or unspecified chronic kidney disease; E11.22 Type 2 diabetes mellitus with diabetic chronic kidney disease; N18.31 Chronic kidney disease, stage 3a; E78.00 Pure hypercholesterolemia, unspecified; G43.909 Migraine, unspecified, not intractable, without status migrainosus; G62.9 Polyneuropathy, unspecified; L40.50 Arthropathic psoriasis, unspecified; K59.09 Other constipation; K31.84 Gastroparesis; K21.9 Gastro-esophageal reflux disease without esophagitis; E53.8 Deficiency of other specified B group vitamins; E55.9 Vitamin D deficiency, unspecified; E66.3 Overweight; Z68.27 Body mass index [BMI] 27.0-27.9, adult; Z71.3 Dietary counseling and surveillance | CPT/HCPCS: 83036; 96127; 99212 ==

== ENCOUNTER 2024-08-06 14:40 | Outpatient (REF) | payer MEDICARE, BC, SELFPAY ==
--- NOTE | ~2024-08-06 | XR_ITS ---
EXAMINATION: XR ABDOMEN KUB CLINICAL INDICATION: R10.31 - Right lower quadrant pain COMPARISON: None available. TECHNIQUE: AP view of the abdomen. FINDINGS: Bowel gas pattern is normal/nonspecific. There is no focally dilated loop. There is moderate retained fecal material throughout the colon and rectum. No organomegaly. No abnormal soft tissue calcifications. Lung bases appear clear. Osseous structures appear normal. XR/XR KUB IMPRESSION: 1. No evidence of bowel obstruction. 2. Moderate constipation. Electronically signed by: Hector Christianson MD 08/06/2024 04:38 PM EDT
== END 2024-08-06 14:41 | disposition home or self-care (01) ==
LOC: HO.HMGCX 14:40
PROVIDERS: PCP Internal Medicine; Visit Provider Nurse Practitioner Family
DX: R10.31 Right lower quadrant pain (principal); K59.01 Slow transit constipation
CPT/HCPCS: 74018; 99212

== ENCOUNTER 2024-08-06 14:40 | Outpatient (AMB) | payer MEDICARE, BC, SELFPAY ==
--- OUTSIDE RECORDS SUMMARY | 2024-08-06 14:42 | XMS_ITS ---
Author Organization [facility] Address [address] [place] [address] Care Team Providers Care Finance Associate Name Role Phone Indio SANTOS, Vinod Primary Care Provider Tiffany Stein Unavailable [phone] Wang Navas Unavailable [phone] Allergies No Known Allergies REASON FOR VISIT [...] other tobacco user? No Vital Signs Height 8il81ui in 12/06/2023 Weight 185 lbs 12/06/2023 BMI 25.8 kg/m2 12/06/2023 Encounters Encounter Location Date Provider Diagnosis [facility] [place] [address] [place] [address] 12/06/2023 Wang Navas Tinea unguium B35.1 ; [...] Provider Name:Tiffany Gandhi bean, 10/16/2024 09:00:00 AM, [address] [place] [address], [phone], Procedure Notes * Category Sub-Category Detail Notes [...] as necessary. Patient chooses, no pharmaceutical tx (35255) Keratoma Treatment Parring or Cutting o f Benign Hyperkeratotic Lesion(s) 12559 ( >4 Lesions) - The Benign hyperkeratotic lesions, as described above were pared, and/or cut utilizing a sterile #15 blade, tissue nippers, and/or dremel Progress Notes * Yumiko RODGERS MDOB: 7 (68 yo F)Acc No.[id number]:12/06/2023 Progress Note Patient:?Yumiko Rodgers Provider:?Wang Navas DPM :1955???Age:68 Y???Sex:Female D ate:12/06/2023 Address:[address] [place], [place] [id number] Pcp:Harpreet Harvey MD Subjective: * Chief Complaints: [...] * Allergies:?N.K.D.A.yes[Aller gies Verified] Objective: * Vitals:?Ht: 6ql39gg, Wt:185, BMI:25.8, Shoe size: 10, BS: 139, [...] as necessary. Patient chooses, no pharmaceutical tx (22919).?Keratoma Treatment:?Parring or Cutting of Benign Hyperkeratotic Lesion(s)?04519 ( >4 Lesions) - The Benign hyperkeratotic lesions, as described above were pared, and/or cut utilizing a sterile #15 blade, tissue nippers, and/or dremel.? * Procedure Codes:?09791 DEBRI DE NAIL, 6 OR MORE, Modifiers: XS 30191 TRIM SKIN LESIONS, OVER 4, Modifiers: XS * Follow Up:?4 Months * Images: * Sign off status: Completed true * Provider:?Wang Navas DPM Date:? 024 Generated for Raj cutler/Azul/eTransmitting on:?08/06/2024 02:41 PM EDT History and Physical Notes * [...]
[2024-08-06 15:24] VITALS: BP 116/70; PULSE 120; O2SAT 93
--- NOTE | 2024-08-06 15:24 | AM.OFFWIN_ITS ---
Intake Vital Signs 08/06/24 15:24 Weight 192 lb BP 116/70 Blood Pressure Location Rt brachial Position Sitting Pulse 120 H Pulse Source Pulse Oximeter Pulse Oximetry (%) 93 Oxygen Delivery Method Room Air Intake Visit Reasons: EP pain on RT side from abdomen to groin area Intake Note: Patient here for right sided abdominal pain that radiates to the groin. Denies any lower back pain, burning on urination. Patient Tobacco Use Status: Never used Tobacco Allergies grass pollen Allergy (Mild, Verified 08/06/24 15:26) Unknown Do you need a note to return to daycare/school/sports/work: No HPI HPI Comments History of Present Illness Details 69 y/o Female patient who presents to [facility] in clinic with c/o RLQ abdominal pain associated with constipation. Denies Nausea or vomiting. Denies fevers or chills. [facility] Medical History (Updated 08/06/24 @ 17:40 by Ana Encarnacion NP) Constipation Abdominal pain, right lower quadrant Vitamin B12 deficiency Overweight (BMI 25.0-29.9) GERD without esophagitis Vitamin D deficiency Neuropathy Chronic kidney disease, stage III (moderate) Migraine Psoriatic arthritis Pure hypercholesterolemia Essential hypertension Diabetes mellitus Surgical History No pertinent past surgical history Family History Father No problems noted. Mother Gastroparesis Paternal Grandmother Gastroparesis Family/Other Gastroparesis Social History Housing: House Alcohol intake: never Patient Tobacco Use Status: Never used Tobacco e-Cigarette/Vaping Use: Never Used Second Hand Smoke Exposure: No service: No Current occupational status: retired Cognitive needs: No Hearing needs: No Vision needs: Yes (glasses) Review of Systems Const All systems reviewed & are unremarkable except as noted in HPI and below Physical Exam Vital Signs: Last Vital Signs Pulse 120 H 08/06/24 15:24 BP 116/70 08/06/24 15:24 Pulse Ox 93 08/06/24 15:24 Oxygen Delivery Method Room Air 08/06/24 15:24 Const General: no acute distress Nutritional Appearance: overweight Orientation/consciousness: patient oriented x3 Resp Effort & Inspection: normal respiratory effort Cardio Heart sounds: S1 normal heart sound present and S2 normal heart sound present GI Inspection: Yes normal to inspection Palpation (GI): Soft to palpation, not firm, Tenderness to palpation present (GI) in the RLQ, no guarding, not rigid and No hepatosplenomegaly present Auscultation: normal bowel sounds Neuro General: patient oriented x3, gait normal and moves all extremities Psych Speech and movement: Normal speech and movement present Assessment & Plan Assessment & Plan (1) Abdominal pain, right lower quadrant: Code(s): R10.31 - Right lower quadrant pain Plan: Ordered KUB. Ordered SenoKot-S Probably Pain is due to Constipation. Increase Fiber intake and hydrate well with water. (2) Constipation: Code(s): K59.00 - Constipation, unspecified Qualifiers: Constipation type: slow transit constipation Qualified Code(s): K59.01 - Slow transit constipation Plan: Ordered KUB. Ordered SenoKot-S Probably Pain is due to Constipation. Increase Fiber intake and hydrate well with water. Orders: Orders XR KUB Today R10.31 - Right lower quadrant pain Medications: New sennosides-docusate sodium 8.6-50 mg (Senokot-S) 1 tab-cap PO BEDTIME 20 tabs 0RF K59.00 - Constipation, unspecified, R10.31 - Right lower quadrant pain Coding Level of Care Code Est Pt Level 4 (70484) Diagnoses Abdominal pain, right lower quadrant R10.31 Slow transit constipation K59.01 Constipation type: slow transit constipation Time Spent (min) 20
== END 2024-08-06 16:33 | disposition home or self-care (01) ==
PROVIDERS: PCP Internal Medicine; Visit Provider Nurse Practitioner Family
DX: R10.31 Right lower quadrant pain (principal); K59.01 Slow transit constipation

== ENCOUNTER → 2024-08-06 16:26 | Outpatient (BNV) | payer MEDICARE, BC, SELFPAY | PROVIDERS: PCP Internal Medicine; Visit Provider Radiology Diagnostic Radiology | DX: K59.00 Constipation, unspecified (principal) | CPT/HCPCS: 74018 ==

== ENCOUNTER 2024-08-22 12:21 | Outpatient (AMB) | payer MEDICARE, BC, SELFPAY ==
[2024-08-22 12:48] VITALS: BP 152/84; PULSE 114; O2SAT 98; BMI 27.1
--- NOTE | 2024-08-22 12:48 | A.OFFVIS_ITS ---
Vital Signs 08/22/24 12:48 Height 5 ft 10 in Weight 189 lb BMI 27.1 BP 152/84 H Blood Pressure Location Lt brachial Position Sitting Pulse 114 H Pulse Source Pulse Oximeter Pulse Oximetry (%) 98 Oxygen Delivery Method Room Air Intake Visit Reasons: cough Allergies grass pollen Allergy (Mild, Verified 08/06/24 15:26) Unknown HPI HPI cough: Details: 68-year-old lady, nonsmoker, followed for restrictive ventilatory defect and dyspnea on exertion, previously chronic cough after COVID that has essentially resolved at this time. Patient does complain of slowly worsening dyspnea on exertion with no other associated symptoms. [facility] Medical History (Updated 08/22/24 @ 13:19 by Abel Montanez MD) Constipation Abdominal pain, right lower quadrant Vitamin B12 deficiency Overweight (BMI 25.0-29.9) GERD without esophagitis Vitamin D deficiency Neuropathy Chronic kidney disease, stage III (moderate) Migraine Psoriatic arthritis Pure hypercholesterolemia Essential hypertension Diabetes mellitus Surgical History No pertinent past surgical history Family History Father No problems noted. Mother Gastroparesis Paternal Grandmother Gastroparesis Family/Other Gastroparesis Social History Housing: House Alcohol intake: never Patient Tobacco Use Status: Never used Tobacco e-Cigarette/Vaping Use: Never Used Second Hand Smoke Exposure: No service: No Current occupational status: retired Cognitive needs: No Hearing needs: No Vision needs: Yes (glasses) Review of Systems Const Denies daytime sleepiness, Denies excessive sweating, Denies fatigue, Denies fever(s), Denies lethargy, Denies malaise, Denies night sweats, Denies snoring and Denies weight loss Eyes Denies blurry vision and Denies itchy eyes ENT Denies nasal congestion, Denies post nasal drip, Denies sinus pain, Denies sinus pressure and Denies other ( Thrush) Card Denies chest pain, Denies pedal edema, Denies dyspnea, Reports dyspnea on exertion, Denies orthopnea and Denies paroxysmal nocturnal dyspnea Resp Denies cough, Denies hemoptysis, Denies excessive phlegm production, Denies dyspnea, Reports dyspnea on exertion, Denies snoring and Denies wheezing GI Denies abdominal pain and Denies heartburn Musc Denies myalgias, Denies arthralgias and Denies joint swelling Skin/Breast Denies rash Neuro Denies memory loss and Denies seizure-like activity Psych Denies abnormal sleep pattern, Denies anxiety and Denies memory loss Endo Denies excessive sweating, Denies fatigue and Denies heat intolerance Myles/Lymph Denies easy bruising Aller/Immun Denies itchy eyes, Denies seasonal rhinorrhea and Denies wheezing Physical Exam Vital Signs: Last Vital Signs Pulse 114 H 08/22/24 12:48 BP 152/84 H 08/22/24 12:48 Pulse Ox 98 08/22/24 12:48 Oxygen Delivery Method Room Air 08/22/24 12:48 BMI result Body Mass Index 27.1 Const General: no acute distress and alert Nutritional Appearance: not obese Orientation/consciousness: Other orientation findings ( oriented) HEENT Head: Yes atraumatic Eyes General: appearance normal, both eyes and all related structures Sclerae: sclerae normal EOM: EOMs intact bilaterally Neck Neck: Yes supple Lymphatic: no lymphadenopathy noted Resp Effort & Inspection: normal respiratory effort and no use of accessory muscles Auscultation: clear to auscultation bilaterally Cardio Rate: regular rate Rhythm: regular rhythm Heart sounds: no gallops, no murmurs and no rubs Skin General skin exam: other ( warm) Extrem General: No clubbing, No cyanosis and No edema Assessment & Plan Assessment & Plan (1) Restrictive ventilatory defect: Code(s): R94.2 - Abnormal results of pulmonary function studies Category: Medical Plan: No evidence of underlying interstitial lung disease. Continue to monitor clinically. (2) Dyspnea on exertion: Code(s): R06.09 - Other forms of dyspnea Category: Medical Plan: Unclear etiology. Will obtain cardiopulmonary exercise test for further evaluation. Orders: Orders CA cardiopulmonary stress test Today R06.09 - Other forms of dyspnea Coding Level of Care Code Est Pt Level 4 (82153) Diagnoses Restrictive ventilatory defect R94.2 Dyspnea on exertion R06.09
--- OUTSIDE RECORDS SUMMARY | 2024-08-22 14:19 | XMS_ITS | Patient Health Record ---
Author Organization [facility] Address [address] [place] [address] Care Team Providers Care Air Vice Marshal Name Role Phone Vinod Borjas MD Primary Care Provider Tiffany Stein Unavailable [phone] Wang Navas Unavailable [phone] Allergies No Known Allergies Results Component Value [...] Problem Acquired hammer toe of right foot (5071259037585541 ) Other hammer toe(s) (acquired), right foot (M20.41) Active confirmed Response to treatment, Improvemen t Problem Acquired hammer toe of left foot (2798786202868425 ) Other hammer toe(s) (acquired), left foot (M20.42) Active confirmed Response to treatment, Improvemen t Problem Polyneuropathy due to diabetes mellitus type I (372844015) Type 1 diabetes mellitus with diabetic polyneuropathy (E10.42) Active confirmed Problem Polyneuropathy due to type 2 diabetes mellitus (714192444) Type 2 diabetes mellitus with diabetic polyneuropathy (E11.42) Active confirmed Vital Signs Blood pressure diastolic 65 mm Hg 07/11/2024 Height 7ov47ps in 07/11/2024 Blood pressure systolic 115 mm Hg 07/11/2024 Weight 185 lbs 07/11/2024 BMI 25.8 kg/m2 07/11/2024 Procedures Procedure Date Ordered Date Performed Result Body Sit e 54046-WQXODBL NAIL, 6 OR MORE 04/10/2024 N/A 10142-IHVV SKIN LESIONS, 2 TO 4 04/10/2024 N/A 30331-VDMGTBQ NAIL, 6 OR MORE 07/11/2024 N/A 25501-OXSY SKIN LESIONS, 2 TO 4 07/11/2024 N/A Encounters Encounter Location Date Provider Diagnosis [address] [address] 12/06/2023 WangDsouza Tinea unguium B35.1 ; Pain in right toe(s) M79.674 ; Pain in left toe(s) M79.675 ; Type 2 diabetes mellitus with diabetic polyneuropathy E11.42 ; Other hammer toe(s) (acquired), left foot M20.42 ; Other hammer toe(s) (acquired), right foot M20.41 ; Primary osteoarthritis, right ankle and foot M19.071 ; Ingrowing nail L60.0 and Primary osteoarthritis, left ankle and foot M19.[address] [address] 04/10/2024 Tiffany Salas Other hammer toe(s) (acquired), right foot M20.41 ; Other hammer toe(s) (acquired), left foot M20.42 ; Type 2 diabetes mellitus with diabetic polyneuropathy E11.42 and Tinea unguium B35.1 [facility] [address] [place] [address] 07/11/2024 Tiffany Salas Type 2 diabetes mellitus with diabetic polyneuropathy E11.42 ; Tinea unguium B35.1 ; Other hammer toe(s) (acquired), right foot M20.41 and Other hammer toe(s) (acquired), left foot M20.42 Assessments Encounter Date Diagnosis (ICD Code) Assessment Notes Treatment Notes Treatment Clinical Notes Section Notes 12/06/2023 Pain in right toe(s) (ICD-10 - [...] Pain in left toe(s) (ICD-10 - M79.675) 04/10/2024 Tinea unguium (ICD-10 - B35.1) 12/06/2023 Type 2 diabetes mellitus with diabetic polyneuropathy (ICD-10 - E11.42) 07/11/2024 Other hammer toe(s) (acquired), left foot (ICD-10 - M20.42) Response to treatment,Impro vement 12/06/2023 Other hammer toe(s) (acquired), left foot (ICD-10 - M20.42) 12/06/2023 Other hammer toe(s) (acquired), right foot (ICD-10 - M20.41) 12/06/2023 Primary osteoarthritis, right ankle and foot (ICD-10 - M19.071) 12/06/2023 Primary osteoarthritis, left ankle and foot (ICD-10 - M19.072) 12/06/2023 Ingrowing nail (ICD-10 - L60.0) Plan Of Treatment Pending Test Test Name Order Date 42723-TVFYJYZ NAIL, 6 OR MORE 02/20/2013 69225-JJSYZMN NAIL, 6 OR MORE 05/29/2013 87246-YZVOTAS NAIL, 6 OR MORE 08/28/2013 55690-OTTDUIJ NAIL, 6 OR MORE 12/11/2013 33636-OZFTZIT NAIL, 6 OR MORE 05/07/2014 80362-XNJQVFR NAIL, 6 OR MORE 08/06/2014 08291-OSQAZKP NAIL, 6 OR MORE 04/13/2015 61182-SVZACFG NAIL, 6 OR MORE 12/31/2014 71800-TRTXCBX NAIL, 6 OR MORE 07/29/2015 74843-UDUHCWC NAIL, 6 OR MORE 10/28/2015 84128-BTZJSBN NAIL, 6 OR MORE 01/27/2016 76293-JFRDRNK NAIL, 6 OR MORE 04/27/2016 81837-SJQUXWN NAIL, 6 OR MORE 11/02/2016 21345-AGQHAMD NAIL, 6 OR MORE 02/15/2017 62452-LDMGOVM NAIL, 6 OR MORE 05/24/2017 69373-XFGZRLE NAIL, 6 OR MORE 08/30/2017 46639-XILYQDB NAIL, 6 OR MORE 12/25/2017 22079-VLOMVIE NAIL, 6 OR MORE 04/10/2024 49294-LDAVXEP NAIL, 6 OR MORE 07/11/2024 74881-Qvqdtdng Plate 08/30/2017 20045-Izjhymzg Plate 11/02/2016 36847-Xygmppom Plate 12/31/2014 22629-Mhzxfwup Plate 04/13/2015 90045-Evckvres Plate 08/06/2014 32916-Aklcnnfs Plate 05/07/2014 22812-Uhshwfjy Plate 12/11/2013 27790-Qbnvasqp Plate 09/11/2013 89572-Eldqbgrm Plate 05/29/2013 10396-Eblvbxww Plate 02/20/2013 71962-Dzoxpzjy Plate Each Additional 04/2013 76097-Nfklfsae Plate Each Additional 55657-Utbgtgqp Plate Each Additional 61352-Xzeoimem Plate Each Additional 03/2015 88515-Vbzlvcat Plate Each Additional 94753- Debride <25 sq cm 07/06/2020 86088- Debride <25 sq cm 08/28/2013 80520-NMEE SKIN LESIONS, OVER 4 05/07/19 15 08333-WYJA SKIN LESIONS, OVER 4 12/12/19 14 48764-WPAB SKIN LESIONS, OVER 4 02/21/20 13 92538-FSLA SKIN LESIONS, OVER 4 05/30/19 14 27954-SXBG SKIN LESIONS, OVER 4 08/29/19 14 54307-ZPRU SKIN LESIONS, OVER 4 04/13/19 16 03171-HOBU SKIN LESIONS, OVER 4 08/07/19 15 58223-VGZX SKIN LESIONS, OVER 4 01/01/20 15 60147-TVKC SKIN LESIONS, OVER 4 07/29/19 16 73483-QUIN SKIN LESIONS, OVER 4 01/27/20 16 44210-SPED SKIN LESIONS, OVER 4 10/28/19 16 99223-UDIX SKIN LESIONS, OVER 4 07/07/19 21 77365-GNML SKIN LESIONS, OVER 4 01/14/20 21 82920-TKQV SKIN LESIONS, OVER 4 11/03/19 17 69984-PDXO SKIN LESIONS, OVER 4 04/27/19 17 72595-ODUW SKIN LESIONS, OVER 4 07/28/19 17 85809-LUAL SKIN LESIONS, OVER 4 05/25/19 18 38997-GINU SKIN LESIONS, OVER 4 02/16/20 17 22528-ECZQ SKIN LESIONS, OVER 4 08/31/19 18 34074-QZIU SKIN LESIONS, OVER 4 12/26/19 18 97954-BMOC SKIN LESIONS, OVER 4 04/16/19 19 31739-SVPN SKIN LESIONS, OVER 4 08/16/19 19 49289-XDMC SKIN LESIONS, OVER 4 11/15/19 19 80351-YEID SKIN LESIONS, OVER 4 03/18/19 20 07498-VGFA SKIN LESIONS, OVER 4 09/04/19 20 70369-VXTF SKIN LESIONS, OVER 4 01/06/20 20 61901-MCPG SKIN LESIONS, 2 TO 4 04/10/19 25 23372-VUGK SKIN LESIONS, 2 TO 4 07/12/19 25 Next Appt Details Provider Name:Tiffany del angel, 10/16/2024 09:00:00 AM, [address] [place], [address], Insurance Providers Payer Name Payer Address Payer Phone Subscriber Number Group Number Insured Name Patient Relationship to Insured Coverage Start Date Coverage End Date Medicare [employer] [address] [place] [address] [id number] Yumiko Rodgers Self - patient is the insured [facility] [address] [place] [address] [id number] Yumiko Rodgers Self - patient is the insured Medical (General) History Medical History History ICD Code Arthritis headaches/migraines high blood pressure psoriasis/eczema type II diabetes Surgical History Surgery Date(Month/Year) bx left leg 2015
== END 2024-08-22 13:14 | disposition home or self-care (01) ==
LOC: HO.HPS 12:22
PROVIDERS: PCP Internal Medicine; Visit Provider Internal Medicine Pulmonary Disease
DX: R94.2 Abnormal results of pulmonary function studies (principal); R06.09 Other forms of dyspnea
CPT/HCPCS: 99214

== ENCOUNTER → 2024-08-22 12:21 | Outpatient (BNVA) | payer MEDICARE, BC, SELFPAY | PROVIDERS: PCP Internal Medicine; Visit Provider Internal Medicine Pulmonary Disease | DX: R94.2 Abnormal results of pulmonary function studies (principal); R06.09 Other forms of dyspnea | CPT/HCPCS: 99212 ==

== ENCOUNTER 2024-09-04 07:51 | Outpatient (REF) | payer MEDICARE, BC, SELFPAY ==
--- OUTSIDE RECORDS SUMMARY | 2024-09-04 07:57 | XMS_ITS | Patient Health Record ---
[facility] Organization [facility] Address [address] [place] [address] Care Team Providers Care Broadcast Maintenance Technician Name Role Phone Vinod Borjas MD Primary Care Provider Tiffany Stein Unavailable [phone] Wang Navas Unavailable [phone] Allergies No Known Allergies Results Component Value [...] Problem Acquired hammer toe of right foot (4885064713826045 ) Other hammer toe(s) (acquired), right foot (M20.41) Active confirmed Response to treatment, Improvemen t Problem Acquired hammer toe of left foot (2420635328161564 ) Other hammer toe(s) (acquired), left foot (M20.42) Active confirmed Response to treatment, Improvemen t Problem Polyneuropathy due to diabetes mellitus type I (792300570) Type 1 diabetes mellitus with diabetic polyneuropathy (E10.42) Active confirmed Problem Polyneuropathy due to type 2 diabetes mellitus (012512488) Type 2 diabetes mellitus with diabetic polyneuropathy (E11.42) Active confirmed Vital Signs Blood pressure diastolic 65 mm Hg 07/11/2024 Height 3jf80df in 07/11/2024 Blood pressure systolic 115 mm Hg 07/11/2024 Weight 185 lbs 07/11/2024 BMI 25.8 kg/m2 07/11/2024 Procedures Procedure Date Ordered Date Performed Result Body Sit e 35631-TOYSYXL NAIL, 6 OR MORE 04/10/2024 N/A 66183-PHDK SKIN LESIONS, 2 TO 4 04/10/2024 N/A 48340-JGSHSCB NAIL, 6 OR MORE 07/11/2024 N/A 50835-HEAC SKIN LESIONS, 2 TO 4 07/11/2024 N/A Encounters Encounter Location Date Provider Diagnosis [address] [address] 12/06/2023 WangDsouza Tinea unguium B35.1 ; Pain in right toe(s) M79.674 ; Pain in left toe(s) M79.675 ; Type 2 diabetes mellitus with diabetic polyneuropathy E11.42 ; Other hammer toe(s) (acquired), left foot M20.42 ; Other hammer toe(s) (acquired), right foot M20.41 ; Primary osteoarthritis, right ankle and foot M19.071 ; Ingrowing nail L60.0 and Primary osteoarthritis, left ankle and foot M19.[address] [address] 04/10/2024 Tiffany Salas Other hammer toe(s) (acquired), right foot M20.41 ; Other hammer toe(s) (acquired), left foot M20.42 ; Type 2 diabetes mellitus with diabetic polyneuropathy E11.42 and Tinea unguium B35.1 [facility] [place] [address] [place] [address] 07/11/2024 Tiffany Salas Type 2 diabetes mellitus [...] Treatment Pending Test Test Name Order Date 06537-QUBPALF NAIL, 6 OR MORE 02/20/2013 30623-BNFJPCJ NAIL, 6 OR MORE 05/29/2013 08089-EAUHFVF NAIL, 6 OR MORE 08/28/2013 89584-CHAMTVN NAIL, 6 OR MORE 12/11/2013 27428-MJXXVKP NAIL, 6 OR MORE 05/07/2014 31236-BVPWBEO NAIL, 6 OR MORE 08/06/2014 73987-KFRARGA NAIL, 6 OR MORE 04/13/2015 16351-GLAKKWX NAIL, 6 OR MORE 12/31/2014 85399-MGEHAQL NAIL, 6 OR MORE 07/29/2015 95205-ZHEVOTA NAIL, 6 OR MORE 10/28/2015 58559-JHMUYZK NAIL, 6 OR MORE 01/27/2016 27963-RAQKPZY NAIL, 6 OR MORE 04/27/2016 41567-IAVONWT NAIL, 6 OR MORE 11/02/2016 61068-MYFLULE NAIL, 6 OR MORE 02/15/2017 42208-WEYBHBS NAIL, 6 OR MORE 05/24/2017 27152-YLZJRYD NAIL, 6 OR MORE 08/30/2017 69485-MLBEULZ NAIL, 6 OR MORE 12/25/2017 23512-ANOWMMF NAIL, 6 OR MORE 04/10/2024 11663-YNVCNIU NAIL, 6 OR MORE 07/11/2024 27982-Vfznrrxe Plate 08/30/2017 03717-Wrpnpcge Plate 11/02/2016 89239-Kzlzvciy Plate 12/31/2014 49155-Woyushov Plate 04/13/2015 04532-Kwwplyht Plate 08/06/2014 83159-Mmwoiszo Plate 05/07/2014 57604-Dyqqexop Plate 12/11/2013 87484-Mowshtdt Plate 09/11/2013 23648-Hbmtvsfq Plate 05/29/2013 63580-Rvyujoqy Plate 02/20/2013 37711-Htbvlelw Plate Each Additional 04/2013 44389-Zgzczcwg Plate Each Additional 07161-Utuqiopj Plate Each Additional 43836-Fcfschwd Plate Each Additional 03/2015 04998-Zdrqytwu Plate Each Additional 49830- Debride <25 sq cm 07/06/2020 51259- Debride <25 sq cm 08/28/2013 94879-CQON SKIN LESIONS, OVER 4 05/07/19 15 61637-VSKM SKIN LESIONS, OVER 4 12/12/19 14 36463-FKSK SKIN LESIONS, OVER 4 02/21/20 13 36269-JFFL SKIN LESIONS, OVER 4 05/30/19 14 15947-XANP SKIN LESIONS, OVER 4 08/29/19 14 54512-ZSHH SKIN LESIONS, OVER 4 04/13/19 16 72653-UFAP SKIN LESIONS, OVER 4 08/07/19 15 76266-MWOZ SKIN LESIONS, OVER 4 01/01/20 15 11400-SSTZ SKIN LESIONS, OVER 4 07/29/19 16 66186-FLYZ SKIN LESIONS, OVER 4 01/27/20 16 07477-FULZ SKIN LESIONS, OVER 4 10/28/19 16 17132-WICW SKIN LESIONS, OVER 4 07/07/19 21 86117-PJPG SKIN LESIONS, OVER 4 01/14/20 21 40556-DYPY SKIN LESIONS, OVER 4 11/03/19 17 03729-RLXF SKIN LESIONS, OVER 4 04/27/19 17 76868-SWBB SKIN LESIONS, OVER 4 07/28/19 17 71522-USSD SKIN LESIONS, OVER 4 05/25/19 18 89518-TJPU SKIN LESIONS, OVER 4 02/16/20 17 88168-JMAI SKIN LESIONS, OVER 4 08/31/19 18 59158-DIUX SKIN LESIONS, OVER 4 12/26/19 18 94123-XBFP SKIN LESIONS, OVER 4 04/16/19 19 72842-KLOC SKIN LESIONS, OVER 4 08/16/19 19 94166-PMAR SKIN LESIONS, OVER 4 11/15/19 19 09634-TZZX SKIN LESIONS, OVER 4 03/18/19 20 59046-AGRU SKIN LESIONS, OVER 4 09/04/19 20 78281-XXWT SKIN LESIONS, OVER 4 01/06/20 20 88713-DOEC SKIN LESIONS, 2 TO 4 04/10/19 25 97895-TJRZ SKIN LESIONS, 2 TO 4 07/12/19 25 Next Appt Details Provider Name:Tiffany del angel, 10/16/2024 09:00:00 AM, [address] [place], [address], Insurance Providers Payer Name Payer Address Payer Phone Subscriber Number Group Number Insured Name Patient Relationship to Insured Coverage Start Date Coverage End Date Medicare National [employer] [address] [place] [address] [id number] Yumiko Rodgers Self - patient is the insured [facility] [address] [place] [address] [id number] Yumiko Rodgers Self - patient is the insured Medical (General) History Medical History History ICD Code Arthritis headaches/migraines high blood pressure psoriasis/eczema type II diabetes Surgical History Surgery Date(Month/Year) bx left leg 2015
[2024-09-04 10:25] LABS: MANUAL DIFF FLAG NO
[2024-09-04 10:30] LABS: Basophils Percent Auto 0.3 % (0-2); Eosinophils Absolute Auto 0.2 X10*3/uL (0.0-0.4); Hematocrit 37.8 % (37.0-47.0); Hemoglobin 12.1 g/dl (12.0-16.0); Imm Gran Abs Auto 0.03 X10*3/uL (0.00-0.03); Imm Gran Pct Auto 0.3 % (0.0-0.4); Lymphocytes Absolute Auto 3.3 X10*3/uL (1.2-4.9); Lymphocytes Percent Auto 33.2 % (20-40); Mean Corpuscular Hemoglobin 25.7 pg (27.0-33.0); Mean Corpuscular Volume 80.4 fL (80.0-98.0); Monocytes Absolute Auto 0.7 X10*3/uL (0.1-1.2); Monocytes Percent Auto 6.9 % (2-11); Neutrophils Absolute Auto 5.7 x10*3/uL (2.0-8.3); Neutrophils Percent Auto 57.3 % (45-73); Platelet Count 315 X10*3/uL (160-400); Red Cell Distribution Width 15.9 % (11.0-16.0); White Blood Count 9.9 X10*3/uL (4.8-10.8)
[2024-09-04 10:38] LABS: Estimated Average Glucose 154 mg/dL
[2024-09-04 10:43] LABS: C Reactive Protein 0.94 mg/dL (< or = 0.50)
[2024-09-04 10:49] LABS: Appearance Urine Cloudy; Color Urine Yellow; Glucose Urine UA Negative (Negative); Leukocyte Esterase Urine Large (3+) (Negative); Nitrite Urine Negative (Negative); PH 6.5 (5.0-9.0); Specific Gravity - Urine 1.015 (1.005-1.025); UMIC TRIGGER UACC YES; Urine Blood Small (1+) (Negative); Urine Ketones Negative (Negative); Urine Protein 30 (1+) mg/dL (Neg-Trace)
[2024-09-04 10:54] LABS: Bacteria Urine 4+ (None Seen); Hyaline Casts Urine 0-2 /LPF (0-2); RBC Urine 0-2 /HPF (0-2); Squamous Epithelial Cell Urine 0-2 /HPF (0-2); UACC Culture Trigger YES; WBC Urine >50 /HPF (0-5)
[2024-09-04 11:03] LABS: Alanine Aminotransferase 19 U/L (0-31); Albumin Level 3.9 g/dL (3.5-5.0); Alkaline Phosphatase 115 U/L (39-117); Anion Gap 13 (12-20); Aspartate Amino Transferase 36 U/L (5-31); Bilirubin Total 0.6 mg/dL (0.0-1.0); Blood Urea Nitrogen 16 mg/dL (9-16); Calcium 9.7 mg/dL (8.4-10.2); Carbon Dioxide 29 mmol/L (22-29); Chloride 104 mmol/L (96-108); Cholesterol 152 mg/dL (<200); Estimated Glomerular Filt Rate 39; Glucose Fasting 156 mg/dL (60-99); HDL Cholesterol 30 mg/dL (>40); LDL Cholesterol Calculated 87 mg/dL (<100); Potassium 4.7 mmol/L (3.3-5.1); Sodium 141 mmol/L (135-145); Total Protein 7.6 g/dL (6.5-8.0); Triglycerides 176 mg/dL (<150)
[2024-09-04 11:07] LABS: TSH reflex Free T4 1.05 uIU/mL (0.32-4.0)
[2024-09-04 11:12] LABS: Erythrocyte Sedimentation Rate 56 MM/HR (0-20)
[2024-09-04 11:36] LABS: Creatinine Urine 73.57 mg/dL; Microalbum/Creatinine Ratio Ur 216.1 ug/mg cr (<30)
== END 2024-09-04 07:52 | disposition home or self-care (01) ==
LOC: HO.HMGCLDS 07:51
PROVIDERS: PCP Internal Medicine; Referring Provider Internal Medicine Rheumatology; Visit Provider Internal Medicine
DX: E11.9 Type 2 diabetes mellitus without complications (principal); E78.00 Pure hypercholesterolemia, unspecified; D64.9 Anemia, unspecified; L40.50 Arthropathic psoriasis, unspecified; Z51.81 Encounter for therapeutic drug level monitoring; Z79.899 Other long term (current) drug therapy; Z79.61 Long term (current) use of immunomodulator; Z79.1 Long term (current) use of non-steroidal anti-inflammatories (NSAID)
CPT/HCPCS: 36415; 80053; 80061; 81001; 82043; 82570; 83036; 84443; 85025; 85652; 86140; 87086; 87088; 87186

== ENCOUNTER 2024-09-10 09:48 | Outpatient (REF) | payer MEDICARE, BC, SELFPAY ==
--- OUTSIDE RECORDS SUMMARY | 2024-09-10 10:40 | XMS_ITS | Patient Health Record ---
Author Organization [facility] Address [address] [place] [address] Care Team Providers Care Dredge Or Barge Shore Hand Name Role Phone Vinod Borjas MD Primary Care Provider Tiffany Stein Unavailable [phone] Wang Navas Unavailable [phone] Allergies No Known Allergies Results Component Value Reference Range Notes HEMOGLOBIN A1C (GLYCOHEMOGLO BIN) Reviewed date:04/10/2024 08:56:04 AM Interpretation: Performing Lab: Notes/Report: HEMOGLOBIN A1C % (HH) 6.7 Reason For Referral No Information Medications Medication SIG (Take, Route, Frequency, Duration) Notes Start Date End Date Status Tresiba Active Extra-Depth Diabetic Shoes with 3 Pair Custom heat-molded multi-density innersoles . 1pair shoes/3sets inserts . .; Duration: 1 year 02/20/2013 Active Extra Depth Orthopedic Shoes (1 Pair) with Customized Heat Molded Multidensity Innersoles (3 Pair) as directed Dx: IDDM/Polyneuropathy (E10.42), Hammertoe Foot Deformity (M20.41,M20.42), Preulcerative Skin Lesion(s) (L85.1) 04/10/2024 Active Januvia 40mg Twice a day Not-T aking glipiZIDE 5 MG 1 tablet Orally Once a day; Duration: 30 day(s) Not-Taking Folic Acid 1 MG 1 tablet Orally Once a day; Duration: 30 day(s) Not-Taking Doxepin HCl 10 MG 1 capsule at bedtime Orally Once a day; Duration: 30 day(s) Not-Taking Meloxicam 15 MG 1 tablet Orally Once a day; Duration: 30 day(s) Not-Taking hydroCHLOROthiazide 25 MG 1 tablet Orall y Once a day; Duration: 30 day(s) Not-Taking Humira 40 MG/0.8ML 0.8 Subcutaneous; Duration: 30 day(s) Not-Taking Amitriptyline HCl Ac tive Keflex 500 MG 1 capsule Orally every 12 hrs; Duration: 10 day(s) 04/13/2015 Not-Taking Cosentyx Not-Taking HumaLOG Active Methotrexate 2.5 MG 1 tablet Orally Three times a Week; Duration: 30 day(s) Not-Taking Omeprazole Active CeleBREX 100 MG 1 capsule Orally Twice a day; Duration: 30 day(s) Not-Taking Lisinopril 2.5 MG 1 tablet Orally Once a day Active Otezla Active Propranolol HCl Acti ve Simvastatin 10 MG 1 tablet in the evening Orally Once a day; Duration: 30 day(s) Active Cimzia Active Lamisil 250 250 MG 1 Tab Oral Daily; Duration: 90 02/22/2013 Not-Taking Trulicity Active Work Note . . .Dx: Niddm with neuropathy, arthritic toe deformity .Rx: this patient must avoid steel toe shoes permanently to avoid infection; Duration: . 08/28/2013 Not-Taking Gabapentin 100 MG 1 capsule Orally Once a day; Duration: 30 day(s) Active metFORMIN HCl 500 MG 1 tablet with meals Orally Twice a day; Duration: 30 day(s) 1000 mg once a day [...] Problem Acquired hammer toe of right foot (8541425648606527 ) Other hammer toe(s) (acquired), right foot (M20.41) Active confirmed Response to treatment, Danica calderon Problem Acquired hammer toe of left foot (5021060591381163 ) Other hammer toe(s) (acquired), left foot (M20.42) Active confirmed Response to treatment, Improvelyle t Problem Polyneuropathy due to diabetes mellitus type I (959842033) Type 1 diabetes mellitus with diabetic polyneuropathy (E10.42) Active confirmed Problem Polyneuropathy due to type 2 diabetes mellitus (401209785) Type 2 diabetes mellitus with diabetic polyneuropathy (E11.42) Active confirmed Vital Signs Blood pressure diastolic 65 mm Hg 07/11/2024 Height 4tg50gb in 07/11/2024 Blood pressure systolic 115 mm Hg 07/11/2024 Weight 185 lbs 07/11/2024 BMI 25.8 kg/m2 07/11/2024 Procedures Procedure Date Ordered Date Performed Result Body Sit e 21320-GOVQOZP NAIL, 6 OR MORE 04/10/2024 N/A 39107-DYVP SKIN LESIONS, 2 TO 4 04/10/2024 N/A 89489-AFSUIEY NAIL, 6 OR MORE 07/11/2024 N/A 03026-ERLU SKIN LESIONS, 2 TO 4 07/11/2024 N/A Encounters Encounter Location Date Provider Diagnosis [address] [address] 12/06/2023 Wang Navas Tinea unguium B35.1 ; Pain in right toe(s) M79.674 ; Pain in left toe(s) M79.675 ; Type 2 diabetes mellitus with diabetic polyneuropathy E11.42 ; Other hammer toe(s) (acquired), left foot M20.42 ; Other hammer toe(s) (acquired), right foot M20.41 ; Primary osteoarthritis, right ankle and foot M19.071 ; Ingrowing nail L60.0 and Primary osteoarthritis, left ankle and foot M19.[address] [address] 04/10/2024 Tiffany Salas Other hammer toe(s) (acquired), right foot M20.41 ; Other hammer toe(s) (acquired), left foot M20.42 ; Type 2 diabetes mellitus with diabetic polyneuropathy E11.42 and Tinea unguium B35.1 [facility] [place] [address] [place] [address] 07/11/2024 Tiffany Salas Type 2 diabetes mellitus [...] Treatment Pending Test Test Name Order Date 42070-HPYRZFG NAIL, 6 OR MORE 02/20/2013 34293-KRSBTMH NAIL, 6 OR MORE 05/29/2013 25084-OVSUSNL NAIL, 6 OR MORE 08/28/2013 77531-TEYOSTS NAIL, 6 OR MORE 12/11/2013 07483-XWTWWUU NAIL, 6 OR MORE 05/07/2014 50263-DJOSKQN NAIL, 6 OR MORE 08/06/2014 02322-GBUDFHO NAIL, 6 OR MORE 04/13/2015 17997-SKBWRDS NAIL, 6 OR MORE 12/31/2014 61388-EXUTBJT NAIL, 6 OR MORE 07/29/2015 10762-ZFYOWFC NAIL, 6 OR MORE 10/28/2015 84898-DGPWORT NAIL, 6 OR MORE 01/27/2016 25398-DHTMXYS NAIL, 6 OR MORE 04/27/2016 49293-OMAOBBO NAIL, 6 OR MORE 11/02/2016 77275-PTNEJMJ NAIL, 6 OR MORE 02/15/2017 47202-JEEQBHT NAIL, 6 OR MORE 05/24/2017 62616-GTHZDBC NAIL, 6 OR MORE 08/30/2017 53424-JCZUTQQ NAIL, 6 OR MORE 12/25/2017 29199-EPTRSKS NAIL, 6 OR MORE 04/10/2024 74176-VRNDKRH NAIL, 6 OR MORE 07/11/2024 80127-Dfknhsaf Plate 08/30/2017 35089-Byrgzufx Plate 11/02/2016 78229-Jnapjlod Plate 12/31/2014 80610-Jqnyvehd Plate 04/13/2015 35668-Ktuppocg Plate 08/06/2014 19524-Illvlodj Plate 05/07/2014 51525-Mqdhufrh Plate 12/11/2013 57382-Cgvdyosg Plate 09/11/2013 88744-Dtefqzlx Plate 05/29/2013 94226-Zndehcam Plate 02/20/2013 87348-Iopcgoiw Plate Each Additional 04/2013 47127-Efzxxbwr Plate Each Additional 51063-Druivnfz Plate Each Additional 36382-Bxfiziek Plate Each Additional 03/2015 03987-Eokcujap Plate Each Additional 55462- Debride <25 sq cm 07/06/2020 00947- Debride <25 sq cm 08/28/2013 03911-QONX SKIN LESIONS, OVER 4 05/07/19 15 81968-ZFWC SKIN LESIONS, OVER 4 12/12/19 14 68197-SXCS SKIN LESIONS, OVER 4 02/21/20 13 52726-YWQF SKIN LESIONS, OVER 4 05/30/19 14 40599-JCOR SKIN LESIONS, OVER 4 08/29/19 14 49478-TZZP SKIN LESIONS, OVER 4 04/13/19 16 98437-SBAX SKIN LESIONS, OVER 4 08/07/19 15 63602-QMDK SKIN LESIONS, OVER 4 01/01/20 15 03555-KYVU SKIN LESIONS, OVER 4 07/29/19 16 15463-SAWL SKIN LESIONS, OVER 4 01/27/20 16 34637-YVHI SKIN LESIONS, OVER 4 10/28/19 16 02885-UDVX SKIN LESIONS, OVER 4 07/07/19 21 60988-GVGF SKIN LESIONS, OVER 4 01/14/20 21 83266-WFOV SKIN LESIONS, OVER 4 11/03/19 17 94324-TOCS SKIN LESIONS, OVER 4 04/27/19 17 86681-OGRS SKIN LESIONS, OVER 4 07/28/19 17 85944-HAEH SKIN LESIONS, OVER 4 05/25/19 18 72109-GNAO SKIN LESIONS, OVER 4 02/16/20 17 56499-XXLN SKIN LESIONS, OVER 4 08/31/19 18 26861-NXJR SKIN LESIONS, OVER 4 12/26/19 18 86023-NEEQ SKIN LESIONS, OVER 4 04/16/19 19 11659-WKJV SKIN LESIONS, OVER 4 08/16/19 19 89722-ZEEV SKIN LESIONS, OVER 4 11/15/19 19 16983-VEUK SKIN LESIONS, OVER 4 03/18/19 20 16056-NDCE SKIN LESIONS, OVER 4 09/04/19 20 15852-HBSH SKIN LESIONS, OVER 4 01/06/20 20 54736-SSFJ SKIN LESIONS, 2 TO 4 04/10/19 25 01136-MQTU SKIN LESIONS, 2 TO 4 07/12/19 Next Appt Details Provider Name:Tiffany del angel, 10/16/2024 09:00:00 AM, [address] [place] [address], [address], Insurance Providers Payer Name Payer Address Payer Phone Subscriber Number Group Number Insured Name Patient Relationship to Insured Coverage Start Date Coverage End Date Medicare National Govt Sv[employer] [address] [place] [address] [id number] Yumiko Rodgers Self - patient is the insured [facility] [address] [place] [address] [id number] Yumiko Rodgers Self - patient is the insured Medical (General) History Medical History History ICD Code Arthritis headaches/migraines high blood pressure psoriasis/eczema type II diabetes Surgical History Surgery Date(Month/Year) bx left leg 2014
[2024-09-14 06:24] LABS: Quantiferon TB Gold Plus 1 NEGATIVE (NEGATIVE); TB Test (QFT) Mitogen -Nil 9.03 IU/mL; TB Test (QFT) Nil 0.01 IU/mL; TB Test (QFT) Plus TB1 -Nil 0.00 IU/mL; TB Test (QFT) Plus TB2 -Nil 0.01 IU/mL
== END 2024-09-10 09:49 | disposition home or self-care (01) ==
LOC: HO.HMGCLDS 09:48
PROVIDERS: PCP Internal Medicine; Visit Provider Dermatology
DX: L40.0 Psoriasis vulgaris (principal); Z79.899 Other long term (current) drug therapy
CPT/HCPCS: 36415; 86480

== ENCOUNTER 2024-09-17 09:33 | Outpatient (AMB) | payer MEDICARE, BC, SELFPAY ==
[2024-09-17 09:43] VITALS: BP 128/82; PULSE 92; O2SAT 97; BMI 27.0
--- NOTE | 2024-09-17 09:43 | MHC.PC.OV ---
Vital Signs 09/17/24 09:43 Height 5 ft 10 in Weight 188 lb BMI 27.0 BP 128/82 Blood Pressure Location Lt brachial Position Sitting Pulse 92 Pulse Source Pulse Oximeter Pulse Oximetry (%) 97 Oxygen Delivery Method Room Air Intake Visit Reasons: Transfer Care from Dr. Harvey [facility] f/u Manager Academic Required: No Accompanied by: Self / Same As Patient Allergies grass pollen Allergy (Mild, Verified 09/17/24 10:56) Unknown Medication List - Last Reconciled 09/17/24 by Vinod Borjas MD apremilast (Otezla) 30 mg PO BID ascorbate calcium (vitamin C) 1 g PO Q6H atogepant (Qulipta) 60 mg PO PRN certolizumab pegol (Cimzia) 200 mg subcut QWEEK cholecalciferol (vitamin D3) 50 mcg PO DAILY cyanocobalamin (vitamin B-12) 5,000 mcg PO DAILY dulaglutide (Trulicity) 3 mg subcut QWEEK flash glucose scanning reader (RoyaltyShareStyle Natasha 2 [place]) As directed flash glucose sensor (FreeStyle Natasha 2 Sensor kit) As directed gabapentin 100 to 300 mg orally bedtime PRN; hydroxyzine HCl 25 mg PO BID PRN insulin degludec (Tresiba FlexTouch U-100 insulin) 38 units subcut DAILY insulin lispro 10 units subcut .TID with meals metoclopramide HCl 5 mg PO TID omeprazole magnesium 20 mg PO DAILY prucalopride 1 mg PO DAILY sennosides-docusate sodium 8.6-50 mg (Senokot-S) 1 tab-cap PO BEDTIME simvastatin 40 mg PO BEDTIME Tobacco use date assessed: 09/17/24 Fall risk assessment: No Falls in past year Last assessed Fall Risk: 09/17/24 Dental Screening Dental Screen Date: 09/17/24 Did you have a dental visit in the last 12 months?: Yes Did you have a dental problem in the last 6 months where you did not have access to dental care?: No Was dental information given to patient?: Patient has dentist HPI Transfer Care from Dr. Harvey [facility] f/u HPI Details Patient comes in today for her follow up visit She brought in her BP log for the past couple of months - log shows systolic BP ranging from 100 to 140 mm and diastolic BP from 59 to 86 mm Patient adds that she was sent for an exercise stress test by Dr. Montanez last month for further evaluation of her exertional dyspnea States that she just had her stress testing done at [facility] recently and does not know how her test came out She denies any headaches or any further dizziness lately Denies any exertional chest pains No nausea/vomiting, no abdominal pain No change in bowel habits noted Adds that she just started experiencing some mild dysuria and urinary urgency a couple of days ago She had her follow up labs done a couple of weeks ago - to discuss her results [facility] Medical History Constipation Abdominal pain, right lower quadrant Vitamin B12 deficiency Overweight (BMI 25.0-29.9) GERD without esophagitis Vitamin D deficiency Neuropathy Chronic kidney disease, stage III (moderate) Migraine Psoriatic arthritis Pure hypercholesterolemia Essential hypertension Diabetes mellitus Surgical History No pertinent past surgical history Family History Father No problems noted. Mother Gastroparesis Paternal Grandmother Gastroparesis Family/Other Gastroparesis Social History Housing: House Alcohol intake: never Patient Tobacco Use Status: Never used Tobacco e-Cigarette/Vaping Use: Never Used Second Hand Smoke Exposure: No service: No Current occupational status: retired Cognitive needs: No Hearing needs: No Vision needs: Yes (glasses) Questionnaire PHQ-9 Over the last 2 weeks, how often have you been bothered by any of the following problems? 1. Little interest or pleasure in doing things: not at all 2. Feeling down, depressed, or hopeless: not at all 3. Trouble falling or staying asleep, or sleeping too much: several days 4. Feeling tired or having little energy: not at all 5. Poor appetite or overeating: several days 6. Feeling bad about yourself - or that you are a failure or have let yourself or your family down: not at all 7. Trouble concentrating on things, such as reading the newspaper or watching television: not at all 8. Moving or speaking so slowly that other people could have noticed. Or the opposite - being so fidgety or restless that you have been moving around a lot more than usual: not at all 9. Thoughts that you would be better off or of hurting yourself in some way: not at all Total score: 2 Depression Screening Interpretation: Negative Depression Screening Done: Yes 04223 - PHQ-9 Billing: Yes Source: Developed by Drs. Gaston Armenta, Elizabeth Goins, Trevin Bello and colleagues, with an educational obey from [employer]. Thrive Questionnaire Date Thrive assessed: 09/17/24 I am a: Patient What is your living situation today?: I have a steady place to live Within the past 12 months, did the food you bought not last and you didn't have the money to get more?: Never true Within the past 12 months, did you worry whether your food would run out before you got money to buy more?: Never true Do you have trouble paying for medicines?: No Do you have trouble getting transportation to medical appointments?: No Do you have trouble paying your heating and electricity bill?: No Do you have trouble taking care of your child, family member or friend?: No Do you have trouble with day-to-day activities such as bathing, preparing meals, shopping, managing finances, etc.?: No Are you currently unemployed and looking for a job?: No Are you interested in more education?: No Please select the resources that you would like help with: None Currently or been in a relationship where the following occur: No concerns reported THRIVE Score: 0 AUDIT C Alcohol Use Questionnaire (AUDIT-C) 1. How often do you have a drink containing alcohol?: Monthly or less 2. How many drinks containing alcohol do you have on a typical day when you are drinking?: 1 or 2 3. How often do you have six or more drinks on one occasion?: Less than monthly Total Score: 2 Score Reviewed/Action Taken: Yes SB-7 AMB Questionnaire SB-7 Date SB - 7 assessed: 09/17/24 Feeling nervous, anxious, or on edge: 0 = Not at all Not being able to stop or control worryin = Not at all Worrying too much about different things: 0 = Not at all Trouble relaxin = Not at all Being so restless that it is hard to sit still: 0 = Not at all Becoming easily annoyed or irritable: 0 = Not at all Feeling afraid as if something awful might happen: 0 = Not at all Total SB-7 score (0-4 normal; 5-9 mild; 10-14 moderate; 15-21 severe): 0 Source: Developed by Drs. Gaston Armenta, Elizabeth Goins, Trevin Bello and colleagues, with an educational obey from [employer]. Review of Systems Const Denies chills, Denies fatigue, Denies fever(s) and Denies headache(s) ENT Denies dysphagia, Denies dizziness, Denies otalgia, Denies headache(s), Denies neck pain, Denies odynophagia and Denies sore throat Card Denies chest pain, Denies palpitations and Reports dyspnea on exertion (mild) Resp Denies chest congestion, Denies cough and Reports dyspnea on exertion (mild) GI Denies abdominal pain, Denies constipation, Denies dysphagia, Denies heartburn, Denies diarrhea, Denies nausea, Denies odynophagia and Denies vomiting Denies difficulty voiding, Denies nocturia, Reports dysuria (mild, recently) and Reports urinary urgency Musc Denies back pain, Reports arthralgias (involving multiple joints) and Denies neck pain Skin/Breast Denies rash Neuro Denies dizziness and Denies headache(s) Endo Denies fatigue and Denies palpitations Physical exam (Primary Care) Vital Signs: Last Vital Signs Pulse 92 09/17/24 09:43 BP 128/82 09/17/24 09:43 Pulse Ox 97 09/17/24 09:43 Oxygen Delivery Method Room Air 09/17/24 09:43 BMI result Body Mass Index 27.0 Tobacco/Smoking Status: Tobacco use Status Tobacco use date assessed 09/17/24 09/17/24 09:46 Patient Tobacco Use Status Never used Tobacco 09/17/24 09:46 e-Cigarette/Vaping Use Never Used 09/17/24 09:46 PHQ-9: PHQ-9 Score PHQ-9: Total score 2 09/17/24 11:02 Depression Screening Interpretation: Negative Thrive Assessment: Date of Thrive Assessment Date Thrive assessed 09/17/24 09/17/24 09:46 Currently or been in a relationship where the following occur: No concerns reported Const General: no acute distress and alert HENMT Ears: TM's normal bilaterally and EAC's normal Throat: Yes posterior oropharynx normal and Yes tonsils normal (no TP congestion) Neck Neck: Yes supple and No lymphadenopathy Thyroid: Thyroid normal Resp Auscultation: clear to auscultation bilaterally, no rales and no wheezes Cardio Rate: regular rate Rhythm: regular rhythm Heart sounds: no murmurs GI Palpation (GI): Soft to palpation and nontender Auscultation: normal bowel sounds General: Yes no CVA tenderness Back/Spine/Pelvis Back: no CVA tenderness Thoracic/Lumbar Spine: No lumbar spinal tenderness Skin Rashes: no rashes Extrem General: Yes no clubbing, cyanosis or edema Results Reviewed Results Reviewed: Laboratory Tests 09/04/24 09/10/24 08:01 09:55 WBC 9.9 Hgb 12.1 Hct 37.8 Plt Count 315 ESR 56 H Sodium 141 Potassium 4.7 Creatinine 1.34 Estimated GFR 39 Fasting Glucose 156 H Hemoglobin A1c % 7.0 H Calcium 9.7 AST 36 H ALT 19 C-Reactive Protein 0.94 H Triglycerides 176 H Cholesterol 152 LDL Cholesterol, Calc 87 HDL Cholesterol 30 L TSH 1.05 Ur Specific Raymond 1.015 Urine Protein 30 (1+) H Urine Glucose (UA) Negative Urine Blood Small (1+) H Urine Nitrite Negative Ur Leukocyte Esterase Large (3+) H Microalb/Creat Ratio 216.1 H TB Test (QFT) Gold Plus NEGATIVE Coding Level of Care Code Est Pt Level 4 (42391) Complex EM visit Add On G2211 Diagnoses Dizziness R42 Essential hypertension I10 Pure hypercholesterolemia E78.00 Type 2 diabetes mellitus with stage 3a chronic kidney disease, without long-term current use of insulin E11.22; N18.31 Chronic kidney disease stage: stage 3 (moderate) Chronic kidney disease stage 3 subtype: stage 3a (GFR 45-59) Diabetes mellitus complication detail: with chronic kidney disease Diabetes mellitus complication status: with kidney complications Diabetes mellitus superintendent container terminal insulin use: without [facility] use Diabetes mellitus type: type 2 Stage 3a chronic kidney disease N18.31 Chronic kidney disease stage 3 subtype: stage 3a (GFR 45-59) Migraine without status migrainosus, not intractable, unspecified migraine type G43.909 Intractability: not intractable Migraine type: unspecified Status migrainosus presence: without status migrainosus Neuropathy G62.9 Psoriatic arthritis L40.50 Chronic constipation K59.09 Gastroparesis K31.84 GERD without esophagitis K21.9 Vitamin D deficiency E55.9 Vitamin B12 deficiency E53.8 Urinary tract infection without hematuria, site unspecified N39.0 Urinary tract infection type: site unspecified Hematuria presence: without hematuria Overweight (BMI 25.0-29.9) E66.3 Additional Codes PHQ-9 - 42792 - PHQ-9 Billing: Yes ([id number]) Assessment & Plan Assessment & Plan (1) Dizziness: Code(s): R42 - Dizziness and giddiness Category: Medical Plan: Have discussed with patient before about the possibility that her recent dizzy spell was from low blood pressure Patient states that she has not had any recurrence of her dizziness since her Propranolol and Lisinopril were both held just prior to her last visit Have advised patient to just continue monitoring her blood pressure regularly since She brought in her BP log for the past couple of months - log shows systolic BP ranging from 100 to 140 mm and diastolic BP from 59 to 86 mm She is instructed to continue monitoring her BP for now and will not start her back on any BP med at this time (2) Essential hypertension: Code(s): I10 - Essential (primary) hypertension Category: Medical Plan: Reinforced low sodium diet - goal is systolic BP of at least 130 to 140 mm or less She was on Lisinopril 2.5 mg QD and Propranolol 20 mg BID previously but these were both held for the past few months (see above) (3) Pure hypercholesterolemia: Code(s): E78.00 - Pure hypercholesterolemia, unspecified Category: Medical Plan: Results of her labs done a couple of weeks ago reviewed and discussed with patient Reinforced low cholesterol diet Continue Simvastatin 40 mg QD Will have patient recheck her labs and fasting lipids in 4 months for follow up (4) Diabetes mellitus: Code(s): E11.9 - Type 2 diabetes mellitus without complications Category: Medical Qualifiers: Chronic kidney disease stage: stage 3 (moderate) Chronic kidney disease stage 3 subtype: stage 3a (GFR 45-59) Diabetes mellitus complication detail: with chronic kidney disease Diabetes mellitus complication status: with kidney complications Diabetes mellitus superintendent container terminal insulin use: without [place] use Diabetes mellitus type: type 2 Qualified Code(s): E11.22 - Type 2 diabetes mellitus with diabetic chronic kidney disease; N18.31 - Chronic kidney disease, stage 3a Plan: Her HgbA1c was at 7.0% on her recent labs (in-office HgbA1c was also at 7.0% a couple of months ago) - goal is at least >7.0% Reinforced diabetic diet Continue Trulicity 3 mg SQ once a week, Tresiba 38 units QD and Humalog TID with meals per sliding scale She was taken off her Metformin previously as it was reportedly aggravating her GI symptoms (gastroparesis) Follow up with [facility] Endocrinology as scheduled (5) Chronic kidney disease, stage III (moderate): Code(s): N18.30 - Chronic kidney disease, stage 3 unspecified Category: Medical Qualifiers: Chronic kidney disease stage 3 subtype: stage 3a (GFR 45-59) Qualified Code(s): N18.31 - Chronic kidney disease, stage 3a Plan: Stable Will continue to monitor her renal function regularly (6) Migraine: Code(s): G43.909 - Migraine, unspecified, not intractable, without status migrainosus Category: Medical Qualifiers: Intractability: not intractable Migraine type: unspecified Status migrainosus presence: without status migrainosus Qualified Code(s): G43.909 - Migraine, unspecified, not intractable, without status migrainosus Plan: Patient states that her headaches have been better controlled lately She takes Qulipta 60 mg PRN but states that she has not needed to take this in a while now Reinforced avoidance of any potential migraine triggers (7) Neuropathy: Code(s): G62.9 - Polyneuropathy, unspecified Category: Medical Plan: Continue Gabapentin 100 mg to 300 mg Q HS PRN (8) Psoriatic arthritis: Code(s): L40.50 - Arthropathic psoriasis, unspecified Category: Medical Plan: Continue Otezla 30 mg BID and Cimzia 200 mg SQ once a week Follow up with rheumatology (Dr. Kramer at [facility]) as scheduled (9) Chronic constipation: Comment: Currently MiraLax stool softener Code(s): K59.09 - Other constipation Category: Medical Plan: Reinforced increased oral fluids and dietary fiber Continue Prucalopride (Motegrity) 1 mg QD Follow up with GI as scheduled (10) Gastroparesis: Comment: DM, trulicity, fam hx- gastrpoparesis Code(s): K31.84 - Gastroparesis Category: Medical Plan: Continue Metoclopramide 5 mg TID Follow up with GI as scheduled (11) GERD without esophagitis: Code(s): K21.9 - Gastro-esophageal reflux disease without esophagitis Category: Medical Plan: Dietary restrictions reinforced Continue Omeprazole 20 mg QD (12) Vitamin D deficiency: Code(s): E55.9 - Vitamin D deficiency, unspecified Category: Medical Plan: Continue Vitamin D3 2000 units QD (13) Vitamin B12 deficiency: Code(s): E53.8 - Deficiency of other specified B group vitamins Category: Medical Plan: Continue Vitamin B12 tablets 5000 mcg QD (14) Urinary tract infection: Code(s): N39.0 - Urinary tract infection, site not specified Category: Medical Qualifiers: Urinary tract infection type: site unspecified Hematuria presence: without hematuria Qualified Code(s): N39.0 - Urinary tract infection, site not specified Plan: Her recent urinalysis revealed (+) findings of pyuria As patient is reporting (+) symptoms of dysuria and urgency lately, will go ahead and start her empirically on Macrobid 100 mg BID x 7 days (15) Overweight (BMI 25.0-29.9): Code(s): E66.3 - Overweight Category: Medical Plan: Reinforced diet; exercise and weight may not be realistic due to patient's physical issues and multiple comorbidities Plan Follow up in 4 months Orders: Orders Lipid Panel 4 Months E78.00 - Pure hypercholesterolemia, unspecified Comprehensive [employer] Panel Fast 4 Months E78.00 - Pure hypercholesterolemia, unspecified UA CC w/rflx Micro + Cult 4 Months R30.0 - Dysuria Hemoglobin A1c 4 Months E11.9 - Type 2 diabetes mellitus without complications Complete Blood Count Auto Diff 4 Months D64.9 - Anemia, unspecified Microalbumin, Random (w Creat) 4 Months E11.9 - Type 2 diabetes mellitus without complications TSH reflex Free T4 4 Months E78.00 - Pure hypercholesterolemia, unspecified Vitamin B12 and Folate 4 Months E53.8 - Deficiency of other specified B group vitamins Vitamin D 25-OH Total 4 Months E55.9 - Vitamin D deficiency, unspecified Medications: New nitrofurantoin monohyd/m-cryst 100 mg (Macrobid) must administer with a meal/food 100 mg PO Q12H 14 caps 0RF 7 days
--- OUTSIDE RECORDS SUMMARY | 2024-09-17 10:03 | XMS_ITS | Patient Health Record ---
[facility] Address [address] [place] [address] Care Team Providers Care Nutrition Internship Name Role Phone Vinod Borjas MD Primary Care Provider Tiffany Stein Unavailable [phone] Wang Navas Unavailable [phone] Allergies No Known Allergies Results Component Value [...] Problem Acquired hammer toe of right foot ([id number] ) Other hammer toe(s) (acquired), right foot (M20.41) Active confirmed Response to treatment, Danica t Problem Acquired hammer toe of left foot (2815563622935491 ) Other hammer toe(s) (acquired), left foot (M20.42) Active confirmed Response to treatment, Danica t Problem Type 1 diabetes mellitus with diabetic polyneuropathy (E10.42) Active confirmed Problem Polyneuropathy due to type 2 diabetes mellitus (914371730) Type 2 diabetes mellitus with diabetic polyneuropathy (E11.42) Active confirmed Vital Signs Blood pressure diastolic 65 mm Hg 07/11/2024 Height [id number] in 07/11/2024 Blood pressure systolic 115 mm Hg 07/11/2024 Weight 185 lbs 07/11/2024 BMI 25.8 kg/m2 07/11/2024 Procedures Procedure Date Ordered Date Performed Result Body Sit e 18578-TBCYOHP NAIL, 6 OR MORE 04/10/2024 N/A 90245-JDRS SKIN LESIONS, 2 TO 4 04/10/2024 N/A 53520-JZKMIXI NAIL, 6 OR MORE 07/11/2024 N/A 71369-IBZF SKIN LESIONS, 2 TO 4 07/11/2024 N/A Encounters Encounter Location Date Provider Diagnosis [address] [address] 12/06/2023 Wang Navas Tinea unguium B35.1 ; Pain in right toe(s) M79.674 ; Pain in left toe(s) M79.675 ; Type 2 diabetes mellitus with diabetic polyneuropathy E11.42 ; Other hammer toe(s) (acquired), left foot M20.42 ; Other hammer toe(s) (acquired), right foot M20.41 ; Primary osteoarthritis, right ankle and foot M19.071 ; Ingrowing nail L60.0 and Primary osteoarthritis, left ankle and foot M19.[address] [address] 04/10/2024 Tiffany Salas Other hammer toe(s) (acquired), right foot M20.41 ; Other hammer toe(s) (acquired), left foot M20.42 ; Type 2 diabetes mellitus with diabetic polyneuropathy E11.42 and Tinea unguium B35.1 [facility] [address] [address] 07/11/2024 Tiffany Salas Type 2 diabetes mellitus [...] Treatment Pending Test Test Name Order Date 16693-WZSVDBI NAIL, 6 OR MORE 02/20/2013 38585-FLIYFRO NAIL, 6 OR MORE 05/29/2013 33250-LGSPLWJ NAIL, 6 OR MORE 08/28/2013 73143-IIICGAE NAIL, 6 OR MORE 12/11/2013 27505-FUISJPU NAIL, 6 OR MORE 05/07/2014 38790-VBUWAKH NAIL, 6 OR MORE 08/06/2014 48497-ZKTWFNB NAIL, 6 OR MORE 04/13/2015 24601-VOPBGDA NAIL, 6 OR MORE 12/31/2014 10167-FNITLGD NAIL, 6 OR MORE 07/29/2015 18914-PFXKBQC NAIL, 6 OR MORE 10/28/2015 85852-KRAOHSX NAIL, 6 OR MORE 01/27/2016 84979-OAWQWEU NAIL, 6 OR MORE 04/27/2016 03998-RONZRLU NAIL, 6 OR MORE 11/02/2016 20733-IUAKTVC NAIL, 6 OR MORE 02/15/2017 71113-DFIZDAF NAIL, 6 OR MORE 05/24/2017 99548-ZZVGIUR NAIL, 6 OR MORE 08/30/2017 76533-MJFIQVK NAIL, 6 OR MORE 12/25/2017 77395-ATGDUYM NAIL, 6 OR MORE 04/10/2024 19048-VIECBDC NAIL, 6 OR MORE 07/11/2024 81146-Yepnjsrq Plate 08/30/2017 62285-Hvxqitzk Plate 11/02/2016 06112-Xaekbxuy Plate 12/31/2014 35149-Lxozpbmk Plate 04/13/2015 05878-Vzfkpwpl Plate 08/06/2014 55139-Cpaptsdn Plate 05/07/2014 97089-Ueyzofkh Plate 12/11/2013 71864-Lhkedaqa Plate 09/11/2013 83930-Snegzcnz Plate 05/29/2013 68488-Hnbnhgxk Plate 02/20/2013 47806-Kjjavmsk Plate Each Additional 04/2013 22687-Oiyvlxtu Plate Each Additional 30911-Aaipgswc Plate Each Additional 74585-Bfetadwy Plate Each Additional 03/2015 11093-Dhrivtop Plate Each Additional 58267- Debride <25 sq cm 07/06/2020 42786- Debride <25 sq cm 08/28/2013 58974-BFFB SKIN LESIONS, OVER 4 05/07/19 15 45551-ZHOD SKIN LESIONS, OVER 4 12/12/19 14 26849-WBSL SKIN LESIONS, OVER 4 02/21/20 13 60080-QLHS SKIN LESIONS, OVER 4 05/30/19 14 45653-WVIT SKIN LESIONS, OVER 4 08/29/19 14 88495-JRFV SKIN LESIONS, OVER 4 04/13/19 16 10377-DOTR SKIN LESIONS, OVER 4 08/07/19 15 95138-ZLHR SKIN LESIONS, OVER 4 01/01/20 15 47264-MNEL SKIN LESIONS, OVER 4 07/29/19 16 06487-VOQQ SKIN LESIONS, OVER 4 01/27/20 16 10919-WZAA SKIN LESIONS, OVER 4 10/28/19 16 07757-PLZA SKIN LESIONS, OVER 4 07/07/19 21 03890-ICUV SKIN LESIONS, OVER 4 01/14/20 21 40592-VESZ SKIN LESIONS, OVER 4 11/03/19 17 74224-CZJI SKIN LESIONS, OVER 4 04/27/19 17 67449-MLGM SKIN LESIONS, OVER 4 07/28/19 17 52999-VAQZ SKIN LESIONS, OVER 4 05/25/19 18 32578-EIDV SKIN LESIONS, OVER 4 02/16/20 17 57784-DWVE SKIN LESIONS, OVER 4 08/31/19 18 70777-KXOF SKIN LESIONS, OVER 4 12/26/19 18 63250-HZUJ SKIN LESIONS, OVER 4 04/16/19 19 75680-XMXR SKIN LESIONS, OVER 4 08/16/19 19 14171-WMBK SKIN LESIONS, OVER 4 11/15/19 19 29314-ONHZ SKIN LESIONS, OVER 4 03/18/19 20 59130-WRQC SKIN LESIONS, OVER 4 09/04/19 20 10107-IKJZ SKIN LESIONS, OVER 4 10/26/20 20 90756-GJBD SKIN LESIONS, 2 TO 4 04/10/19 68101-FQES SKIN LESIONS, 2 TO 4 07/12/19 Next Appt Details Provider Name:Tiffany del angel, 10/16/2024 09:00:00 AM, [address] [place], [address], Insurance Providers Payer Name Payer Address Payer Phone Subscriber Number Group Number Insured Name Patient Relationship to Insured Coverage Start Date Coverage End Date Medicare [employer] [address] [place] [address] [id number] Yumiko Rodgers Self - patient is the insured [facility] [address] [place] [address] [id number] Yumiko Rodgers Self - patient is the insured Medical (General) History Medical History History ICD Code Arthritis headaches/migraines high blood pressure psoriasis/eczema type II diabetes Surgical History Surgery Date(Month/Year) bx left leg 2015
== END 2024-09-17 11:10 | disposition home or self-care (01) ==
LOC: HO.HMCH 09:34
PROVIDERS: PCP Internal Medicine; Visit Provider Internal Medicine
DX: I12.9 Hypertensive chronic kidney disease with stage 1 through stage 4 chronic kidney disease, or unspecified chronic kidney disease (principal); E11.22 Type 2 diabetes mellitus with diabetic chronic kidney disease; N18.31 Chronic kidney disease, stage 3a; L40.50 Arthropathic psoriasis, unspecified; R42 Dizziness and giddiness; E78.00 Pure hypercholesterolemia, unspecified; G43.909 Migraine, unspecified, not intractable, without status migrainosus; G62.9 Polyneuropathy, unspecified; K59.09 Other constipation; K31.84 Gastroparesis; K21.9 Gastro-esophageal reflux disease without esophagitis; E55.9 Vitamin D deficiency, unspecified

== ENCOUNTER → 2024-09-17 09:33 | Outpatient (BNVA) | payer MEDICARE, BC, SELFPAY | PROVIDERS: PCP Internal Medicine; Visit Provider Internal Medicine | DX: R42 Dizziness and giddiness (principal); E78.00 Pure hypercholesterolemia, unspecified; I12.9 Hypertensive chronic kidney disease with stage 1 through stage 4 chronic kidney disease, or unspecified chronic kidney disease; E11.22 Type 2 diabetes mellitus with diabetic chronic kidney disease; N18.31 Chronic kidney disease, stage 3a; G43.909 Migraine, unspecified, not intractable, without status migrainosus; G62.9 Polyneuropathy, unspecified; L40.50 Arthropathic psoriasis, unspecified; L21.9 Seborrheic dermatitis, unspecified; E55.9 Vitamin D deficiency, unspecified; E53.8 Deficiency of other specified B group vitamins; N39.0 Urinary tract infection, site not specified; E66.3 Overweight; Z68.27 Body mass index [BMI] 27.0-27.9, adult; Z71.3 Dietary counseling and surveillance | CPT/HCPCS: 96127; 99212 ==

== ENCOUNTER 2024-10-17 13:16 | Outpatient (AMB) | payer MEDICARE, BC, SELFPAY ==
--- OUTSIDE RECORDS SUMMARY | 2024-10-14 09:45 | XMS_ITS | Encounter Summary ---
Author Organization [facility] Address [address] [place] [address] [place] [phone] Phone Care Team Providers Care Batter Mixer Helper Name Role Phone Vinod Borjas MD Primary Care Provider [phone] Reason for Visit * Occupational Therapy (Within 2 weeks) - Authorized Specialty Diagnoses / Procedures Referred By Amando calderon Referred To Contact Occupational Therapy Diagnoses Psoriatic arthritis Primary osteoarthritis involving multiple joints De Quervain's tenosynovitis, right Georgia Paniagua MD 22 [facility], [address] [address] Phone: tel: fax: mailto:[email or web address] [email or web address] [address] [place] [address] Phone: tel: Referral ID Status Reason Start Date Expiration Date V isits Requested Visits Authorized [id number] Authorized 08/19/2024 08/19/2025 99 99 Encounter Details Date Type Department Care Team (Latest Contact Info) Description 10/14/2024 9:45 AM EDT Office Visit [facility] [address] [place] [address] Georgia Paniagua MD [address] [address] [email or web address] Tammi Morfin, OT [address] [place] [address] [email or web address] Tendinitis, de Quervain's (Primary Dx) Social History Tobacco Use Types Packs/Day Years Used Date Smoking Tobacco: Never Smokeless Tobacco: Never Alcohol Use Standard Drinks/Week Comments Not Currently 0 (1 standard drink = 0.6 oz pur e alcohol) Education Answer Date Recorded Are you interested in more education? Not on reji e 07/08/2022 Are you concerned about learning? Not on file 07/08/2022 No 07/08/2022 No 07/08/2022 Digital Access Answer Date Recorded No 08/09/2022 No 08/09/2022 Reliable internet access at home? Not on file 08/09/2022 Device with a working camera? Not on file Comments Unknown Sex and Gender Information Value Date Recorded Sex Assigned at Not on file Legal Sex Female 11:43 AM EDT Gender Identity Not on file Sexual Orientation Not on file documented as of this encounter Progress Notes * Tammi Morfin OT - 10/14/2024 9:45 AM EDT .Occupational Therapy Treatment Note Patient Name: Yumiko Rodgers Date of : 1955 This patient has attended 12 visits since the onset of Occupational Therapy. Referring MD: Georgia Paniagua MD [address] [place] [address], [address] [place] [address] Subjective comments: Compression helpful and was feeling good until yesterday. Did dishes yesterday and took out trash and had a little set back Pain 4/5 of 10 today Objective measurements: Interventions: See encounter report for minutes associated with each intervention. Modalities: US @ .8 w/cm2 cont x 8 min to first dorsal compartment There ex Patient performs wrist strengthening with use of level 2 thera flex bar today Tolerates 12 reps x 1for wrist flexors/extensors with attempts at wrist stabilization. Patient performs gentle resistiveforearm rotation 10 reps x 1 . Strengthening with 1# weight wrist flex/ext, sup pronation 12 reps x 1 - some pain with wrist flex-patient performs to neutral) Gentle AAROM thumb flex/ext, wrist flex/ext.Gentle stretch to forearm flexors/extensors STM to forearm flexors/extensors. Stretch to flexors/extensors to patient tolerance. -use of medicine ball for forearm stretches Intrinsic strengthening with sponges ( not performed this date ) Instruct in thumb abduction strengthening. Tolerates 10 reps x 1-increased pain with thumb extension so exercises deferred Continue compression wrap to first dorsal compartment Home Exercise Program: Patient to continues strengthening with 1# weight as able. Thumb abduction Assessment: Decreasing pain but remains with first dorsal compartment pain Tolerates all strengthening today Plan: Continue to progress with strengthening as appropriate. Evaluation Date: 10/14/2024 Diagnosis: Tendinitis, de Quervain's [M65.4] Date of Injury: 08/11/24 Goals: Short Term Goals: 2 weeks 1 Patient will demonstrate increase in right wrist flex/ext to 30 degrees/30 degrees, for increaseduse of UE for ADLs (MET) 2 Patient will demonstrate increase in right overhead garage door hanger strength to at least 28#, for increased use of UEfor ADLs (MET) 3 Patient will demonstrate increase in right 3 point to at least 10#, for increased use of UE for ADLs (MET) Jail Goals: 4 weeks 1 Patient will demonstrate increase in right wrist flex/ext to 50 degrees/50 degrees, for increaseduse of UE for ADLs 2 Patient will demonstrate increase in right overhead garage door hanger strength to at least 40#, for increased use of UEfor ADLs 3 Patient will demonstrate increase in right 3 point to at least 12#, for increased use of UE for ADLs 4 Patient will report being pain free at least 80% of time Self Stated Goal: Relieve pain and locking of joint Intervention Plan: ROM, strengthening, edema management, prn splinting, all to increase functional use of UE for ADLs Tammi Morfin, OT Tamm[place], [place] [id number] T[place], [place] 005219 T[place], [place] 072029 [place], [place] 472425 [place], [place] 257629 [place], [place] 369835 At[place]i [place]fin, [place] 015013 Tammi [place]fin, [place] 314081 Tammi [place], [place] 938274 T[place], [place] 152587 T[place]i [place], [place] [id number] .Occupational Therapy Treatment Note Patient Name: Yumiko Rodgers Date of : 1955 This patient has attended 12 visits since the onset of Occupational Therapy. Referring MD: Georgia Paniagua MD 22 [facility], [address] [place] [address] Subjective comments: K tape was helpful. Still with pain at and around first dorsal compartment . Patient reports doing exercises with 1# weight -some pain with wrist flexion, but ok. Pain Only mild pain to palpation at first dorsal compartment Objective measurements: Interventions: See encounter report for minutes associated with each intervention. Modalities: US @ .8 w/cm2 cont x 8 min to first dorsal compartment There ex Patient performs wrist strengthening with use of level 2 thera flex bar today Tolerates 10 reps x 1for wrist flexors/extensors with attempts at wrist stabilization. Patient performs gentle resistiveforearm rotation 10 reps x 1 . Gentle AAROM thumb flex/ext, wrist flex/ext.Gentle stretch to forearm flexors/extensors STM to forearm flexors/extensors. Stretch to flexors/extensors to patient tolerance. Intrinsic strengthening with spomges Compression wrap to first dorsal compartment Home Exercise Program: Patient to continues strengthening with 1# weight as able Assessment: Patient doing well overall . Decreasing pain but remains with first dorsal compartment pain Tolerates all strengthening today Plan: Continue to progress with strengthening as appropriate. Assess effectiveness of compression band Evaluation Date: 10/14/2024 Diagnosis: Tendinitis, de Quervain's [M65.4] Date of Injury: 08/11/24 Goals: Short Term Goals: 2 weeks 1 Patient will demonstrate increase in right wrist flex/ext to 30 degrees/30 degrees, for increaseduse of UE for ADLs (MET) 2 Patient will demonstrate increase in right overhead garage door hanger strength to at least 28#, for increased use of UEfor ADLs (MET) 3 Patient will demonstrate increase in right 3 point to at least 10#, for increased use of UE for ADLs (MET) Utility Clerk Goals: 4 weeks 1 Patient will demonstrate increase in right wrist flex/ext to 50 degrees/50 degrees, for increaseduse of UE for ADLs 2 Patient will demonstrate increase in right overhead garage door hanger strength to at least 40#, for increased use of UEfor ADLs 3 Patient will demonstrate increase in right 3 point to at least 12#, for increased use of UE for ADLs 4 Patient will report being pain free at least 80% of time Self Stated Goal: Relieve pain and locking of joint Intervention Plan: ROM, strengthening, edema management, prn splinting, all to increase functional use of UE for ADLs Tammi Morfin OT [place], [place] [id number] Tammi [place]fin, OT 022681 T[place]i [place]fin, [place] 569780 Tammi [place]fin, [place] 686296 Tammi Morfin, OT 479462 [place], OT 603630 [place], OT 869067 [place], OT 403750 Tammi [place]fin, [place] 330332 Tamm[place], [place] 143737 Tammi [place], [place] 091137 Tammieverett Morfin, [place] [id number] documented in this encounter Plan of Treatment Upcoming Encounters Date Type Department Care Team (Late st Contact Info) Description 10/25/2024 8:45 AM EDT Office Visit [address] [place] [address] Georgia Paniagua MD [address] [place] [id number] [email or web address] [email or web address], OT [address] [place] [address] [email or web address] 10/28/2024 9:45 AM EDT Office Visit [address] [place] [address] Georgia Paniagua MD [address] [place] [address], [address] [address] [email or web address], OT [address] [place] [address] [email or web address] 11/04/2024 9:00 AM EDT Office Visit [address] [place] [address] Georgia Paniagua MD 22 [facility], [address] [address] [email or web address] [email or web address] Tammi, OT [address] [place] [address] [email or web address] 11/12/2024 9:30 AM EDT Office Visit [facility] [address] [place] [address] Georgia Paniagua MD [address] [address] [email or web address] Morfin Tammi, OT [address] [place] [address] [email or web address] 12/26/2024 10:30 AM EDT Office Visit [facility] [address] [place] [address] Georgia Paniagua MD [address] [place] [address], [address] [address] [email or web address] documented as of this encounter Visit Diagnoses Diagnosis Tendinitis, de Quervain's- Primary documented in this encounter Care Teams Batter Mixer Helper Relationship Specialty Start Date End Date Vinod Borjas MD [address] [place] [address] [place] [address] PCP - General Internal Medicine 08/19/24 documented as of this encounter Additional Source Comments The information contained in this document represents components of the legal health record. It is not the complete legal health record.[facility]
--- OUTSIDE RECORDS SUMMARY | 2024-10-16 05:00 | XMS_ITS ---
[facility] Organization [facility] Address [address] [place] [address] Care Team Providers Care Wire Coiner Name Role Phone Indio SANTOS, Vinod Primary Care Provider Tiffany Stein Unavailable [phone] Allergies No Known Allergies REASON FOR VISIT At Risk Footcare Medications Medication SIG (Take, Route, Frequency, Duration) Notes Start Date End Date Status Lamisil 250 250 MG 1 Tab Oral Daily; Duration: 90 02/22/2013 Not-Taking Work Note . . .Dx: Niddm with neuropathy, arthritic toe deformity .Rx: this patient must avoid steel toe shoes permanently to avoid infection; Duration: . 08/28/2013 Not-Taking Cosentyx Not-Taking Methotrexate 2.5 MG 1 tablet Orally Three times a Week; Duration: 30 day(s) Not-Taking CeleBREX 100 MG 1 capsule Orally Twice a day; Duration: 30 day(s) Not-Taking Humira 40 MG/0.8ML 0.8 Subcutaneous; Duration: 30 day(s) Not-Taking Januvia 40mg Twice a day Not-T aking glipiZIDE 5 MG 1 tablet Orally Once a day; Duration: 30 day(s) Not-Taking Folic Acid 1 MG 1 tablet Orally Once a day; Duration: 30 day(s) Not-Taking Keflex 500 MG 1 capsule Orally every 12 hrs; Duration: 10 day(s) 04/13/2015 Not-Taking Doxepin HCl 10 MG 1 capsule at bedtime Orally Once a day; Duration: 30 day(s) Not-Taking Meloxicam 15 MG 1 tablet Orally Once a day; Duration: 30 day(s) Not-Taking hydroCHLOROthiazide 25 MG 1 tablet Orall y Once a day; Duration: 30 day(s) Not-Taking Extra Depth Orthopedic Shoes (1 Pair) with Customized Heat Molded Multidensity Innersoles (3 Pair) as directed Dx: IDDM/Polyneuropathy (E10.42), Hammertoe Foot Deformity (M20.41,M20.42), Preulcerative Skin Lesion(s) (L85.1) 04/10/2024 Active metFORMIN HCl 500 MG 1 tablet with meals Orally Twice a day; Duration: 30 day(s) 1000 mg once a day Not-Taking Otezla Active Propranolol HCl Acti ve Simvastatin 10 MG 1 tablet in the evening Orally Once a day; Duration: 30 day(s) Active Tresiba Active Extra-Depth Diabetic Shoes with 3 Pair Custom heat-molded multi-density innersoles . 1pair shoes/3sets inserts . .; Duration: 1 year 02/20/2013 Active Trulicity Active Gabapentin 100 MG 1 capsule Orally Once a day; Duration: 30 day(s) Active Lisinopril 2.5 MG 1 tablet Orally Once a day Active Cimzia Active Omeprazole Active HumaLOG Active Amitriptyline HCl Ac tive Immunizations Vaccine Route Administration Date Status Comme nts Influenza Unknown 10/16/2024 Refused Social History Tobacco Use: Social History Observation [...] Points 0 Interpretation Negative Vital Signs Height [id number] in 10/16/2024 Weight 185 lbs 10/16/2024 BMI 25.8 kg/m2 10/16/2024 Blood pressure systolic 120 mm Hg 10/17/19 25 Blood pressure diastolic 65 mm Hg 025 Encounters Encounter Location Date Provider Diagnosis [facility] [place] [address] [place] [address] 10/16/2024 Tiffany Salas Type 2 diabetes mellitus with diabetic polyneuropathy E11.42 and Tinea unguium B35.1 Assessments Encounter Date Diagnosis (ICD Code) Assessment Notes Treatment Notes Treatment Clinical Notes Section Notes 10/16/2024 Type 2 diabetes mellitus with diabetic polyneuropathy (ICD-10 - E11.42) 10/16/2024 Tinea unguium (ICD-10 - B35.1) Plan Of Treatment Next Appt Details Follow Up: 3 Months, Reason: Provider Name:Tiffany del angel, 01/15/2025 09:00:00 AM, [address] [place] [address], [phone], Procedure Notes * Category Sub-Category Detail Notes [...] use of a nail nipper and/or dremel-type miter grinder operator, to a more viable healthy [...] to maintain effectiveness in symptomatic relief - 45577 Keratoma Treatment Parring or Cutting o f [...] instrumentation by the physician of record - 25258 Progress Notes * Yumiko RODGERS MDOB: 7 (69 yo F)Acc No.[id number]:10/16/2024 Progress Note Patient: Yumiko TOURE Provider: Christian Salas DPM :1955 A ge:69 Y S ex:Female Date:10/16/2024 Address:[address] [place] [address], [facility] Pcp:Vinod Borjas MD Subjective: * Chief Complaints: * A t Risk Footcare * HPI: A t Risk footcare: Pt States Last PCP Visit: D ate 0 09/10/2024 * ROS: G eneral/Constitutional: Nausea d enies. V omiting d enies. H sweta Thirst d enies. L oss appetite d enies. C hills d enies. F atigue d enies.?Fever d enies. N ight Sweats d enies. U nexplained weight loss d enies. U nexplained weight gain d enies. H EENTM: Dentures d enies. D izziness d enies. G lasses/contacts a dmits. R etinopathy d enies. B lurred/double vision d enies. T MJ?denies. D ischarge/drainage d enies. I mplants d enies. S ore throat d enies. D ental implants d enies. H francisca of hearing d enies. D ifficulty chewing/swallowing/speaking d enies. N ose bleeds d enies. S ore mouth d enies. ? R espiratory: On Oxygen d enies. P neumonia/pleurisy d enies.?Bronchitis d enies. E mphysema d enies. C oughing d enies. C ough blood?denies. S hortness of breath d enies. W heezing d enies. C ardiovascular: Pacemaker d enies. M ALLEY WORKER d enies. W PW d enies. C HF d enies. H eart attack d enies. S eptal defect d enies. R apid beat d enies. C hest pain d enies. A trial Fib. d enies. M urmur/Palpitations d enies. G astrointestinal: Hemorrhoids d enies. S tomach/Abdominal pain d enies. D ark blood stool d enies. I rritable bowel d enies. C onstipation d enies. D iarrhea d enies. H ematology: Swelling d enies. C lots d enies. V aricose Veins d enies. B ruising d enies. B leeding problem d enies. G enitourinary: Blood urine d enies. F requent/Painfu/urination/bladder control d enies. K idney stones d enies. I nfection (UTI) d enies. N ephropathy d enies. s ex trans dis (STD) d enies. P rostate d enies. M usculoskeletal: Hammertoes d enies. B unions d enies. B ack Pain d enies. M uscle Cramps/ Resting d enies. M uscle cramps / walking d enies.?Generalized aches and pains d enies. W eakness d enies. I nteg.: Lima d enies. S cars d enies. C orns/calluses?denies. I ngrown nails d enies. P ainful nails d enies. O pen Sores d enies. R ashes d enies. N eurologic: Difficulty sleeping d enies. B rain disorder d enies. N umbness d enies. B alance trouble d enies. C onfusion d enies. F ainting/blackouts d enies. T ingling d enies. T remors d enies. * Medical History: * Surgical History: b x left leg 2014 * Hospitalization/Major Diagno stic Procedure: D enies Past Hospitalization * Family History: M other: , diagnosed with Diabetic - NIDDM, Unspecified essential hypertension. F ather: , diagnosed with Diabetic - NIDDM, Unspecified essential hypertension. P aternal Grand Mother: , type II diabetes, hypertension, diagnosed with Diabetic - NIDDM, Unspecified essential hypertension. P aternal Grand Father: , type II diabetesh, hypertension, diagnosed with Diabetic - NIDDM, Unspecified essential hypertension. M giacomo Grand Mother: , type II diabetes, hypertension, diagnosed with Diabetic - NIDDM, Unspecified essential hypertension. M giacomo Grand Father: , type II diabetes, hypertension, diagnosed with Diabetic - NIDDM, Unspecified essential hypertension. S ibdarius: alive, type II diabetes, diagnosed with Diabetic - NIDDM. * Social History: T obacco Use: T obacco use other than smoking A re you an other tobacco user? N o Tobacco Control (Standard) T obacco use: N onsmoker A dditional Findings: Tobacco non-user C urrent nonsmoker D rugs/Alcohol: D rugs H ave you used drugs other than those for medical reasons in the past 12 months? N o M iscellaneous: C affeine: yes, frequency: coffee , 1-2 cups per day. Children: no. Exercise: yes, swimming, walking, PT. Marital status: single. 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 D rug/Alcohol: A GINA-C (Standard) D id you have a drink containing alcohol in the past year? N o P oints 0 I nterpretation N egative * Medications: T akingAmitriptyline HCl HumaLOG Omeprazole Cimzia Trulicity Gabapentin 100 MG Capsule 1 capsule Orally Once a day Lisinopril 2.5 MG Tablet 1 tablet Orally Once a day Otezla Propranolol HCl Simvastatin 10 MG Tablet 1 tablet in the evening Orally Once a day Tresiba Extra-Depth Diabetic Shoes with 3 Pair Custom heat-molded multi- density innersoles . . 1pair shoes/3sets inserts . [...] reviewed and reconciled with the patient * Allergies: N .K.D.A.yes[Allergies Verified] Objective: * Vitals: H t:1dg62bb, Wt:185, BMI:25.8, Shoe size:10, BP:120/65mm Hg, BS:172, Ht-cm: 180.34 cm, Wt-k.92 kg. * P ast Orders: L ab:HEMOGLOBIN A1C (GLYCOHEMOGLOBIN) (Order Date - 04/01/2024) (Collection Date & Time - 04/10/2024 08:55 AM) Value Reference Range HEMOGLOBIN A1C % (HH) 6.7 * Examination: O phthalmology Referral: DIABETES EYE EXAM P rocedure Performed: Y es D ate of Exam Performed 1 04/14/2023 D iabetic Retinopathy Screening: Y es F indings of Diabetic Eye Exam: n o retinopathy N eurological: SENSORY: Neurological exam demonstrates, reduced light touch sensation, reduced sharp/dull pin prick discrimination , B/L, 5.07 monofilament test performed at plantar aspects of 5 varied sites per foot shows sensation, reduced , B/L. N ails: NAILS are: E longated, overgrown, dystrophic, lytic, greater than 3mm thick, discolored and friable with crumbly malodorous subungual debris, TA, T1, T2, T3, T4, T5, T6, T7, T8, T9. D ermatologic: SKIN FINDINGS: S kin exam reveals Keratotic lesion(s) located at plantar heels B/L. V ascular: DP PULSES (B): 1 /4, B/L. PT PULSES (B): 1 /4, B/L. Assessment: * Assessment: 1. T ype 2 diabetes mellitus with diabetic polyneuropathy - E11.42 (Primary) 2 . T inea unguium - B35.1 Plan: * Treatment: * Procedures: D ebride Nail 6-10: Nail debridement D ue to the clinical pathology outlined in the [...] the use of a nail nipper and/or dremel- type miter grinder operator, to a more viable healthy [...] to maintain effectiveness in symptomatic relief - 24890. K eratoma Treatment: Parring or Cutting of Benign Hyperkeratotic Lesion(s) ( -56) 2-4 Lesions - Due to the at [...] instrumentation by the physician of record - 64022. * Immunizations: Influenza (Not administered - Refused: Patient decision) * Procedure Codes: 1 1721 DEBRIDE NAIL, 6 OR MORE, Modifiers: XS 83626 TRIM SKIN LESIONS, 2 TO 4, Modifiers: XS * Follow Up: 3 Months * Images: * Sign off status: Completed true * Provider: Christian Salas DPM Date: 0 10/16/2024 Generated for Printi ng/Faxing/eTransmitting on: 0 10/17/2024 01:18 PM EDT History and Physical Notes * HPI (History of Present Illness) Category Sub-Category Detail Notes Category Not es At Risk footcare Pt States Last PCP [...] Keratotic lesion(s) located at plantar heels B/L Ophthalmology Referral DIABETES EYE EXAM Procedu re Performed:: Yes Date of Exam Performed: 02/12/2024 Diabetic Retinopathy Screening:: [...]
[2024-10-17 13:32] VITALS: BP 142/82; PULSE 118; O2SAT 98; BMI 27.8
--- NOTE | 2024-10-17 13:32 | MHC.OFFVIS ---
Vital Signs 10/17/24 13:32 Height 5 ft 10 in Weight 194 lb BMI 27.8 BP 142/82 H Blood Pressure Location Lt brachial Position Sitting Pulse 118 H Pulse Source Pulse Oximeter Pulse Oximetry (%) 98 Oxygen Delivery Method Room Air Intake Visit Reasons: Cough Allergies grass pollen Allergy (Mild, Verified 09/17/24 10:56) Unknown HPI HPI Cough: Details: 68-year-old lady, nonsmoker, followed for restrictive ventilatory defect and dyspnea on exertion, previously chronic cough after COVID that has essentially resolved at this time. Patient does complain of slowly worsening dyspnea on exertion with no other associated symptoms. After the last office visit patient had essentially negative pulmonary workup with CT chest and PFT. She also had cardiopulmonary exercise test that showed no pulmonary limitation, however likely cardiac limitation to her exercise capacity. [facility] Medical History Constipation Abdominal pain, right lower quadrant Vitamin B12 deficiency Overweight (BMI 25.0-29.9) GERD without esophagitis Vitamin D deficiency Neuropathy Chronic kidney disease, stage III (moderate) Migraine Psoriatic arthritis Pure hypercholesterolemia Essential hypertension Diabetes mellitus Surgical History No pertinent past surgical history Family History Father No problems noted. Mother Gastroparesis Paternal Grandmother Gastroparesis Family/Other Gastroparesis Social History Housing: House Alcohol intake: never Patient Tobacco Use Status: Never used Tobacco e-Cigarette/Vaping Use: Never Used Second Hand Smoke Exposure: No service: No Current occupational status: retired Cognitive needs: No Hearing needs: No Vision needs: Yes (glasses) Review of Systems Const Denies daytime sleepiness, Denies excessive sweating, Denies fatigue, Denies fever(s), Denies lethargy, Denies malaise, Denies night sweats, Denies snoring and Denies weight loss Eyes Denies blurry vision and Denies itchy eyes ENT Denies nasal congestion, Denies post nasal drip, Denies sinus pain, Denies sinus pressure and Denies other ( Thrush) Card Denies chest pain, Denies pedal edema, Denies dyspnea, Reports dyspnea on exertion, Denies orthopnea and Denies paroxysmal nocturnal dyspnea Resp Denies cough, Denies hemoptysis, Denies excessive phlegm production, Denies dyspnea, Reports dyspnea on exertion, Denies snoring and Denies wheezing GI Denies abdominal pain and Denies heartburn Musc Denies myalgias, Denies arthralgias and Denies joint swelling Skin/Breast Denies rash Neuro Denies memory loss and Denies seizure-like activity Psych Denies abnormal sleep pattern, Denies anxiety and Denies memory loss Endo Denies excessive sweating, Denies fatigue and Denies heat intolerance Myles/Lymph Denies easy bruising Aller/Immun Denies itchy eyes, Denies seasonal rhinorrhea and Denies wheezing Physical Exam Vital Signs: Last Vital Signs Pulse 118 H 10/17/24 13:32 BP 142/82 H 10/17/24 13:32 Pulse Ox 98 10/17/24 13:32 Oxygen Delivery Method Room Air 10/17/24 13:32 BMI result Body Mass Index 27.8 Const General: no acute distress and alert Nutritional Appearance: not obese Orientation/consciousness: Other orientation findings ( oriented) HEENT Head: Yes atraumatic Eyes General: appearance normal, both eyes and all related structures Sclerae: sclerae normal EOM: EOMs intact bilaterally Neck Neck: Yes supple Lymphatic: no lymphadenopathy noted Resp Effort & Inspection: normal respiratory effort and no use of accessory muscles Auscultation: clear to auscultation bilaterally Cardio Rate: regular rate Rhythm: regular rhythm Heart sounds: no gallops, no murmurs and no rubs Skin General skin exam: other ( warm) Extrem General: No clubbing, No cyanosis and No edema Assessment & Plan Assessment & Plan (1) Dyspnea on exertion: Code(s): R06.09 - Other forms of dyspnea Category: Medical Plan: Results of CT chest, pulmonary function tests, and cardiopulmonary exercise test reviewed. No pulmonary limitation to underlying exercise capacity. Will refer for cardiologic evaluation. Coding Level of Care Code Est Pt Level 3 (25238) Diagnoses Dyspnea on exertion R06.09
== END 2024-10-17 13:54 | disposition home or self-care (01) ==
LOC: HO.HPS 13:17
PROVIDERS: PCP Internal Medicine; Visit Provider Internal Medicine Pulmonary Disease
DX: R06.09 Other forms of dyspnea (principal)
CPT/HCPCS: 99213

== ENCOUNTER → 2024-10-17 13:16 | Outpatient (BNVA) | payer MEDICARE, BC, SELFPAY | PROVIDERS: PCP Internal Medicine; Visit Provider Internal Medicine Pulmonary Disease | DX: R06.09 Other forms of dyspnea (principal) | CPT/HCPCS: 99212 ==

== ENCOUNTER 2024-12-02 08:25 | Outpatient (AMB) | payer MEDICARE, BC, SELFPAY ==
--- OUTSIDE RECORDS SUMMARY | 2023-12-04 05:15 | XMS_ITS ---
Author Organization [facility] Address [address] [place] [address] Care Team Providers Care Auto Dealership Porter Name Role Phone Indio SANTOS, Vinod Primary Care Provider Tiffany Stein Unavailable [phone] Wang Navas [phone] Encounters Encounter Location Date Provider Diagnosis [address] [address] 12/04/2023 Wang Navas Plan Of Treatment Next Appt Details Provider Name:Tiffany Oksana del angel, 01/15/2025 09:00:00 AM, [address] [place] [address], [phone], Progress Notes * Yumiko VELÁZQUEZ MDOB: (69 yo F)Acc No.[id number]:12/04/2023 Progress Note Patient: Yumiko TOURE Provider: Yevgeniy Navas DPM :1955 A ge:68 Y S ex:Female Date:12/04/2023 Address:[address] [place], [place] [id number] Pcp:Vinod Borjas MD Subjective: * Chief Complaints: [...] 0 12/04/2023 Generated for Raj cutler/Azul/Mojgan on: 0 12/02/2024 09:36 AM EDT
[2024-12-02 08:40] VITALS: BP 167/72; PULSE 88; BMI 27.5
--- NOTE | 2024-12-02 08:40 | MHC.OFFVIS ---
Vital Signs 12/02/24 08:40 Height 5 ft 10 in Weight 191 lb 12.835 oz BMI 27.5 BP 167/72 H Blood Pressure Location Lt brachial Position Sitting Pulse 88 Intake Visit Reasons: 8 MO F/U Intake Note: Yumiko presents in the office as a 8 month follow up. CC: She states that she has a little constipation but no stomach pains. Her neice had gastric bypass to relieve her gastroparesis and they said it got rid of it - she wants to look into it. Station Manager Required: No Allergies grass pollen Allergy (Mild, Verified 12/02/24 08:41) Unknown HPI HPI 8 MO F/U: Details: 69 y/o female here for f/u RECAP: Initially saw [facility] [place] for 2nd opinion from [facility] for gastroparesis [phone]%--retention) initially N/V daily- about 1 year ago she had full w/u- GES, EGD, negative cologuard 1 yr ago-[facility] GI Trulicity for the past 2 years- Taking metoclopromide- bid or tid no improvement- Long hx chronic constipation-she has used many OTC preps currently using stool softeners and MiraLax-without very good response INTERIM: she is doing well with 25 mg amitriptyiline continuing with motegrity 1 mg no depression she has no complaints sleeping is variable, not sure why EXAM: GENERAL: The patient is well developed and nontoxic. VITAL SIGNS:see workflow HEENT: Nonicteric sclerae, PERRLA, EOMI. Oropharynx clear. Moist mucous membranes. Conjunctivae appear well perfused. No thyroid mass. CHEST: Chest wall is nontender. HEART: Regular rate and rhythm without murmurs. LUNGS: Clear to auscultation bilaterally. ABDOMEN: Soft, positive bowel sounds, nontender, no organomegaly.no flank tenderness SKIN: No rash, no excessive bruising, petechiae, or purpura. NEUROLOGIC: Cranial nerves II-XII intact without motor/sensory deficit. Psych: normal affect A/P: 1/ Possible global GI tract dysmotility with constipation and gastroparesis, may also have effects from meds and SIBO--tsh and hu ab negative --doing better with motegrity and TCA PLAN: 1/ cont with TCA and motegrity 2/ advised to try chamomile, can also try exercise later in the day, avoid watching TV in bedroom, aromatherapy PFSH Medical History Constipation Abdominal pain, right lower quadrant Vitamin B12 deficiency Overweight (BMI 25.0-29.9) GERD without esophagitis Vitamin D deficiency Neuropathy Chronic kidney disease, stage III (moderate) Migraine Psoriatic arthritis Pure hypercholesterolemia Essential hypertension Diabetes mellitus Surgical History (Updated 12/02/24 @ 08:42 by LIZ Ewing) History of esophagogastroduodenoscopy (EGD) No pertinent past surgical history Family History Father No problems noted. Mother Gastroparesis Paternal Grandmother Gastroparesis Family/Other Gastroparesis Social History Housing: House Alcohol intake: never Patient Tobacco Use Status: Never used Tobacco e-Cigarette/Vaping Use: Never Used Second Hand Smoke Exposure: No service: No Current occupational status: retired Cognitive needs: No Hearing needs: No Vision needs: Yes (glasses) Physical Exam Vital Signs: Last Vital Signs Pulse 88 12/02/24 08:40 BP 167/72 H 12/02/24 08:40 BMI result Body Mass Index 27.5 Assessment & Plan Assessment & Plan (1) Gastroparesis: Comment: DM, trulicity, fam hx- gastrpoparesis Code(s): K31.84 - Gastroparesis Category: Medical Plan: as above Coding Level of Care Code Est Pt Level 3 (69503) Diagnoses Gastroparesis K31.84
--- OUTSIDE RECORDS SUMMARY | 2024-12-02 09:36 | XMS_ITS | Clinical Summary ---
Author Organization [facility] Address [address] [place] [id number] Phone Care Team Providers Care Education Administrator Name Role Phone Vinod Borjas MD Primary Care Provider [phone] Allergies No known active allergies Medications simvastatin (ZOCOR) 20 MG tablet Take 20 mg by mouth nightly at bedtime. Active gabapentin (NEURONTIN) 100 MG capsuleIndication s:up to 300 mg as needed Take by mouth. Indications: up to 300 mg as needed Active insulin degludec U-100 (TRESIBA U-100 INSULIN) injection vial 44 Units daily. 2 Active dulaglutide (TRULICITY) 3 mg/0.5 mL subcutaneous injection Inject 3 mg under the skin every 7 days. 2 Active omeprazole (PRILOSEC) 20 MG tablet Take 20 mg by mouth daily. 2 Active cholecalciferol (VITAMIN D3) 2,000 unit capsule Take 2,000 Units by mouth daily. Active CIMZIA 400 mg/2 mL (200 mg/mL x 2) SyKt subcutaneous syringe Inject 200 mg under the skin every 7 days. 3 Active insulin lispro (HUMALOG KWIKPEN INSULIN) 100 unit/mL injection pen Inject 8-12 Units under the skin 3 (three) times a day. 3 Active MOTEGRITY 1 mg tablet Take 1 mg by mouth daily. 4 Active amitriptyline (ELAVIL) 10 MG tablet Take 25 mg by mouth nightly at bedtime. 4 Active atogepant (QULIPTA ORAL) Take by mouth as needed. Active apremilast (OTEZLA) 30 mg tabletIndications :Psoriatic arthritis,Encount er for monitoring certolizumab therapy Take 1 tablet (30 mg total) by mouth 2 (two) times a day. 180 tablet 3 Active Active Problems Problem Noted Date Diagnosed Date De Quervain's tenosynovitis, right 08/19/2024 Assessment & Plan (11/06/2024 12:48 PM EDT): Procedure: After an informed written consent, under sterile conditions using Ethyl chloride spray for local anesthesia I have injected 20 mg Kenalog and 0.5 cc 1% Lidocaine into Right thumb flexor tendon sheath uneventfully. Details of post-procedure care were explained to the patient in the office and given in writing. Provider: Georgia Paniagua MD Patient: Yumiko Rodgers : 1955 Date: 11/06/2024 Assessment & Plan (08/19/2024 6:44 PM EDT): I provided her with a pamphlet on exercises that I asked her to do after using warm packs. She has detailed instructions with pictures on it in patient portal. I also provided her with formal OT referral. If no improvement with above strategies may need to consider local steroid injection. Gastroesophageal reflux disease without esophagi tis 04/22/2024 Assessment & Plan (08/19/2024 10:44 AM EDT): Avoid late, large, spicy meals. Keep headboard elevated at 45 angle for nighttime. Assessment & Plan (04/22/2024 10:18 AM EST): Avoid late, large, spicy meals. Keep headboard elevated at 45 angle for nighttime. Encounter for monitoring certolizumab therapy Assessment & Plan (08/19/2024 10:44 AM EDT): Monitor for any signs of infection or injection site reactions. Hold administration if feeling sick, running fever or taking antibiotics. Complete entire course of antibiotic and wait at least 48 hours after last dose of antibiotic to make sure that infection does not recur before administering every 28 days subcutaneous Cimzia. Make sure to inform any new DAMEON SANTOS [employer]IED [employer] about chronic immunosuppression with Cimzia particularly in emergency situations. Assessment & Plan (04/22/2024 10:18 AM EST): Monitor for any signs of infection or injection site reactions. Hold administration if feeling sick, running fever or taking antibiotics. Complete entire course of antibiotic and wait at least 48 hours after last dose of antibiotic to make sure that infection does not recur before administering every 28 days subcutaneous Cimzia. Make sure to inform any new DAMEON SANTOS C[employer]IED [employer] about chronic immunosuppression with Cimzia particularly in emergency situations. Assessment & Plan (12/21/2023 9:38 AM EDT): Monitor for any signs of infection or injection site reactions. Hold administration if feeling sick, running fever or taking antibiotics. Complete entire course of antibiotic and wait at least 48 hours after last dose of antibiotic to make sure that infection does not recur before administering every 28 days subcutaneous Cimzia. Make sure to inform any new DAMEON SANTOS NP about chronic immunosuppression with Cimzia particularly in emergency situations. Assessment & Plan (06/21/2023 9:43 AM EDT): Monitor for any signs of infection or injection site reactions. Hold administration if feeling sick, running fever or taking antibiotics. Complete entire course of antibiotic and wait at least 48 hours after last dose of antibiotic to make sure that infection does not recur before administering every 28 days subcutaneous Cimzia. Make sure to inform any new DAMEON SANTOS NP about chronic immunosuppression with Cimzia particularly in emergency situations. Assessment & Plan (01/20/2023 11:20 AM EST): Monitor for any signs of infection or injection site reactions. Hold administration if feeling sick, running fever or taking antibiotics. Complete entire course of antibiotic and wait at least 48 hours after last dose of antibiotic to make sure that infection does not recur before administering every 28 days subcutaneous Cimzia. Make sure to inform any new DAMEON SANTOS NP about chronic immunosuppression with Cimzia particularly in emergency situations. Assessment & Plan (09/21/2022 11:59 AM EDT): Monitor for any signs of infection or injection site reactions. Hold administration if feeling sick, running fever or taking antibiotics. Complete entire course of antibiotic and wait at least 48 hours after last dose of antibiotic to make sure that infection does not recur before administering every 28 days subcutaneous Cimzia. Make sure to inform any new DAMEON SANTOS, CERTIFIED [employer]ER about chronic immunosuppression with Cimzia particularly in emergency situations. Assessment & Plan (06/09/2022 5:26 PM EDT): Monitor for any signs of infection or injection site reactions. Hold administration if feeling sick, running fever or taking antibiotics. Complete entire course of antibiotic and wait at least 48 hours after last dose of antibiotic to make sure that infection does not recur before administering every 28 days subcutaneous Cimzia. Make sure to inform any new DAMEON SANTOS, CERTIFIED [employer]ILD[employer] ENG[employer] about chronic immunosuppression with Cimzia particularly in emergency situations. Postmenopausal 02/22/2022 Assessment & Plan (02/22/2022 11:59 AM EST): Fall and fracture prevention strategies. Daily weightbearing exercises. Proper calcium and vitamin D supplementation. She is due for BMD at [facility] on 01/28/2022. NSAID long-term use 01/27/2022 Assessment & Plan (08/19/2024 10:44 AM EDT): Take the lowest dose, with least frequency, for shortest time. Remember to take it always with food. Favor topical over oral preparations. Assessment & Plan (12/21/2023 9:38 AM EDT): Take the lowest dose, with least frequency, for shortest time. Remember to take it always with food. Favor topical over oral preparations. Assessment & Plan (06/21/2023 9:43 AM EDT): Take the lowest dose, with least frequency, for shortest time. Remember to take it always with food. Favor topical over oral preparations. Assessment & Plan (01/20/2023 11:21 AM EST): Take the lowest dose, with least frequency, for shortest time. Remember to take it always with food. Favor topical over oral preparations. Assessment & Plan (09/21/2022 11:46 AM EDT): Take the lowest dose, with least frequency, for shortest time. Remember to take it always with food. Favor topical over oral preparations. Assessment & Plan (06/09/2022 5:25 PM EDT): Take the lowest dose, with least frequency, for shortest time. Remember to take it always with food. Favor topical over oral preparations. I have educated her not to take together Advil and Mobic due to markedly increased risk of side effects without notable therapeutic effect. Assessment & Plan (01/27/2022 10:42 AM EST): Take the lowest dose, with least frequency, for shortest time. Remember to take it always with food. Favor topical over oral preparations. Type 2 diabetes mellitus, wi th long-term current use of insulin 07/12/2021 Assessment & Plan (08/19/2024 10:45 AM EDT): Continue close follow-up with her diabetic team and aim at optimal glucose control Assessment & Plan (04/22/2024 10:40 AM EST): Continue close follow-up with her diabetic team and aim at optimal glucose control Assessment & Plan (07/12/2021 10:10 AM EDT): Continue watchful diet avoiding concentrated sugars. Proper hydration. Monitor blood glucose at least twice daily and follow closely with maintenance inspector and PCP as scheduled. Muscle spasm 08/20/2020 Assessment & Plan (09/21/2022 12:43 PM EDT): Keep well-hydrated: 6-8 glasses (8 ounces each) of fluids daily. Well-balanced nutritionally diet-rich in electrolytes, vitamins, micro and ultra elements. She may carefully try iron and magnesium rich diet. Gentle, regular stretching, massage and ROM exercises. Assessment & Plan (08/25/2020 10:20 AM EDT): Keep well-hydrated: 6-8 glasses (8 ounces each) of fluids daily. Well-balanced nutritionally diet-rich in electrolytes, vitamins, micro and ultra elements. Gentle, regular stretching, massage and ROM exercises. Vitamin D insufficiency 04/23/2020 Assessment & Plan (12/14/2020 10:02 AM EDT): Continue weekly vitamin D 2000 units daily till the end of May 2021. Assessment & Plan (2020 9:40 PM EST): Continue weekly vitamin D 50,000 units every at least till the end of May 2020. Psoriatic arthritis 01/23/2020 Assessment & Plan (08/19/2024 10:43 AM EDT): Clinically and laboratory lopez appears stable on current regimen. Get monitoring labs prior to next visit in 4 months-standing orders in [facility]. Carefully continue weekly subcutaneous Cimzia + twice daily Otezla 30 mg. Gentle, regular exercise routine preceded by warm pack or warm shower. Avoid sick contacts, falls, injuries, overuse. Joint protection, energy conservation. Carefully use topical cream versus patch to most affected region 2-3 times daily and if necessary at bedtime. She no longer takes Mobic and Advil together due to multiplying risk of side effect without significant therapeutic benefit as instructed on previous visit. She was able to read use frequency of meloxicam to once a week every Monday usually with supper Assessment & Plan (04/22/2024 10:17 AM EST): Clinically and laboratory lopez appears stable on current regimen. Get monitoring labs prior to next visit in 4 months-standing orders in [facility]. Carefully continue weekly subcutaneous Cimzia + twice daily Otezla 30 mg. Gentle, regular exercise routine preceded by warm pack or warm shower. Avoid sick contacts, falls, injuries, overuse. Joint protection, energy conservation. Carefully use topical cream versus patch to most affected region 2-3 times daily and if necessary at bedtime. She no longer takes Mobic and Advil together due to multiplying risk of side effect without significant therapeutic benefit as instructed on previous visit. She was able to read use frequency of meloxicam to once a week every Monday usually with supper Assessment & Plan (12/21/2023 10:00 AM EDT): Clinically and laboratory lopez appears stable on current regimen. Get monitoring labs prior to next visit in 4 months-standing orders in [facility]. Carefully continue weekly subcutaneous Cimzia + twice daily Otezla 30 mg. Gentle, regular exercise routine preceded by warm pack or warm shower. Avoid sick contacts, falls, injuries, overuse. Joint protection, energy conservation. Carefully use topical cream versus patch to most affected region 2-3 times daily and if necessary at bedtime. She no longer takes Mobic and Advil together due to multiplying risk of side effect without significant therapeutic benefit as instructed on previous visit. She was able to read use frequency of meloxicam to once a week every Monday usually with supper Assessment & Plan (06/21/2023 9:57 AM EDT): Clinically and laboratory lopez appears stable on current regimen. Get monitoring labs prior to next visit in 6 months-standing orders in [facility]. Carefully continue weekly subcutaneous Cimzia + twice daily Otezla 30 mg. Gentle, regular exercise routine preceded by warm pack or warm shower. Avoid sick contacts, falls, injuries, overuse. Joint protection, energy conservation. Carefully use topical cream versus patch to most affected region 2-3 times daily and if necessary at bedtime. She no longer takes Mobic and Advil together due to multiplying risk of side effect without significant therapeutic benefit as instructed on previous visit. Try to reduce frequency of meloxicam to every other day and if possible hold it for a few days at the time as tolerated. Assessment & Plan (01/20/2023 11:20 AM EST): Get monitoring labs prior to next visit in 4 months-standing orders in [facility]. Carefully continue weekly subcutaneous Cimzia + twice daily Otezla 30 mg. Gentle, regular exercise routine preceded by warm pack or warm shower. Avoid sick contacts, falls, injuries, overuse. Joint protection, energy conservation. Carefully use topical cream versus patch to most affected region 2-3 times daily and if necessary at bedtime. She no longer takes Mobic and Advil together due to multiplying risk of side effect without significant therapeutic benefit as instructed on previous visit. Assessment & Plan (09/21/2022 12:39 PM EDT): Get monitoring labs prior to next visit in 4 months-standing orders in [facility]. Carefully continue weekly subcutaneous Cimzia + twice daily Otezla 30 mg. Gentle, regular exercise routine preceded by warm pack or warm shower. Avoid sick contacts, falls, injuries, overuse. Joint protection, energy conservation. Carefully use topical cream versus patch to most affected region 2-3 times daily and if necessary at bedtime. She no longer takes Mobic and Advil together due to multiplying risk of side effect without significant therapeutic benefit as instructed on previous visit. Assessment & Plan (06/09/2022 5:22 PM EDT): Get monitoring labs prior to next visit in 3 months-standing orders in [facility]. Carefully continue monthly subcutaneous Cimzia + twice daily Otezla 30 mg. Gentle, regular exercise routine preceded by warm pack or warm shower. Avoid sick contacts, falls, injuries, overuse. Joint protection, energy conservation. Carefully use topical cream versus patch to most affected region 2-3 times daily and if necessary at bedtime. I educated her to avoid taking Mobic and Advil together due to multiplying risk of side effect without significant therapeutic benefit. Assessment & Plan (01/27/2022 10:37 AM EST): Get monitoring labs prior to next visit in 3 months-standing orders in [facility]. Carefully continue weekly subcutaneous Humira every Monday+ twice daily Otezla 30 mg. New prescription for Humira every 7 days sent to her pharmacy for approval again today Gentle, regular exercise routine preceded by warm pack or warm shower. Avoid sick contacts, falls, injuries, overuse. Joint protection, energy conservation. Carefully use topical cream versus patch to most affected region 2-3 times daily and if necessary at bedtime. She is interested in exploring other therapeutic options to Humira understanding that there is no guarantee that any of those options would be better in controlling her disease and affordable. She can consider oral Xeljanz vs injectable Orencia vs Simponi-pamphlets provided to read and write her questions for discussion at next visit. For how she decided to continue on current regimen. Assessment & Plan (10/20/2021 9:01 AM EDT): Get monitoring labs prior to next visit in 3 months-standing orders in [facility]. Carefully continue weekly subcutaneous Humira every Monday+ twice daily Otezla 30 mg. New prescription for Humira every 7 days sent to her pharmacy for approval again today Gentle, regular exercise routine preceded by warm pack or warm shower. Avoid sick contacts, falls, injuries, overuse. Joint protection, energy conservation. Carefully use topical cream versus patch to most affected region 2-3 times daily and if necessary at bedtime. She is interested in exploring other therapeutic options to Humira understanding that there is no guarantee that any of those options would be better in controlling her disease and affordable. She can consider oral Xeljanz vs injectable Orencia vs Simponi-pamphlets provided to read and write her questions for discussion at next visit. For how she decided to continue on current regimen. Assessment & Plan (07/25/2021 5:54 PM EDT): Get monitoring labs today. Carefully continue weekly subcutaneous Humira every Monday+ twice daily Otezla 30 mg Gentle, regular exercise routine preceded by warm pack or warm shower. Avoid sick contacts, falls, injuries, overuse. Joint protection, energy conservation. Carefully use topical cream versus patch to most affected region 2-3 times daily and if necessary at bedtime. She is interested in exploring other therapeutic options to Humira understanding that there is no guarantee that any of those options would be better in controlling her disease and affordable. She can consider oral Xeljanz vs injectable Orencia vs Simponi-pamphlets provided to read and write her questions for discussion at next visit. For how she decided to continue on current regimen. Assessment & Plan (04/18/2021 3:34 PM EST): Get monitoring labs today. Carefully continue weekly subcutaneous Humira every Monday+ twice daily Otezla 30 mg Gentle, regular exercise routine preceded by warm pack or warm shower. Avoid sick contacts, falls, injuries, overuse. Joint protection, energy conservation. Carefully use topical cream versus patch to most affected region 2-3 times daily and if necessary at bedtime. She is interested in exploring other therapeutic options to Humira understanding that there is no guarantee that any of those options would be better in controlling her disease and affordable. She can consider oral Xeljanz vs injectable Orencia vs Simponi-pamphlets provided to read and write her questions for discussion at next visit. On her request I filled application for disabled [employer] placard-see details in media section of [employer] with today's date. Assessment & Plan (12/14/2020 10:00 AM EDT): Get monitoring labs today. Carefully continue weekly subcutaneous Humira every Kiran, twice daily Otezla 30 mg and meloxicam 15 mg daily with food. Gentle, regular exercise routine preceded by warm pack or warm shower. Avoid sick contacts, falls, injuries, overuse. Joint protection, energy conservation. Carefully use topical cream versus patch to most affected region 2-3 times daily and if necessary at bedtime. Try to reduce frequency of meloxicam as tolerated to the lowest necessary for the shortest period of time. She is interested in exploring other therapeutic options to Valeria understanding that there is no guarantee that any of those options would be better in controlling her disease and affordable. She can consider oral Xeljanz vs injectable Orencia vs Simponi-pamphlets provided to read and write her questions for discussion at next visit. Assessment & Plan (08/25/2020 10:18 AM EDT): Get monitoring labs today. Carefully continue weekly subcutaneous Humira every Kiran, twice daily Otezla 30 mg and meloxicam 15 mg daily with food. Gentle, regular exercise routine preceded by warm pack or warm shower. Avoid sick contacts, falls, injuries, overuse. Joint protection, energy conservation. Carefully use topical cream versus patch to most affected region 2-3 times daily and if necessary at bedtime. Try to reduce frequency of meloxicam as tolerated to the lowest necessary for the shortest period of time. She is interested in exploring other therapeutic options to Valeria understanding that there is no guarantee that any of those options would be better in controlling her disease and affordable. She can consider oral Xeljanz vs injectable Orencia vs Simponi-pamphlets provided to read and write her questions for discussion at next visit. Assessment & Plan (2020 9:46 PM EST): Get monitoring labs today. Carefully continue weekly subcutaneous Humira and meloxicam 15 mg daily. Gentle, regular exercise routine preceded by warm pack or warm shower. Avoid sick contacts, falls, injuries, overuse. Joint protection, energy conservation. Carefully use topical cream versus patch to most affected region 2-3 times daily and if necessary at bedtime. Try to reduce frequency of meloxicam as tolerated to the lowest necessary for the shortest period of time. She is interested in exploring other therapeutic options to Humira understanding that there is no guarantee that any of those options would be better in controlling her disease and affordable. She can consider oral Xeljanz vs injectable Orencia vs Simponi. Assessment & Plan (01/26/2020 4:09 PM EST): Get monitoring labs today. Carefully continue weekly subcutaneous Humira and meloxicam 15 mg daily. Gentle, regular exercise routine preceded by warm pack or warm shower. Avoid sick contacts, falls, injuries, overuse. Joint protection, energy conservation. Carefully use topical cream versus patch to most affected region 2-3 times daily and if necessary at bedtime. Try to reduce frequency of meloxicam as tolerated to the lowest necessary for the shortest period of time. Hypertension 01/23/2020 Assessment & Plan (01/26/2020 4:06 PM EST): Continue antihypertensive medications exactly as prescribed and follow closely with prescribing physician. Calcific tendonitis of right shoulder 01/23/2020 Assessment & Plan (01/26/2020 4:12 PM EST): Formal physical therapy may be providing additional benefit specially with addition of therapeutic ultrasound and/or iontophoresis.. If not better after 3-4 weeks or worse may need to reconsider careful steroid injection around calcific bicipital tendon enthesis. Primary osteoarthritis involving multiple joints 01/23/2020 Assessment & Plan (08/19/2024 10:44 AM EDT): Joint protection, energy conservation. Gentle, regular exercise routine. Avoid falls, injuries, overuse. Keep body weight in ideal range for her height. I congratulated her on 6 pounds weight loss from 199 in June 2023 down to 193 today. She may benefit from topical cream such as Arnica, Biofreeze, Aspercreme versus medicated patches such as salonpas, icy hot patch 2-3 times daily and if necessary at bedtime x 3 weeks. Assessment & Plan (04/22/2024 10:17 AM EST): Joint protection, energy conservation. Gentle, regular exercise routine. Avoid falls, injuries, overuse. Keep body weight in ideal range for her height. I congratulated her on 6 pounds weight loss from 199 in June 2023 down to 193 today. She may benefit from topical cream such as Arnica, Biofreeze, Aspercreme versus medicated patches such as salonpas, icy hot patch 2-3 times daily and if necessary at bedtime x 3 weeks. Assessment & Plan (12/21/2023 10:01 AM EDT): Joint protection, energy conservation. Gentle, regular exercise routine. Avoid falls, injuries, overuse. Keep body weight in ideal range for her height. I congratulated her on 6 pounds weight loss from 199 in June 2023 down to 193 today. She may benefit from topical cream such as Arnica, Biofreeze, Aspercreme versus medicated patches such as salonpas, icy hot patch 2-3 times daily and if necessary at bedtime x 3 weeks. Assessment & Plan (06/21/2023 9:43 AM EDT): Joint protection, energy conservation. Gentle, regular exercise routine. Avoid falls, injuries, overuse. Keep body weight in ideal range for his height. He may benefit from topical cream such as Arnica, Biofreeze, Aspercreme versus medicated patches such as salonpas, icy hot patch 2-3 times daily and if necessary at bedtime x 3 weeks. Assessment & Plan (01/20/2023 11:20 AM EST): Joint protection, energy conservation. Gentle, regular exercise routine. Avoid falls, injuries, overuse. Keep body weight in ideal range for his height. He may benefit from topical cream such as Arnica, Biofreeze, Aspercreme versus medicated patches such as salonpas, icy hot patch 2-3 times daily and if necessary at bedtime x 3 weeks. Assessment & Plan (09/21/2022 12:00 PM EDT): Joint protection, energy conservation. Gentle, regular exercise routine. Avoid falls, injuries, overuse. Keep body weight in ideal range for his height. He may benefit from topical cream such as Arnica, Biofreeze, Aspercreme versus medicated patches such as salonpas, icy hot patch 2-3 times daily and if necessary at bedtime x 3 weeks. Assessment & Plan (05/27/2022 11:01 AM EDT): Joint protection, energy conservation. Gentle, regular exercise routine. Avoid falls, injuries, overuse. Keep body weight in ideal range for her height. She may benefit from topical cream such as Arnica, Biofreeze, Aspercreme versus medicated patches such as salonpas, icy hot patch 2-3 times daily and if necessary at bedtime x 3 weeks. Assessment & Plan (01/27/2022 10:37 AM EST): Joint protection, energy conservation. Gentle, regular exercise routine. Avoid falls, injuries, overuse. Keep body weight in ideal range for her height. She may benefit from topical cream such as Arnica, Biofreeze, Aspercreme versus medicated patches such as salonpas, icy hot patch 2-3 times daily and if necessary at bedtime x 3 weeks. Assessment & Plan (10/20/2021 8:35 AM EDT): Joint protection, energy conservation. Gentle, regular exercise routine. Avoid falls, injuries, overuse. Keep body weight in ideal range for her height. She may benefit from topical cream such as Arnica, Biofreeze, Aspercreme versus medicated patches such as salonpas, icy hot patch 2-3 times daily and if necessary at bedtime x 3 weeks. Assessment & Plan (07/12/2021 9:59 AM EDT): Joint protection, energy conservation. Gentle, regular exercise routine. Avoid falls, injuries, overuse. Keep body weight in ideal range for her height. She may benefit from topical cream such as Arnica, Biofreeze, Aspercreme versus medicated patches such as salonpas, icy hot patch 2-3 times daily and if necessary at bedtime x 3 weeks. Assessment & Plan (04/15/2021 10:14 AM EST): Joint protection, energy conservation. Gentle, regular exercise routine. Avoid falls, injuries, overuse. Keep body weight in ideal range for her height. She may benefit from topical cream such as Arnica, Biofreeze, Aspercreme versus medicated patches such as salonpas, icy hot patch 2-3 times daily and if necessary at bedtime x 3 weeks. Assessment & Plan (12/14/2020 10:01 AM EDT): Joint protection, energy conservation. Gentle, regular exercise routine. Avoid falls, injuries, overuse. Keep body weight in ideal range for her height. She may benefit from topical cream such as Arnica, Biofreeze, Aspercreme versus medicated patches such as salonpas, icy hot patch 2-3 times daily and if necessary at bedtime x 3 weeks. Assessment & Plan (08/20/2020 10:23 AM EDT): Joint protection, energy conservation. Gentle, regular exercise routine. Avoid falls, injuries, overuse. Keep body weight in ideal range for her height. She may benefit from topical cream such as Arnica, Biofreeze, Aspercreme versus medicated patches such as salonpas, icy hot patch 2-3 times daily and if necessary at bedtime x 3 weeks. Assessment & Plan (04/23/2020 10:43 AM EST): Joint protection, energy conservation. Gentle, regular exercise routine. Avoid falls, injuries, overuse. Keep body weight in ideal range for her height. She may benefit from topical cream such as Arnica, Biofreeze, Aspercreme versus medicated patches such as salonpas, icy hot patch 2-3 times daily and if necessary at bedtime x 3 weeks. Assessment & Plan (01/26/2020 4:12 PM EST): Joint protection, energy conservation. Gentle, regular exercise routine. Avoid falls, injuries, overuse. Keep body weight in ideal range for her height. She may benefit from topical cream such as Arnica, Biofreeze, Aspercreme versus medicated patches such as salonpas, icy hot patch 2-3 times daily and if necessary at bedtime x 3 weeks. On statin therapy 01/23/2020 Assessment & Plan (08/19/2024 10:44 AM EDT): Monitor for muscle tenderness, swelling and weakness Assessment & Plan (01/27/2022 10:43 AM EST): Monitor for muscle tenderness, swelling and weakness Assessment & Plan (10/20/2021 8:38 AM EDT): Monitor for muscle tenderness, swelling and weakness Assessment & Plan (08/20/2020 10:23 AM EDT): Monitor for muscle tenderness, swelling and weakness Assessment & Plan (04/23/2020 10:34 AM EST): Monitor for muscle tenderness, swelling and weakness Assessment & Plan (01/26/2020 4:15 PM EST): Monitor for muscle tenderness, swelling and weakness Long-term current use of apremilast 01/23/2020 Assessment & Plan (08/19/2024 10:44 AM EDT): Take exactly as prescribed and follow closely with prescribing shoer as scheduled. Assessment & Plan (04/22/2024 10:17 AM EST): Take exactly as prescribed and follow closely with prescribing shoer as scheduled. Assessment & Plan (12/21/2023 9:38 AM EDT): Take exactly as prescribed and follow closely with prescribing shoer as scheduled. Assessment & Plan (06/21/2023 9:43 AM EDT): Take exactly as prescribed and follow closely with prescribing shoer as scheduled. Assessment & Plan (01/20/2023 11:21 AM EST): Take exactly as prescribed and follow closely with prescribing shoer as scheduled. Assessment & Plan (09/21/2022 12:41 PM EDT): Take exactly as prescribed and follow closely with prescribing shoer as scheduled. Assessment & Plan (05/27/2022 10:57 AM EDT): Take exactly as prescribed and follow closely with prescribing shoer as scheduled. Assessment & Plan (01/27/2022 10:41 AM EST): Take exactly as prescribed and follow closely with prescribing shoer as scheduled. Assessment & Plan (10/20/2021 8:37 AM EDT): Take exactly as prescribed and follow closely with prescribing shoer as scheduled. Assessment & Plan (07/12/2021 10:10 AM EDT): Take exactly as prescribed and follow closely with prescribing shoer as scheduled. Assessment & Plan (04/15/2021 10:15 AM EST): Take exactly as prescribed and follow closely with prescribing shoer as scheduled. Assessment & Plan (12/14/2020 10:02 AM EDT): Take exactly as prescribed and follow closely with prescribing shoer as scheduled. Assessment & Plan (08/20/2020 10:23 AM EDT): Take exactly as prescribed and follow closely with prescribing shoer as scheduled. Assessment & Plan (2020 9:47 PM EST): Take exactly as prescribed and follow closely with prescribing shoer as scheduled. Assessment & Plan (01/26/2020 4:17 PM EST): Take exactly as prescribed and follow closely with prescribing shoer as scheduled. (Last visit in September 2019-typically seen every 6 months) Other insomnia 01/23/2020 Assessment & Plan (04/15/2021 10:23 AM EST): Principles of sleep hygiene reviewed in details and strongly encouraged. Listen to relaxation tapes every time prior to going to bed and anytime she wakes up. Consider melatonin 3-5 mg nightly if not better. Assessment & Plan (04/23/2020 10:44 AM EST): Principles of sleep hygiene reviewed in details and strongly encouraged. Listen to relaxation tapes every time prior to going to bed and anytime she wakes up. Consider melatonin 3-5 mg nightly if not better. Assessment & Plan (01/26/2020 4:13 PM EST): Principles of sleep hygiene reviewed in details and strongly encouraged. Listen to relaxation tapes every time prior to going to bed and anytime she wakes up. Consider melatonin 3-5 mg nightly if not better. Resolved Problems Problem Noted Date Diagnosed Date Resolved Date On statin therapy 04/22/2024 08/19/2024 Assessment & Plan (04/22/2024 10:17 AM EST): Monitor for muscle tenderness, swelling and weakness Type 2 diabetes mellitus wit h hyperglycemia, without long-term current use of insulin 04/15/2021 04/22/2024 Assessment & Plan (04/22/2024 10:09 AM EST): Continue watchful diet avoiding concentrated sugars. Proper hydration. Monitor blood glucose at least twice daily and follow closely with maintenance inspector and PCP as scheduled. Assessment & Plan (12/21/2023 9:37 AM EDT): Continue watchful diet avoiding concentrated sugars. Proper hydration. Monitor blood glucose at least twice daily and follow closely with maintenance inspector and PCP as scheduled. Assessment & Plan (10/20/2021 8:42 AM EDT): Continue watchful diet avoiding concentrated sugars. Proper hydration. Monitor blood glucose at least twice daily and follow closely with maintenance inspector and PCP as scheduled. Assessment & Plan (04/18/2021 3:31 PM EST): Continue watchful diet avoiding concentrated sugars. Proper hydration. Monitor blood glucose at least twice daily and follow closely with maintenance inspector and PCP as scheduled. Diabetes type 2, controlled 01/23/2020 08/19/2024 Assessment & Plan (08/19/2024 10:44 AM EDT): Remain on current regimen of Januvia, glipizide and Metformin as prescribed. Follow closely with prescribing physician exactly as scheduled. Aim at BS 90-120 mg %. Assessment & Plan (12/15/2020 8:46 PM EDT): Remain on current regimen of Januvia, glipizide and Metformin as prescribed. Follow closely with prescribing physician exactly as scheduled. Aim at BS 90-120 mg %. Assessment & Plan (08/20/2020 10:24 AM EDT): Remain on current regimen of Januvia, glipizide and Metformin as prescribed. Follow closely with prescribing physician exactly as scheduled. Aim at BS 90-120 mg %. Assessment & Plan (04/23/2020 10:45 AM EST): Remain on current regimen of Januvia, glipizide and Metformin as prescribed. Follow closely with prescribing physician exactly as scheduled. Aim at BS 90-120 mg %. Assessment & Plan (01/26/2020 4:07 PM EST): Remain on current regimen of Januvia, glipizide and Metformin as prescribed. Follow closely with prescribing physician exactly as scheduled. Aim at BS 90-120 mg %. Adalimumab (Humira) long-term use 01/23/2020 05/27/2022 Assessment & Plan (01/27/2022 10:41 AM EST): Continue weekly subcutaneous injections every Monday as long as she does not have any fevers, chills. Hold Humira also if feeling sick or taking antibiotics. Complete entire course of antibiotic and wait at least 48 hours before restarting Humira on its usual weekly schedule every Monday. Make sure to inform any new DAMEON SANTOS CERTIFIED [employer]ILD[employer]INEER about chronic immunosuppression with Humira particularly in emergency situations. Assessment & Plan (10/20/2021 8:37 AM EDT): Continue weekly subcutaneous injections every Kiran as long as she does not have any fevers, chills. Hold Humira also if feeling sick or taking antibiotics. Complete entire course of antibiotic and wait at least 48 hours before restarting Humira on its usual weekly schedule every Monday. Make sure to inform any new DAMEON SANTOS NP about chronic immunosuppression with Humira particularly in emergency situations. Assessment & Plan (07/12/2021 10:09 AM EDT): Continue weekly subcutaneous injections every Kiran as long as she does not have any fevers, chills. Hold Humira also if feeling sick or taking antibiotics. Complete entire course of antibiotic and wait at least 48 hours before restarting Humira on its usual weekly schedule every Monday. Make sure to inform any new DAMEON SANTOS NP about chronic immunosuppression with Humira particularly in emergency situations. Assessment & Plan (04/15/2021 10:15 AM EST): Continue weekly subcutaneous injections every Kiran as long as she does not have any fevers, chills. Hold Humira also if feeling sick or taking antibiotics. Complete entire course of antibiotic and wait at least 48 hours before restarting Humira on its usual weekly schedule every Monday. Make sure to inform any new DAMEON SANTOS NP about chronic immunosuppression with Humira particularly in emergency situations. Assessment & Plan (12/14/2020 10:05 AM EDT): Continue weekly subcutaneous injections every Kiran as long as she does not have any fevers, chills. Hold Humira also if feeling sick or taking antibiotics. Complete entire course of antibiotic and wait at least 48 hours before restarting Humira on its usual weekly schedule every Monday. Make sure to inform any new DAMEON SANTOS CERTIFIED [employer] BUILDING ENGINEER about chronic immunosuppression with Humira particularly in emergency situations. Assessment & Plan (08/25/2020 10:19 AM EDT): Continue weekly subcutaneous injections every Monday as long as she does not have any fevers, chills. Hold Humira also if feeling sick or taking antibiotics. Complete entire course of antibiotic and wait at least 48 hours before restarting Humira on its usual weekly schedule every Monday. Make sure to inform any new MD PA, CERTIFIED [employer] BUILDING ENGINEER about chronic immunosuppression with Humira particularly in emergency situations. Assessment & Plan (04/23/2020 10:45 AM EST): Continue weekly subcutaneous injections every as long as she does not have any fevers, chills. Hold Humira also if feeling sick or taking antibiotics. Complete entire course of antibiotic and wait at least 48 hours before restarting Humira on its usual weekly schedule every . Make sure to inform any new DAMEON SANTOS, CERTIFIED GRE[employer] BUILDING ENGINEER about chronic immunosuppression with Humira particularly in emergency situations. Assessment & Plan (01/26/2020 4:17 PM EST): Continue weekly subcutaneous injections every as long as she does not have any fevers, chills. Hold Humira also if feeling sick or taking antibiotics. Complete entire course of antibiotic and wait at least 48 hours before restarting Humira on its usual weekly schedule every . Make sure to inform any new DAMEON SANTOS, CERTIFIED GRE[employer] BUILDING ENGINEER about chronic immunosuppression with Humira particularly in emergency situations. Encounters Date Type Department Care Team Description 11/19/2024 8:45 AM EDT Office Visit [address] [place] [address] Georgia Paniagua MD McCullough, Sheila OT TendinitisCastillo's (Primary Dx) 11/15/2024 8:45 AM EDT Office Visit [facility] [address] [place] [address] Georgia Paniagua MD McCullough, Sheila OT Tendinitis, Castillo's (Primary Dx) 11/12/2024 9:30 AM EDT Office Visit [facility] [address] [place] [address] Georgia Paniagua MD McCullough, Sheila, OT Tendinitis, de Quervain's (Primary Dx) 11/06/2024 12:00 PM EDT Office Visit [facility] [address] [place] [address] Georgia Paniagua MD De Quervain's tenosynovitis, right (Primary Dx) 11/04/2024 9:00 AM EDT Office Visit [facility] [address] [place] [address] Georgia Paniagua MD McCullough, Sheila, OT Tendinitis, de Quervain's (Primary Dx) 11/04/2024 Telephone [facility] [address] [place] [address] Georgia Paniagua MD 10/28/2024 9:45 AM EDT Office Visit [facility] [address] [place] [address] Georgia Paniagua MD McCullough, Sheila, OT Tendinitis, de Quervain's (Primary Dx) 10/25/2024 8:45 AM EDT Office Visit [facility] [address] [place] [address] Georgia Paniagua MD McCullough, Sheila, OT Tendinitis, de Quervain's (Primary Dx) 10/17/2024 8:00 AM EDT Office Visit [facility] [address] [place] [address] Georgia Paniagua MD McCullough, Sheila, OT Tendinitis, de Quervain's (Primary Dx) 10/14/2024 9:45 AM EDT Office Visit [facility] [address] [place] [address] KlichGeorgia Gonzalez MD McCullough, Sheila, OT Tendinitis, de Quervain's (Primary Dx) 10/11/2024 11:00 AM EDT Office Visit [address] [place] [address] Georgia Paniagua MD McCullough, Sheila, OT Tendinitis, de Quervain's (Primary Dx) 10/09/2024 2:30 PM EDT Office Visit [facility] [address] [place] [address] Georgia Paniagua MD McCullough, Sheila, OT Tendinitis, de Quervain's (Primary Dx) 10/04/2024 10:15 AM EDT Office Visit [address] [place] [address] Georgia Paniagua MD McCullough, Sheila, OT Tendinitis, de Quervain's (Primary Dx) 10/01/2024 10:15 AM EDT Office Visit [address] [place] [address] Georgia Paniagua MD McCullough, Sheila, OT Tendinitis, de Quervain's (Primary Dx) 09/25/2024 10:30 AM EDT Office Visit [address] [place] [address] Georgia Paniagua MD McCullough, Sheila, OT Tendinitis, de Quervain's (Primary Dx) 09/23/2024 11:15 AM EDT Office Visit [address] [place] [address] Georgia Paniagua MD McCullough, Sheila, OT Tendinitis, de Quervain's (Primary Dx) 09/20/2024 10:15 AM EDT Office Visit [address] [place] [address] Georgia Paniagua MD McCullough, Sheila, OT Tendinitis, de Quervain's (Primary Dx) 09/16/2024 10:30 AM EDT Office Visit [facility] [address] [place] [address] Georgia Paniagua MD McCullough, Sheila, OT Tendinitis, de Quervain's (Primary Dx) 09/11/2024 10:30 AM EDT Office Visit [facility] [address] [place] [address] Georgia Paniagua MD McCullough, Sheila, OT Tendinitis, de Quervain's (Primary Dx) 09/09/2024 10:30 AM EDT Office Visit [facility] [address] [place] [address] Georgia Paniagua MD McCullough, Sheila, OT Tendinitis, de Quervain's (Primary Dx) 09/05/2024 Orders Only [facility] [address] [place] [address] Chary Palacios MA Psoriatic arthritis; Encounter for monitoring certolizumab therapy; Long-term current use of apremilast; NSAID long-term use 09/04/2024 1:45 PM EDT Office Visit [facility] [address] [place] [address] Georgia Paniagua MD McCullough, Sheila, OT Tendinitis, de Quervain's (Primary Dx); Arthritis 09/04/2024 Plan of Care Documentation [facility] [address] [place] [address] from Last 3 Months Immunizations Immunization Administration Dates Next Due COVID-19 (Pre-01/02) Camilo Vaccine, [id number], P F 05/17/2020 INFLUENZA, SPLIT VIRUS, TRIVALENT W/ PRESERVATIV E IM 11/25/2020 Pneumococcal polysaccharide PPSV23 11/20/2019, Zoster recombinant 01/21/2020,11/20/2019 Family History Medical History Relation Comments Diabetes Father Hyperlipidemia Father Hypertension Father Diabetes Mother Hyperlipidemia Mother Hypertension Mother Psoriatic arthritis Nephew Psoriatic arthritis Niece Relation Status Comments Father Mother Nephew Alive Niece Alive Social History Tobacco Use Types Packs/Day Years Used Date Smoking Tobacco: Never Smokeless Tobacco: Never Tobacco Cessation:Counseling Given: Not Answered Alcohol Use Standard Drinks/Week Comments Not Currently [...] on file Sexual Orientation Not on file Last Filed Vital Signs Vital Sign Reading Time Taken Comments Blood Pressure 128/78 11/06/2024 11:53 AM EDT Pulse 109 11/06/2024 11:53 AM EDT Temperature 36.2 C (97.2 F) 04/23/2020 9:40 AM EST Respiratory Rate - - Oxygen Saturation 97% 11/06/2024 11: 53 AM EDT Inhaled Oxygen Concentration - - Weight 88.4 kg (194 lb 12.8 oz) 025 11:53 AM EDT Height 182.9 cm (6') 11/06/2024 11:53 AM EDT Body Mass Index 26.42 11/06/2024 11:53 AM EDT Plan of Treatment Upcoming Encounters Date Type Department Care Team (Late st Contact Info) Description 12/06/2024 8:45 AM EDT Office Visit [facility] [address] [place] [address] Georgia Paniagua MD [address] [facility], [address] [place] [address] [email or web address] Tammi Morfin, OT [address] [place] [address] [email or web address] 12/10/2024 9:30 AM EDT Office Visit [facility] [address] [place] [address] Georgia Paniagua MD [address] [place] [id number] [email or web address] MorfinTammi conley, OT [address] [place] [address] [email or web address] 12/12/2024 9:30 AM EDT Office Visit [facility] [address] [place] [address] Georgia Paniagua MD [address] [place] [id number] [email or web address] [email or web address] hawkins, OT [address] [place] [address] [email or web address] 12/17/2024 8:45 AM EDT Office Visit [facility] [address] [place] [address] Georgia Paniagua MD [address] [place] [phone] [email or web address] GillMorfinTammi conley, OT [address] [place] [address] [email or web address] 12/20/2024 9:30 AM EDT Office Visit [facility] [address] [place] [address] Georgia Paniagua MD [address] [facility], [address] [address] [email or web address] MorfinTammi conley, OT [address] [place] [address] [email or web address] 12/24/2024 9:30 AM EDT Office Visit [facility] [address] [place] [address] Georgia Paniagua MD [address] [place] [phone] [email or web address] NavjotTammi, OT [address] [place] [address] [email or web address] 12/26/2024 10:30 AM EDT Office Visit [facility] [address] [place] [address] Georgia Paniagua MD [address] [place] [id number] [email or web address] 12/27/2024 10:15 AM EDT Office Visit [facility] [address] [place] [address] Georgia Paniagua MD [address] [address] [email or web address] [email or web address], OT [address] [place] [address] [email or web address] 12/31/2024 9:30 AM EDT Office Visit [facility] [address] [place] [address] Georgia Paniagua MD [address] [place] [phone] [email or web address] [email or web address] conley, OT [address] [place] [address] [email or web address] 01/03/2025 9:30 AM EDT Office Visit [facility] [address] [place] [address] Georgia Paniagua MD [address] [place] [phone] [email or web address] Navjot Tammi, OT [address] [place] [email or web address] 01/07/2025 9:30 AM EDT Office Visit [facility] [address] [place] [address] Georgia Paniagua MD [address] [place] [phone] [email or web address] Tammi Ogden, OT [address] [place] [address] [email or web address] 01/10/2025 9:30 AM EDT Office Visit [facility] [address] [place] [address] Georgia Paniagua MD [address] [place] [phone] [email or web address] Tammi Ogden, OT [address] [place] [address] [email or web address] Health Maintenance Due Date Last Done Comments HEMOGLOBIN A1C 1956 DEPRESSION SCREENING 1968 HEPATITIS C SCREENING 1974 MAMMOGRAM 1996 COLOGUARD 2001 COLONOSCOPY 2001 COLORECTAL CANCER SCREENING 2001 FIT TEST 2001 FOBT 2001 SIGMOIDOSCOPY 2001 VIRTUAL COLONOSCOPY 2001 DIABETIC EYE EXAM 01/23/2020 URINE MICROALBUMIN/CREATININE RATIO 01/23/2020 OSTEOPOROSIS SCREENING INITIAL (ONE-TIME) 2021 PNEUMOCOCCAL VACCINES (50+ years) (3 of 3 - PCV) 12/24/2021 12/24/2020, 11/20/2019, 11/30/2018 INFLUENZA VACCINE (#1) 2024 , 12/21/2022, 12/22/2021, Additional history exists COVID-19 VACCINE ( season) 2024 11/18/2023, 12/21/2022, 11/18/2021, Additional history exists BLOOD PRESSURE 05/09/2025 11/06/2024 Adult Td,Tdap Booster 12/31/2031 12/30/2021 ZOSTER VACCINES Completed 01/21/2020, 11/20/2019 RSV VACCINE Completed 11/03/2022 SMOKING STATUS SCREENING (Once After 26 Yrs) Completed 11/06/2024 HEPATITIS A VACCINES Aged Out No long er eligible based on patient's age to complete this topic HIB VACCINES Aged Out No longer eligi ble based on patient's age to complete this topic MENINGOCOCCAL VACCINES (ACWY) Aged Out No longer eligible based on patient's age to complete this topic MENINGOCOCCAL VACCINES (B) Aged Out N o longer eligible based on patient's age to complete this topic Medical Devices Not on file Procedures Procedure Name Priority Date/Time Associated Diagnosis Comments CBC AND DIFFERENTIAL Routine 09/04/2024 11:42 AM EDT Psoriatic arthritis Encounter for monitoring certolizumab therapy Long-term current use of apremilast NSAID long-term use SEDIMENTATION RATE (ESR) Routine 09/04/2024 11:42 AM EDT Psoriatic arthritis Encounter for monitoring certolizumab therapy Long-term current use of apremilast NSAID long-term use C-REACTIVE PROTEIN Routine 09/04/2024 11 :42 AM EDT Psoriatic arthritis Encounter for monitoring certolizumab therapy Long-term current use of apremilast NSAID long-term use COMPREHENSIVE METABOLIC PANEL Routine 09/04/2024 11:41 AM EDT Psoriatic arthritis Encounter for monitoring certolizumab therapy Long-term current use of apremilast NSAID long-term use from Last 3 Months Results * CBC and differential (09/04/2024 11:42 AM EDT) Blood Georgia Paniagua MD LAB BLOOD ORDERABLES Fin al Result Performing Organization Address [facility] [facility] de Phone Number EXTERNAL NON-INTERFACED REF LAB * Sedimentation rate (ESR) (09/04/2024 11:42 AM EDT) Blood Georgia Paniagua MD LAB BLOOD ORDERABLES Fin al Result Performing Organization Address [facility] de Phone Number EXTERNAL NON-INTERFACED REF LAB * C-Reactive Protein (09/04/2024 11:42 AM EDT) Blood Georgia Paniagua MD LAB BLOOD ORDERABLES Fin al Result Performing Organization Address [facility] de Phone Number EXTERNAL NON-INTERFACED REF LAB * Comprehensive metabolic panel (09/04/2024 11:41 AM EDT) Blood us Georgia Paniagua MD LAB BLOOD ORDERABLES Fin al Result Performing Organization Address [facility] de Phone Number EXTERNAL NON-INTERFACED REF LAB from Last 3 Months Insurance [facility] MEDICARE PART A & B [facility] MEDICARE PART A & B [facility] MEDICARE PART A & B [facility] MEDICARE PART A & B [facility] MEDICARE PART A & B [facility] MEDICARE PART A & B [facility] MEDICARE PART A & B [facility] MEDICARE PART A & B [facility] MEDICARE PART A & B Care Teams Education Administrator Relationship Specialty Start Date End Date Vinod Borjas MD [address] [place] [address] [place] [address] PCP - General Internal Medicine 08/19/24 Additional Source Comments The information contained in this document represents components of the legal health record. It is not the complete legal health record.[facility]
--- OUTSIDE RECORDS SUMMARY | 2024-12-02 09:36 | XMS_ITS | Patient Health Record ---
Author Organization [facility] Address [address] [place] [address] Care Team Providers Care Rubber Flap Tuber Machine Operator Name Role Phone Vinod Borjas MD Primary Care Provider Tiffany Stein Unavailable [phone] Wang Navas Unavailable [phone] Allergies No Known Allergies Results Component Value Reference Range Notes HEMOGLOBIN A1C (GLYCOHEMOGLO BIN) Reviewed date:04/10/2024 08:56:04 AM Interpretation: Performing Lab: Notes/Report: HEMOGLOBIN A1C % (HH) 6.7 Reason For Referral No Information Medications Medication SIG (Take, Route, Frequency, Duration) Notes Start Date End Date Status Cimzia Active HumaLOG Active Extra-Depth Diabetic Shoes with 3 Pair Custom heat-molded multi-density innersoles . 1pair shoes/3sets inserts . .; Duration: 1 year 02/20/2013 Active Omeprazole Active Extra Depth Orthopedic Shoes (1 Pair) with Customized Heat Molded Multidensity Innersoles (3 Pair) as directed Dx: IDDM/Polyneuropathy (E10.42), Hammertoe Foot Deformity (M20.41,M20.42), Preulcerative Skin Lesion(s) (L85.1) 04/10/2024 Active metFORMIN HCl 500 MG 1 tablet with meals Orally Twice a day; Duration: 30 day(s) 1000 mg once a day Not-Taking Amitriptyline HCl Ac tive Doxepin HCl 10 MG 1 capsule at [...] Duration: 10 day(s) 04/13/2015 Not-Taking Cosentyx Not-Taking Methotrexate 2.5 MG 1 tablet Orally Three times a Week; Duration: 30 day(s) Not-Taking Lamisil 250 250 MG [...] day; Duration: 30 day(s) Active Tresiba Active CeleBREX 100 MG 1 capsule Orally Twice a day; Duration: 30 day(s) Not-Taking Immunizations Vaccine Route Administration Date Status Comme nts Influenza Unknown 07/29/2015 Pending Influenza Unknown 02/15/2017 Refused Influenza Unknown 05/24/2017 Refused Influenza Unknown 12/25/2017 Refused Influenza Unknown 09/04/2019 Refused Influenza Unknown 11/25/2020 Administered Influenza Unknown 10/16/2024 Refused Pneumococcal Unknown 11/11/2020 Administered COVID-19 Justin & Justin/Camilo Unknown 11/25/2020 [...] Problem Acquired hammer toe of right foot (4765518124877432 ) Other hammer toe(s) (acquired), right foot (M20.41) Active confirmed Response to treatment, Improvemen t Problem Acquired hammer toe of left foot (2488750493287562 ) Other hammer toe(s) (acquired), left foot (M20.42) Active confirmed Response to treatment, Improvemen t Problem Polyneuropathy due to diabetes mellitus type I (762309520) Type 1 diabetes mellitus with diabetic polyneuropathy (E10.42) Active confirmed Problem Polyneuropathy due to type 2 diabetes mellitus (554396234) Type 2 diabetes mellitus with diabetic polyneuropathy (E11.42) Active confirmed Vital Signs Blood pressure diastolic 65 mm Hg 10/16/2024 Height 0um75mt in 10/16/2024 Blood pressure systolic 120 mm Hg 10/16/2024 Weight 185 lbs 10/16/2024 BMI 25.8 kg/m2 10/16/2024 Procedures Procedure Date Ordered Date Performed Result Body Sit e 35572-MIZLKEY NAIL, 6 OR MORE 04/10/2024 N/A 32121-BBUG SKIN LESIONS, 2 TO 4 04/10/2024 N/A 13860-UVRRBRB NAIL, 6 OR MORE 07/11/2024 N/A 12765-XTHU SKIN LESIONS, 2 TO 4 07/11/2024 N/A Encounters Encounter Location Date Provider Diagnosis [address] [address] 12/06/2023 Wang Navas Tinea unguium B35.1 ; Pain in right toe(s) M79.674 ; Pain in left toe(s) M79.675 ; Type 2 diabetes mellitus with diabetic polyneuropathy E11.42 ; Other hammer toe(s) (acquired), left foot M20.42 ; Other hammer toe(s) (acquired), right foot M20.41 ; Primary osteoarthritis, right ankle and foot M19.071 ; Ingrowing nail L60.0 and Primary osteoarthritis, left ankle and foot M19.[address] [address] 04/10/2024 Tiffany Salas Other hammer toe(s) (acquired), right foot M20.41 ; Other hammer toe(s) (acquired), left foot M20.42 ; Type 2 diabetes mellitus with diabetic polyneuropathy E11.42 and Tinea unguium B35.[address] [address] 07/11/2024 Tiffany Salas Type 2 diabetes mellitus with diabetic polyneuropathy E11.42 ; Tinea unguium B35.1 ; Other hammer toe(s) (acquired), right foot M20.41 and Other hammer toe(s) (acquired), left foot M20.[address] [address] 10/16/2024 Tiffany Salas Type 2 diabetes mellitus [...] E11.42) 07/11/2024 Tinea unguium (ICD-10 - B35.1) 10/16/2024 Type 2 diabetes mellitus with diabetic polyneuropathy (ICD-10 - E11.42) 10/16/2024 Tinea unguium (ICD-10 - B35.1) 07/11/2024 Other [...] Treatment Pending Test Test Name Order Date 00081-MSRTCRW NAIL, 6 OR MORE 02/20/2013 74338-UUYDZZY NAIL, 6 OR MORE 05/29/2013 95746-MEUINRG NAIL, 6 OR MORE 08/28/2013 51282-GAGYWQD NAIL, 6 OR MORE 12/11/2013 26408-YKHUQFD NAIL, 6 OR MORE 05/07/2014 88556-RRDMWJI NAIL, 6 OR MORE 08/06/2014 93064-NZFQJPX NAIL, 6 OR MORE 04/13/2015 46539-TKBGQLL NAIL, 6 OR MORE 12/31/2014 30814-UERBGZK NAIL, 6 OR MORE 07/29/2015 89988-MDUQZWP NAIL, 6 OR MORE 10/28/2015 83570-LAEVPNH NAIL, 6 OR MORE 01/27/2016 26324-BNTQFWB NAIL, 6 OR MORE 04/27/2016 65454-CTVVCQL NAIL, 6 OR MORE 11/02/2016 61386-LVWYGLU NAIL, 6 OR MORE 02/15/2017 59465-JDUNCCO NAIL, 6 OR MORE 05/24/2017 75057-NQAKKWH NAIL, 6 OR MORE 08/30/2017 21622-BUZSBIS NAIL, 6 OR MORE 12/25/2017 41018-SFZVMDL NAIL, 6 OR MORE 04/10/2024 13584-GTMLQTF NAIL, 6 OR MORE 07/11/2024 15132-Jqjxunyb Plate 08/30/2017 29504-Xwdgnmet Plate 11/02/2016 09987-Cpnidjtb Plate 12/31/2014 51473-Bygkuwtq Plate 04/13/2015 29149-Jnozbxym Plate 08/06/2014 46921-Slvvhloa Plate 05/07/2014 94947-Pcbifygz Plate 12/11/2013 91403-Wsawylog Plate 09/11/2013 12891-Ypofwnmz Plate 05/29/2013 17533-Jdwfrejc Plate 02/20/2013 31653-Kytckdlp Plate Each Additional 04/2013 54610-Giihqomw Plate Each Additional 70869-Fakjvdky Plate Each Additional 03488-Cpcwlzsx Plate Each Additional 03/2015 18843-Gexrdtbi Plate Each Additional 84137- Debride <25 sq cm 07/06/2020 81677- Debride <25 sq cm 08/28/2013 56911-DQXN SKIN LESIONS, OVER 4 05/07/19 15 48519-GHWY SKIN LESIONS, OVER 4 12/12/19 14 82378-FRQU SKIN LESIONS, OVER 4 02/21/20 13 96080-ZMYJ SKIN LESIONS, OVER 4 05/30/19 14 46198-HJYL SKIN LESIONS, OVER 4 08/29/19 14 89565-TQOL SKIN LESIONS, OVER 4 04/13/19 16 58963-UDXN SKIN LESIONS, OVER 4 08/07/19 15 06867-WDLH SKIN LESIONS, OVER 4 01/01/20 15 42270-FOLG SKIN LESIONS, OVER 4 07/29/19 16 99242-DPVB SKIN LESIONS, OVER 4 01/27/20 16 25452-VWQO SKIN LESIONS, OVER 4 10/28/19 16 08844-XRAL SKIN LESIONS, OVER 4 07/07/19 21 92202-EOPJ SKIN LESIONS, OVER 4 01/14/20 21 61898-CIXH SKIN LESIONS, OVER 4 11/03/19 17 68563-EDPS SKIN LESIONS, OVER 4 04/27/19 17 70924-VRNN SKIN LESIONS, OVER 4 07/28/19 17 19059-WOLM SKIN LESIONS, OVER 4 05/25/19 18 31564-HVDK SKIN LESIONS, OVER 4 02/16/20 17 93898-MOEN SKIN LESIONS, OVER 4 08/31/19 18 11503-XLCM SKIN LESIONS, OVER 4 12/26/19 18 34415-GYQV SKIN LESIONS, OVER 4 04/16/19 19 39854-BYKO SKIN LESIONS, OVER 4 08/16/19 19 79172-OGMP SKIN LESIONS, OVER 4 11/15/19 19 52793-MKNY SKIN LESIONS, OVER 4 03/18/19 32877-AOMV SKIN LESIONS, OVER 4 09/04/19 89114-QEZW SKIN LESIONS, OVER 4 01/06/20 20 93986-MAIY SKIN LESIONS, 2 TO 4 04/10/19 80564-DAFU SKIN LESIONS, 2 TO 4 07/12/19 Next Appt Details Provider Name:Tiffany Gandhi bean, 01/15/2025 09:00:00 AM, [address] [place], [address], Insurance Providers Payer Name Payer Address Payer Phone Subscriber Number Group Number Insured Name Patient Relationship to Insured Coverage Start Date Coverage End Date Medicare [employer] [address] [place] [address] [id number] Yumiko Rodgers Self - patient is the insured [facility] [address] [place] [address] [id number] Yumiko Rodgers Self - patient is the insured Medical (General) History Medical History History ICD Code Arthritis headaches/migraines high blood pressure psoriasis/eczema type II diabetes Surgical History Surgery Date(Month/Year) bx left leg 2015
== END 2024-12-02 09:25 | disposition home or self-care (01) ==
PROVIDERS: PCP Internal Medicine; Visit Provider Internal Medicine Gastroenterology
DX: K31.84 Gastroparesis (principal)
CPT/HCPCS: 99213

== ENCOUNTER → 2024-12-02 08:25 | Outpatient (BNVA) | payer MEDICARE, BC, SELFPAY | PROVIDERS: PCP Internal Medicine; Visit Provider Internal Medicine Gastroenterology | DX: K31.84 Gastroparesis (principal) | CPT/HCPCS: 99212 ==

== ENCOUNTER 2024-12-12 13:33 | Outpatient (REF) | payer MEDICARE, BC, SELFPAY ==
--- OUTSIDE RECORDS SUMMARY | 2023-12-04 05:15 | XMS_ITS ---
Author Organization [facility] Address [address] [place] [address] Care Team Providers Care Electronic Instrument Trades Worker Name Role Phone Indio SANTOS, Vinod Primary Care Provider Tiffany Stein Unavailable [phone] Wang Navas [phone] Encounters Encounter Location Date Provider Diagnosis [address] [address] 12/04/2023 Wang Navas Plan Of Treatment Next Appt Details Provider Name:Tiffany Oksana del angel, 01/15/2025 09:00:00 AM, [address] [place] [address], [phone], Progress Notes * Yumiko VELÁZQUEZ MDOB: (69 yo F)Acc No.[id number]:12/04/2023 Progress Note Patient: Yumiko TOURE Provider: Yevgeniy Navas DPM :1955 A ge:68 Y S ex:Female Date:12/04/2023 Address:[address] [place], [place] [phone] Pcp:Vinod Borjas MD Subjective: * Chief Complaints: [...] 12/04/2023 Generated for Raj cutler/Azul/Mojgan on: 1 11:44 AM EDT
--- OUTSIDE RECORDS SUMMARY | 2024-12-10 09:30 | XMS_ITS | Encounter Summary ---
Author Organization [facility] Address [address] [place] [address] [place] [address] Phone Care Team Providers Care Project Mgr Name Role Phone Vinod Borjas MD Primary Care Provider [phone] Reason for Visit * Occupational Therapy (Within 2 weeks) - Authorized Specialty Diagnoses / Procedures Referred By Amando calderon Referred To Contact Occupational Therapy Diagnoses Psoriatic arthritis Primary osteoarthritis involving multiple joints De Quervain's tenosynovitis, right Georgia Paniagua MD [address] [facility], [address] [address] Phone: tel: fax: mailto:[email or web address] [address] [place] [address] Phone: tel: Referral ID Status Reason Start Date Expiration Date V isits Requested Visits Authorized [id number] Authorized 08/19/2024 08/19/2025 99 99 Encounter Details Date Type Department Care Team (Latest Contact Info) Description 12/10/2024 9:30 AM EDT Office Visit [facility] [address] [place] [address] Georgia Paniagua MD [address] [facility], [address] [address] [email or web address] Tammi Morfin, OT [address] [place] [address] [email or web address] Pain of right hand (Primary Dx) Social History Tobacco Use Types [...] of this encounter Progress Notes * Tammi Morfin, OT - 12/10/2024 9:30 AM EDT .Occupational Therapy Treatment Note Patient Name: Yumiko Rodgers Date of : 1955 This patient has attended 21 visits since the onset of Occupational Therapy. Referring MD: Georgia Paniagua MD [address] [place] [address], [place] [address] Subjective comments: Exercises are going pretty well. No issues with strengthening and feels less stiff today Pain 2 of 10 today along first dorsal compartment Objective measurements: Interventions: See encounter report for minutes associated with each intervention. Modalities:(deferred today) US @ .8 w/cm2 cont x 8 min to first dorsal compartment There ex Patient performs wrist strengthening with use of level 3 thera flex bar today Tolerates 15reps x 1 for wrist flexors/extensors with attempts at wrist stabilization. Medicine ball table top rolls for forearm stretch 10 reps x2 Forearm rotation bar with 1# weight 5 reps x 1 Patient performs gentle resistive forearm rotation 10 reps x 1 Gentle AAROM thumb flex/ext, wrist flex/ext.Gentle stretch to forearm flexors/extensors Proximal strengthening shoulder flex, abduction with 2# weight today tolerates 12 reps x 1 today Intrinsic Strengthening.with sponges squeeze 5 sec x 5- reviewed for home program Prayer stretch modified to patient tolerance Deferred today: Finger/thumb extension with use of rubber band 10 reps x 2 Patient performs 15 reps x 1 of wrist ext with 1# weight. -able to perform wrist flexion against gravity today STM to forearm flexors/extensors.Prayer stretch - modified to painet tolerance Not performed today Stretch to flexors/extensors to patient tolerance. -use of volley ball for forearm stretches Massage Operator strengthening with gripper-set on level 2 x 15 deferred today Intrinsic strengthening with sponges x 15 ( deferred today) Home Exercise Program: Patient to continues strengthening now with 2# weight 12- 20 reps- include proximal strengthening..Intrinsic strengthening . Compression wrap prn. Written directions provided. Continue finger/thumb extension with rubber band Assessment: Appears to be progressing- some inconsistent levels of pain dependent on activity. Still some pain with wrist flexion against gravity. Needs reminder cues to pace self for home program May benefit from ortho consult at this point due to ongoing symptoms Plan: Progress patient as tolerated. Continued therapy per MD orders Evaluation Date: 12/10/2024 Diagnosis: Pain of right hand [M79.641] Date of Injury: 08/11/24 Goals: Short Term Goals: 2 weeks 1 Patient will demonstrate increase in right wrist flex/ext to 30 degrees/30 degrees, for increaseduse of UE for ADLs (MET) 2 Patient will demonstrate increase in right bin cleaner strength to at least 28#, for increased use of UEfor ADLs (MET) 3 Patient will demonstrate increase in right 3 point to at least 10#, for increased use of UE for ADLs (MET) [employer] Goals: 4 weeks 1 Patient will demonstrate increase in right wrist flex/ext to 50 degrees/50 degrees, for increaseduse of UE for ADLs ( Partially met ) 2 Patient will demonstrate increase in right bin cleaner strength to at least 42#, for increased use of UEfor ADLs (Partially met) 3 Patient will demonstrate increase in right 3 point to at least 12#, for increased use of UE for ADLs ( partially met) 4 Patient will report being pain free at least 80% of time ( not met) Self Stated Goal: Relieve pain and locking of joint Intervention Plan: ROM, strengthening, edema management, prn splinting, all to increase functional use of UE for ADLs Tammi Morfin, DANIELA Morfin, [place] 778316 Tammi Morfin, [place] 855959 Tammieverett Morfin, [place] 662642 [place], [place] 017936 Tammi Morfin, [place] 032168 Tammi Morfin, [place] 694362 .Occupational Therapy Treatment Note Patient Name: Yumiko Rodgers Date of : 1955 This patient has attended 21 visits since the onset of Occupational Therapy. Referring MD: Georgia Paniagua MD [address] [place] [address], [address] [place] [address] Subjective comments: K tape was helpful. Still [...] Assess effectiveness of compression band Evaluation Date: 12/10/2024 Diagnosis: Pain of right hand [M79.641] Date of Injury: 08/11/24 Goals: Short Term Goals: 2 weeks 1 Patient will demonstrate increase in right wrist flex/ext to 30 degrees/30 degrees, for increaseduse of UE for ADLs (MET) 2 Patient will demonstrate increase in right bin cleaner strength to at least 28#, for increased use of UEfor ADLs (MET) 3 Patient will demonstrate increase in right 3 point to at least 10#, for increased use of UE for ADLs (MET) Senior Living Goals: 4 weeks 1 Patient will demonstrate increase in right wrist flex/ext to 50 degrees/50 degrees, for increaseduse of UE for ADLs 2 Patient will demonstrate increase in right bin cleaner strength to at least 40#, for increased [...] ADLs Tammi Morfin, OT Tammi Morfin, [place] 997375 Tammi Morfin, [place] [id number] Tammi Morfin, OT 218365 Tammi Morfin, OT 459215 Tammi Morfin, [place] 877646 Tammi Morfin, OT 960766 Tammi [place], OT 397917 Tammi [place]fin, OT 471884 Tammi [place]fin, OT 715335 Tammi Morfin, OT 738772 Tammi [place]fin, OT 031315 Tammi Morfin, OT 876721 Tammi Morfin, [place] 767106 Tammi Morfin, OT 119185 Tammi [place]fin, [place] 997114 Tammi Morfin, OT 021655 Tammi Morfin, OT [phone] documented in this encounter Plan of Treatment Upcoming Encounters Date Type Department Care Team (Late st Contact Info) Description 12/17/2024 8:45 AM EDT Office Visit [address] [place] [address] Georgia Paniagua MD [address] [place] [address], [address] [place] [address] [email or web address] Tammi Ogden, OT [address] [place] [address] [email or web address] 12/20/2024 9:30 AM EDT Office Visit [address] [place] [address] Georgia Paniagua MD [address] [place] [address] [email or web address], OT [address] [place] [address] [email or web address] 12/24/2024 9:30 AM EDT Office Visit [facility] [address] [place] [address] Georgia Paniagua MD [address] [place] [id number] [email or web address] Navjot Tammi, OT [address] [place] [address] [email or web address] 12/26/2024 10:30 AM EDT Office Visit [facility] [address] [place] [address] Georgia Paniagua MD [address] [place] [email or web address] 12/27/2024 10:15 AM EDT Office Visit [facility] [address] [place] [address] Georgia Paniagua MD [address] [place] [address], [address] [address] [email or web address] Navjot Tammi, OT [address] [place] [address] [email or web address] 12/31/2024 9:30 AM EDT Office Visit [facility] [address] [place] [address] Georgia Paniagua MD [address] [facility], [address] [address] [email or web address] Tammi Ogden, OT [address] [place] [address] [email or web address] 01/03/2025 9:30 AM EDT Office Visit [facility] [address] [place] [address] Georgia Paniagua MD [address] [place] [id number] [email or web address] Tammi Ogden, OT [address] [place] [email or web address] 01/07/2025 9:30 AM EDT Office Visit [facility] [address] [place] [address] Georgia Paniagua MD [address] [place] [address] [email or web address] Tammi Ogden, OT [address] [place] [address] [email or web address] 01/10/2025 9:30 AM EDT Office Visit [facility] [address] [place] [address] Georgia Paniagua MD [address] [place] [id number] [email or web address] Tammi Ogden, OT [address] [place] [address] [email or web address] documented as of this encounter Visit Diagnoses Diagnosis Pain of right hand- Primary documented in this encounter Care Teams Project Mgr Relationship Specialty Start Date End Date Vinod Borjas MD [address] [place] [address] [place] [address] PCP - General Internal Medicine 08/19/24 documented as of this encounter Additional Source Comments The information contained in this document represents components of the legal health record. It is not the complete legal health record.[facility]
--- OUTSIDE RECORDS SUMMARY | 2024-12-12 09:30 | XMS_ITS | Encounter Summary ---
Author Organization [facility] Address [address] [place] [address] [place] [address] Phone Care Team Providers Care Blanching Machine Operator Name Role Phone Vinod Borjas MD Primary Care Provider [phone] Reason for Visit * Occupational Therapy (Within 2 weeks) - Authorized Specialty Diagnoses / Procedures Referred By Amando calderon Referred To Contact Occupational Therapy Diagnoses Psoriatic arthritis Primary osteoarthritis involving multiple joints De Quervain's tenosynovitis, right Georgia Paniagua MD 22 [facility], [address] [address] Phone: tel: fax: mailto:[email or web address] [address] [place] [address] Phone: tel: Referral ID Status Reason Start Date Expiration Date V isits Requested Visits Authorized [id number] Authorized 08/19/2024 08/19/2025 99 99 Encounter Details Date Type Department Care Team (Latest Contact Info) Description 12/12/2024 9:30 AM EDT Office Visit [facility] [address] [place] [address] Georgia Paniagua MD 22 [facility], [address] [address] [email or web address] Tammi Morfin, OT [address] [place] [address] [email or web address] Pain of right hand (Primary [...] Progress Notes * Tammi Morfin, OT - 12/12/2024 9:30 AM EDT .Occupational Therapy Treatment Note Patient Name: Yumiko Rodgers Date of : 1955 This patient has attended 22 visits since the onset of Occupational Therapy. Referring MD: Georgia Paniagua MD [address] [place] [address], [address] [place] [address] Subjective comments: Bought 2 and 3 # weights . Can only do wrist flexion with 1# weight .Heavier weights increase pain.Doing exercises pretty consistently. Pain Really just feels stiffness today Objective measurements: Interventions: See encounter report for minutes associated with each intervention. Modalities:(deferred today) US @ .8 w/cm2 cont x 8 min to first dorsal compartment There ex Patient performs wrist strengthening with use of level 3 thera flex bar today Tolerates 15reps x 1 for wrist flexors/extensors with attempts at wrist stabilization STM to forearm flexors/extensors.Prayer stretch - modified to patient tolerance Medicine ball table top rolls for forearm stretch 10 reps x2 Patient performs gentle resistive forearm rotation 10 reps x 1 Gentle AAROM thumb flex/ext, wrist flex/ext.Gentle stretch to forearm flexors/extensors Patient performs 15 reps x 1 of wrist ext with 1# weight. -able to perform wrist flexion against gravity today-modified prn K taping along dorsal wrist Deferred today: Finger/thumb extension with use of rubber band 10 reps x 2 Forearm rotation bar with 1# weight 5 reps x 1 Proximal strengthening shoulder flex, abduction with 2# weight today tolerates 12 reps x 1 today Intrinsic Strengthening.with sponges squeeze 5 sec x 5- reviewed for home program Prayer stretch modified to patient tolerance Not performed today Stretch to flexors/extensors to patient tolerance. -use of volley ball for forearm stretches Bariatric Surgeon strengthening with gripper-set on level 2 x 15 deferred today Intrinsic strengthening with sponges x 15 ( deferred today) Home Exercise Program: Patient to continues strengthening now with 2# weight 12- 20 reps- include proximal strengthening..Intrinsic strengthening . Compression wrap prn. Written directions provided. Continue finger/thumb extension with rubber band Assessment: Remains with some inconsistent levels of pain dependent on activity. Still some pain with wrist flexion against gravity. Some edema noted at dorsal wrist - questionable ganglion cyst. This may be source of pain with resisted wrist flexion exercises. May benefit from ortho consult at this point due to ongoing symptoms - patient to speak with drug enforcement agent at appointment this month. Plan: Progress patient as tolerated. Continued therapy per MD orders Evaluation Date: 12/12/2024 Diagnosis: Pain of right hand [M79.641] Date of Injury: 08/11/24 Goals: Short Term Goals: 2 weeks 1 Patient will demonstrate increase in right wrist flex/ext to 30 degrees/30 degrees, for increaseduse of UE for ADLs (MET) 2 Patient will demonstrate increase in right ambulance paramedic strength to at least 28#, for increased use of UEfor ADLs (MET) 3 Patient will demonstrate increase in right 3 point to at least 10#, for increased use of UE for ADLs (MET) Fpc Goals: 4 weeks 1 Patient will demonstrate increase in right wrist flex/ext to 50 degrees/50 degrees, for increaseduse of UE for ADLs ( Partially met ) 2 Patient will demonstrate increase in right ambulance paramedic strength to at least 42#, for increased [...] of UE for ADLs Tammi Morfin, OT [place], [place] [id number] [place], [place] 464909 [place], [place] 369543 [place] Mor[place], [place] 135088 Tammieverett [place], OT 194113 Tammieverett Morfin, OT [id number] .Occupational Therapy Treatment Note Patient Name: Yumiko Rodgers Date of : 1955 This patient has attended 22 visits since the onset of Occupational Therapy. Referring MD: Georgia Paniagua MD 22 [facility], [address] [place] [address] Subjective comments: K tape was helpful. Still [...] Assess effectiveness of compression band Evaluation Date: 12/12/2024 Diagnosis: Pain of right hand [M79.641] Date of Injury: 08/11/24 Goals: Short Term Goals: 2 weeks 1 Patient will demonstrate increase in right wrist flex/ext to 30 degrees/30 degrees, for increaseduse of UE for ADLs (MET) 2 Patient will demonstrate increase in right ambulance paramedic strength to at least 28#, for increased use of UEfor ADLs (MET) 3 Patient will demonstrate increase in right 3 point to at least 10#, for increased use of UE for ADLs (MET) Fpc Goals: 4 weeks 1 Patient will demonstrate increase in right wrist flex/ext to 50 degrees/50 degrees, for increaseduse of UE for ADLs 2 Patient will demonstrate increase in right ambulance paramedic strength to at least 40#, for increased [...] ADLs Tammi Morfin, OT Tammi Morfin, OT 250516 [place], [place] 157320 T[place], [place] 738500 Tammi Morfin, OT 535706 Tammi Morfin, [place] 719740 Tammi [place]fin, OT 608058 Tammi Morfin, OT 205005 Tammi Morfin, OT 459351 Tammi Morfin, OT 402709 Tammi [place]fin, OT 852477 Tammi Morfin, OT 818223 Tammi Morfin, OT 183883 Tammi [place]fin, OT 363190 Tammi [place]fin, OT 367947 Tammi Morfin, OT 642163 Tammi Morfin, OT 224768 Tammi Morfin, OT 422599 Tammi Morfin, OT 029309 documented in this encounter Plan of Treatment Upcoming Encounters Date Type Department Care Team (Late st Contact Info) Description 12/17/2024 8:45 AM EDT Office Visit [facility] [address] [place] [address] [place] [address] Georgia Paniagua MD [address] [place] [address], [address] [place] [address] [email or web address] Ogden OT [address] [place] [address] [email or web address] 12/20/2024 9:30 AM EDT Office Visit [facility] [address] [place] [address] Georgia Paniagua MD [address] [place] [address] [email or web address] Tammi Morfin, OT [address] [place] [address] [email or web address] 12/24/2024 9:30 AM EDT Office Visit [facility] [address] [place] [address] Georgia Paniagua MD [address] [place] [address] [email or web address] Tammi Morfin, OT [address] [place] [address] [email or web address] 12/26/2024 10:30 AM EDT Office Visit [facility] [address] [place] [address] Georgia Paniagua MD [address] [place] [address] [email or web address] 12/27/2024 10:15 AM EDT Office Visit [facility] [address] [place] [address] Georgia Paniagua MD [address] [place] [address] [email or web address] Tammi Ogden, OT [address] [place] [address] [email or web address] 12/31/2024 9:30 AM EDT Office Visit [facility] [address] [place] [address] Georgia Paniagua MD [address] [address] [email or web address] MorfinTammi conley, OT [address] [place] [address] [email or web address] 01/03/2025 9:30 AM EDT Office Visit [facility] 8 [place] [address] Georgia Paniagua MD [address] [place] [address] [email or web address] MorfinTammi conley, OT [address] [place] [address] [email or web address] 01/07/2025 9:30 AM EDT Office Visit [facility] [address] [place] [address] Georgia Paniagua MD [address] [place] [address] [email or web address], OT [address] [place] [address] [email or web address] 01/10/2025 9:30 AM EDT Office Visit [facility] [address] [place] [address] Georgia Paniagua MD [address] [address] [email or web address] Tammi Ogden, OT [address] [place] [address] [email or web address] documented as of this encounter Visit Diagnoses Diagnosis Pain of right hand- Primary documented in this encounter Care Teams Blanching Machine Operator Relationship Specialty Start Date End Date Vinod Borjas MD [address] [place] [address] Dr Rose [address] [place] [address] PCP - General Internal Medicine 08/19/24 documented as of this encounter Additional Source Comments The information contained in this document represents components of the legal health record. It is not the complete legal health record.[facility]
--- OUTSIDE RECORDS SUMMARY | 2024-12-12 15:04 | XMS_ITS | Clinical Summary ---
Author Organization [facility] Address [address] [place] [address] Phone Care Team Providers Care Honing Job Setter Name Role Phone Vinod Borjas MD Primary Care Provider [phone] Allergies No known active allergies Medications simvastatin [...] sure to inform any new DAMEON SANTOS DOG POUND ATTENDANT about chronic immunosuppression with Cimzia particularly in [...] sure to inform any new DAMEON SANTOS DOG POUND ATTENDANT about chronic immunosuppression with Cimzia particularly in [...] sure to inform any new DAMEON SANTOS, DOG POUND ATTENDANT about chronic immunosuppression with Cimzia particularly in [...] sure to inform any new DAMEON SANTOS, DOG POUND ATTENDANT about chronic immunosuppression with Cimzia particularly in emergency situations. Postmenopausal 02/22/2022 Assessment & Plan (02/22/2022 11:59 AM EST): Fall and fracture prevention strategies. Daily weightbearing exercises. Proper calcium and vitamin D supplementation. She is due for BMD at [facility] on 01/28/2022. NSAID long-term use 01/27/2022 [...] least twice daily and follow closely with vaudeville actor and PCP as scheduled. Muscle spasm 08/20/2020 [...] next visit in 4 months-standing orders in [facility]. Carefully continue weekly subcutaneous Cimzia + twice [...] next visit in 4 months-standing orders in [facility]. Carefully continue weekly subcutaneous Cimzia + twice [...] next visit in 4 months-standing orders in [facility]. Carefully continue weekly subcutaneous Cimzia + twice [...] next visit in 6 months-standing orders in [facility]. Carefully continue weekly subcutaneous Cimzia + twice [...] next visit in 4 months-standing orders in [facility]. Carefully continue weekly subcutaneous Cimzia + twice [...] next visit in 4 months-standing orders in [facility]. Carefully continue weekly subcutaneous Cimzia + twice [...] next visit in 3 months-standing orders in [facility]. Carefully continue monthly subcutaneous Cimzia + twice [...] next visit in 3 months-standing orders in [facility]. Carefully continue weekly subcutaneous Humira every Monday+ [...] next visit in 3 months-standing orders in [facility]. Carefully continue weekly subcutaneous Humira every Monday+ [...] her request I filled application for disabled [employer] placard-see details in media section of [employer] with today's date. Assessment & Plan (12/14/2020 [...] as prescribed and follow closely with prescribing family service counselor as scheduled. Assessment & Plan (04/22/2024 10:17 AM EST): Take exactly as prescribed and follow closely with prescribing family service counselor as scheduled. Assessment & Plan (12/21/2023 9:38 AM EDT): Take exactly as prescribed and follow closely with prescribing family service counselor as scheduled. Assessment & Plan (06/21/2023 9:43 AM EDT): Take exactly as prescribed and follow closely with prescribing family service counselor as scheduled. Assessment & Plan (01/20/2023 11:21 AM EST): Take exactly as prescribed and follow closely with prescribing family service counselor as scheduled. Assessment & Plan (09/21/2022 12:41 PM EDT): Take exactly as prescribed and follow closely with prescribing family service counselor as scheduled. Assessment & Plan (05/27/2022 10:57 AM EDT): Take exactly as prescribed and follow closely with prescribing family service counselor as scheduled. Assessment & Plan (01/27/2022 10:41 AM EST): Take exactly as prescribed and follow closely with prescribing family service counselor as scheduled. Assessment & Plan (10/20/2021 8:37 AM EDT): Take exactly as prescribed and follow closely with prescribing family service counselor as scheduled. Assessment & Plan (07/12/2021 10:10 AM EDT): Take exactly as prescribed and follow closely with prescribing family service counselor as scheduled. Assessment & Plan (04/15/2021 10:15 AM EST): Take exactly as prescribed and follow closely with prescribing family service counselor as scheduled. Assessment & Plan (12/14/2020 10:02 AM EDT): Take exactly as prescribed and follow closely with prescribing family service counselor as scheduled. Assessment & Plan (08/20/2020 10:23 AM EDT): Take exactly as prescribed and follow closely with prescribing family service counselor as scheduled. Assessment & Plan (2020 9:47 PM EST): Take exactly as prescribed and follow closely with prescribing family service counselor as scheduled. Assessment & Plan (01/26/2020 4:17 PM EST): Take exactly as prescribed and follow closely with prescribing family service counselor as scheduled. (Last visit in September 2019-typically [...] least twice daily and follow closely with vaudeville actor and PCP as scheduled. Assessment & Plan (12/21/2023 9:37 AM EDT): Continue watchful diet avoiding concentrated sugars. Proper hydration. Monitor blood glucose at least twice daily and follow closely with vaudeville actor and PCP as scheduled. Assessment & Plan (10/20/2021 8:42 AM EDT): Continue watchful diet avoiding concentrated sugars. Proper hydration. Monitor blood glucose at least twice daily and follow closely with vaudeville actor and PCP as scheduled. Assessment & Plan (04/18/2021 3:31 PM EST): Continue watchful diet avoiding concentrated sugars. Proper hydration. Monitor blood glucose at least twice daily and follow closely with vaudeville actor and PCP as scheduled. Diabetes type 2, [...] sure to inform any new DAMEON SANTOS DOG POUND ATTENDANT about chronic immunosuppression with Humira particularly in [...] sure to inform any new DAMEON S[employer]OS DOG POUND ATTENDANT about chronic immunosuppression with Humira particularly in [...] sure to inform any new DAMEON SANTOS, DOG POUND ATTENDANT about chronic immunosuppression with Humira particularly in [...] sure to inform any new DAMEON SANTOS, DOG POUND ATTENDANT about chronic immunosuppression with Humira particularly in [...] sure to inform any new DAMEON SANTOS, DOG POUND ATTENDANT about chronic immunosuppression with Humira particularly in emergency situations. Encounters Date Type Department Care Team Description 12/12/2024 9:30 AM EDT Office Visit [address] [place] [address] Georgia Paniagua MD McCullough, Sheila, OT Pain of right hand (Primary Dx) 12/10/2024 9:30 AM EDT Office Visit [address] [place] [address] Georgia Paniagua MD McCullough, Sheila, OT Pain of right hand (Primary Dx) 12/06/2024 8:45 AM EDT Office Visit [address] [place] [address] Georgia Paniagua MD McCullough, Sheila, OT Pain of right hand (Primary Dx) 12/06/2024 Plan of Care Documentation [facility] [address] [place] [address] 11/19/2024 8:45 AM EDT Office Visit [facility] [address] [place] [address] Georgia Paniagua MD McCullough, Sheila, OT Tendinitis, de Quervain's (Primary Dx) 11/15/2024 8:45 AM EDT Office Visit [facility] [address] [place] [address] Georgia Paniagua MD McCullough, Sheila, OT Tendinitis, de Quervain's (Primary Dx) 11/12/2024 9:30 AM EDT Office Visit [facility] [address] [place] [address] Georgia Paniagua MD McCullough, Sheila, OT Tendinitis, de Quervain's (Primary Dx) 11/06/2024 12:00 PM EDT Office Visit [facility] [address] [place] [address] Georgia Paniagua MD De Quervain's tenosynovitis, right (Primary Dx) 11/04/2024 9:00 AM EDT Office Visit [facility] [address] [place] [address] Georgia Paniagua MD McCullough, Sheila, OT Tendinitis, de Quervain's (Primary Dx) 11/04/2024 Telephone [facility] [address] [place] [address] Georgia Paniagua MD 10/28/2024 9:45 AM EDT Office Visit [facility] [address] [place] [address] Georgia Paniagua MD McCullough, Sheila, OT Tendinitis, de Quervain's (Primary Dx) 10/25/2024 8:45 AM EDT Office Visit [facility] [address] [place] [address] Georgia Paniagua MD McCullough, Sheila, OT Tendinitis, de Quervain's (Primary Dx) 10/17/2024 8:00 AM EDT Office Visit [facility] [address] [place] [address] Georgia Paniagua MD McCullough, Sheila, OT Tendinitis, de Quervain's (Primary Dx) 10/14/2024 9:45 AM EDT Office Visit [facility] [address] [place] [address] Georgia Paniagua MD McCullough, Sheila, OT Tendinitis, de Quervain's (Primary Dx) 10/11/2024 11:00 AM EDT Office Visit [facility] [address] [place] [address] Georgia Paniagua MD McCullough, Sheila, OT Tendinitis, de Quervain's (Primary Dx) 10/09/2024 2:30 PM EDT Office Visit [facility] [address] [place] [address] Georgia Paniagua MD McCullough, Sheila, OT Tendinitis, de Quervain's (Primary Dx) 10/04/2024 10:15 AM EDT Office Visit [facility] [address] [place] [address] Georgia Paniagua MD McCullough, Sheila, OT Tendinitis, de Quervain's (Primary Dx) 10/01/2024 10:15 AM EDT Office Visit [facility] [address] [place] [address] Georgia Paniagua MD McCullough, Sheila, OT Tendinitis, de Quervain's (Primary Dx) 09/25/2024 10:30 AM EDT Office Visit [facility] [address] [place] [address] Georgia Paniagua MD McCullough, Sheila, OT Tendinitis, de Quervain's (Primary Dx) 09/23/2024 11:15 AM EDT Office Visit [facility] [address] [place] [address] Georgia Paniagua MD McCullough, Sheila, OT Tendinitis, de Quervain's (Primary Dx) 09/20/2024 10:15 AM EDT Office Visit [facility] [address] [place] [address] Georgia Paniagua MD McCullough, Sheila, OT Tendinitis, de Quervain's (Primary Dx) 09/16/2024 10:30 AM EDT Office Visit [facility] [address] [place] [address] Georgia Paniagua MD McCullough, Sheila, OT Tendinitis, de Quervain's (Primary Dx) 09/11/2024 10:30 AM EDT Office Visit [address] [place] [address] Georgia Paniagua MD McCullough, Sheila, OT Tendinitis, de Quervain's (Primary Dx) from Last 3 Months Immunizations Immunization Administration [...] Description 12/17/2024 8:45 AM EDT Office Visit [facility] [address] [place] [address] Georgia Paniagua MD [address] [facility], [address] [place] [address] [email or web address], OT [address] [place] [address] [email or web address] 12/20/2024 9:30 AM EDT Office Visit [facility] [address] [place] [address] Georgia Paniagua MD [address] [place] [address] [email or web address] Tammi Morfin, OT [address] [place] [address] [email or web address] 12/24/2024 9:30 AM EDT Office Visit [facility] [address] [place] [address] Georgia Paniagua MD [address] [place] [address] [email or web address] [email or web address] [email or web address], OT [address] [place] [address] [email or web address] 12/26/2024 10:30 AM EDT Office Visit [facility] [address] [place] [address] Georgia Paniagua MD [address] [place] [address] [email or web address] 12/27/2024 10:15 AM EDT Office Visit [facility] [address] [place] [address] Georgia Paniagua MD [address] [place] [address] [email or web address] Tammi Ogden, OT [address] [place] [address] [email or web address] 12/31/2024 9:30 AM EDT Office Visit [facility] [address] [place] [address] Georgia Paniagua MD [address] [address] [email or web address] [email or web address], OT [address] [place] [address] [email or web address] 01/03/2025 9:30 AM EDT Office Visit [facility] [address] [place] [address] Georgia Paniagua MD [address] [place] [address] [email or web address] Tammi Morfin, OT [address] [place] [address] [email or web address] 01/07/2025 9:30 AM EDT Office Visit [facility] [address] [place] [address] Georgia Paniagua MD [address] [address] [email or web address] hawkins, OT [address] [place] [address] [email or web address] 01/10/2025 9:30 AM EDT Office Visit [facility] [address] [place] [address] Georgia Paniagua MD [address] [place], [place] [address], [place] [address] [email or web address] Morfin Tammi, OT [address] [place] [address] [email or web address] Health Maintenance Due Date Last Done Comments [...] this topic Medical Devices Not on file Insurance [facility] MEDICARE PART A & B [facility] MEDICARE PART [facility] & B [facility] MEDICARE PART A & B [facility] MEDICARE PART A & B [facility] MEDIC[facility] PART A & B [facility] MEDICARE PART A & B [facility] MEDICARE PART A & B [facility] MEDICARE [facility] A & B [facility] MEDICARE PART A & B Care Teams Honing Job Setter Relationship Specialty Start Date End Date Vinod Borjas MD [address] [place] [address] [place] [address] PCP - General Internal Medicine 08/19/24 Additional Source Comments The information contained in this document represents components of the legal health record. It is not the complete legal health record.[facility]
--- OUTSIDE RECORDS SUMMARY | 2024-12-12 15:04 | XMS_ITS | Patient Health Record ---
Author Organization [facility] Address [address] [place] [address] Care Team Providers Care Deli Manager Name Role Phone Vinod Borjas MD Primary Care Provider Tiffany Stein Unavailable [phone] Allergies No Known Allergies Results Component Value [...] Problem Acquired hammer toe of right foot (8431915187616597 ) Other hammer toe(s) (acquired), right foot (M20.41) Active confirmed Response to treatment, Danica t Problem Acquired hammer toe of left foot (0207533259791905 ) Other hammer toe(s) (acquired), left foot (M20.42) Active confirmed Response to treatment, Improvemen t Problem Polyneuropathy due to diabetes mellitus type I (041286836) Type 1 diabetes mellitus with diabetic polyneuropathy (E10.42) Active confirmed Problem Polyneuropathy due to type 2 diabetes mellitus (347531446) Type 2 diabetes mellitus with diabetic polyneuropathy (E11.42) Active confirmed Vital Signs Blood pressure diastolic 65 mm Hg 10/16/2024 Height 9os97vo in 10/16/2024 Blood pressure systolic 120 mm Hg 10/16/2024 Weight 185 lbs 10/16/2024 BMI 25.8 kg/m2 10/16/2024 Procedures Procedure Date Ordered Date Performed Result Body Sit e 31604-JMWEQZU NAIL, 6 OR MORE 04/10/2024 N/A 90135-XEGH SKIN LESIONS, 2 TO 4 04/10/2024 N/A 35280-FUTGYHP NAIL, 6 OR MORE 07/11/2024 N/A 36454-HEKC SKIN LESIONS, 2 TO 4 07/11/2024 N/A Encounters Encounter Location Date Provider Diagnosis [address] [address] 04/10/2024 Tiffany Salas Other hammer toe(s) (acquired), right foot M20.41 ; Other hammer toe(s) (acquired), left foot M20.42 ; Type 2 diabetes mellitus with diabetic polyneuropathy E11.42 and Tinea unguium B35.[address] [address] 07/11/2024 Tiffany Salas Type 2 diabetes mellitus with diabetic polyneuropathy E11.42 ; Tinea unguium B35.1 ; Other hammer toe(s) (acquired), right foot M20.41 and Other hammer toe(s) (acquired), left foot M20.[address] [address] 10/16/2024 Tiffany Salas Type 2 diabetes mellitus [...] E11.42) 04/10/2024 Tinea unguium (ICD-10 - B35.1) 07/11/2024 Other hammer toe(s) (acquired), left foot (ICD-10 - M20.42) Response to treatment,Impro vement Plan Of Treatment Pending Test Test Name Order Date 68653-QEMDQIC NAIL, 6 OR MORE 02/20/2013 40635-FIGKCZU NAIL, 6 OR MORE 05/29/2013 37484-UFBFPVP NAIL, 6 OR MORE 08/28/2013 11608-KLPOEWF NAIL, 6 OR MORE 12/11/2013 88795-LVGUDHW NAIL, 6 OR MORE 05/07/2014 80389-MILOVCE NAIL, 6 OR MORE 08/06/2014 42334-TOIDABR NAIL, 6 OR MORE 04/13/2015 99126-HTNAONA NAIL, 6 OR MORE 12/31/2014 61629-UPLLFDW NAIL, 6 OR MORE 07/29/2015 83446-NCTTOJX NAIL, 6 OR MORE 10/28/2015 89274-RQOXZLP NAIL, 6 OR MORE 01/27/2016 79881-MYORAMC NAIL, 6 OR MORE 04/27/2016 81667-SXOULSI NAIL, 6 OR MORE 11/02/2016 35835-XGBLCHY NAIL, 6 OR MORE 02/15/2017 97706-DYRRMUB NAIL, 6 OR MORE 05/24/2017 73773-WJPIBAG NAIL, 6 OR MORE 08/30/2017 16913-NPBTUHB NAIL, 6 OR MORE 12/25/2017 82249-NNOKVPM NAIL, 6 OR MORE 04/10/2024 67706-EDAMURE NAIL, 6 OR MORE 07/11/2024 15388-Bfevlrbm Plate 08/30/2017 72710-Poljpfgs Plate 11/02/2016 61065-Pgyrsrrx Plate 12/31/2014 76829-Thsfgfbv Plate 04/13/2015 34142-Qxksoadx Plate 08/06/2014 76883-Sekqpjuo Plate 05/07/2014 66604-Jpqkrrlo Plate 12/11/2013 15453-Lultgnrd Plate 09/11/2013 46030-Aujjkykb Plate 05/29/2013 93842-Xlkayajm Plate 02/20/2013 72997-Kalhzwsv Plate Each Additional 04/2013 86837-Xsrygldr Plate Each Additional 71397-Iuzsxvoq Plate Each Additional 13057-Hnpjpnqp Plate Each Additional 03/2015 47592-Khnxacqj Plate Each Additional 88665- Debride <25 sq cm 07/06/2020 30980- Debride <25 sq cm 08/28/2013 52258-OPCR SKIN LESIONS, OVER 4 05/07/19 15 97326-ROCA SKIN LESIONS, OVER 4 12/12/19 14 22166-BUHJ SKIN LESIONS, OVER 4 02/21/20 13 40068-WMQA SKIN LESIONS, OVER 4 05/30/19 14 19575-CYFS SKIN LESIONS, OVER 4 08/29/19 14 81657-SVJF SKIN LESIONS, OVER 4 04/13/19 16 23530-OMBJ SKIN LESIONS, OVER 4 08/07/19 15 58387-MTPA SKIN LESIONS, OVER 4 01/01/20 15 37830-IKQW SKIN LESIONS, OVER 4 07/29/19 16 25833-LOBY SKIN LESIONS, OVER 4 01/27/20 16 54266-RNSF SKIN LESIONS, OVER 4 10/28/19 16 09335-GFLV SKIN LESIONS, OVER 4 07/07/19 21 73368-ATOO SKIN LESIONS, OVER 4 01/14/20 21 79312-XDAS SKIN LESIONS, OVER 4 11/03/19 17 98544-NRPR SKIN LESIONS, OVER 4 04/27/19 17 30574-SNNA SKIN LESIONS, OVER 4 07/28/19 17 21578-ENKX SKIN LESIONS, OVER 4 05/25/19 18 12354-HUIY SKIN LESIONS, OVER 4 02/16/20 17 39322-NWLH SKIN LESIONS, OVER 4 08/31/19 18 84057-ECMR SKIN LESIONS, OVER 4 12/26/19 18 72376-ZDGN SKIN LESIONS, OVER 4 04/16/19 06531-SBFB SKIN LESIONS, OVER 4 08/16/19 19 55178-KRWB SKIN LESIONS, OVER 4 11/15/19 47112-QJRW SKIN LESIONS, OVER 4 03/18/19 60012-TPKU SKIN LESIONS, OVER 4 09/04/19 10130-LKAL SKIN LESIONS, OVER 4 01/06/20 23119-FFHJ SKIN LESIONS, 2 TO 4 04/10/19 01951-RQZP SKIN LESIONS, 2 TO 4 07/12/19 Next Appt Details Provider Name:Tiffany Gandhi bean, 01/15/2025 09:00:00 AM, [address] [place], [address], Insurance Providers Payer Name Payer Address Payer Phone Subscriber Number Group Number Insured Name Patient Relationship to Insured Coverage Start Date Coverage End Date Medicare National [employer] [address] [facility] [place] [address] [id number] Yumiko Rodgers Self - patient is the insured [facility] [address] [place] [address] [id number] Yumiko Rodgers Self - patient is the insured Medical (General) History Medical History History ICD Code Arthritis headaches/migraines high blood pressure psoriasis/eczema type II diabetes Surgical History Surgery Date(Month/Year) bx left leg 2015
[2024-12-12 16:17] LABS: MANUAL DIFF FLAG NO
[2024-12-12 16:36] LABS: Hematocrit 41.4 % (37.0-47.0); Hemoglobin 13.1 g/dl (12.0-16.0); Imm Gran Abs Auto 0.03 X10*3/uL (0.00-0.03); Imm Gran Pct Auto 0.4 % (0.0-0.4); Lymphocytes Absolute Auto 2.8 X10*3/uL (1.2-4.9); Mean Corpuscular HGB Conc 31.6 g/dl (31.0-35.0); Mean Corpuscular Hemoglobin 25.3 pg (27.0-33.0); Mean Corpuscular Volume 79.9 fL (80.0-98.0); NRBC Abs Auto 0.000 X10*3/uL (0.0-0.012); NRBC Pct Auto 0.0 /100WBC (0.0-0.2); Platelet Count 306 X10*3/uL (160-400); Red Blood Count 5.18 X10*6/uL (4.20-5.50); White Blood Count 8.4 X10*3/uL (4.8-10.8)
[2024-12-12 16:50] LABS: Alanine Aminotransferase 36 U/L (0-31); Albumin Level 4.2 g/dL (3.5-5.0); Alkaline Phosphatase 135 U/L (39-117); Anion Gap 12 (12-20); Aspartate Amino Transferase 53 U/L (5-31); Blood Urea Nitrogen 15 mg/dL (9-16); Calcium 9.4 mg/dL (8.4-10.2); Carbon Dioxide 30 mmol/L (22-29); Chloride 103 mmol/L (96-108); Estimated Glomerular Filt Rate 44; Potassium 4.8 mmol/L (3.3-5.1); Sodium 140 mmol/L (135-145); Total Protein 7.8 g/dL (6.5-8.0)
== END 2024-12-12 13:34 | disposition home or self-care (01) ==
LOC: HO.HMGCLR 13:33
PROVIDERS: PCP Internal Medicine; Visit Provider Internal Medicine Rheumatology
DX: L40.50 Arthropathic psoriasis, unspecified (principal); Z51.81 Encounter for therapeutic drug level monitoring; Z79.899 Other long term (current) drug therapy; Z79.61 Long term (current) use of immunomodulator; Z79.1 Long term (current) use of non-steroidal anti-inflammatories (NSAID)
CPT/HCPCS: 36415; 80053; 85025; 85652; 86140

== ENCOUNTER 2024-12-16 08:05 | Outpatient (AMB) | payer MEDICARE, BC, SELFPAY ==
--- OUTSIDE RECORDS SUMMARY | 2023-12-04 05:15 | XMS_ITS ---
Author Organization [facility] Address [address] [place] [address] Care Team Providers Care Supervisor Electronic Coils Name Role Phone Indio SANTOS, Vinod Primary Care Provider Tiffany Stein Unavailable [phone] Wang De León Unavailable [phone] Encounters Encounter Location Date Provider Diagnosis [address] [address] 12/04/2023 Wang De León Plan Of Treatment Next Appt Details Provider Name:Tiffany Gandhi bean, 01/15/2025 09:00:00 AM, [address] [place] [address], [phone], Progress Notes * Yumiko VELÁZQUEZ MDOB: (69 yo F)Acc No.[id number]:12/04/2023 Progress Note Patient: Yumiko TOURE Provider: Yevgeniy Navas DPM :1955 A ge:68 Y S ex:Female Date:12/04/2023 Address:[address] [place] [address] [id number] Pcp:Vinod Borjas MD Subjective: * Chief Complaints: [...] 12/04/2023 Generated for Raj cutler/Azul/Mojgan on: 1 08:15 AM EDT
--- OUTSIDE RECORDS SUMMARY | 2024-12-12 09:30 | XMS_ITS | Encounter Summary ---
Author Organization [facility] Address [address] [place] [address] [place] [address] Phone Care Team Providers Care Highway Maintenance Technician Name Role Phone Vinod Borjas MD Primary Care Provider [phone] Reason for Visit * Occupational Therapy (Within 2 weeks) - Authorized Specialty Diagnoses / Procedures Referred By Amando calderon Referred To Contact Occupational Therapy Diagnoses Psoriatic arthritis Primary osteoarthritis involving multiple joints De Quervain's tenosynovitis, right Georgia Paniagua MD 22 [facility], [address] [address] Phone: tel: fax: mailto:[email or web address] [address] [place] [address] Phone: tel: Referral ID Status Reason Start Date Expiration Date V isits Requested Visits Authorized [id number] Authorized 08/19/2024 08/19/2025 99 99 Encounter Details Date Type Department Care Team (Latest Contact Info) Description 12/12/2024 9:30 AM EDT Office Visit [facility] 8 [place] [address] Georgia Paniagua MD 22 [facility], [address] [address] [email or web address] Tammi Morfin, OT [address] [place] [address] [email or web address] Pain of right hand (Primary [...] Occupational Therapy. Referring MD: Georgia Paniagua MD [address] [place] [address], [address] [place] [address] Subjective comments: Bought 2 and 3 # [...] -use of volley ball for forearm stretches [employer] Scientific Liaison strengthening with gripper-set on level 2 x [...] ongoing symptoms - patient to speak with bandmill operator at appointment this month. Plan: Progress patient as tolerated. Continued therapy per MD orders Evaluation Date: 12/12/2024 Diagnosis: Pain of right hand [M79.641] Date of Injury: 08/11/24 Goals: Short Term Goals: 2 weeks 1 Patient will demonstrate increase in right wrist flex/ext to 30 degrees/30 degrees, for increaseduse of UE for ADLs (MET) 2 Patient will demonstrate increase in right manager sterile strength to at least 28#, for increased use of UEfor ADLs (MET) 3 Patient will demonstrate increase in right 3 point to at least 10#, for increased use of UE for ADLs (MET) Skilled Nursing Goals: 4 weeks 1 Patient will demonstrate increase in right wrist flex/ext to 50 degrees/50 degrees, for increaseduse of UE for ADLs ( Partially met ) 2 Patient will demonstrate increase in right manager sterile strength to at least 42#, for increased [...] ADLs Tammi Morfin, OT [place], OT 149172 [place], [place] 602041 [place]ieverett Morfin, OT 899260 Tammieverett Morfin, OT 518278 Tammieverett Morfin, OT 806331 Tammieverett Morfin, OT 483095 .Occupational Therapy Treatment Note Patient Name: Yumiko Rodgers Date of : 1955 This patient has attended 22 visits since the onset of Occupational Therapy. Referring MD: Georgia Paniagua MD 22 [facility], [address] [place] [address] Subjective comments: K tape was helpful. Still [...] 2 Patient will demonstrate increase in right manager sterile strength to at least 28#, for increased use of UEfor ADLs (MET) 3 Patient will demonstrate increase in right 3 point to at least 10#, for increased use of UE for ADLs (MET) Skilled Nursing Goals: 4 weeks 1 Patient will demonstrate increase in right wrist flex/ext to 50 degrees/50 degrees, for increaseduse of UE for ADLs 2 Patient will demonstrate increase in right manager sterile strength to at least 40#, for increased [...] ADLs Tammi Morfin, OT Tammi Morfin, OT 314559 Tammi Morfin, OT 661383 Tammi Morfin, OT 657316 Tammi Morfin, OT 998992 Tammi Morfin, OT 457931 Tammi Morfin, OT 329956 Tammi Morfin, OT 824982 Tammi Morfin, OT 453834 Tammi Morfin, OT 175039 Tammi Morfin, OT 653424 Tammi Morfin, OT 392211 Tammi Morfin, OT 207460 Tammi Morfin, OT 376416 Tammi Morfin, OT 184222 Tammi Morfin, OT 243968 Tammi Morfin, OT 849681 Tammi Morfin, OT 416590 Tammi Morfin, OT 673713 documented in this encounter Plan of Treatment Upcoming Encounters Date Type Department Care Team (Late st Contact Info) Description 12/17/2024 8:45 AM EDT Office Visit [facility] [address] [place] [address] [place] [address] Georgia Paniagua MD [address] [place] [address], [address] [place] [address] [email or web address] Tammi Ogden OT [address] [place] [address] [email or web address] 12/20/2024 9:30 AM EDT Office Visit [facility] [address] [place] [address] Georgia Paniagua MD [address] [place] [address] [email or web address] Tammi Morfin, OT [address] [place] [address] [email or web address] 12/24/2024 9:30 AM EDT Office Visit [facility] [address] [place] [address] Georgia Paniagua MD [address] [place] [address] [email or web address] Tammi Morfin, OT [address] [place] [address] [email or web address] 12/26/2024 10:30 AM EDT Office Visit [facility] [address] [place] [address] Georgia Paniagua MD [address] [place] [address] [email or web address] 12/27/2024 10:15 AM EDT Office Visit [facility] [address] [place] [address] Georgia Paniagua MD [address] [place] [address] [email or web address] Tammi Ogden, OT [address] [place] [address] [email or web address] 12/31/2024 9:30 AM EDT Office Visit [facility] [address] [place] [address] Georgia Paniagua MD [address] [address] [email or web address] MorfinTammi conley, OT [address] [place] [address] [email or web address] 01/03/2025 9:30 AM EDT Office Visit [facility] [address] [place] [address] Georgia Paniagua MD [address] [place] [address] [email or web address] MorfinTammi conley, OT [address] [place] [address] [email or web address] 01/07/2025 9:30 AM EDT Office Visit [facility] [address] [place] [address] Georgia Paniagua MD [address] [place] [address] [email or web address] [email or web address], OT [address] [place] [address] [email or web address] 01/10/2025 9:30 AM EDT Office Visit [facility] [address] [place] [address] Georgia Paniagua MD [address] [address] [email or web address] Tammi Ogden, OT [address] [place] [address] [email or web address] documented as of this encounter Visit Diagnoses Diagnosis Pain of right hand- Primary documented in this encounter Care Teams Highway Maintenance Technician Relationship Specialty Start Date End Date Vinod Borjas MD [address] [place] [address] Dr Rose [address] [place] [address] PCP - General Internal Medicine 08/19/24 documented as of this encounter Additional Source Comments The information contained in this document represents components of the legal health record. It is not the complete legal health record.[facility]
--- OUTSIDE RECORDS SUMMARY | 2024-12-16 08:15 | XMS_ITS | Patient Health Record ---
[facility] Organization [facility] Address [address] [place] [address] Care Team Providers Care Sliding Joint Maker Name Role Phone Vinod Borjas MD Primary Care Provider Tiffany Stein Unavailable [phone] Allergies No Known Allergies Results Component Value [...] Problem Acquired hammer toe of right foot (4244326246810896 ) Other hammer toe(s) (acquired), right foot (M20.41) Active confirmed Response to treatment, Danica t Problem Acquired hammer toe of left foot (8665457325041607 ) Other hammer toe(s) (acquired), left foot (M20.42) Active confirmed Response to treatment, Improvemen t Problem Polyneuropathy due to diabetes mellitus type I (205505130) Type 1 diabetes mellitus with diabetic polyneuropathy (E10.42) Active confirmed Problem Polyneuropathy due to type 2 diabetes mellitus (029134947) Type 2 diabetes mellitus with diabetic polyneuropathy (E11.42) Active confirmed Vital Signs Blood pressure diastolic 65 mm Hg 10/16/2024 Height [id number] in 10/16/2024 Blood pressure systolic 120 mm Hg 10/16/2024 Weight 185 lbs 10/16/2024 BMI 25.8 kg/m2 10/16/2024 Procedures Procedure Date Ordered Date Performed Result Body Sit e 51153-XJSSFPC NAIL, 6 OR MORE 04/10/2024 N/A 04848-FXIV SKIN LESIONS, 2 TO 4 04/10/2024 N/A 24468-GPPWYKB NAIL, 6 OR MORE 07/11/2024 N/A 33030-QJGM SKIN LESIONS, 2 TO 4 07/11/2024 N/A Encounters Encounter Location Date Provider Diagnosis [address] [address] 04/10/2024 Tiffany Salas Other hammer toe(s) (acquired), right foot M20.41 ; Other hammer toe(s) (acquired), left foot M20.42 ; Type 2 diabetes mellitus with diabetic polyneuropathy E11.42 and Tinea unguium B35.[address] [address] 07/11/2024 Tiffany Salas Type 2 diabetes mellitus with diabetic polyneuropathy E11.42 ; Tinea unguium B35.1 ; Other hammer toe(s) (acquired), right foot M20.41 and Other hammer toe(s) (acquired), left foot M20.[address] [place] [address] 10/16/2024 Tiffany Salas Type 2 diabetes mellitus [...] Treatment Pending Test Test Name Order Date 12188-NQMLLRZ NAIL, 6 OR MORE 02/20/2013 84087-KSFVSDY NAIL, 6 OR MORE 05/29/2013 23524-ERXUTYF NAIL, 6 OR MORE 08/28/2013 73883-TDOWILS NAIL, 6 OR MORE 12/11/2013 39654-XIZWJZJ NAIL, 6 OR MORE 05/07/2014 43641-QAWDSHP NAIL, 6 OR MORE 08/06/2014 49783-STXBNXU NAIL, 6 OR MORE 04/13/2015 51188-UZUFOQV NAIL, 6 OR MORE 12/31/2014 17702-YTVTLXW NAIL, 6 OR MORE 07/29/2015 19037-DEHNPJS NAIL, 6 OR MORE 10/28/2015 73550-DDZVDAJ NAIL, 6 OR MORE 01/27/2016 14339-YOGDJVQ NAIL, 6 OR MORE 04/27/2016 92580-LEBATJL NAIL, 6 OR MORE 11/02/2016 89431-SIOBLDU NAIL, 6 OR MORE 02/15/2017 06268-VKVDIJC NAIL, 6 OR MORE 05/24/2017 01916-YJXPOUR NAIL, 6 OR MORE 08/30/2017 98177-UEGOJDP NAIL, 6 OR MORE 12/25/2017 92274-VGHAQKZ NAIL, 6 OR MORE 04/10/2024 71378-FBGDSJR NAIL, 6 OR MORE 07/11/2024 89252-Quqcblgj Plate 08/30/2017 60600-Rbkkqcuc Plate 11/02/2016 74874-Ytuakftv Plate 12/31/2014 39561-Aqsnazdp Plate 04/13/2015 65388-Hbmzacsm Plate 08/06/2014 89399-Hkmagvkb Plate 05/07/2014 57777-Qgoefcgx Plate 12/11/2013 10362-Noykaqxs Plate 09/11/2013 66830-Rfgdwaxo Plate 05/29/2013 83884-Cqgoauqr Plate 02/20/2013 91686-Kgyfjfuc Plate Each Additional 04/2013 34270-Yqbubgvc Plate Each Additional 15084-Imkvzuqp Plate Each Additional 50545-Vfcrydnd Plate Each Additional 03/2015 16364-Omccjasp Plate Each Additional 12781- Debride <25 sq cm 07/06/2020 85013- Debride <25 sq cm 08/28/2013 71709-WHJQ SKIN LESIONS, OVER 4 05/07/19 15 23993-WEJE SKIN LESIONS, OVER 4 12/12/19 14 19635-BEUH SKIN LESIONS, OVER 4 02/21/20 13 97029-NULT SKIN LESIONS, OVER 4 05/30/19 14 47845-XBXZ SKIN LESIONS, OVER 4 08/29/19 14 04123-GLUJ SKIN LESIONS, OVER 4 04/13/19 16 28752-NCEX SKIN LESIONS, OVER 4 08/07/19 15 86223-UYUE SKIN LESIONS, OVER 4 01/01/20 15 21507-JHHJ SKIN LESIONS, OVER 4 07/29/19 16 27356-CHZG SKIN LESIONS, OVER 4 01/27/20 16 83542-WOSL SKIN LESIONS, OVER 4 10/28/19 16 78691-FRPK SKIN LESIONS, OVER 4 07/07/19 21 98563-SCBL SKIN LESIONS, OVER 4 01/14/20 21 91216-XZNG SKIN LESIONS, OVER 4 11/03/19 17 50807-HBRS SKIN LESIONS, OVER 4 04/27/19 17 66838-QOZU SKIN LESIONS, OVER 4 07/28/19 17 99933-LJTO SKIN LESIONS, OVER 4 05/25/19 18 08456-DUNJ SKIN LESIONS, OVER 4 02/16/20 17 61698-GDAK SKIN LESIONS, OVER 4 08/31/19 18 56485-LBOO SKIN LESIONS, OVER 4 12/26/19 18 80575-OXBS SKIN LESIONS, OVER 4 04/16/19 10359-UFAA SKIN LESIONS, OVER 4 08/16/19 19 65051-ONOX SKIN LESIONS, OVER 4 11/15/19 72083-BBQL SKIN LESIONS, OVER 4 03/18/19 38431-GAQX SKIN LESIONS, OVER 4 09/04/19 88220-WQGI SKIN LESIONS, OVER 4 01/06/20 45597-JYDH SKIN LESIONS, 2 TO 4 04/10/19 97619-QATB SKIN LESIONS, 2 TO 4 07/12/19 Next Appt Details Provider Name:Tiffany Gandhi bean, 01/15/2025 09:00:00 AM, [address] [place], [address], Insurance Providers Payer Name Payer Address Payer Phone Subscriber Number Group Number Insured Name Patient Relationship to Insured Coverage Start Date Coverage End Date Medicare National [employer] [address] [place] [address] [id number] Yumiko Rodgers Self - patient is the insured [facility] [address] [place] [address] [id number] Yumiko Rodgers Self - patient is the insured Medical (General) History Medical History History ICD Code Arthritis headaches/migraines high blood pressure psoriasis/eczema type II diabetes Surgical History Surgery Date(Month/Year) bx left leg 2015
--- OUTSIDE RECORDS SUMMARY | 2024-12-16 08:16 | XMS_ITS | Clinical Summary ---
Author Organization [facility] Address [address] [place] [address] Phone Care Team Providers Care Net Mvc Developer Name Role Phone Vinod Borjas MD Primary Care Provider [phone] Allergies No known active allergies Medications simvastatin [...] sure to inform any new DAMEON SANTOS SURVEY RESEARCH MANAGER about chronic immunosuppression with Cimzia particularly in [...] sure to inform any new DAMEON SANTOS SURVEY RESEARCH MANAGER about chronic immunosuppression with Cimzia particularly in [...] sure to inform any new DAMEON SANTOS, SURVEY RESEARCH MANAGER about chronic immunosuppression with Cimzia particularly in [...] sure to inform any new DAMEON SANTOS, SURVEY RESEARCH MANAGER about chronic immunosuppression with Cimzia particularly in emergency situations. Postmenopausal 02/22/2022 Assessment & Plan (02/22/2022 11:59 AM EST): Fall and fracture prevention strategies. Daily weightbearing exercises. Proper calcium and vitamin D supplementation. She is due for BMD at [facility] on 01/28/2022. NSAID long-term use 01/27/2022 [...] least twice daily and follow closely with analysis manager and PCP as scheduled. Muscle spasm 08/20/2020 [...] next visit in 4 months-standing orders in [facility]. Carefully continue weekly subcutaneous Cimzia + twice [...] next visit in 4 months-standing orders in [facility]. Carefully continue weekly subcutaneous Cimzia + twice [...] next visit in 4 months-standing orders in [facility]. Carefully continue weekly subcutaneous Cimzia + twice [...] next visit in 6 months-standing orders in [facility]. Carefully continue weekly subcutaneous Cimzia + twice [...] next visit in 4 months-standing orders in [facility]. Carefully continue weekly subcutaneous Cimzia + twice [...] next visit in 4 months-standing orders in [facility]. Carefully continue weekly subcutaneous Cimzia + twice [...] next visit in 3 months-standing orders in [facility]. Carefully continue monthly subcutaneous Cimzia + twice [...] next visit in 3 months-standing orders in [facility]. Carefully continue weekly subcutaneous Humira every Monday+ [...] next visit in 3 months-standing orders in [facility]. Carefully continue weekly subcutaneous Humira every Monday+ [...] her request I filled application for disabled [employer] plac[employer]-see details in media section of [employer] with today's date. Assessment & Plan (12/14/2020 [...] as prescribed and follow closely with prescribing subway operator as scheduled. Assessment & Plan (04/22/2024 10:17 AM EST): Take exactly as prescribed and follow closely with prescribing subway operator as scheduled. Assessment & Plan (12/21/2023 9:38 AM EDT): Take exactly as prescribed and follow closely with prescribing subway operator as scheduled. Assessment & Plan (06/21/2023 9:43 AM EDT): Take exactly as prescribed and follow closely with prescribing subway operator as scheduled. Assessment & Plan (01/20/2023 11:21 AM EST): Take exactly as prescribed and follow closely with prescribing subway operator as scheduled. Assessment & Plan (09/21/2022 12:41 PM EDT): Take exactly as prescribed and follow closely with prescribing subway operator as scheduled. Assessment & Plan (05/27/2022 10:57 AM EDT): Take exactly as prescribed and follow closely with prescribing subway operator as scheduled. Assessment & Plan (01/27/2022 10:41 AM EST): Take exactly as prescribed and follow closely with prescribing subway operator as scheduled. Assessment & Plan (10/20/2021 8:37 AM EDT): Take exactly as prescribed and follow closely with prescribing subway operator as scheduled. Assessment & Plan (07/12/2021 10:10 AM EDT): Take exactly as prescribed and follow closely with prescribing subway operator as scheduled. Assessment & Plan (04/15/2021 10:15 AM EST): Take exactly as prescribed and follow closely with prescribing subway operator as scheduled. Assessment & Plan (12/14/2020 10:02 AM EDT): Take exactly as prescribed and follow closely with prescribing subway operator as scheduled. Assessment & Plan (08/20/2020 10:23 AM EDT): Take exactly as prescribed and follow closely with prescribing subway operator as scheduled. Assessment & Plan (2020 9:47 PM EST): Take exactly as prescribed and follow closely with prescribing subway operator as scheduled. Assessment & Plan (01/26/2020 4:17 PM EST): Take exactly as prescribed and follow closely with prescribing subway operator as scheduled. (Last visit in September 2019-typically [...] least twice daily and follow closely with analysis manager and PCP as scheduled. Assessment & Plan (12/21/2023 9:37 AM EDT): Continue watchful diet avoiding concentrated sugars. Proper hydration. Monitor blood glucose at least twice daily and follow closely with analysis manager and PCP as scheduled. Assessment & Plan (10/20/2021 8:42 AM EDT): Continue watchful diet avoiding concentrated sugars. Proper hydration. Monitor blood glucose at least twice daily and follow closely with analysis manager and PCP as scheduled. Assessment & Plan (04/18/2021 3:31 PM EST): Continue watchful diet avoiding concentrated sugars. Proper hydration. Monitor blood glucose at least twice daily and follow closely with analysis manager and PCP as scheduled. Diabetes type 2, [...] sure to inform any new DAMEON SANTOS SURVEY RESEARCH MANAGER about chronic immunosuppression with Humira particularly in [...] sure to inform any new DAMEON SANTOS SURVEY RESEARCH MANAGER about chronic immunosuppression with Humira particularly in [...] sure to inform any new DAMEON SANTOS, SURVEY RESEARCH MANAGER about chronic immunosuppression with Humira particularly in [...] sure to inform any new DAMEON SANTOS, SURVEY RESEARCH MANAGER about chronic immunosuppression with Humira particularly in [...] sure to inform any new DAMEON SANTOS, SURVEY RESEARCH MANAGER about chronic immunosuppression with Humira particularly in emergency situations. Encounters Date Type Department Care Team Description 12/12/2024 9:30 AM EDT Office Visit [address] [place] [address] Georgia Paniagua MD McCullough, Sheila, OT Pain of right hand (Primary Dx) 12/10/2024 9:30 AM EDT Office Visit [address] [place] [address] Georgia Paniagua MD McCullough, Sheila, OT Pain of right hand (Primary Dx) 12/06/2024 8:45 AM EDT Office Visit [address] [place] [address] Georgia Paniagua MD McCullough, Sheila, OT Pain of right hand (Primary Dx) 12/06/2024 Plan of Care Documentation [facility] [address] [place] [address] 11/19/2024 8:45 AM EDT Office Visit [facility] [address] [place] [address] Georgia Paniagua MD McCullough, Sheila, OT Tendinitis, de Quervain's (Primary Dx) 11/15/2024 8:45 AM EDT Office Visit [facility] [address] [place] [address] Georgia Paniagua MD McCullough, Sheila, OT Tendinitis, de Quervain's (Primary Dx) 11/12/2024 9:30 AM EDT Office Visit [facility] [address] [place] [address] Georgia Paniagua MD McCullough, Sheila, OT Tendinitis, de Quervain's (Primary Dx) 11/06/2024 12:00 PM EDT Office Visit [facility] [address] [place] [address] Georgia Paniagua MD De Quervain's tenosynovitis, right (Primary Dx) 11/04/2024 9:00 AM EDT Office Visit [facility] [address] [place] [address] Georgia Paniagua MD McCullough, Sheila, OT Tendinitis, de Quervain's (Primary Dx) 11/04/2024 Telephone [facility] [address] [place] [address] Georgia Paniagua MD 10/28/2024 9:45 AM EDT Office Visit [facility] [address] [place] [address] Georgia Paniagua MD McCullough, Sheila, OT Tendinitis, de Quervain's (Primary Dx) 10/25/2024 8:45 AM EDT Office Visit [facility] [address] [place] [address] Georgia Paniagua MD McCullough, Sheila, OT Tendinitis, de Quervain's (Primary Dx) 10/17/2024 8:00 AM EDT Office Visit [facility] [address] [place] [address] Georgia Paniagua MD McCullough, Sheila, OT Tendinitis, de Quervain's (Primary Dx) 10/14/2024 9:45 AM EDT Office Visit [facility] [address] [place] [address] Georgia Paniagua MD McCullough, Sheila, OT Tendinitis, de Quervain's (Primary Dx) 10/11/2024 11:00 AM EDT Office Visit [facility] [address] [place] [address] Georgia Paniagua MD McCullough, Sheila, OT Tendinitis, de Quervain's (Primary Dx) 10/09/2024 2:30 PM EDT Office Visit [facility] [address] [place] [address] Georgia Paniagua MD McCullough, Sheila, OT Tendinitis, de Quervain's (Primary Dx) 10/04/2024 10:15 AM EDT Office Visit [facility] [address] [place] [address] Georgia Paniagua MD McCullough, Sheila, OT Tendinitis, de Quervain's (Primary Dx) 10/01/2024 10:15 AM EDT Office Visit [facility] [address] [place] [address] Georgia Paniagua MD McCullough, Sheila, OT Tendinitis, de Quervain's (Primary Dx) 09/25/2024 10:30 AM EDT Office Visit [facility] [address] [place] [address] Georgia Paniagua MD McCullough, Sheila, OT Tendinitis, de Quervain's (Primary Dx) 09/23/2024 11:15 AM EDT Office Visit [facility] [address] [place] [address] Georgia Paniagua MD McCullough, Sheila, OT Tendinitis, de Quervain's (Primary Dx) 09/20/2024 10:15 AM EDT Office Visit [facility] [address] [place] [address] Georgia Paniagua MD McCullough, Sheila, OT Tendinitis, de Quervain's (Primary Dx) 09/16/2024 10:30 AM EDT Office Visit [facility] [address] [place] [address] Georgia Paniagua MD McCullough, Sheila, OT Tendinitis, [...] Description 12/17/2024 8:45 AM EDT Office Visit [facility] [address] [place] [address] Georgia Paniagua MD [address] [facility], [address] [place] [address] [email or web address], OT [address] [place] [address] [email or web address] 12/20/2024 9:30 AM EDT Office Visit [facility] [address] [place] [address] Georgia Paniagua MD [address] [facility], [address] [address] [email or web address], OT [address] [place] [address] [email or web address] 12/24/2024 9:30 AM EDT Office Visit [facility] [address] [place] [address] Georgia Paniagua MD [address] [place] [id number] [email or web address] Tammi Morfin, OT [address] [place] [address] [email or web address] 12/26/2024 10:30 AM EDT Office Visit [facility] [address] [place] [address] Georgia Paniagua MD [address] [place] [address] [email or web address] 12/27/2024 10:15 AM EDT Office Visit [facility] [address] [place] [address] Georgia Paniagua MD [address] [address] [email or web address] Morfin Tammi, OT [address] [place] [address] [email or web address] 12/31/2024 9:30 AM EDT Office Visit [facility] [address] [place] [address] Georgia Paniagua MD [address] [address] [email or web address] Morfin Tammi, OT [address] [place] [address] [email or web address] 01/03/2025 9:30 AM EDT Office Visit [facility] [address] [place] [address] Georgia Paniagua MD [address] [place] [address] [email or web address] Morfin Tammi, OT [address] [place] [address] [email or web address] 01/07/2025 9:30 AM EDT Office Visit [facility] [address] [place] [address] Georgia Paniagua MD [address] [place] [address] [email or web address] [email or web address] Ogden, OT [address] [place] [address] [email or web address] 01/10/2025 9:30 AM EDT Office Visit [facility] [address] [place] [address] Georgia Paniagua MD [address] [place] [phone] [email or web address] [email or web address] [email or web address], OT [address] [place] [address] [email or web address] Health Maintenance Due Date Last Done [...] topic Medical Devices Not on file Insurance [facility] FEDERAL MEDICARE PART A & B [facility] MEDICARE PART A & B [facility] MEDICARE PART A & B [facility] MEDICARE PART A & B [facility] MEDICARE PART A & B [facility] MEDICARE PART A & B [facility] MEDICARE [facility] A & B [facility] MEDICARE PART A & B [facility] MEDICARE PART A & B Care Teams Net Mvc Developer Relationship Specialty Start Date End Date Vinod Borjas MD [address] [place] [address] [place] [address] PCP - General Internal Medicine 08/19/24 Additional Source Comments The information contained in this document represents components of the legal health record. It is not the complete legal health record.[facility]
--- NOTE | 2024-12-16 08:29 | A.OFFVIS_ITS ---
Vital Signs 12/16/24 08:30 Height 5 ft 10 in Weight 196 lb 3.382 oz BMI 28.2 BP 150/80 H Blood Pressure Location Rt brachial Position Sitting Pulse 114 H Pulse Source Monitor Intake Visit Reasons: dyspnea on exertion Allergies grass pollen Allergy (Mild, Verified 12/16/24 08:38) hives Medication List - Last Reconciled 12/16/24 by Crispin Jarrett MD amitriptyline 25 mg PO BEDTIME apremilast (Otezla) 30 mg PO BID ascorbate calcium (vitamin C) 1 g PO Q6H atogepant (Qulipta) 60 mg PO PRN certolizumab pegol (Cimzia) 200 mg subcut QWEEK cholecalciferol (vitamin D3) 50 mcg PO DAILY cyanocobalamin (vitamin B-12) 5,000 mcg PO DAILY dulaglutide (Trulicity) 3 mg subcut QWEEK flash glucose scanning reader (FreeStyle Natasha 2 Andrews) As directed flash glucose sensor (FreeStyle Natasha 2 Sensor kit) As directed gabapentin 100 to 300 mg orally bedtime PRN; hydroxyzine HCl 25 mg PO BID PRN insulin degludec (Tresiba FlexTouch U-100 insulin) 44 units subcut DAILY insulin syringe-needle U-100 As directed omeprazole magnesium 20 mg PO DAILY prucalopride 1 mg PO DAILY simvastatin 40 mg PO BEDTIME HPI Comments Details: The patient is a 69-year-old female presenting with dyspnea on exertion following a COVID-19 infection. The dyspnea began after a COVID-19 infection in August of the previous year. The patient reports becoming winded after minimal exertion, such as climbing stairs or carrying groceries. There is no associated chest pain or pressure. She also reports a history of gastroparesis, which has contributed to significant weight loss from a previous weight of 270 pounds. The etiology of the gastroparesis is unclear, though there is a family history of the condition. The patient has a family history of cardiovascular disease, including relatives with valve replacements and carotid artery blockages. She denies any personal history of heart attacks or stents. The patient has a history of diabetes mellitus and hypertension, although she was taken off antihypertensive medication due to episodes of hypotension and fainting. [facility] Medical History Constipation Abdominal pain, right lower quadrant Vitamin B12 deficiency Overweight (BMI 25.0-29.9) GERD without esophagitis Vitamin D deficiency Neuropathy Chronic kidney disease, stage III (moderate) Migraine Psoriatic arthritis Pure hypercholesterolemia Essential hypertension Diabetes mellitus Surgical History (Updated 12/02/24 @ 08:42 by LIZ Ewing) History of esophagogastroduodenoscopy (EGD) No pertinent past surgical history Family History (Updated 12/16/24 @ 08:41 by Cristina Wooten) Father No problems noted. Mother Gastroparesis Heart problem Paternal Grandmother Gastroparesis Family/Other Gastroparesis Social History Housing: House Alcohol intake: never Patient Tobacco Use Status: Never used Tobacco e-Cigarette/Vaping Use: Never Used Second Hand Smoke Exposure: No service: No Current occupational status: retired Cognitive needs: No Hearing needs: No Vision needs: Yes (glasses) Review of Systems Const Denies weakness ENT Reports dizziness Card Denies chest pain, Denies chest pain with activity, Denies syncope, Denies rapid heart rate, Denies pedal edema, Denies edema, Denies leg edema, Denies lightheadedness, Reports palpitations, Reports dyspnea, Denies dyspnea on exertion and Denies orthopnea Resp Denies cough, Reports dyspnea and Denies dyspnea on exertion GI Denies hematochezia and Denies change in stool character Musc Denies abnormal gait, Denies muscle cramps, Denies muscle weakness, Denies numbness, Denies radiating pain into limb and Denies tingling Neuro Denies abnormal gait, Reports dizziness, Denies syncope, Denies numbness, Denies tingling and Denies weakness Endo Reports palpitations Physical Exam Vital Signs: Last Vital Signs Pulse 114 H 12/16/24 08:30 BP 150/80 H 12/16/24 08:30 BMI result Body Mass Index 28.2 Const General: comfortable and no acute distress Orientation/consciousness: patient oriented x3 HEENT Other: Unremarkable Head: Yes normal to inspection Neck Neck: Yes normal visual inspection Chest Chest palpation & inspection: normal inspection of the chest Resp Auscultation: clear to auscultation bilaterally Cardio Palpation: normal PMI Heart sounds: S1 normal heart sound present, S2 normal heart sound present, no gallops, no murmurs and no rubs GI Palpation (GI): Soft to palpation Back/Spine/Pelvis Other: unremarkable Skin General skin exam: no rashes or lesions noted Neuro General: patient oriented x3 Extrem General: Yes normal to inspection Psych Mental Status: mental status grossly normal Office Procedures EKG Details: EKG with sinus tachycardia at 114/Min; rightward axis; no ischemic changes; [place] [address]-Lpeglalytvyuhuxeh, Complete Assessment & Plan Assessment & Plan (1) Dyspnea on exertion: Code(s): R06.09 - Other forms of dyspnea Category: Medical (2) Diabetes mellitus: Code(s): E11.9 - Type 2 diabetes mellitus without complications Category: Medical Qualifiers: Chronic kidney disease stage: stage 3 (moderate) Chronic kidney disease stage 3 subtype: stage 3a (GFR 45-59) Diabetes mellitus complication detail: with chronic kidney disease Diabetes mellitus complication status: with kidney complications Diabetes mellitus penitentiary insulin use: without penitentiary use Diabetes mellitus type: type 2 Qualified Code(s): E11.22 - Type 2 diabetes mellitus with diabetic chronic kidney disease; N18.31 - Chronic kidney disease, stage 3a (3) Hypertension: Code(s): I10 - Essential (primary) hypertension Category: Medical (4) Hyperlipidemia: Code(s): E78.5 - Hyperlipidemia, unspecified Category: Medical Plan CPET results reviewed. Reported have moderately impaired exercise capacity and very severely impaired aerobic capacity. Suboptimal effort/muscular weakness. Suspect no pulmonary limitation but cardiovascular limitation to exercise. Clinically, she has got no overt murmurs or heart failure signs. We will do a comprehensive workup with an echocardiogram, stress test and also check her cardiac BNP. Based on the findings, we will plan further care. She does have baseline tachycardia and hence not clear if it is all just deconditioning, will need to be followed. Discussion Notes I discussed with the patient the need for a comprehensive cardiac evaluation to rule out heart failure or blockages, given her symptoms of dyspnea on exertion post-COVID. We talked about the importance of a stress test to assess her exercise tolerance and potential ischemic changes. I explained that her tachycardia would be monitored and further evaluated to determine its cause. We also reviewed her history of gastroparesis, diabetes, and hypertension, and the need to monitor these conditions closely. Patient was informed and verbally consented to the use of an ambient scribe for clinic note documentation during this visit. Orders: Orders NT Pro B Type Natriuretic Pept Today I50.9 - Heart failure, unspecified, R06.09 - Other forms of dyspnea CA echo transthoracic complete Today R06.09 - Other forms of dyspnea CA stress test Today I25.10 - Atherosclerotic heart disease of [place] coronary artery without angina pectoris, R06.09 - Other forms of dyspnea NM cardiolite stress test Today R06.09 - Other forms of dyspnea Coding Level of Care Code New Pt Level 4 (41264) Complex EM visit Add On G2211 Diagnoses Dyspnea on exertion R06.09 Type 2 diabetes mellitus with stage 3a chronic kidney disease, without long-term current use of insulin E11.22; N18.31 Chronic kidney disease stage: stage 3 (moderate) Chronic kidney disease stage 3 subtype: stage 3a (GFR 45-59) Diabetes mellitus complication detail: with chronic kidney disease Diabetes mellitus complication status: with kidney complications Diabetes mellitus penitentiary insulin use: without long term care phlebotomist use Diabetes mellitus type: type 2 Hypertension I10 Hyperlipidemia E78.5 CPT Codes EKG - CPT: 66248-Ckljvgzmujwzkbkks, Complete ([id number])
[2024-12-16 08:30] VITALS: BP 150/80; PULSE 114; BMI 28.2
== END 2024-12-16 09:03 | disposition home or self-care (01) ==
LOC: HO.HCS 08:06
PROVIDERS: PCP Internal Medicine; Visit Provider Internal Medicine
DX: R06.09 Other forms of dyspnea (principal); E11.22 Type 2 diabetes mellitus with diabetic chronic kidney disease; N18.31 Chronic kidney disease, stage 3a; I10 Essential (primary) hypertension; E78.5 Hyperlipidemia, unspecified
CPT/HCPCS: 93010; 99204; G2211

== ENCOUNTER → 2024-12-16 08:05 | Outpatient (BNVA) | payer MEDICARE, BC, SELFPAY | PROVIDERS: PCP Internal Medicine; Visit Provider Internal Medicine | DX: R06.09 Other forms of dyspnea (principal); I12.9 Hypertensive chronic kidney disease with stage 1 through stage 4 chronic kidney disease, or unspecified chronic kidney disease; E11.22 Type 2 diabetes mellitus with diabetic chronic kidney disease; N18.31 Chronic kidney disease, stage 3a; E78.5 Hyperlipidemia, unspecified | CPT/HCPCS: 93005; 99202 ==

== ENCOUNTER 2024-12-26 12:32 | Outpatient (REF) | payer MEDICARE, BC, SELFPAY ==
--- OUTSIDE RECORDS SUMMARY | 2023-12-04 05:15 | XMS_ITS ---
Author Organization [facility] Address [address] [place] [address] Care Team Providers Care Manganese Breaker Name Role Phone Indio SANTOS, Vinod Primary Care Provider Tiffany Stein Unavailable [phone] Wang De León Unavailable [phone] Encounters Encounter Location Date Provider Diagnosis [address] [address] 12/04/2023 Wang De León Plan Of Treatment Next Appt Details Provider Name:Tiffany Gandhi bean, 01/15/2025 09:00:00 AM, [address] [place] [address], [phone], Progress Notes * Yumiko VELÁZQUEZ MDOB: (69 yo F)Acc No.[id number]:12/04/2023 Progress Note Patient: Yumiko TOURE Provider: Yevgeniy Navas DPM :1955 A ge:68 Y S ex:Female Date:12/04/2023 Address:[address] [place] [address] [id number] Pcp:Vinod Borjas MD Subjective: * Chief Complaints: [...] 12/04/2023 Generated for Raj cutler/Azul/Mojgan on: 1 03:43 PM EDT
--- OUTSIDE RECORDS SUMMARY | 2024-12-24 09:30 | XMS_ITS | Encounter Summary ---
Author Organization [facility] Address [address] [place] [address] [place] [address] Phone Care Team Providers Care Vibrator Operator Name Role Phone Vinod Borjas MD Primary Care Provider [phone] Reason for Visit * Occupational Therapy (Within 2 weeks) - Authorized Specialty Diagnoses / Procedures Referred By Amando calderon Referred To Contact Occupational Therapy Diagnoses Psoriatic arthritis Primary osteoarthritis involving multiple joints De Quervain's tenosynovitis, right Georgia Paniagua MD [address] [facility], [address] [address] Phone: tel: fax: [email or web address] [place] [address] Phone: tel: Referral ID Status Reason Start Date Expiration Date V isits Requested Visits Authorized [id number] Authorized 08/19/2024 08/19/2025 99 99 Encounter Details Date Type Department Care Team (Latest Contact Info) Description 12/24/2024 9:30 AM EDT Office Visit [facility] [address] [place] [address] Georgia Paniagau MD [address] [facility], [address] [address] [email or web address] Tammi Morfin, OT [address] [place] [address] [email or web address] Pain of right hand (Primary [...] Progress Notes * Tammi Morfin, OT - 12/24/2024 9:30 AM EDT .Occupational Therapy Treatment Note Patient Name: Yumiko Rodgers Date of : 1955 This patient has attended 25 visits since the onset of Occupational Therapy. Referring MD: Georgia Paniagua MD [address] [place] [address], [place] [address] Subjective comments: General soreness today Did a lot of washing over the weekend. Feels entire body is somewhat sore. 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 Along radial styloid/ first dorsal compartment Objective measurements: From previous visit Objective measurements Left wrist flex/ext 49/49 (was 48/45) Strength Window Air Conditioner Installer 41# (was 30#) left 47# 3 point pinch 13# (was 10#) left 14# Patient reports being pain free about 1/2 of the day (was 1/3 of the day) Interventions: See encounter report for minutes associated with each intervention. Modalities:(deferred today) US @ .8 w/cm2 cont x 8 min to first dorsal compartment There ex STM to forearm flexors/extensors. AAROM Wrist flex/ext 15 reps x 1 Prayer stretch with gentle pressure to wrist extension. Hold 20 sec repeat x 3 Medicine ball table top rolls for forearm stretch 10 reps x2 Medicine ball isometric grasp x 15 Patient performs gentle resistive forearm rotation 10 reps x 1 K taping along dorsal wrist and first dorsal compartment Deferred today: Proximal strengthening shoulder flex, abduction with 2# weight today tolerates 20 reps today x 1 today Patient performs 15 reps x 1 of wrist ext with 1# weight. -able to perform wrist flexion against gravity today-modified prn Forearm rotation bar with 2# weight 5 reps x 1 Patient performs wrist strengthening with use of level 3 thera flex bar today Tolerates 15reps x 1 for wrist flexors/extensors with attempts at wrist stabilization Finger/thumb extension with use of rubber band 10 reps x 2 Intrinsic Strengthening.with sponges squeeze 5 sec x 5- reviewed for home program Not performed today Stretch to flexors/extensors to patient tolerance. -use of volley ball for forearm stretches Window Air Conditioner Installer strengthening with gripper-set on level 2 x 15 deferred today Intrinsic strengthening with sponges x 15 ( deferred today) Home Exercise Program: Patient to continues strengthening now with 2# weight 20 reps- include proximal strengthening.. Intrinsic strengthening . Compression wrap prn. Written directions provided. Continue finger/thumb extension with rubber band. Self K taping as needed/helpful Assessment: Patient continues with slow, steady progress. Continues with dorsal wrist pain. Remains with questionable ganglion cyst- will f/u with MD this week. May benefit from ortho assessment Good progress towards goals. Goals: Short Term Goals: 2 weeks 1 Patient will demonstrate increase in right wrist flex/ext to 30 degrees/30 degrees, for increaseduse of UE for ADLs (MET) 2 Patient will demonstrate increase in right operations technician strength to at least 28#, for increased use of UEfor ADLs (MET) 3 Patient will demonstrate increase in right 3 point to at least 10#, for increased use of UE for ADLs (MET) Sock And Stocking Ironer Goals: 4 weeks 1 Patient will demonstrate increase in right wrist flex/ext to 50 degrees/50 degrees, for increaseduse of UE for ADLs ( Partially met ) 2 Patient will demonstrate increase in right operations technician strength to at least 42#, for increased use of UEfor ADLs (Partially met 41#) 3 Patient will demonstrate increase in right 3 point to at least 12#, for increased use of UE for ADLs ( MET) 4 Patient will report being pain free at least 80% of time ( not met) Plan: Progress patient as tolerated. Continued therapy per MD orders Evaluation Date: 12/24/2024 Diagnosis: Pain of right hand [M79.641] Date of Injury: 08/11/24 Self Stated Goal: Relieve pain and locking of joint Intervention Plan: ROM, strengthening, edema management, prn splinting, all to increase functional use of UE for ADLs Tammi Morfin, OT Tamm[place]fin, [place] [id number] Tammi Morfin, [place] 300825 Tammi [place]fin, [place] 321948 Tammi [place], [place] 823812 Tammi [place]fin, [place] 344049 T[place], [place] 827936 .Occupational Therapy Treatment Note Patient Name: Yumiko Rodgers Date of : 1955 This patient has attended 25 visits since the onset of Occupational Therapy. Referring MD: Georgia Paniagua MD [address] [facility], [address] [place] [address] Subjective comments: K tape was helpful. Still [...] Assess effectiveness of compression band Evaluation Date: 12/24/2024 Diagnosis: Pain of right hand [M79.641] Date of Injury: 08/11/24 Goals: Short Term Goals: 2 weeks 1 Patient will demonstrate increase in right wrist flex/ext to 30 degrees/30 degrees, for increaseduse of UE for ADLs (MET) 2 Patient will demonstrate increase in right operations technician strength to at least 28#, for increased use of UEfor ADLs (MET) 3 Patient will demonstrate increase in right 3 point to at least 10#, for increased use of UE for ADLs (MET) Sock And Stocking Ironer Goals: 4 weeks 1 Patient will demonstrate increase in right wrist flex/ext to 50 degrees/50 degrees, for increaseduse of UE for ADLs 2 Patient will demonstrate increase in right operations technician strength to at least 40#, for increased [...] for ADLs Tammi Morfin, DANIELA Morfin, [place] 360825 Tamm[place]fin, [place] 917949 Tammi Morfin, OT 301809 Tammi Morfin, OT 387622 Tammi Morfin, OT 404366 Tammi [place]fin, OT 599892 Tammi [place]fin, OT 493736 Tammi [place]fin, OT 139493 Tammi [place]fin, OT 469941 Tammi Morfin, OT 194608 Tammi [place]fin, OT 575061 Tammi [place]fin, OT 560400 Tamm[place], OT 722220 T[place], OT 034315 Tammi [place], OT 030688 Tammi Morfin, OT 845317 Tammi Morfin, OT 427841 Tammi [place]fin, OT 936377 Tammi Morfin, OT 446260 Tammi Morfin, OT 620491 Tammi Morfin, [place] 929204 documented in this encounter Plan of Treatment Upcoming Encounters Date Type Department Care Team (Late st Contact Info) Description 12/27/2024 10:15 AM EDT Office Visit [facility] [address] [place] [address] [place] [address] Georgia Paniagua MD [address] [address] [email or web address] hamida Morfin Tammi, OT [address] [place] [address] [email or web address] 12/31/2024 9:30 AM EDT Office Visit [facility] [address] [place] [address] Georgia Paniagua MD [address] [place] [address] [email or web address] Tammi Morfin, OT [address] [place] [address] [email or web address] 01/03/2025 9:30 AM EDT Office Visit [facility] [address] [place] [address] Georgia Paniagua MD [address] [place] [address] [email or web address] Tammi Ogden, OT [address] [place] [address] [email or web address] 01/07/2025 9:30 AM EDT Office Visit [facility] [address] [place] [address] Georgia Paniagua MD [address] [place] [address] [email or web address] Tammi Ogden, OT [address] [place] [address] [email or web address] 01/10/2025 9:30 AM EDT Office Visit [facility] [address] [place] [address] Georgia Paniagua MD [address] [address] [email or web address] Tammi Morfin, OT [address] [place] [address] [email or web address] 05/02/2025 10:30 AM EST Office Visit [facility] [address] [place] [address] Georgia Paniagua MD [address] [place] [address], [address] [address] [email or web address] documented as of this encounter Visit Diagnoses Diagnosis Pain of right hand- Primary documented in this encounter Care Teams Vibrator Operator Relationship Specialty Start Date End Date Vinod Borjas MD [address] [place] [address] [place] [address] PCP - General Internal Medicine 08/19/24 documented as of this encounter Additional Source Comments The information contained in this document represents components of the legal health record. It is not the complete legal health record.[facility]
--- NOTE | ~2024-12-26 | XR_ITS ---
EXAMINATION: XR HAND, RIGHT CLINICAL INFORMATION: PSORIATIC ARTHRITIS COMPARISON: None available. TECHNIQUE: PA, lateral, and oblique views of the right hand. FINDINGS: Osseous mineralization is normal. No fracture. Alignment is anatomic. No significant joint space narrowing. No erosions identified. Faint calcification in the ulnocarpal space suggestive of CPPD calcification. XR/XR hand RT min 3V IMPRESSION: No acute osseous findings. 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 Electronically signed by: Kashmir Serna MD 12/26/2024 02:13 PM EDT
--- OUTSIDE RECORDS SUMMARY | 2024-12-26 15:43 | XMS_ITS | Patient Health Record ---
Author Organization [facility] Address [address] [place] [address] Care Team Providers Care Game Breeding Farm Manager Name Role Phone Vinod Borjas MD Primary Care Provider Tiffany Stein Unavailable [phone] Allergies No Known Allergies Results Component Value [...] Problem Acquired hammer toe of right foot (3958457486010540 ) Other hammer toe(s) (acquired), right foot (M20.41) Active confirmed Response to treatment, Danica t Problem Acquired hammer toe of left foot (4965379429349442 ) Other hammer toe(s) (acquired), left foot (M20.42) Active confirmed Response to treatment, Improvemen t Problem Polyneuropathy due to diabetes mellitus type I (147164718) Type 1 diabetes mellitus with diabetic polyneuropathy (E10.42) Active confirmed Problem Polyneuropathy due to type 2 diabetes mellitus (701710509) Type 2 diabetes mellitus with diabetic polyneuropathy (E11.42) Active confirmed Vital Signs Blood pressure diastolic 65 mm Hg 10/16/2024 Height 1qm63ar in 10/16/2024 Blood pressure systolic 120 mm Hg 10/16/2024 Weight 185 lbs 10/16/2024 BMI 25.8 kg/m2 10/16/2024 Procedures Procedure Date Ordered Date Performed Result Body Sit e 20109-CRJFVLX NAIL, 6 OR MORE 04/10/2024 N/A 73114-ZXQF SKIN LESIONS, 2 TO 4 04/10/2024 N/A 64622-OXSUNUI NAIL, 6 OR MORE 07/11/2024 N/A 31308-RHZD SKIN LESIONS, 2 TO 4 07/11/2024 N/A Encounters Encounter Location Date Provider Diagnosis [address] [address] 04/10/2024 Tiffany Salas Other hammer toe(s) (acquired), right foot M20.41 ; Other hammer toe(s) (acquired), left foot M20.42 ; Type 2 diabetes mellitus with diabetic polyneuropathy E11.42 and Tinea unguium B35.[address] [address] 07/11/2024 Tiffany Salas Type 2 diabetes mellitus with diabetic polyneuropathy E11.42 ; Tinea unguium B35.1 ; Other hammer toe(s) (acquired), right foot M20.41 and Other hammer toe(s) (acquired), left foot M20.[address] [place] [address] 10/16/2024 Tiffany Salas Type 2 diabetes mellitus [...] Treatment Pending Test Test Name Order Date 62230-WQOEDBP NAIL, 6 OR MORE 02/20/2013 95882-CXZZXGJ NAIL, 6 OR MORE 05/29/2013 58916-AIWUHQZ NAIL, 6 OR MORE 08/28/2013 07361-EAEJZWD NAIL, 6 OR MORE 12/11/2013 49410-QTMHACN NAIL, 6 OR MORE 05/07/2014 43807-CYWUSAM NAIL, 6 OR MORE 08/06/2014 35326-BYWSUJO NAIL, 6 OR MORE 04/13/2015 86588-UIGNTLN NAIL, 6 OR MORE 12/31/2014 41223-XUDIJXH NAIL, 6 OR MORE 07/29/2015 36229-QCHHYKY NAIL, 6 OR MORE 10/28/2015 91796-GIRUDCK NAIL, 6 OR MORE 01/27/2016 19706-DRDNDSK NAIL, 6 OR MORE 04/27/2016 70852-FQZGKHW NAIL, 6 OR MORE 11/02/2016 84619-BAXLRLY NAIL, 6 OR MORE 02/15/2017 27002-BPHZKEC NAIL, 6 OR MORE 05/24/2017 45396-ZKVODUQ NAIL, 6 OR MORE 08/30/2017 31401-SICPELA NAIL, 6 OR MORE 12/25/2017 82546-CEWAGMY NAIL, 6 OR MORE 04/10/2024 43173-CVYAJXV NAIL, 6 OR MORE 07/11/2024 79352-Jahoukfd Plate 08/30/2017 04517-Jntifpxk Plate 11/02/2016 31777-Hjqhzffd Plate 12/31/2014 79706-Fdfztdhz Plate 04/13/2015 89927-Dciklrbl Plate 08/06/2014 16194-Tpaympbl Plate 05/07/2014 21015-Gbkzeaxr Plate 12/11/2013 01095-Qsoicqvx Plate 09/11/2013 53130-Savhaocx Plate 05/29/2013 21140-Bscvyzde Plate 02/20/2013 95462-Gkkuddrp Plate Each Additional 04/2013 12275-Mbejoufu Plate Each Additional 77219-Ofgzqhaj Plate Each Additional 22930-Rudpjurj Plate Each Additional 03/2015 38150-Whspjlcw Plate Each Additional 80557- Debride <25 sq cm 07/06/2020 48902- Debride <25 sq cm 08/28/2013 71987-DIZV SKIN LESIONS, OVER 4 05/07/19 15 28188-LKAJ SKIN LESIONS, OVER 4 12/12/19 14 69500-PZSH SKIN LESIONS, OVER 4 02/21/20 13 73050-STVH SKIN LESIONS, OVER 4 05/30/19 14 68478-LTPF SKIN LESIONS, OVER 4 08/29/19 14 01070-YWLA SKIN LESIONS, OVER 4 04/13/19 16 12277-OYWP SKIN LESIONS, OVER 4 08/07/19 15 09720-XTZR SKIN LESIONS, OVER 4 01/01/20 15 35703-SAAH SKIN LESIONS, OVER 4 07/29/19 16 74472-LZFC SKIN LESIONS, OVER 4 01/27/20 16 38063-MMLE SKIN LESIONS, OVER 4 10/28/19 16 03172-EXDQ SKIN LESIONS, OVER 4 07/07/19 21 46237-REGY SKIN LESIONS, OVER 4 01/14/20 21 97756-TIGV SKIN LESIONS, OVER 4 11/03/19 17 61720-HOMD SKIN LESIONS, OVER 4 04/27/19 17 12751-EUHI SKIN LESIONS, OVER 4 07/28/19 17 16971-VSUO SKIN LESIONS, OVER 4 05/25/19 18 57967-OSJQ SKIN LESIONS, OVER 4 02/16/20 17 52717-KNQB SKIN LESIONS, OVER 4 08/31/19 18 94091-TMCM SKIN LESIONS, OVER 4 12/26/19 18 20578-UUOD SKIN LESIONS, OVER 4 04/16/19 00542-NXBL SKIN LESIONS, OVER 4 08/16/19 19 14530-PDBQ SKIN LESIONS, OVER 4 11/15/19 05146-YYJM SKIN LESIONS, OVER 4 03/18/19 34592-SBFG SKIN LESIONS, OVER 4 09/04/19 78406-NEIW SKIN LESIONS, OVER 4 01/06/20 77450-WICE SKIN LESIONS, 2 TO 4 04/10/19 68684-WCDG SKIN LESIONS, 2 TO 4 07/12/19 Next Appt Details Provider Name:Tiffany Gandhi bean, 01/15/2025 09:00:00 AM, [address] [place], [address], Insurance Providers Payer Name Payer Address Payer Phone Subscriber Number Group Number Insured Name Patient Relationship to Insured Coverage Start Date Coverage End Date Medicare National [employer] [address] [facility] [address] [id number] Yumiko Rodgers Self - patient is the insured [facility] [address] [place] [address] [id number] Yumiko Rodgers Self - patient is the insured Medical (General) History Medical History History ICD Code Arthritis headaches/migraines high blood pressure psoriasis/eczema type II diabetes Surgical History Surgery Date(Month/Year) bx left leg 2015
--- OUTSIDE RECORDS SUMMARY | 2024-12-26 15:44 | XMS_ITS | Encounter Summary ---
Author Organization [facility] Address [address] [place] [address] [address] [place] [address] Phone Care Team Providers Care Audiology Director Name Role Phone Vinod Borjas MD Primary Care Provider [phone] Encounter Details Date Type Department Care Team (Late Contact Info) Description 12/25/2024 Orders Only [facility] Rheumatology [address] [place] [address] Georgia Paniagua MD 22 [facility], [address] [place] [address] [email or web address] Social History Tobacco Use Types Packs/Day Years [...] on file documented as of this encounter Plan of Treatment Upcoming Encounters Date Type Department Care Team (Late Contact Info) Description 12/27/2024 10:15 AM EDT Office Visit [facility] [address] [place] [address] Georgia Paniagua MD [address] [place] [phone] [email or web address] Tammi Ogden, OT [address] [place] [address] [email or web address] 12/31/2024 9:30 AM EDT Office Visit [facility] [address] [place] [address] Georgia Paniagua MD [address] [place] [address] [email or web address] Tammi Ogden, OT [address] [place] [address] [email or web address] 01/03/2025 9:30 AM EDT Office Visit [facility] [address] [place] [address] Georgia Paniagua MD [address] [place] [address] [email or web address] Tammi Ogden, OT [address] [place] [address] [email or web address] 01/07/2025 9:30 AM EDT Office Visit [facility] [address] [place] [address] Georgia Paniagua MD [address] [place] [address] [email or web address] Tammi Ogden, OT [address] [place] [address] [email or web address] 01/10/2025 9:30 AM EDT Office Visit [facility] [address] [place] [address] Georgia Paniagua MD 22 [facility], [address] [address] [email or web address] Tamim Morfin, OT [address] [place] [address] [email or web address] 05/02/2025 10:30 AM EST Office Visit [facility] Rheumatology [address] [place] [address] Georgia Paniagua MD 22 [facility], [address] [address] [email or web address] documented as of this encounter Procedures Procedure Name Priority Date/Time Associated Diagnosis Comments COMPREHENSIVE METABOLIC PANEL Routine 12/12/2024 2:17 PM EDT SEDIMENTATION RATE (ESR) Routine 025 2:17 PM EDT CBC AND DIFFERENTIAL Routine 12/12/2024 2:17 PM EDT C-REACTIVE PROTEIN Routine 12/12/2024 2: 17 PM EDT documented in this encounter Results * CBC and differential (12/12/2024 2:17 PM EDT) Blood us Georgia Paniagua MD LAB BLOOD ORDERABLES Fin al Result * Sedimentation rate (ESR) (12/12/2024 2:17 PM EDT) us Georgia Paniagua MD LAB BLOOD ORDERABLES Fin al Result * C-Reactive Protein (12/12/2024 2:17 PM EDT) us Georgia Paniagua MD LAB BLOOD ORDERABLES Fin al Result * Comprehensive metabolic panel (12/12/2024 2:17 PM EDT) Georgia Paniagua MD LAB BLOOD ORDERABLES Fin al Result documented in this encounter Visit Diagnoses Not on filedocumented in this encounter Care Teams Audiology Director Relationship Specialty Start Date End Date Vinod Borjas MD [address] [place] [address] Dr Morales, [place] [address] PCP - General Internal Medicine 08/19/24 documented as of this encounter Additional Source Comments The information contained in this document represents components of the legal health record. It is not the complete legal health record.[facility]
--- OUTSIDE RECORDS SUMMARY | 2024-12-26 15:44 | XMS_ITS | Clinical Summary ---
Author Organization [facility] Address [address] [place] [address] Phone Care Team Providers Care Grounds Foreman Name Role Phone Vinod Borjas MD Primary Care Provider [phone] Allergies No known active allergies Medications simvastatin (ZOCOR) 20 MG tablet Take 20 mg by mouth nightly at bedtime. Active gabapentin (NEURONTIN) 100 MG capsuleIndication s:up to 300 mg as needed Take by mouth. Indications : up to 300 mg as needed Active [...] ORAL) Take by mouth as needed. Active lisinopril (PRINIVIL,ZESTRIL ) 2.5 MG tablet Take 2.5 mg by mouth daily. Active apremilast (OTEZLA) 30 mg tabletIndications :Psoriatic arthritis,Encount er for monitoring certolizumab therapy Take 1 tablet (30 mg total) by mouth 2 (two) times a day. 180 tablet 3 5 Active apremilast (OTEZLA) 30 mg tabletIndications :Psoriatic arthritis,Encount er for monitoring certolizumab therapy Take 1 tablet (30 mg total) by mouth 2 (two) times a day. 180 tablet 3 5 12/27/19 25 Discontinu ed(Reorder ) Active Problems Problem Noted Date Diagnosed Date De Quervain's tenosynovitis, right 08/19/2024 Assessment & Plan (12/26/2024 1:05 PM EDT): Due to ongoing pain, weakness and difficulty with wrist extension I requested an x-ray of her R hand & right wrist and consultation with the orthopedic surgeon while asking her to carefully continue OT guided exercises and joint protection, energy conservation techniques. Assessment & Plan (11/06/2024 12:48 PM EDT): [...] without esophagi tis 04/22/2024 Assessment & Plan (12/26/2024 10:56 AM EDT): Avoid late, large, spicy meals. Keep headboard elevated at 45 angle for nighttime. Assessment & Plan (08/19/2024 10:44 AM EDT): Avoid late, large, spicy meals. Keep headboard elevated at 45 angle for nighttime. Assessment & Plan (04/22/2024 10:18 AM EST): Avoid late, large, spicy meals. Keep headboard elevated at 45 angle for nighttime. Encounter for monitoring certolizumab therapy Assessment & Plan (12/26/2024 10:56 AM EDT): Monitor for any signs of infection or injection site reactions. Hold administration if feeling sick, running fever or taking antibiotics. Complete entire course of antibiotic and wait at least 48 hours after last dose of antibiotic to make sure that infection does not recur before administering every 28 days subcutaneous Cimzia. Make sure to inform any new DAMEON SANTOS, IMMIGRATION JUDGE about chronic immunosuppression with Cimzia particularly in emergency situations. Assessment & Plan (08/19/2024 10:44 AM EDT): [...] sure to inform any new DAMEON SANTOS, IMMIGRATION JUDGE about chronic immunosuppression with Cimzia particularly in [...] sure to inform any new DAMEON SANTOS, IMMIGRATION JUDGE about chronic immunosuppression with Cimzia particularly in [...] Cimzia. Make sure to inform any new MD, PA, IMMIGRATION JUDGE about chronic immunosuppression with Cimzia particularly in emergency situations. Postmenopausal 02/22/2022 Assessment & Plan (02/22/2022 11:59 AM EST): Fall and fracture prevention strategies. Daily weightbearing exercises. Proper calcium and vitamin D supplementation. She is due for BMD at [facility] on 01/28/2022. NSAID long-term use 01/27/2022 [...] use of insulin 07/12/2021 Assessment & Plan (12/26/2024 10:56 AM EDT): Continue close follow-up with her diabetic team and aim at optimal glucose control Assessment & Plan (08/19/2024 10:45 AM EDT): [...] least twice daily and follow closely with medical sales representative and PCP as scheduled. Muscle spasm 08/20/2020 [...] 2020. Psoriatic arthritis 01/23/2020 Assessment & Plan (12/26/2024 10:56 AM EDT): Clinically and laboratory lopez appears stable on current regimen. Get monitoring labs prior to next visit in 4 months-standing orders in [facility]. Carefully continue weekly subcutaneous Cimzia [...] Monday usually with supper Assessment & Plan (08/19/2024 10:43 AM EDT): Clinically and laboratory lopez appears stable on current regimen. Get monitoring labs prior to next visit in 4 months-standing orders in [facility]. Carefully continue weekly subcutaneous Cimzia [...] next visit in 4 months-standing orders in [facility]. Carefully continue weekly subcutaneous Cimzia [...] next visit in 4 months-standing orders in [facility]. Carefully continue weekly subcutaneous Cimzia [...] next visit in 6 months-standing orders in [facility]. Carefully continue weekly subcutaneous Cimzia [...] next visit in 4 months-standing orders in [facility]. Carefully continue weekly subcutaneous Cimzia [...] next visit in 4 months-standing orders in [facility]. Carefully continue weekly subcutaneous Cimzia [...] next visit in 3 months-standing orders in [facility]. Carefully continue monthly subcutaneous Cimzia [...] next visit in 3 months-standing orders in [facility]. Carefully continue weekly subcutaneous Humira [...] next visit in 3 months-standing orders in [facility]. Carefully continue weekly subcutaneous Humira [...] On her request I filled application for [employer]-see details in media section of [employer] with today's date. Assessment & Plan (12/14/2020 [...] involving multiple joints 01/23/2020 Assessment & Plan (12/26/2024 10:56 AM EDT): Joint protection, energy conservation. Gentle, [...] bedtime x 3 weeks. Assessment & Plan (08/19/2024 10:44 AM EDT): [...] use of apremilast 01/23/2020 Assessment & Plan (12/26/2024 10:56 AM EDT): Take exactly as prescribed and follow closely with prescribing groundwater consultant as scheduled. Assessment & Plan (08/19/2024 10:44 AM EDT): Take exactly as prescribed and follow closely with prescribing groundwater consultant as scheduled. Assessment & Plan (04/22/2024 10:17 AM EST): Take exactly as prescribed and follow closely with prescribing groundwater consultant as scheduled. Assessment & Plan (12/21/2023 9:38 AM EDT): Take exactly as prescribed and follow closely with prescribing groundwater consultant as scheduled. Assessment & Plan (06/21/2023 9:43 AM EDT): Take exactly as prescribed and follow closely with prescribing groundwater consultant as scheduled. Assessment & Plan (01/20/2023 11:21 AM EST): Take exactly as prescribed and follow closely with prescribing groundwater consultant as scheduled. Assessment & Plan (09/21/2022 12:41 PM EDT): Take exactly as prescribed and follow closely with prescribing groundwater consultant as scheduled. Assessment & Plan (05/27/2022 10:57 AM EDT): Take exactly as prescribed and follow closely with prescribing groundwater consultant as scheduled. Assessment & Plan (01/27/2022 10:41 AM EST): Take exactly as prescribed and follow closely with prescribing groundwater consultant as scheduled. Assessment & Plan (10/20/2021 8:37 AM EDT): Take exactly as prescribed and follow closely with prescribing groundwater consultant as scheduled. Assessment & Plan (07/12/2021 10:10 AM EDT): Take exactly as prescribed and follow closely with prescribing groundwater consultant as scheduled. Assessment & Plan (04/15/2021 10:15 AM EST): Take exactly as prescribed and follow closely with prescribing groundwater consultant as scheduled. Assessment & Plan (12/14/2020 10:02 AM EDT): Take exactly as prescribed and follow closely with prescribing groundwater consultant as scheduled. Assessment & Plan (08/20/2020 10:23 AM EDT): Take exactly as prescribed and follow closely with prescribing groundwater consultant as scheduled. Assessment & Plan (2020 9:47 PM EST): Take exactly as prescribed and follow closely with prescribing groundwater consultant as scheduled. Assessment & Plan (01/26/2020 4:17 PM EST): Take exactly as prescribed and follow closely with prescribing groundwater consultant as scheduled. (Last visit in September 2019-typically [...] least twice daily and follow closely with medical sales representative and PCP as scheduled. Assessment & Plan (12/21/2023 9:37 AM EDT): Continue watchful diet avoiding concentrated sugars. Proper hydration. Monitor blood glucose at least twice daily and follow closely with medical sales representative and PCP as scheduled. Assessment & Plan (10/20/2021 8:42 AM EDT): Continue watchful diet avoiding concentrated sugars. Proper hydration. Monitor blood glucose at least twice daily and follow closely with medical sales representative and PCP as scheduled. Assessment & Plan (04/18/2021 3:31 PM EST): Continue watchful diet avoiding concentrated sugars. Proper hydration. Monitor blood glucose at least twice daily and follow closely with medical sales representative and PCP as scheduled. Diabetes type 2, [...] sure to inform any new MD PA, IMMIGRATION JUDGE about chronic immunosuppression with Humira particularly in [...] sure to inform any new MD PA, IMMIGRATION JUDGE about chronic immunosuppression with Humira particularly in [...] Monday. Make sure to inform any new MD, PA, IMMIGRATION JUDGE about chronic immunosuppression with Humira particularly in [...] . Make sure to inform any new MD PA, IMMIGRATION JUDGE about chronic immunosuppression with Humira particularly in emergency situations. Encounters Date Type Department Care Team Description 12/26/2024 10:30 AM EDT Office Visit [facility] Rheumatology [address] [place] [address] Georgia Paniagua MD Psoriatic arthritis (Primary Dx); Primary osteoarthritis involving multiple joints; Type 2 diabetes mellitus with diabetic neuropathy, with long-term current use of insulin; Encounter for monitoring certolizumab therapy; Long-term current use of apremilast; Gastroesophageal reflux disease without esophagitis; De Quervain's tenosynovitis, right 12/25/2024 Orders Only [facility] Rheumatology [address] [place] [address] Georgia Paniagua MD 12/24/2024 9:30 AM EDT Office Visit [facility] [address] [place] [address] Georgia Paniagua MD McCullough, Sheila, OT Pain of right hand (Primary Dx) 12/20/2024 9:30 AM EDT Office Visit [facility] [address] [place] [address] Georgia Paniagua MD McCullough, Sheila, OT Pain of right hand (Primary Dx) 12/17/2024 8:45 AM EDT Office Visit [facility] [address] [place] [address] Georgia Paniagua MD McCullough, Sheila, OT Pain of right hand (Primary Dx) 12/12/2024 9:30 AM EDT Office Visit [facility] [address] [place] [address] Georgia Paniagua MD McCullough, Sheila, OT Pain of right hand (Primary Dx) 12/10/2024 9:30 AM EDT Office Visit [facility] [address] [place] [address] Georgia Paniagua MD McCullough, Sheila, OT Pain of right hand (Primary Dx) 12/06/2024 8:45 AM EDT Office Visit [facility] [address] [place] [address] Georgia Paniagua MD McCullough, Sheila, OT Pain of right hand (Primary Dx) 12/06/2024 Plan of Care Documentation [facility] [address] [place] [address] 11/19/2024 8:45 AM EDT Office Visit [facility] [address] [place] [address] Georgia Paniagua MD McCullough, Sheila, OT Tendinitis, de Quervain's (Primary Dx) 11/15/2024 8:45 AM EDT Office Visit [facility] [address] [place] [address] Georgia Paniagua MD McCullough, Sheila, OT Tendinitis, de Quervain's (Primary Dx) 11/12/2024 9:30 AM EDT Office Visit [facility] [address] [place] [address] Georgia Paniagua MD McCullough, Sheila, OT Tendinitis, de Quervain's (Primary Dx) 11/06/2024 12:00 PM EDT Office Visit [facility] Rheumatology [address] [place] [address] Georgia Paniagua MD De Quervain's tenosynovitis, right (Primary Dx) 11/04/2024 9:00 AM EDT Office Visit [facility] [address] [place] [address] Georgia Paniagua MD McCullough, Sheila, OT Tendinitis, de Quervain's (Primary Dx) 11/04/2024 Telephone [facility] Rheumatology [address] [place] [address] Georgia Paniagua MD 10/28/2024 9:45 AM EDT Office Visit [facility] [address] [place] [address] Georgia Paniagua MD McCullough, Sheila, OT Tendinitis, de Quervain's (Primary Dx) 10/25/2024 8:45 AM EDT Office Visit [facility] [address] [place] [address] Georgia Paniagua MD McCullough, Sheila, OT Tendinitis, de Quervain's (Primary Dx) 10/17/2024 8:00 AM EDT Office Visit [facility] [address] [place] [address] Georgia Paniagua MD McCullough, Sheila, OT Tendinitis, de Quervain's (Primary Dx) 10/14/2024 9:45 AM EDT Office Visit [facility] [address] [place] [address] Georgia Paniagua MD McCullough, Sheila, OT Tendinitis, de Quervain's (Primary Dx) 10/11/2024 11:00 AM EDT Office Visit [facility] [address] [place] [address] Georgia Paniagua MD McCullough, Sheila, OT Tendinitis, de Quervain's (Primary Dx) 10/09/2024 2:30 PM EDT Office Visit [facility] [address] [place] [address] Georgia Paniagua MD McCullough, Sheila, OT Tendinitis, de Quervain's (Primary Dx) 10/04/2024 10:15 AM EDT Office Visit [facility] [address] [place] [address] Georgia Paniagua MD McCullough, Sheila, OT Tendinitis, de Quervain's (Primary Dx) 10/01/2024 10:15 AM EDT Office Visit [facility] [address] [place] [address] Georgia Paniagua MD McCullough, Sheila, OT Tendinitis, de Quervain's (Primary Dx) 09/25/2024 10:30 AM EDT Office Visit [facility] [address] [place] [address] Georgia Paniagua MD McCullough, Sheila, OT Tendinitis, [...] Reading Time Taken Comments Blood Pressure 128/78 12/26/2024 10:33 AM EDT Pulse 84 12/26/2024 10:33 AM EDT Temperature 36.2 C (97.2 F) 04/23/2020 9:40 AM EST Respiratory Rate - - Oxygen Saturation 99% 12/26/2024 10: 33 AM EDT Inhaled Oxygen Concentration - - Weight 89.7 kg (197 lb 12.8 oz) 025 10:33 AM EDT Height 182.9 cm (6') 12/26/2024 10:33 AM EDT Body Mass Index 26.83 12/26/2024 10:33 AM EDT Plan of Treatment Upcoming Encounters Date Type Department Care Team (Late st Contact Info) Description 12/27/2024 10:15 AM EDT Office Visit [facility] [address] [place] [address] Georgia Paniagua MD [address] [place] [address] [email or web address] Tammi Ogden, OT [address] [place] [address] [email or web address] 12/31/2024 9:30 AM EDT Office Visit [address] [place] [address] Georgia Paniagua MD [address] [place] [address], [address] [address] [email or web address] Tammi Ogden, OT [address] [place] [address] [email or web address] 01/03/2025 9:30 AM EDT Office Visit [address] [place] [address] Georgia Paniagua MD [address] [place] [address] [email or web address] Tammi Ogden, OT [address] [place] [address] [email or web address] 01/07/2025 9:30 AM EDT Office Visit [facility] [address] [place] [address] Georgia Paniagua MD [address] [place] [address] [email or web address] Tammi Ogden, OT [address] [place] [address] [email or web address] 01/10/2025 9:30 AM EDT Office Visit [facility] [address] [place] [address] Georgia Paniagua MD [address] [place] [address] [email or web address] [email or web address] Ogden, OT [address] [place] [address] [email or web address] 05/02/2025 10:30 AM EST Office Visit [facility] Rheumatology [address] [place] [address] Georgia Paniagua MD [address] [place] [address] [email or web address] Health Maintenance Due Date Last Done Comments HEMOGLOBIN A1C 1956 DEPRESSION SCREENING 1968 HEPATITIS C SCREENING 1974 MAMMOGRAM 1996 COLOGUARD 2001 COLONOSCOPY 2001 COLORECTAL CANCER SCREENING 2001 FIT TEST 2001 FOBT 2001 SIGMOIDOSCOPY 2001 VIRTUAL COLONOSCOPY 2001 DIABETIC EYE EXAM 01/23/2020 POTASSIUM LEVEL 01/22/2021 01/23/2020 OSTEOPOROSIS SCREENING INITIAL (ONE-TIME) 2021 PNEUMOCOCCAL VACCINES (50+ years) (3 of 3 - PCV) 12/24/2021 12/24/2020, 11/20/2019, 11/30/2018 COVID-19 VACCINE (2024- season) 2025 11/21/2024, 11/18/2023, 12/21/2022, Additional history exists BLOOD PRESSURE 06/26/2025 12/26/2024 CREATININE LEVEL 12/12/2025 12/12/2024, , 06/19/2024, Additional history exists Adult Td,Tdap Booster 12/31/2031 12/30/2021 ZOSTER VACCINES Completed 01/21/2020, 11/20/2019 RSV VACCINE Completed 11/03/2022 INFLUENZA VACCINE Completed 11/21/2024, , 12/21/2022, Additional history exists SMOKING STATUS SCREENING (Once After 26 Yrs) Completed 12/26/2024 HEPATITIS A VACCINES Aged Out No long [...] Associated Diagnosis Comments CBC AND DIFFERENTIAL Routine 12/12/2024 2:17 PM EDT SEDIMENTATION RATE (ESR) Routine 12/12/2024 2:17 PM EDT C-REACTIVE PROTEIN Routine 12/12/2024 2: 17 PM EDT COMPREHENSIVE METABOLIC PANEL Routine 12/12/2024 2:17 PM EDT COMPREHENSIVE METABOLIC PANEL Routine 01/23/2020 1:02 PM EST Psoriatic arthritis On statin therapy Adalimumab (Humira) long-term use Long-term current use of apremilast from Last 3 Months or Most Recently Relevant to Health Maintenance Results * Comprehensive metabolic panel (12/12/2024 2:17 PM EDT) Only the most recent of2 resultswithin the time period is included. us Georgia Paniagua MD LAB BLOOD ORDERABLES Fin al Result * Sedimentation rate (ESR) (12/12/2024 2:17 PM EDT) Georgia Paniagua MD LAB BLOOD ORDERABLES Fin al Result * CBC and differential (12/12/2024 2:17 PM EDT) Blood Georgia Paniagua MD LAB BLOOD ORDERABLES Fin al Result * C-Reactive Protein (12/12/2024 2:17 PM EDT) us Georgia Paniagua MD LAB BLOOD ORDERABLES Fin al Result from Last 3 Months or Most Recently Relevant to Health Maintenance Insurance [facility] MEDICARE PART A & B [facility] PART A & B [facility] MEDICARE PART A & B [facility] MEDICARE PART A & B [facility] MEDICARE PART A & B [facility] MEDICARE PART A & B [facility] MEDICARE PART A & B [employer] [facility] MEDICARE PART A & B [facility] MEDICARE PART A & B Care Teams Grounds Foreman Relationship Specialty Start Date End Date Vinod Borjas MD [address] [place] [address] [place] [address] PCP - General Internal Medicine 08/19/24 Additional Source Comments The information contained in this document represents components of the legal health record. It is not the complete legal health record.[facility]
== END 2024-12-26 12:33 | disposition home or self-care (01) ==
LOC: HO.HMGCX 12:32
PROVIDERS: PCP Internal Medicine; Referring Provider Nurse Practitioner; Visit Provider Internal Medicine Rheumatology
DX: M65.4 Radial styloid tenosynovitis [de Quervain] (principal); L40.50 Arthropathic psoriasis, unspecified
CPT/HCPCS: 73130

== ENCOUNTER → 2024-12-26 13:03 | Outpatient (BNV) | payer MEDICARE, BC, SELFPAY | PROVIDERS: PCP Internal Medicine; Referring Provider Nurse Practitioner; Visit Provider Radiology Diagnostic Ultrasound | DX: M11.241 Other chondrocalcinosis, right hand (principal) | CPT/HCPCS: 73130 ==

== ENCOUNTER → 2025-01-10 12:31 | Outpatient (REF) | payer MEDICARE, BC, SELFPAY ==
--- OUTSIDE RECORDS SUMMARY | 2023-12-04 05:15 | XMS_ITS ---
Author Organization [facility] Address [address] [place] [address] Care Team Providers Care Control Panel Assembler Name Role Phone Indio SANTOS, Vinod Primary Care Provider Tiffany Stein Unavailable [phone] Wang De León Unavailable [phone] Encounters Encounter Location Date Provider Diagnosis [address] [address] 12/04/2023 Wang De León Plan Of Treatment Next Appt Details Provider Name:Tiffany Gandhi bean, 01/15/2025 09:00:00 AM, [address] [place] [address], [phone], Progress Notes * Yumiko VELÁZQUEZ MDOB: (69 yo F)Acc No.[id number]:12/04/2023 Progress Note Patient: Yumiko TOURE Provider: Yevgeniy Navas DPM :1955 A ge:68 Y S ex:Female Date:12/04/2023 Address:[address] [place] [address] [id number] Pcp:Vinod Borjas MD Subjective: * Chief Complaints: [...] 12/04/2023 Generated for Raj cutler/Azul/Mojgan on: 1 01:45 PM EDT
--- NOTE | 2025-01-10 12:35 | CA_ITS ---
Transthoracic Echocardiogram Patient (Last, First, Middle): Yumiko Rodgers M Gender: Female Date of : 1955 Age: 69 Procedure Date: 01/10/2025 Procedure Type: Transthoracic Echocardiogram Location: OP Height: 180. cm Weight: 82.1 kg BSA: 2.02 m2 Heart Rate: 85 bpm BP: 162 / 85 mmHg Regulatory Product Manager: CINTHIA Referring MD: Crispin Jarrett MD Symptoms: R06.09 - Other forms of dyspnea Study Quality: Fair ECG Rhythm: Sinus Conclusions: - The left ventricular systolic function is normal. The calculated ejection fraction is 61% by biplane method. - There is moderately increased left ventricular wall thickness. - No obvious valvular pathology seen on this study. Findings Left Ventricle Normal left ventricular cavity size. There is moderately increased left ventricular wall thickness. The left ventricular systolic function is normal. The calculated ejection fraction is 61% by biplane method. There is no evidence of regional wall motion abnormalities. Evidence suggests grade I (mild) diastolic dysfunction. Right Ventricle Normal right ventricular cavity size and systolic function. Atria Both atria are normal in size. Aortic Valve There is a normal trileaflet aortic valve. There is no aortic valve stenosis. There is no aortic valve regurgitation. Mitral Valve There is mild mitral annular calcification. There is no mitral valve regurgitation. There is no mitral valve stenosis. Pulmonic Valve The pulmonic valve is likely normal. Tricuspid Valve There is trace tricuspid valve regurgitation. There is no evidence of pulmonary hypertension. Great Vessels The asc aorta and aortic arch are normal in size. Venous The inferior vena cava is normal in size and collapses greater than 50% with inspiration. Pericardium/Pleural There is no evidence of pericardial effusion. Prior Study Comparison No prior study available for comparison. Recommendations, Care & Conclusions No obvious valvular pathology seen on this study. Measurements 2D Linear Measurements IVSd: 1.35 0.6-0.9/0.6-1.0 cm LVIDd: 3.34 3.9-5.3/4.2-5.9 cm LVIDd Index: 1.65 2.4-3.2/2.2-3.1 cm/m2 LVIDs: 2.01 2.0-3.6 cm LVPWd: 1.32 0.7-1.1 cm LA Diam: 3.40 2.7-3.8/3.0-4.0 cm LAIDs Index: 1.68 1.5-2.3 cm/m2 LV Mass: 187.01 67-162/88-224 g LV Mass Index: 92.58 43-95/49-115 g/m2 LVOT Diam: 2.00 3.0+(-)1.3 cm 2D Systolic Function EF 4C: 62.20 >55% EF 2C: 60.90 >55% EF BiP: 61.30 >55% Mitral Valve MV Pk E: 0.63 MV PK A: 1.05 MV Decel Time: 142.00 E/A: 0.60 E'Lateral: 6.20 E'Medial: 4.03 E/E' Med: 15.50 E/E' Lat: 10.10 PHT: 41.00 MVA PHT: 5.37 Decel [place]: 4.42 Aortic Valve AoV Pk Serafin: 1.02 AoV Mn Serafin: 0.79 AoV VTI: 0.21 AoV Pk Grad: 4.00 Aov Mn Grad: 3.00 EDUARD Cont.VTI: 2.20 LVOT LVOT Pk Serafin: 0.72 LVOT Mn Serafin: 0.57 LVOT VTI: 0.15 LVOT Pk Grad: 2.00 LVOT Mn Grad: 1.00 LVOT Diam: 2.00 LVOT Area: 3.14 Diastolic Function MV Pk E: 0.63 MV Pk A: 1.05 E/A: 0.60 E'Medial: 4.03 E/E' Med: 15.50 E' Laterial: 6.20 E/E' Lat: 10.10 Right Ventricle TAPSE (mm): 26.90 TVS' Serafin: 12.50 Great Vessels Aorta Sinus of Valsalva: 3.20 2.0-3.5 cm Ao Asc: 3.00 2.1-3.4 cm Ao Arch: 2.60 Pulmonary Valve PV Pk Serafin: 1.06 Peak PV Grad: 4.00 Updated in Other Vendor System with Status of Final Crispin Jarrett MD electronically signed on 01/12/2025 2:25:59 PM with status of Final
--- OUTSIDE RECORDS SUMMARY | 2025-01-10 13:46 | XMS_ITS | Encounter Summary ---
Author Organization [facility] Address [address] [place] [address] Phone Care Team Providers Care [employer] Caser Name Role Phone Vinod Borjas MD Primary Care Provider [phone] Encounter Details Date Type Department Care Team (Late st Contact Info) Description 01/06/2025 Orders Only [facility] Rheumatology [address] [place], [place] [id number] Chary Palacios [place] [address] [place] [address] [email or web address] Psoriatic arthritis; De Quervain's tenosynovitis, right Social History Tobacco Use Types Packs/Day Years [...] Care Team (Late st Contact Info) Description 05/02/2025 10:30 AM EST Office Visit [facility] Rheumatology [address] [place] [address] Georgia Paniagua MD [address] [facility], [address] [place] [address] documented as of this encounter Procedures Procedure Name Priority Date/Time Associated Diagnosis Comments XR HAND (RIGHT) Routine 12/26/2024 3:53 PM EDT Psoriatic arthritis De Quervain's tenosynovitis, right documented in this encounter Results * XR Hand (Right) (12/26/2024 3:53 PM EDT) Anatomical Region Laterality Modality Hand Right XR Diagnostic us Georgia Paniagua MD IMG XR UPPER EXTREMITY F inal Result documented in this encounter Visit Diagnoses Diagnosis Psoriatic arthritis Psoriatic arthropathy De Quervain's tenosynovitis, right documented in this encounter Care Teams [employer] Caser Relationship Specialty Start Date End Date Vinod Borjas MD [address] [place] [address] [place] [address] PCP - General Internal Medicine 08/19/24 documented as of this encounter Additional Source Comments The information contained in this document represents components of the legal health record. It is not the complete legal health record.[facility]
--- OUTSIDE RECORDS SUMMARY | 2025-01-10 13:46 | XMS_ITS | Encounter Summary ---
Author Organization [facility] Address [address] [place] [address] [address] [place] [address] Phone Care Team Providers Care Rest Room Maid Name Role Phone Vinod Borjas MD Primary Care Provider [phone] Encounter Details Date Type Department Care Team (Late Contact Info) Description 12/25/2024 Orders Only [facility] Rheumatology [address] [place] [address] Georgia Paniagua MD [address] [facility], [address] [place] [address] [email or web address] Social History Tobacco Use Types Packs/Day Years [...] Department Care Team (Late Contact Info) Description 05/02/2025 10:30 AM EST Office Visit [facility] [place] [address] Georgia Paniagua MD [address] [facility], [address] [place] [address] [email or web address] documented as of this encounter Procedures Procedure [...] Comprehensive metabolic panel (12/12/2024 2:17 PM EDT) us Georgia Paniagua MD LAB BLOOD ORDERABLES Fin al Result documented in this encounter Visit Diagnoses Not on filedocumented in this encounter Care Teams Rest Room Maid Relationship Specialty Start Date End Date Vinod Borjas MD [address] [place] [address] [place] [address] PCP - General Internal Medicine 08/19/24 documented as of this encounter Additional Source Comments The information contained in this document represents components of the legal health record. It is not the complete legal health record.[facility]
--- OUTSIDE RECORDS SUMMARY | 2025-01-10 13:46 | XMS_ITS | Patient Health Record ---
Author Organization [facility] Address [address] [place] [address] Care Team Providers Care Information Technology Consultant Name Role Phone Vinod Borjas MD Primary Care Provider Tiffany Stein Unavailable [phone] Allergies No Known Allergies Results Component Value [...] Problem Acquired hammer toe of right foot (5014268132780162 ) Other hammer toe(s) (acquired), right foot (M20.41) Active confirmed Response to treatment, Danica t Problem Acquired hammer toe of left foot (0785381376366173 ) Other hammer toe(s) (acquired), left foot (M20.42) Active confirmed Response to treatment, Improvemen t Problem Polyneuropathy due to diabetes mellitus type I (788197445) Type 1 diabetes mellitus with diabetic polyneuropathy (E10.42) Active confirmed Problem Polyneuropathy due to type 2 diabetes mellitus (986313485) Type 2 diabetes mellitus with diabetic polyneuropathy (E11.42) Active confirmed Vital Signs Blood pressure diastolic 65 mm Hg 10/16/2024 Height 9pi98dk in 10/16/2024 Blood pressure systolic 120 mm Hg 10/16/2024 Weight 185 lbs 10/16/2024 BMI 25.8 kg/m2 10/16/2024 Procedures Procedure Date Ordered Date Performed Result Body Sit e 18534-BUFFYUB NAIL, 6 OR MORE 04/10/2024 N/A 18448-OCBA SKIN LESIONS, 2 TO 4 04/10/2024 N/A 93547-VUCLBSZ NAIL, 6 OR MORE 07/11/2024 N/A 63780-RIAF SKIN LESIONS, 2 TO 4 07/11/2024 N/A Encounters Encounter Location Date Provider Diagnosis [address] [address] 04/10/2024 Tiffany Salas Other hammer toe(s) (acquired), right foot M20.41 ; Other hammer toe(s) (acquired), left foot M20.42 ; Type 2 diabetes mellitus with diabetic polyneuropathy E11.42 and Tinea unguium B35.[address] [address] 07/11/2024 Tiffany Salas Type 2 diabetes mellitus with diabetic polyneuropathy E11.42 ; Tinea unguium B35.1 ; Other hammer toe(s) (acquired), right foot M20.41 and Other hammer toe(s) (acquired), left foot M20.[address] [place] [address] 10/16/2024 Tiffany Salas Type 2 diabetes mellitus [...] Treatment Pending Test Test Name Order Date 88659-DTUJLEQ NAIL, 6 OR MORE 02/20/2013 40079-BTWAUDS NAIL, 6 OR MORE 05/29/2013 31617-OWQYBWT NAIL, 6 OR MORE 08/28/2013 91874-NIEQNUI NAIL, 6 OR MORE 12/11/2013 04925-NBBWYRE NAIL, 6 OR MORE 05/07/2014 60987-EKGRAVT NAIL, 6 OR MORE 08/06/2014 76188-WPEWXZQ NAIL, 6 OR MORE 04/13/2015 30304-NXUNLQA NAIL, 6 OR MORE 12/31/2014 61265-TJINVOB NAIL, 6 OR MORE 07/29/2015 13088-PVMHTOC NAIL, 6 OR MORE 10/28/2015 66348-WHCSZRR NAIL, 6 OR MORE 01/27/2016 21399-ROXMNJQ NAIL, 6 OR MORE 04/27/2016 81491-UCUGELS NAIL, 6 OR MORE 11/02/2016 97578-AFHDGYH NAIL, 6 OR MORE 02/15/2017 51325-QORUWRH NAIL, 6 OR MORE 05/24/2017 81342-APCUCSB NAIL, 6 OR MORE 08/30/2017 72320-ISMNUGR NAIL, 6 OR MORE 12/25/2017 34634-CUZOGDM NAIL, 6 OR MORE 04/10/2024 01241-MMRDXYW NAIL, 6 OR MORE 07/11/2024 19084-[place] Plate 08/30/2017 52381-Zjtbovxk Plate 11/02/2016 75481-Vwfasdwx Plate 12/31/2014 41835-Urutfwdy Plate 04/13/2015 19273-Tpifwdjj Plate 08/06/2014 00749-Kkbrotsb Plate 05/07/2014 52715-Tudbfvgc Plate 12/11/2013 85717-Ejynkzio Plate 09/11/2013 49206-Gbjieirh Plate 05/29/2013 98565-Cqysurxv Plate 02/20/2013 26021-Dfauimfz Plate Each Additional 04/2013 20815-Smwhifdv Plate Each Additional 18288-Piklksuh Plate Each Additional 35119-Pmvguiqu Plate Each Additional 03/2015 68385-Hfibxren Plate Each Additional 52600- Debride <25 sq cm 07/06/2020 16659- Debride <25 sq cm 08/28/2013 18896-UPMF SKIN LESIONS, OVER 4 05/07/19 15 32918-IZFF SKIN LESIONS, OVER 4 12/12/19 14 10776-DPUD SKIN LESIONS, OVER 4 02/21/20 13 57210-KNHB SKIN LESIONS, OVER 4 05/30/19 14 46405-UTTH SKIN LESIONS, OVER 4 08/29/19 14 75747-NKSI SKIN LESIONS, OVER 4 04/13/19 16 56026-FSXP SKIN LESIONS, OVER 4 08/07/19 15 79128-BHGH SKIN LESIONS, OVER 4 01/01/20 15 07469-BORZ SKIN LESIONS, OVER 4 07/29/19 16 63872-OMGW SKIN LESIONS, OVER 4 01/27/20 16 56251-JRGV SKIN LESIONS, OVER 4 10/28/19 16 87668-HOUN SKIN LESIONS, OVER 4 07/07/19 21 59233-KEGB SKIN LESIONS, OVER 4 01/14/20 21 70052-UAMV SKIN LESIONS, OVER 4 11/03/19 17 49588-QUWX SKIN LESIONS, OVER 4 04/27/19 17 31367-QNBV SKIN LESIONS, OVER 4 07/28/19 17 27210-BQGX SKIN LESIONS, OVER 4 05/25/19 18 51691-TKLD SKIN LESIONS, OVER 4 02/16/20 17 20207-MAMY SKIN LESIONS, OVER 4 08/31/19 18 60477-NEBY SKIN LESIONS, OVER 4 12/26/19 18 45958-CAOY SKIN LESIONS, OVER 4 04/16/19 78747-WOXP SKIN LESIONS, OVER 4 08/16/19 19 73235-JOMA SKIN LESIONS, OVER 4 11/15/19 75819-BSYF SKIN LESIONS, OVER 4 03/18/19 13131-MKHD SKIN LESIONS, OVER 4 09/04/19 80960-SCGG SKIN LESIONS, OVER 4 01/06/20 41350-KCMJ SKIN LESIONS, 2 TO 4 04/10/19 40509-OVEK SKIN LESIONS, 2 TO 4 07/12/19 Next Appt Details Provider Name:Tiffany Gandhi bean, 01/15/2025 09:00:00 AM, [address] [place], [address], Insurance Providers Payer Name Payer Address Payer Phone Subscriber Number Group Number Insured Name Patient Relationship to Insured Coverage Start Date Coverage End Date [employer] [address] [place] [address] [id number] Yumiko Rodgers Self - patient is the insured [facility] [address] [place] [address] [id number] Yumiko Rodgers Self - patient is the insured Medical (General) History Medical History History ICD Code Arthritis headaches/migraines high blood pressure psoriasis/eczema type II diabetes Surgical History Surgery Date(Month/Year) bx left leg 2015
--- OUTSIDE RECORDS SUMMARY | 2025-01-10 13:46 | XMS_ITS | Clinical Summary ---
Author Organization [facility] Address [address] [place] [id number] Phone Care Team Providers Care Bilingual Social Worker Name Role Phone Vinod Borjas MD Primary Care Provider [phone] Allergies No known active allergies Medications simvastatin [...] sure to inform any new DAMEON SANTOS, [place] [employer] TRUCK DRIVER about chronic immunosuppression with Cimzia particularly in [...] sure to inform any new DAMEON SANTOS, [place] [employer] TRUCK DRIVER about chronic immunosuppression with Cimzia particularly in [...] sure to inform any new DAMEON SANTOS, [place] [employer] TRUCK DRIVER about chronic immunosuppression with Cimzia particularly in [...] sure to inform any new MD, PA, [place] [employer] TRUCK DRIVER about chronic immunosuppression with Cimzia particularly in emergency situations. Postmenopausal 02/22/2022 Assessment & Plan (02/22/2022 11:59 AM EST): Fall and fracture prevention strategies. Daily weightbearing exercises. Proper calcium and vitamin D supplementation. She is due for BMD at [facility] on 01/28/2022. NSAID long-term use 01/27/2022 [...] least twice daily and follow closely with top spotter and PCP as scheduled. Muscle spasm 08/20/2020 [...] next visit in 4 months-standing orders in [facility]. Carefully continue weekly subcutaneous Cimzia + [...] next visit in 4 months-standing orders in [facility]. Carefully continue weekly subcutaneous Cimzia + [...] next visit in 4 months-standing orders in [facility]. Carefully continue weekly subcutaneous Cimzia + [...] next visit in 4 months-standing orders in [facility]. Carefully continue weekly subcutaneous Cimzia + [...] next visit in 6 months-standing orders in [facility]. Carefully continue weekly subcutaneous Cimzia + [...] next visit in 4 months-standing orders in [facility]. Carefully continue weekly subcutaneous Cimzia + [...] next visit in 4 months-standing orders in [facility]. Carefully continue weekly subcutaneous Cimzia + [...] next visit in 3 months-standing orders in [facility]. Carefully continue monthly subcutaneous Cimzia + [...] next visit in 3 months-standing orders in [facility]. Carefully continue weekly subcutaneous Humira every [...] next visit in 3 months-standing orders in [facility]. Carefully continue weekly subcutaneous Humira every [...] On her request I filled application for [employer]-see details in media section of [employer] [...] as prescribed and follow closely with prescribing cutting and boning supervisor as scheduled. Assessment & Plan (08/19/2024 10:44 AM EDT): Take exactly as prescribed and follow closely with prescribing cutting and boning supervisor as scheduled. Assessment & Plan (04/22/2024 10:17 AM EST): Take exactly as prescribed and follow closely with prescribing cutting and boning supervisor as scheduled. Assessment & Plan (12/21/2023 9:38 AM EDT): Take exactly as prescribed and follow closely with prescribing cutting and boning supervisor as scheduled. Assessment & Plan (06/21/2023 9:43 AM EDT): Take exactly as prescribed and follow closely with prescribing cutting and boning supervisor as scheduled. Assessment & Plan (01/20/2023 11:21 AM EST): Take exactly as prescribed and follow closely with prescribing cutting and boning supervisor as scheduled. Assessment & Plan (09/21/2022 12:41 PM EDT): Take exactly as prescribed and follow closely with prescribing cutting and boning supervisor as scheduled. Assessment & Plan (05/27/2022 10:57 AM EDT): Take exactly as prescribed and follow closely with prescribing cutting and boning supervisor as scheduled. Assessment & Plan (01/27/2022 10:41 AM EST): Take exactly as prescribed and follow closely with prescribing cutting and boning supervisor as scheduled. Assessment & Plan (10/20/2021 8:37 AM EDT): Take exactly as prescribed and follow closely with prescribing cutting and boning supervisor as scheduled. Assessment & Plan (07/12/2021 10:10 AM EDT): Take exactly as prescribed and follow closely with prescribing cutting and boning supervisor as scheduled. Assessment & Plan (04/15/2021 10:15 AM EST): Take exactly as prescribed and follow closely with prescribing cutting and boning supervisor as scheduled. Assessment & Plan (12/14/2020 10:02 AM EDT): Take exactly as prescribed and follow closely with prescribing cutting and boning supervisor as scheduled. Assessment & Plan (08/20/2020 10:23 AM EDT): Take exactly as prescribed and follow closely with prescribing cutting and boning supervisor as scheduled. Assessment & Plan (2020 9:47 PM EST): Take exactly as prescribed and follow closely with prescribing cutting and boning supervisor as scheduled. Assessment & Plan (01/26/2020 4:17 PM EST): Take exactly as prescribed and follow closely with prescribing cutting and boning supervisor as scheduled. (Last visit in September 2019-typically [...] least twice daily and follow closely with top spotter and PCP as scheduled. Assessment & Plan (12/21/2023 9:37 AM EDT): Continue watchful diet avoiding concentrated sugars. Proper hydration. Monitor blood glucose at least twice daily and follow closely with top spotter and PCP as scheduled. Assessment & Plan (10/20/2021 8:42 AM EDT): Continue watchful diet avoiding concentrated sugars. Proper hydration. Monitor blood glucose at least twice daily and follow closely with top spotter and PCP as scheduled. Assessment & Plan (04/18/2021 3:31 PM EST): Continue watchful diet avoiding concentrated sugars. Proper hydration. Monitor blood glucose at least twice daily and follow closely with top spotter and PCP as scheduled. Diabetes type 2, [...] sure to inform any new MD PA, [place] LOW TRUCK DRIVER about chronic immunosuppression with Humira particularly in [...] sure to inform any new MD PA, [place] LOW TRUCK DRIVER about chronic immunosuppression with Humira particularly in [...] sure to inform any new MD, PA, [place] LOW TRUCK DRIVER about chronic immunosuppression with Humira particularly in [...] . Make sure to inform any new , DAMEON, [place] LOW TRUCK DRIVER about chronic immunosuppression with Humira particularly in emergency situations. Encounters Date Type Department Care Team Description 01/06/2025 Orders Only [facility] Rheumatology [address] [place] [address] Chary Palacios MA Psoriatic arthritis; De Quervain's tenosynovitis, right 01/03/2025 9:30 AM EDT Office Visit [facility] [address] [place] [place] [address] Georgia Paniagua MD McCullough, Sheila, OT Pain of right hand (Primary Dx) 12/31/2024 9:30 AM EDT Office Visit [facility] [address] [place] [address] Georgia Paniagua MD McCullough, Sheila, OT Pain of right hand (Primary Dx) 12/27/2024 10:15 AM EDT Office Visit [facility] [address] [place] [address] Georgia Paniagua MD McCullough, Sheila, OT Pain of right hand (Primary Dx) 12/26/2024 10:30 AM EDT Office Visit [facility] Rheumatology [address] [place] [address] Georgia Paniagua MD Psoriatic arthritis (Primary Dx); Primary osteoarthritis involving multiple joints; Type 2 diabetes mellitus with diabetic neuropathy, with long-term current use of insulin; Encounter for monitoring certolizumab therapy; Long-term current use of apremilast; Gastroesophageal reflux disease without esophagitis; De Quervain's tenosynovitis, right 12/26/2024 Telephone [facility] [address] [place] [address] [place] [address] Georgia Paniagua MD Referral 12/25/2024 Orders Only [facility] Rheumatology [address] [place] [address] Georgia Paniagua MD 12/24/2024 9:30 AM EDT Office Visit [facility] [address] [place] [address] Georgia Paniagua MD McCullough, Sheila, OT Pain of right hand (Primary Dx) 12/20/2024 9:30 AM EDT Office Visit [facility] [address] [place] [address] Georgia Paniagua MD McCullough, Sheila, OT Pain of right hand (Primary Dx) 12/17/2024 8:45 AM EDT Office Visit [facility] [address] [place] [address] Georgia Paniagua MD McCullough, Sheila, OT Pain of right hand (Primary Dx) 12/12/2024 9:30 AM EDT Office Visit [facility] [address] [place] [address] Georgia Paniagua MD McCullough, Sheila, OT Pain of right hand (Primary Dx) 12/10/2024 9:30 AM EDT Office Visit [facility] [address] [place] [address] Georgia Paniagua MD McCullough, Sheila, OT Pain of right hand (Primary Dx) 12/06/2024 8:45 AM EDT Office Visit [facility] [address] [place] [address] Georgia Paniagua MD McCullough, Sheila, OT Pain of right hand (Primary Dx) 12/06/2024 Plan of Care Documentation [facility] [address] [place] [address] 11/19/2024 8:45 AM EDT Office Visit [facility] [address] [place] [address] Georgia Paniagua MD McCullough, Sheila, OT Tendinitis, de Quervain's (Primary Dx) 11/15/2024 8:45 AM EDT Office Visit [facility] [address] [place] [place] [address] Georgia Paniagua MD McCullough, Sheila, OT Tendinitis, de Quervain's (Primary Dx) 11/12/2024 9:30 AM EDT Office Visit [facility] [address] [place] [address] Georgia Paniagua MD McCullough, Sheila, OT Tendinitis, de Quervain's (Primary Dx) 11/06/2024 12:00 PM EDT Office Visit [facility] Rheumatology [address] [place] [address] Georgia Paniagua MD De Quervain's tenosynovitis, right (Primary Dx) 11/04/2024 9:00 AM EDT Office Visit [facility] [address] [place] [address] Georgia Paniagua MD McCullough, Sheila, OT Tendinitis, de Quervain's (Primary Dx) 11/04/2024 Telephone [facility] Rheumatology [address] [place] [address] Georgia Paniagua MD 10/28/2024 9:45 AM EDT Office Visit [facility] [address] [place] [address] Georgia Paniagua MD McCullough, Sheila, OT Tendinitis, de Quervain's (Primary Dx) 10/25/2024 8:45 AM EDT Office Visit [facility] [address] [place] [address] Georgia Paniagua MD McCullough, Sheila, OT Tendinitis, de Quervain's (Primary Dx) 10/17/2024 8:00 AM EDT Office Visit [facility] [address] [place] [address] Georgia Paniagua MD McCullough, Sheila, OT Tendinitis, de Quervain's (Primary Dx) 10/14/2024 9:45 AM EDT Office Visit [facility] [address] [place] [address] Georgia Paniagua MD McCullough, Sheila, OT Tendinitis, de Quervain's (Primary Dx) 10/11/2024 11:00 AM EDT Office Visit [facility] [address] [place] [address] Georgia Paniagua MD McCullough, Sheila, OT Tendinitis, [...] Description 05/02/2025 10:30 AM EST Office Visit [facility] Rhe[facility] [address] [place] [address] Georgia Paniagua MD [address] [facility], [address] [place] [address] [email or web address] Health Maintenance Due Date Last Done Comments [...] PCV) 12/24/2021 12/24/2020, 11/20/2019, 11/30/2018 COVID-19 VACCINE ( season) 2025 11/21/2024, 11/18/2023, 12/21/2022, Additional history [...] EDT Psoriatic arthritis De Quervain's tenosynovitis, right CBC AND DIFFERENTIAL Routine 12/12/2024 2:17 PM [...] Recently Relevant to Health Maintenance Results * XR Hand (Right) (12/26/2024 3:53 PM EDT) Anatomical Region Laterality Modality Hand Right XR Diagnostic us Georgia Paniagua MD IMG XR UPPER EXTREMITY F inal Result * Comprehensive metabolic panel (12/12/2024 2:17 PM EDT) Only the most recent of2 resultswithin the time period is included. us Georgia Paniagua MD LAB BLOOD ORDERABLES Fin al Result * Sedimentation rate (ESR) (12/12/2024 2:17 PM EDT) us Georgia Paniagua MD LAB BLOOD ORDERABLES Fin al Result * CBC and differential (12/12/2024 2:17 PM EDT) Blood Result Jimbo Paniagua MD LAB BLOOD ORDERABLES Fin al Result * C-Reactive Protein (12/12/2024 2:17 PM EDT) us Georgia Paniagua MD LAB BLOOD ORDERABLES Fin al Result from Last 3 Months or Most Recently Relevant to Health Maintenance Insurance [facility] MEDIC[facility] PART [facility] & B [facility] & B [facility] PART A & B [facility] PART A & B [facility] MED[facility] PART [facility] & B [facility] MEDICARE PART A & B [facility] MEDIC[facility] PART A & B MEDICARE PART A & B [facility] MEDIC[facility] PART A & B Care Teams Bilingual Social Worker Relationship Specialty Start Date End Date Vinod Borjas MD [address] [place] [address] Dr Woo [facility] [address] PCP - General Internal Medicine 08/19/24 Additional Source Comments The information contained in this document represents components of the legal health record. It is not the complete legal health record.[facility]
== END ==
LOC: HO.CARD 12:31
PROVIDERS: PCP Internal Medicine; Visit Provider Internal Medicine
DX: R06.09 Other forms of dyspnea (principal)
CPT/HCPCS: 93306

== ENCOUNTER → 2025-01-10 12:35 | Outpatient (BNV) | payer MEDICARE, BC, SELFPAY | PROVIDERS: PCP Internal Medicine; Visit Provider Internal Medicine | DX: R06.09 Other forms of dyspnea (principal); R93.1 Abnormal findings on diagnostic imaging of heart and coronary circulation | CPT/HCPCS: 93306 ==

== ENCOUNTER 2025-01-13 08:12 | Outpatient (REF) | payer MEDICARE, BC, SELFPAY ==
--- OUTSIDE RECORDS SUMMARY | 2023-12-04 04:15 | XMS_ITS ---
Author Organization [facility] Address [address] [place] [address] Care Team Providers Care Cigar Wrapper Name Role Phone Indio SANTOS, Vinod Primary Care Provider Tiffany Stein Unavailable [phone] Wang De León Unavailable [phone] Encounters Encounter Location Date Provider Diagnosis [address] [address] 12/04/2023 Wang De León Plan Of Treatment Next Appt Details Provider Name:Tiffany Gandhi bean, 01/15/2025 09:00:00 AM, [address] [place] [address], [phone], Progress Notes * Yumiko VELÁZQUEZ MDOB: (69 yo F)Acc No.[id number]:12/04/2023 Progress Note Patient: Yumiko TOURE Provider: Yevgeniy Navas DPM :1955 A ge:68 Y S ex:Female Date:12/04/2023 Address:[address] [place] [address] [id number] Pcp:Vinod Borjas MD Subjective: * Chief Complaints: * * Medical History: Objective: * Vitals: Assessment: Plan: * Treatment: * Images: * The named appointment provid er may or may not be the originator of this progress note, and it is not deemed complete until electronically signed by the appointment provider. Sign off status: Pending * Provider: Yevgeniy Navas DPM Date: 0 12/04/2023 Generated for Raj cutler/Azul/Mojgan on: 1 03/15/2024 08:27 AM EST
--- OUTSIDE RECORDS SUMMARY | 2025-01-13 08:27 | XMS_ITS | Patient Health Record ---
Author Organization [facility] Address [address] [place] [address] Care Team Providers Care Wirer Passenger Car Name Role Phone Vinod Borjas MD Primary Care Provider Tiffany Stein Unavailable [phone] Allergies No Known Allergies Results Component Value [...] Problem Acquired hammer toe of right foot (8160227033759441 ) Other hammer toe(s) (acquired), right foot (M20.41) Active confirmed Response to treatment, Danica t Problem Acquired hammer toe of left foot (2392494461945358 ) Other hammer toe(s) (acquired), left foot (M20.42) Active confirmed Response to treatment, Improvemen t Problem Polyneuropathy due to diabetes mellitus type I (644166534) Type 1 diabetes mellitus with diabetic polyneuropathy (E10.42) Active confirmed Problem Polyneuropathy due to type 2 diabetes mellitus (203883762) Type 2 diabetes mellitus with diabetic polyneuropathy (E11.42) Active confirmed Vital Signs Blood pressure diastolic 65 mm Hg 10/16/2024 Height 7yy31rd in 10/16/2024 Blood pressure systolic 120 mm Hg 10/16/2024 Weight 185 lbs 10/16/2024 BMI 25.8 kg/m2 10/16/2024 Procedures Procedure Date Ordered Date Performed Result Body Sit e 61371-SGALUKY NAIL, 6 OR MORE 04/10/2024 N/A 37499-EFXB SKIN LESIONS, 2 TO 4 04/10/2024 N/A 17557-QFSVYFH NAIL, 6 OR MORE 07/11/2024 N/A 83293-BGMP SKIN LESIONS, 2 TO 4 07/11/2024 N/A Encounters Encounter Location Date Provider Diagnosis [address] [address] 04/10/2024 Tiffany Salas Other hammer toe(s) (acquired), right foot M20.41 ; Other hammer toe(s) (acquired), left foot M20.42 ; Type 2 diabetes mellitus with diabetic polyneuropathy E11.42 and Tinea unguium B35.[address] [address] 07/11/2024 Tiffany Salas Type 2 diabetes mellitus with diabetic polyneuropathy E11.42 ; Tinea unguium B35.1 ; Other hammer toe(s) (acquired), right foot M20.41 and Other hammer toe(s) (acquired), left foot M20.[address] [place] [address] 10/16/2024 Tiffany Salas Type 2 diabetes mellitus [...] Treatment Pending Test Test Name Order Date 51924-HIFSFBT NAIL, 6 OR MORE 02/20/2013 38727-PJZKUGK NAIL, 6 OR MORE 05/29/2013 06248-MGLTMBF NAIL, 6 OR MORE 08/28/2013 34861-GYYQRIW NAIL, 6 OR MORE 12/11/2013 02466-TIVWSDW NAIL, 6 OR MORE 05/07/2014 48277-TIPILDI NAIL, 6 OR MORE 08/06/2014 57539-YTUIQTX NAIL, 6 OR MORE 04/13/2015 88790-BMTSWSS NAIL, 6 OR MORE 12/31/2014 51462-BASFUFY NAIL, 6 OR MORE 07/29/2015 96103-QDOOLJK NAIL, 6 OR MORE 10/28/2015 41718-DFHGTFV NAIL, 6 OR MORE 01/27/2016 69851-FKOFWUY NAIL, 6 OR MORE 04/27/2016 41914-IUJCRUP NAIL, 6 OR MORE 11/02/2016 69163-DGFZBNA NAIL, 6 OR MORE 02/15/2017 05359-MHSLRQF NAIL, 6 OR MORE 05/24/2017 50723-ZGUXVGY NAIL, 6 OR MORE 08/30/2017 51797-OKQMUPG NAIL, 6 OR MORE 12/25/2017 99064-GRXJPHE NAIL, 6 OR MORE 04/10/2024 88092-VZVTNNA NAIL, 6 OR MORE 07/11/2024 75069-Yfcssmtj Plate 08/30/2017 44709-Qarcttpw Plate 11/02/2016 29275-Hiucqjay Plate 12/31/2014 30030-Qfeqwdlq Plate 04/13/2015 81644-Bfjojgsz Plate 08/06/2014 38992-Wfhxlbco Plate 05/07/2014 88853-Wdjaxjfv Plate 12/11/2013 63877-Iuhrynvj Plate 09/11/2013 21960-Raktymdn Plate 05/29/2013 95463-Pviusgsm Plate 02/20/2013 78338-Ncouqhgv Plate Each Additional 04/2013 11994-Hcibovud Plate Each Additional 52866-Lkfmmymp Plate Each Additional 76694-Dlhgxdfw Plate Each Additional 03/2015 68401-Zuynvxwj Plate Each Additional 83997- Debride <25 sq cm 07/06/2020 03928- Debride <25 sq cm 08/28/2013 94652-MHDX SKIN LESIONS, OVER 4 05/07/19 15 67943-HEGF SKIN LESIONS, OVER 4 12/12/19 14 09946-XHBC SKIN LESIONS, OVER 4 02/21/20 13 14244-YJRO SKIN LESIONS, OVER 4 05/30/19 14 22481-VJWG SKIN LESIONS, OVER 4 08/29/19 14 30154-KTCX SKIN LESIONS, OVER 4 04/13/19 16 06355-RXNN SKIN LESIONS, OVER 4 08/07/19 15 02927-YEJL SKIN LESIONS, OVER 4 01/01/20 15 92903-VIZJ SKIN LESIONS, OVER 4 07/29/19 16 53291-UNPR SKIN LESIONS, OVER 4 01/27/20 16 71484-NEOK SKIN LESIONS, OVER 4 10/28/19 16 94611-TRAS SKIN LESIONS, OVER 4 07/07/19 21 75477-HKZN SKIN LESIONS, OVER 4 01/14/20 21 11131-CPGZ SKIN LESIONS, OVER 4 11/03/19 17 87984-YBSQ SKIN LESIONS, OVER 4 04/27/19 17 29487-JAVW SKIN LESIONS, OVER 4 07/28/19 17 23040-QXFS SKIN LESIONS, OVER 4 05/25/19 18 19790-PLHG SKIN LESIONS, OVER 4 02/16/20 17 39686-VUJS SKIN LESIONS, OVER 4 08/31/19 18 85719-GFRX SKIN LESIONS, OVER 4 12/26/19 18 70465-CMDR SKIN LESIONS, OVER 4 04/16/19 97455-VDUR SKIN LESIONS, OVER 4 08/16/19 19 49448-GQEW SKIN LESIONS, OVER 4 11/15/19 45700-PWIQ SKIN LESIONS, OVER 4 03/18/19 96175-PBLW SKIN LESIONS, OVER 4 09/04/19 45521-WYGM SKIN LESIONS, OVER 4 01/06/20 25001-XVYP SKIN LESIONS, 2 TO 4 04/10/19 21072-HQCV SKIN LESIONS, 2 TO 4 07/12/19 Next Appt Details Provider Name:Tiffany Gandhi bean, 01/15/2025 09:00:00 AM, [address] [place], [address], Insurance Providers Payer Name Payer Address Payer Phone Subscriber Number Group Number Insured Name Patient Relationship to Insured Coverage Start Date Coverage End Date Medicare National [employer] [address] [place] [address] [id number] Yumiko Rodgers Self - patient is the insured [facility] [address] [place] [address] [id number] Yumiko Rodgers Self - patient is the insured Medical (General) History Medical History History ICD Code Arthritis headaches/migraines high blood pressure psoriasis/eczema type II diabetes Surgical History Surgery Date(Month/Year) bx left leg 2015
[2025-01-13 10:40] LABS: MANUAL DIFF FLAG NO
[2025-01-13 10:50] LABS: Hematocrit 40.6 % (37.0-47.0); Hemoglobin 13.0 g/dl (12.0-16.0); Imm Gran Abs Auto 0.03 X10*3/uL (0.00-0.03); Imm Gran Pct Auto 0.4 % (0.0-0.4); Lymphocytes Absolute Auto 3.5 X10*3/uL (1.2-4.9); Mean Corpuscular HGB Conc 32.0 g/dl (31.0-35.0); Mean Corpuscular Hemoglobin 26.0 pg (27.0-33.0); Mean Corpuscular Volume 81.2 fL (80.0-98.0); NRBC Abs Auto 0.020 X10*3/uL (0.0-0.012); NRBC Pct Auto 0.2 /100WBC (0.0-0.2); Platelet Count 290 X10*3/uL (160-400); Red Blood Count 5.00 X10*6/uL (4.20-5.50); White Blood Count 8.5 X10*3/uL (4.8-10.8)
[2025-01-13 11:14] LABS: Alanine Aminotransferase 24 U/L (0-31); Albumin Level 4.2 g/dL (3.5-5.0); Alkaline Phosphatase 131 U/L (39-117); Anion Gap 11 (12-20); Aspartate Amino Transferase 35 U/L (5-31); Blood Urea Nitrogen 20 mg/dL (9-16); Calcium 9.3 mg/dL (8.4-10.2); Carbon Dioxide 26 mmol/L (22-29); Chloride 105 mmol/L (96-108); Cholesterol 159 mg/dL (<200); Estimated Glomerular Filt Rate 39; HDL Cholesterol 34 mg/dL (>40); Potassium 4.4 mmol/L (3.3-5.1); Sodium 138 mmol/L (135-145); Total Protein 7.4 g/dL (6.5-8.0); Triglycerides 146 mg/dL (<150)
[2025-01-13 11:35] LABS: Folate 14.5 ng/mL (> or = 4.0); Vitamin B12 1652 pg/mL (200-900)
[2025-01-13 13:30] LABS: Appearance Urine Clear; Glucose Urine UA Negative (Negative); PH 5.0 (5.0-9.0); Specific Gravity - Urine 1.015 (1.005-1.025); UMIC TRIGGER UACC YES
[2025-01-13 13:35] LABS: UACC Culture Trigger YES
[2025-01-13 13:39] LABS: Microalbum/Creatinine Ratio Ur 15.7 ug/mg cr (<30)
[2025-01-16 05:12] LABS: Quantiferon TB Gold Plus 1 NEGATIVE (NEGATIVE); TB Test (QFT) Mitogen -Nil >10.00 IU/mL; TB Test (QFT) Nil 0.04 IU/mL; TB Test (QFT) Plus TB1 -Nil <0.00 IU/mL; TB Test (QFT) Plus TB2 -Nil <0.00 IU/mL
== END 2025-01-13 08:13 | disposition home or self-care (01) ==
LOC: HO.HMGCLR 08:12
PROVIDERS: Absent Provider Internal Medicine Rheumatology; PCP Internal Medicine; Visit Provider Internal Medicine
DX: Z51.81 Encounter for therapeutic drug level monitoring (principal); D64.9 Anemia, unspecified; E11.9 Type 2 diabetes mellitus without complications; E78.00 Pure hypercholesterolemia, unspecified; E55.9 Vitamin D deficiency, unspecified; E53.8 Deficiency of other specified B group vitamins; L40.50 Arthropathic psoriasis, unspecified; R30.0 Dysuria; Z79.620 Long term (current) use of immunosuppressive biologic; Z79.61 Long term (current) use of immunomodulator
CPT/HCPCS: 36415; 80053; 80061; 81001; 81003; 82043; 82306; 82570; 82607; 82746; 83036; 84443; 85025; 85652; 86140; 86480; 87086

== ENCOUNTER 2025-01-20 09:30 | Outpatient (AMB) | payer MEDICARE, BC, SELFPAY ==
--- OUTSIDE RECORDS SUMMARY | 2025-01-15 04:00 | XMS_ITS ---
[facility] Organization [facility] Address [address] [place] [address] Care Team Providers Care Women'S Soccer Coach Name Role Phone Indio SANTOS, Vinod Primary Care Provider Tiffany Stein Unavailable [phone] Allergies No Known Allergies REASON FOR VISIT At Risk Footcare Medications Medication SIG (Take, Route, Frequency, Duration) Notes Start Date End Date Status Gabapentin 100 MG 1 capsule Orally Once a day; Duration: 30 day(s) Active Lisinopril 2.5 MG 1 tablet Orally Once a day Active Otezla Active Propranolol HCl Acti ve Simvastatin 10 MG 1 tablet in the evening Orally Once a day; Duration: 30 day(s) Active Cimzia Active Trulicity Active Amitriptyline HCl Ac tive HumaLOG Active Omeprazole Active Lisinopril Active Work Note . . .Dx: Niddm with neuropathy, arthritic toe deformity .Rx: this patient must avoid steel toe shoes permanently to avoid infection; Duration: . 08/28/2013 Not-Taking Methotrexate 2.5 MG 1 tablet Orally Three times a Week; Duration: 30 day(s) Not-Taking CeleBREX 100 MG 1 capsule Orally Twice a day; Duration: 30 day(s) Not-Taking Lamisil 250 250 MG 1 Tab Oral Daily; Duration: 90 02/22/2013 Not-Taking Januvia 40mg Twice a day Not-T aking Cosentyx Not-Taking glipiZIDE 5 MG 1 tablet Orally Once a day; Duration: 30 day(s) Not-Taking Folic Acid 1 MG 1 tablet Orally Once a day; Duration: 30 day(s) Not-Taking Keflex 500 MG 1 capsule Orally every 12 hrs; Duration: 10 day(s) 04/13/2015 Not-Taking Meloxicam 15 MG 1 tablet Orally Once a day; Duration: 30 day(s) Not-Taking hydroCHLOROthiazide 25 MG 1 tablet Orall y Once a day; Duration: 30 day(s) Not-Taking Humira 40 MG/0.8ML 0.8 Subcutaneous; Duration: 30 day(s) Not-Taking metFORMIN HCl 500 MG 1 tablet with meals Orally Twice a day; Duration: 30 day(s) 1000 mg once a day Not-Taking Doxepin HCl 10 MG 1 capsule at bedtime Orally Once a day; Duration: 30 day(s) Not-Taking Extra-Depth Diabetic Shoes with 3 Pair Custom heat-molded multi-density innersoles . 1pair shoes/3sets inserts . .; Duration: 1 year 02/20/2013 Active Extra Depth Orthopedic Shoes (1 Pair) with Customized Heat Molded Multidensity Innersoles (3 Pair) as directed Dx: IDDM/Polyneuropathy (E10.42), Hammertoe Foot Deformity (M20.41,M20.42), Preulcerative Skin Lesion(s) (L85.1) 04/10/2024 Active Tresiba Active Social History Tobacco Use: Social History [...] Points 0 Interpretation Negative Vital Signs Height 2dt44pw in 01/15/2025 Weight 185 lbs 01/15/2025 BMI 25.8 kg/m2 01/15/2025 Blood pressure systolic 120 mm Hg 01/16/20 25 Blood pressure diastolic 65 mm Hg 025 Encounters Encounter Location Date Provider Diagnosis [facility] [address] [place] [address] 01/15/2025 Tiffany Salas Type 2 diabetes mellitus with diabetic polyneuropathy E11.42 and Tinea unguium B35.1 Assessments Encounter Date Diagnosis (ICD Code) Assessment Notes Treatment Notes Treatment Clinical Notes Section Notes 01/15/2025 Type 2 diabetes mellitus with diabetic polyneuropathy (ICD-10 - E11.42) 01/15/2025 Tinea unguium (ICD-10 - B35.1) Plan Of Treatment Next Appt Details Follow Up: 3 Months, Reason: Provider Name:Tiffany del angel, 04/21/2025 09:00:00 AM, [address] [place] [address], [id number], Procedure Notes * Category Sub-Category Detail Notes [...] use of a nail nipper and/or dremel-type bearing grinder, to a more viable healthy nail [...] to maintain effectiveness in symptomatic relief - 22476 Keratoma Treatment Parring or Cutting o f [...] instrumentation by the physician of record - 15432 Progress Notes * Yumiko RODGERS MDOB: 7 (69 yo F)Acc No.[id number]:01/15/2025 Progress Note Patient: Yumiko TOURE Provider: Christian Salas DPM :1955 A ge:69 Y S ex:Female Date:01/15/2025 Address:[address] [place] [address], [place], [id number] Pcp:Vinod Borjas MD Subjective: * Chief Complaints: [...] enies. C ardiovascular: Pacemaker d enies. 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 W PW d enies. C [...] Diabetic - NIDDM, Unspecified essential hypertension. M aternal Grand Mother: , type II diabetes, hypertension, diagnosed with Diabetic - NIDDM, Unspecified essential hypertension. M giacomo Grand Father: , type II diabetes, hypertension, diagnosed with Diabetic - NIDDM, Unspecified essential hypertension. S denzel: alive, type II diabetes, diagnosed with Diabetic [...] I nterpretation N egative * Medications: T akingLisinopril Amitriptyline HCl HumaLOG Omeprazole Cimzia Trulicity Gabapentin 100 [...] Deformity (M20.41,M20.42), Preulcerative Skin Lesion(s) (L85.1) Taking Lisinopril Taking Amitriptyline HCl Taking HumaLOG Taking Omeprazole Taking Cimzia Taking Trulicity Taking Gabapentin 100 MG Capsule 1 capsule Orally Once a day Taking Lisinopril 2.5 MG Tablet 1 tablet Orally Once a day Taking Otezla Taking Propranolol HCl Taking Simvastatin 10 MG Tablet 1 tablet in the evening Orally Once a day Taking Tresiba Taking Extra- Depth Diabetic Shoes with [...] tablet Orally Once a day Not- Taking/PRN hydroCHLOROthiazide 25 MG Tablet 1 tablet Orally Once a day Not-Taking/PRN Humira 40 MG/0.8ML Kit 0.8 Subcutaneous Not-Taking/PRN Januvia 40mg Twice a day Not- Taking/PRN glipiZIDE 5 MG Tablet 1 tablet Orally Once a day Not-Taking/PRN Folic Acid 1 MG Tablet 1 tablet Orally Once a day Not-Taking/PRN Keflex 500 MG Capsule 1 capsule Orally every 12 hrs Not-Taking/PRN Cosentyx Not-Taking/PRN Methotrexate 2.5 MG Tablet 1 tablet Orally Three times a Week Not-Taking/PRN CeleBREX 100 MG Capsule 1 capsule Orally Twice a day Not-Taking/PRN Lamisil 250 250 MG Tablet 1 Tab Oral Daily Not-Taking/PRN Work Note . . . .Dx: Niddm with neuropathy, arthritic toe deformity .Rx: this patient must avoid steel toe shoes permanently to avoid infection Medication List reviewed and reconciled with the patient * Allergies: N .K.D.A.yes[Allergies Verified] Objective: * Vitals: H t:7hn04as, Wt:185, BMI:25.8, Shoe size:10, BP:120/65mm Hg, BS:166, Ht-cm: 180.34 cm, Wt-k.92 kg. * P [...] of a nail nipper and/or dremel- type bearing grinder, to a more viable healthy nail [...] to maintain effectiveness in symptomatic relief - 89227. K eratoma Treatment: Parring or Cutting of [...] instrumentation by the physician of record - 46363. * Procedure Codes: 1 1721 DEBRIDE NAIL, 6 OR MORE, Modifiers: XS 72019 TRIM SKIN LESIONS, 2 TO 4, Modifiers: XS * Follow Up: 3 Months * Images: * Sign off status: Completed true * Provider: Christian Salas DPM Date: 03/17/2024 Generated for Raj cutler/Azul/eTransmitting on: 1 03/22/2024 10:34 AM EST History and Physical Notes * [...]
[2025-01-20 09:35] VITALS: BP 140/90; PULSE 101; O2SAT 98; BMI 28.2
--- NOTE | 2025-01-20 09:35 | MHC.PC.OV ---
Vital Signs 01/20/25 09:35 Height 5 ft 10 in Weight 196 lb 4 oz BMI 28.2 BP 140/90 H Blood Pressure Location Lt brachial Position Sitting Pulse 101 H Pulse Source Pulse Oximeter Pulse Oximetry (%) 98 Oxygen Delivery Method Room Air Intake Visit Reasons: hyperlipidemia, DM Skiver Counter Required: No Accompanied by: Self / Same As Patient Allergies grass pollen Allergy (Mild, Verified 01/28/25 08:52) hives Medication List - Last Reconciled 01/20/25 by Vinod Borjas MD amitriptyline 25 mg PO BEDTIME apremilast (Otezla) 30 mg PO BID ascorbate calcium (vitamin C) 1 g PO Q6H atogepant (Qulipta) 60 mg PO PRN certolizumab pegol (Cimzia) 200 mg subcut QWEEK cholecalciferol (vitamin D3) 50 mcg PO DAILY cyanocobalamin (vitamin B-12) 5,000 mcg PO DAILY dulaglutide (Trulicity) 3 mg subcut QWEEK flash glucose scanning reader ([employer] Natasha 2 [place]) As directed flash glucose sensor (FreeStyle Natasha 2 Sensor kit) As directed gabapentin 100 to 300 mg orally bedtime PRN; hydroxyzine HCl 25 mg PO BID PRN insulin degludec (Tresiba FlexTouch U-100 insulin) 44 units subcut DAILY insulin syringe-needle U-100 As directed lisinopril 2.5 mg PO DAILY omeprazole magnesium 20 mg PO DAILY prucalopride 1 mg PO DAILY simvastatin 40 mg PO BEDTIME Tobacco use date assessed: 01/20/25 Fall risk assessment: No Falls in past year Last assessed Fall Risk: 01/20/25 Dental Screening Dental Screen Date: 01/20/25 Did you have a dental visit in the last 12 months?: Yes Did you have a dental problem in the last 6 months where you did not have access to dental care?: No Was dental information given to patient?: Patient has dentist HPI hyperlipidemia, DM HPI Details Patient comes in today for her follow up visit States that she feels okay She denies any headaches or dizziness Denies any exertional chest pains, no increased SOB No nausea/vomiting, no abdominal pain No change in bowel habits noted She had her follow up labs done last week - to discuss her results [facility]LY [facility] Medical History Constipation Abdominal pain, right lower quadrant Vitamin B12 deficiency Overweight (BMI 25.0-29.9) GERD without esophagitis Vitamin D deficiency Neuropathy Chronic kidney disease, stage III (moderate) Migraine Psoriatic arthritis Pure hypercholesterolemia Essential hypertension Diabetes mellitus Surgical History History of esophagogastroduodenoscopy (EGD) No pertinent past surgical history Family History Father No problems noted. Mother Gastroparesis Heart problem Paternal Grandmother Gastroparesis Family/Other Gastroparesis Social History Housing: House Alcohol intake: never Patient Tobacco Use Status: Never used Tobacco e-Cigarette/Vaping Use: Never Used Second Hand Smoke Exposure: No service: No Current occupational status: retired Cognitive needs: No Hearing needs: No Vision needs: Yes (glasses) Questionnaire PHQ-9 Over the last 2 weeks, how often have you been bothered by any of the following problems? 1. Little interest or pleasure in doing things: not at all 2. Feeling down, depressed, or hopeless: not at all 3. Trouble falling or staying asleep, or sleeping too much: several days 4. Feeling tired or having little energy: not at all 5. Poor appetite or overeating: several days 6. Feeling bad about yourself - or that you are a failure or have let yourself or your family down: not at all 7. Trouble concentrating on things, such as reading the newspaper or watching television: not at all 8. Moving or speaking so slowly that other people could have noticed. Or the opposite - being so fidgety or restless that you have been moving around a lot more than usual: not at all 9. Thoughts that you would be better off or of hurting yourself in some way: not at all Total score: 2 Depression Screening Interpretation: Negative Depression Screening Done: Yes 17553 - PHQ-9 Billing: Yes Source: Developed by Drs. Gaston Armenta, Elizabeth Goins, Trevin Bello and colleagues, with an educational obey from [employer]. Thrive Questionnaire Date Thrive assessed: 01/20/25 I am a: Patient What is your living situation today?: I have a steady place to live Within the past 12 months, did the food you bought not last and you didn't have the money to get more?: Never true Within the past 12 months, did you worry whether your food would run out before you got money to buy more?: Never true Do you have trouble paying for medicines?: No Do you have trouble getting transportation to medical appointments?: No Do you have trouble paying your heating and electricity bill?: No Do you have trouble taking care of your child, family member or friend?: No Do you have trouble with day-to-day activities such as bathing, preparing meals, shopping, managing finances, etc.?: No Are you currently unemployed and looking for a job?: No Are you interested in more education?: No Please select the resources that you would like help with: None Currently or been in a relationship where the following occur: No concerns reported THRIVE Score: 0 AUDIT C Alcohol Use Questionnaire (AUDIT-C) 1. How often do you have a drink containing alcohol?: Monthly or less 2. How many drinks containing alcohol do you have on a typical day when you are drinking?: 1 or 2 3. How often do you have six or more drinks on one occasion?: Less than monthly Total Score: 2 Score Reviewed/Action Taken: Yes SB-7 AMB Questionnaire SB-7 Date SB - 7 assessed: 01/20/25 Feeling nervous, anxious, or on edge: 0 = Not at all Not being able to stop or control worryin = Not at all Worrying too much about different things: 0 = Not at all Trouble relaxin = Not at all Being so restless that it is hard to sit still: 0 = Not at all Becoming easily annoyed or irritable: 0 = Not at all Feeling afraid as if something awful might happen: 0 = Not at all Total SB-7 score (0-4 normal; 5-9 mild; 10-14 moderate; 15-21 severe): 0 Source: Developed by Drs. Gaston Armenta, Elizabeth Goins, Trevin Bello and colleagues, with an educational obey from [employer]. Review of Systems Const Denies chills, Denies fatigue, Denies fever(s) and Denies headache(s) ENT Denies dysphagia, Denies dizziness, Denies otalgia, Denies headache(s), Denies neck pain, Denies odynophagia and Denies sore throat Card Denies chest pain, Denies palpitations and Reports dyspnea on exertion (mild) Resp Denies chest congestion, Denies cough and Reports dyspnea on exertion (mild) GI Denies abdominal pain, Denies constipation, Denies dysphagia, Denies heartburn, Denies diarrhea, Denies nausea, Denies odynophagia and Denies vomiting Denies difficulty voiding, Denies nocturia, Reports dysuria (mild, recently) and Reports urinary urgency Musc Denies back pain, Reports arthralgias (involving multiple joints) and Denies neck pain Skin/Breast Denies rash Neuro Denies dizziness and Denies headache(s) Endo Denies fatigue and Denies palpitations Physical exam (Primary Care) Vital Signs: Last Vital Signs Pulse 101 H 01/20/25 09:35 BP 140/90 H 01/20/25 09:35 Pulse Ox 98 01/20/25 09:35 Oxygen Delivery Method Room Air 01/20/25 09:35 BMI result Body Mass Index 28.2 Tobacco/Smoking Status: Tobacco use Status Tobacco use date assessed 01/20/25 01/20/25 09:40 Patient Tobacco Use Status Never used Tobacco 01/20/25 09:40 e-Cigarette/Vaping Use Never Used 01/20/25 09:40 PHQ-9: PHQ-9 Score PHQ-9: Total score 2 01/20/25 10:14 Depression Screening Interpretation: Negative Thrive Assessment: Date of Thrive Assessment Date Thrive assessed 01/20/25 01/20/25 09:40 Currently or been in a relationship where the following occur: No concerns reported Const General: no acute distress and alert HENMT Ears: TM's normal bilaterally and EAC's normal Throat: Yes posterior oropharynx normal and Yes tonsils normal (no TP congestion) Neck Neck: Yes supple and No lymphadenopathy Thyroid: Thyroid normal Resp Auscultation: clear to auscultation bilaterally, no rales and no wheezes Cardio Rate: regular rate Rhythm: regular rhythm Heart sounds: no murmurs GI Palpation (GI): Soft to palpation and nontender Auscultation: normal bowel sounds General: Yes no CVA tenderness Back/Spine/Pelvis Back: no CVA tenderness Thoracic/Lumbar Spine: No lumbar spinal tenderness Skin Rashes: no rashes Extrem General: Yes no clubbing, cyanosis or edema Results Reviewed Results Reviewed: Laboratory Tests 01/13/25 01/13/25 08:25 11:00 WBC 8.5 Hgb 13.0 Hct 40.6 Plt Count 290 ESR 35 H Sodium 138 Potassium 4.4 Creatinine 1.35 Estimated GFR 39 Fasting Glucose 133 H Hemoglobin A1c % 7.9 H Calcium 9.3 AST 35 H ALT 24 C-Reactive Protein 0.92 H Triglycerides 146 Cholesterol 159 LDL Cholesterol, Calc 96 HDL Cholesterol 34 L Vitamin B12 1652 H 25-OH Vitamin D Total 84.1 TSH 0.82 Ur Specific [place] 1.015 Urine Protein Negative Urine Glucose (UA) Negative Urine Blood Negative Urine Nitrite Negative Ur Leukocyte Esterase Moderate (2+) H Microalb/Creat Ratio 15.7 TB Test (QFT) Gold Plus NEGATIVE Coding Level of Care Code Est Pt Level 4 (50839) Diagnoses Essential hypertension I10 Dizziness R42 Pure hypercholesterolemia E78.00 Type 2 diabetes mellitus with stage 3a chronic kidney disease, without long-term current use of insulin E11.22; N18.31 Chronic kidney disease stage: stage 3 (moderate) Chronic kidney disease stage 3 subtype: stage 3a (GFR 45-59) Diabetes mellitus complication detail: with chronic kidney disease Diabetes mellitus complication status: with kidney complications Diabetes mellitus prison insulin use: without superintendent container terminal use Diabetes mellitus type: type 2 Stage 3a chronic kidney disease N18.31 Chronic kidney disease stage 3 subtype: stage 3a (GFR 45-59) Migraine without status migrainosus, not intractable, unspecified migraine type G43.909 Intractability: not intractable Migraine type: unspecified Status migrainosus presence: without status migrainosus Neuropathy G62.9 Psoriatic arthritis L40.50 Chronic constipation K59.09 Gastroparesis K31.84 GERD without esophagitis K21.9 Vitamin D deficiency E55.9 Vitamin B12 deficiency E53.8 Overweight (BMI 25.0-29.9) E66.3 Additional Codes PHQ-9 - 02036 - PHQ-9 Billing: Yes ([id number]) Assessment & Plan Assessment & Plan (1) Essential hypertension: Code(s): I10 - Essential (primary) hypertension Category: Medical Plan: Reinforced low sodium diet - goal is systolic BP of at least 130 to 140 mm or less She was on Lisinopril 2.5 mg QD and Propranolol 20 mg BID previously but these were both held since earlier this year She brought in her BP log at her last visit, which showed systolic BP ranging from 100 to 140 mm and diastolic BP from 59 to 86 mm States that her recent blood pressure readings at home are similar to what her previous numbers were so she suspects that her current elevated blood pressure reading may be due to 'white coat syndrome' She is instructed to continue monitoring her BP and we will continue to hold off on starting her again on any BP med at this time (2) Dizziness: Code(s): R42 - Dizziness and giddiness Category: Medical Plan: Patient states that she has not had any further bouts of dizziness since her last visit in September 2024 Have discussed with patient before about the possibility that her dizziness was due to low blood pressure Patient states that she has not had any recurrence of her dizziness since her Propranolol and Lisinopril were both held earlier this year and have advised patient to just continue monitoring her blood pressure regularly since (3) Pure hypercholesterolemia: Code(s): E78.00 - Pure hypercholesterolemia, unspecified Category: Medical Plan: Results of her labs done last week reviewed and discussed with patient Reinforced low cholesterol diet Continue Simvastatin 40 mg QD Will have patient recheck her labs and fasting lipids in 4 months for follow up (4) Diabetes mellitus: Code(s): E11.9 - Type 2 diabetes mellitus without complications Category: Medical Qualifiers: Chronic kidney disease stage: stage 3 (moderate) Chronic kidney disease stage 3 subtype: stage 3a (GFR 45-59) Diabetes mellitus complication detail: with chronic kidney disease Diabetes mellitus complication status: with kidney complications Diabetes mellitus prison insulin use: without prison use Diabetes mellitus type: type 2 Qualified Code(s): E11.22 - Type 2 diabetes mellitus with diabetic chronic kidney disease; N18.31 - Chronic kidney disease, stage 3a Plan: Her HgbA1c was at 7.9% on her recent labs (HgbA1c was previously at 7.0% a few months ago) - goal is at least >7.0% Reinforced diabetic diet Continue Trulicity 3 mg SQ once a week, Tresiba 44 units QD and Humalog TID with meals per sliding scale She was taken off her Metformin previously as it was reportedly aggravating her GI symptoms (gastroparesis) Her gastroparesis is also making it more difficult to control her conditions as it affects medication absorption and it is also making food and nutrient absorption erratic, which complicates her diabetes control as well Follow up with [facility] Endocr[facility]ology as scheduled (5) Chronic kidney disease, stage III (moderate): Code(s): N18.30 - Chronic kidney disease, stage 3 unspecified Category: Medical Qualifiers: Chronic kidney disease stage 3 subtype: stage 3a (GFR 45-59) Qualified Code(s): N18.31 - Chronic kidney disease, stage 3a Plan: Stable Will continue to monitor her renal function regularly Will also go ahead and refer her to nephrology for further management and optimization of her CKD as well as her blood pressure (6) Migraine: Code(s): G43.909 - Migraine, unspecified, not intractable, without status migrainosus Category: Medical Qualifiers: Intractability: not intractable Migraine type: unspecified Status migrainosus presence: without status migrainosus Qualified Code(s): G43.909 - Migraine, unspecified, not intractable, without status migrainosus Plan: Patient states that her headaches have been better controlled lately She takes Qulipta 60 mg PRN but states that she has not needed to take this in a while now Reinforced avoidance of any potential migraine triggers (7) Neuropathy: Code(s): G62.9 - Polyneuropathy, unspecified Category: Medical Plan: Continue Gabapentin 100 mg to 300 mg Q HS PRN (8) Psoriatic arthritis: Code(s): L40.50 - Arthropathic psoriasis, unspecified Category: Medical Plan: Continue Otezla 30 mg BID and Cimzia 200 mg SQ once a week Follow up with rheumatology (Dr. Kramer at [facility]) as scheduled (9) Chronic constipation: Comment: Currently MiraLax stool softener Code(s): K59.09 - Other constipation Category: Medical Plan: Reinforced increased oral fluids and dietary fiber Continue Prucalopride (Motegrity) 1 mg QD Follow up with GI as scheduled (10) Gastroparesis: Comment: DM, trulicity, fam hx- gastrpoparesis Code(s): K31.84 - Gastroparesis Category: Medical Plan: Continue Metoclopramide 5 mg TID Follow up with GI as scheduled (11) GERD without esophagitis: Code(s): K21.9 - Gastro-esophageal reflux disease without esophagitis Category: Medical Plan: Dietary restrictions reinforced Continue Omeprazole 20 mg QD (12) Vitamin D deficiency: Code(s): E55.9 - Vitamin D deficiency, unspecified Category: Medical Plan: Continue Vitamin D3 2000 units QD (13) Vitamin B12 deficiency: Code(s): E53.8 - Deficiency of other specified B group vitamins Category: Medical Plan: She was taking Vitamin B12 tablets 5000 mcg QD but patient has been advised that her B12 level is now very high and she should cut her current B12 dosing in half (14) Overweight (BMI 25.0-29.9): Code(s): E66.3 - Overweight Category: Medical Plan: Reinforced diet; exercise and weight may not be realistic due to patient's physical issues and multiple comorbidities Plan Follow up in 4 months Orders: Orders Complete Blood Count Auto Diff 4 Months D64.9 - Anemia, unspecified Comprehensive [place]. Panel Fast 4 Months E78.00 - Pure hypercholesterolemia, unspecified Hemoglobin A1c 4 Months E11.9 - Type 2 diabetes mellitus without complications Lipid Panel 4 Months E78.00 - Pure hypercholesterolemia, unspecified Microalbumin, Random (w Creat) 4 Months E11.9 - Type 2 diabetes mellitus without complications UA CC w/rflx Micro + Cult 4 Months R30.0 - Dysuria Referrals Nephrology Referral N18.31 - Chronic kidney disease, stage 3a
--- OUTSIDE RECORDS SUMMARY | 2025-01-20 10:35 | XMS_ITS | Clinical Summary ---
Author Organization [facility] Address [address] [place] [address] Phone Care Team Providers Care Lap Machine Operator Name Role Phone Vinod Borjas MD Primary Care Provider [phone] Allergies No known active allergies Medications simvastatin [...] sure to inform any new DAMEON SANTOS, DIRECTOR OF OPERATIONS about chronic immunosuppression with Cimzia particularly in [...] sure to inform any new DAMEON SANTOS, DIRECTOR OF OPERATIONS about chronic immunosuppression with Cimzia particularly in [...] sure to inform any new DAMEON SANTOS, DIRECTOR OF OPERATIONS about chronic immunosuppression with Cimzia particularly in [...] sure to inform any new MD, PA, DIRECTOR OF OPERATIONS about chronic immunosuppression with Cimzia particularly in emergency situations. Postmenopausal 02/22/2022 Assessment & Plan (02/22/2022 11:59 AM EST): Fall and fracture prevention strategies. Daily weightbearing exercises. Proper calcium and vitamin D supplementation. She is due for BMD at [facility] on 01/28/2022. NSAID long-term use 01/27/2022 Assessment [...] least twice daily and follow closely with circulation worker and PCP as scheduled. Muscle spasm 08/20/2020 [...] in 4 months-standing orders in [facility]. Carefully continue weekly subcutaneous Cimzia + twice [...] in 4 months-standing orders in [facility]. Carefully continue weekly subcutaneous Cimzia + twice [...] in 4 months-standing orders in [facility]. Carefully continue weekly subcutaneous Cimzia + twice [...] in 4 months-standing orders in [facility]. Carefully continue weekly subcutaneous Cimzia + twice [...] in 6 months-standing orders in [facility]. Carefully continue weekly subcutaneous Cimzia + twice [...] in 4 months-standing orders in [facility]. Carefully continue weekly subcutaneous Cimzia + twice [...] in 4 months-standing orders in [facility]. Carefully continue weekly subcutaneous Cimzia + twice [...] in 3 months-standing orders in [facility]. Carefully continue monthly subcutaneous Cimzia + twice [...] in 3 months-standing orders in [facility]. Carefully continue weekly subcutaneous Humira every Monday+ [...] in 3 months-standing orders in [facility]. Carefully continue weekly subcutaneous Humira every Monday+ [...] On her request I filled application for [employer] in [place]-see details in media section of [employer] with today's date. Assessment & Plan (12/14/2020 [...] as prescribed and follow closely with prescribing wig stylist as scheduled. Assessment & Plan (08/19/2024 10:44 AM EDT): Take exactly as prescribed and follow closely with prescribing wig stylist as scheduled. Assessment & Plan (04/22/2024 10:17 AM EST): Take exactly as prescribed and follow closely with prescribing wig stylist as scheduled. Assessment & Plan (12/21/2023 9:38 AM EDT): Take exactly as prescribed and follow closely with prescribing wig stylist as scheduled. Assessment & Plan (06/21/2023 9:43 AM EDT): Take exactly as prescribed and follow closely with prescribing wig stylist as scheduled. Assessment & Plan (01/20/2023 11:21 AM EST): Take exactly as prescribed and follow closely with prescribing wig stylist as scheduled. Assessment & Plan (09/21/2022 12:41 PM EDT): Take exactly as prescribed and follow closely with prescribing wig stylist as scheduled. Assessment & Plan (05/27/2022 10:57 AM EDT): Take exactly as prescribed and follow closely with prescribing wig stylist as scheduled. Assessment & Plan (01/27/2022 10:41 AM EST): Take exactly as prescribed and follow closely with prescribing wig stylist as scheduled. Assessment & Plan (10/20/2021 8:37 AM EDT): Take exactly as prescribed and follow closely with prescribing wig stylist as scheduled. Assessment & Plan (07/12/2021 10:10 AM EDT): Take exactly as prescribed and follow closely with prescribing wig stylist as scheduled. Assessment & Plan (04/15/2021 10:15 AM EST): Take exactly as prescribed and follow closely with prescribing wig stylist as scheduled. Assessment & Plan (12/14/2020 10:02 AM EDT): Take exactly as prescribed and follow closely with prescribing wig stylist as scheduled. Assessment & Plan (08/20/2020 10:23 AM EDT): Take exactly as prescribed and follow closely with prescribing wig stylist as scheduled. Assessment & Plan (2020 9:47 PM EST): Take exactly as prescribed and follow closely with prescribing wig stylist as scheduled. Assessment & Plan (01/26/2020 4:17 PM EST): Take exactly as prescribed and follow closely with prescribing wig stylist as scheduled. (Last visit in September 2019-typically [...] least twice daily and follow closely with circulation worker and PCP as scheduled. Assessment & Plan (12/21/2023 9:37 AM EDT): Continue watchful diet avoiding concentrated sugars. Proper hydration. Monitor blood glucose at least twice daily and follow closely with circulation worker and PCP as scheduled. Assessment & Plan (10/20/2021 8:42 AM EDT): Continue watchful diet avoiding concentrated sugars. Proper hydration. Monitor blood glucose at least twice daily and follow closely with circulation worker and PCP as scheduled. Assessment & Plan (04/18/2021 3:31 PM EST): Continue watchful diet avoiding concentrated sugars. Proper hydration. Monitor blood glucose at least twice daily and follow closely with circulation worker and PCP as scheduled. Diabetes type 2, [...] sure to inform any new MD PA, DIRECTOR OF OPERATIONS about chronic immunosuppression with Humira particularly in [...] sure to inform any new MD PA, DIRECTOR OF OPERATIONS about chronic immunosuppression with Humira particularly in [...] sure to inform any new MD, PA, DIRECTOR OF OPERATIONS about chronic immunosuppression with Humira particularly in [...] sure to inform any new , DAMEON, DIRECTOR OF OPERATIONS about chronic immunosuppression with Humira particularly in emergency situations. Encounters Date Type Department Care Team Description 01/06/2025 Orders Only [facility]ology [address] [place] [address] Chary Palacios MA Psoriatic arthritis; De Quervain's tenosynovitis, right 01/03/2025 9:30 AM EDT Office Visit [facility] [address] [place] [address] Georgia Paniagua MD McCullough, Sheila, OT Pain of right hand (Primary Dx) 12/31/2024 9:30 AM EDT Office Visit [facility] [address] [place] [address] Georgia Paniagua MD McCullough, Sheila, OT Pain of right hand (Primary Dx) 12/27/2024 10:15 AM EDT Office Visit [facility] [address] [place] [address] Georgia Paniagua MD McCullough, Sheila, OT Pain of right hand (Primary Dx) 12/26/2024 10:30 AM EDT Office Visit [facility] [address] [place] [address] Georgia Paniagua MD Psoriatic arthritis (Primary Dx); Primary osteoarthritis involving multiple joints; Type 2 diabetes mellitus with diabetic neuropathy, with long-term current use of insulin; Encounter for monitoring certolizumab therapy; Long-term current use of apremilast; Gastroesophageal reflux disease without esophagitis; De Quervain's tenosynovitis, right 12/26/2024 Telephone [facility] [address] [place] [address] [place] [address] Georgia Paniagua MD Referral 12/25/2024 Orders Only [facility] Rheumatology [address] [place] [address] Georgia Paniagua MD 12/24/2024 9:30 AM EDT Office Visit [facility] [address] [place] [address] Georgia Paniagua MD McCullough, Sheila, OT Pain of right hand (Primary Dx) 12/20/2024 9:30 AM EDT Office Visit [facility] [address] [place] [address] Georgia Paniagua MD McCullough, Sheila, OT Pain of right hand (Primary Dx) 12/17/2024 8:45 AM EDT Office Visit [facility] [address] [place] [address] Georgia Paniagua MD McCullough, Sheila, OT Pain of right hand (Primary Dx) 12/12/2024 9:30 AM EDT Office Visit [facility] [address] [place] [address] Georgia Paniagua MD McCullough, Sheila, OT Pain of right hand (Primary Dx) 12/10/2024 9:30 AM EDT Office Visit [facility] [address] [place] [address] Georgia Paniagua MD McCullough, Sheila, OT Pain of right hand (Primary Dx) 12/06/2024 8:45 AM EDT Office Visit [facility] [address] [place] [address] Georgia Paniagua MD McCullough, Sheila, OT Pain of right hand (Primary Dx) 12/06/2024 Plan of Care Documentation [facility] [address] [place] [address] 11/19/2024 8:45 AM EDT Office Visit [facility] [address] [place] [address] Georgia Paniagua MD McCullough, Sheila, OT Tendinitis, de Quervain's (Primary Dx) 11/15/2024 8:45 AM EDT Office Visit [facility] [address] [place] [address] Georgia Paniagua MD McCullough, Sheila, OT Tendinitis, de Quervain's (Primary Dx) 11/12/2024 9:30 AM EDT Office Visit [facility] [address] [place] [address] Georgia Paniagua MD McCullough, Sheila, OT Tendinitis, de Quervain's (Primary Dx) 11/06/2024 12:00 PM EDT Office Visit [facility] [address] [place] [address] Georgia Paniagua MD De Quervain's tenosynovitis, right (Primary Dx) 11/04/2024 9:00 AM EDT Office Visit [facility] [address] [place] [address] Georgia Paniagua MD McCullough, Sheila, OT Tendinitis, de Quervain's (Primary Dx) 11/04/2024 Telephone [facility] [address] [place] [address] Georgia Paniagua MD 10/28/2024 9:45 AM EDT Office Visit [facility] [address] [place] [address] Georgia Paniagua MD McCullough, Sheila, OT Tendinitis, de Quervain's (Primary Dx) 10/25/2024 8:45 AM EDT Office Visit [facility] [address] [place] [address] Georgia Paniagua MD McCullough, Sheila, OT Tendinitis, [...] Description 05/02/2025 10:30 AM EST [facility] [address] [place] [address] Georgia Paniagua MD [address] [facility], [address] [place] [address] [email or web address] Health Maintenance Due Date Last Done Comments [...] on patient's age to complete this topic IPV VACCINES Aged Out No longer eligi ble [...] Routine 12/12/2024 2:17 PM EDT C-REACTIVE PROTEIN (CRP) Routine 12/12/2024 2:17 PM EDT COMPREHENSIVE METABOLIC PANEL (CMP) Routine 12/12/2024 2:17 PM EDT COMPREHENSIVE METABOLIC PANEL (CMP) Routine 01/23/2020 1:02 PM EST Psoriatic arthritis On statin therapy Adalimumab (Humira) long-term use Long-term current use of apremilast from Last 3 Months or Most Recently Relevant to Health Maintenance Results * XR Hand (Right) (12/26/2024 3:53 PM EDT) Anatomical Region Laterality Modality Hand Right XR Diagnostic Result Jimbo Paniagua MD IMG XR UPPER EXTREMITY F inal Result * Comprehensive metabolic panel (12/12/2024 2:17 PM EDT) Only the most recent of2 resultswithin the time period is included. us Georgia Paniagua MD LAB BLOOD BKR ORDERABLES Final Result * Sedimentation rate (ESR) (12/12/2024 2:17 PM EDT) Result Jimbo Paniagua MD LAB BLOOD BKR ORDERABLES Final Result * CBC and differential (12/12/2024 2:17 PM EDT) Blood Result Jimbo Paniagua MD LAB BLOOD BKR ORDERABLES Final Result * C-Reactive Protein (12/12/2024 2:17 PM EDT) Georgia Paniagua MD LAB BLOOD BKR ORDERABLES Final Result from Last 3 Months or Most Recently Relevant to Health Maintenance Insurance [facility] MEDICARE PART A & B [facility] MEDICARE PART A & B [facility] MEDICARE PART A & B [facility] MEDICARE PART A & B [facility] MEDICARE PART A & B [facility] MEDICARE PART A & B [facility] MEDICARE PART A & B [facility] MEDICARE PART A & B [facility] MEDICARE PART A & B Care Teams Lap Machine Operator Relationship Specialty Start Date End Date Vinod Borjas MD [address] [place] [address] [place] [address] PCP - General Internal Medicine 08/19/24 Additional Source Comments The information contained in this document represents components of the legal health record. It is not the complete legal health record.[facility]
--- OUTSIDE RECORDS SUMMARY | 2025-01-20 10:35 | XMS_ITS | Encounter Summary ---
Author Organization [facility] Address [address] [place] [address] Phone Care Team Providers Care Ruffling Machine Operator Name Role Phone Vinod Borjas MD Primary Care Provider [phone] Encounter Details Date Type Department Care Team (Late st Contact Info) Description 01/06/2025 Orders Only [facility] Rheumatology [address] [place], [place] [id number] Chary Palacios [place] [address] [place] [address] [email or web address] Psoriatic arthritis; De Quervain's tenosynovitis, right Social [...] Description 05/02/2025 10:30 AM EST Office Visit [facility] Rheumatology [address] [place] [address] Georgia Paniagua MD [address] [facility], [address] [place] [address] documented as of this encounter Procedures Procedure [...] right documented in this encounter Care Teams Ruffling Machine Operator Relationship Specialty Start Date End Date Vinod Borjas MD [address] [place] [address] [place] [address] PCP - General Internal Medicine 08/19/24 documented as of this encounter Additional Source Comments The information contained in this document represents components of the legal health record. It is not the complete legal health record.[facility]
--- OUTSIDE RECORDS SUMMARY | 2025-01-20 10:35 | XMS_ITS | Patient Health Record ---
[facility] Address [address] [place] [address] Care Team Providers Care [employer] Player Name Role Phone Edin Borjas MDh Primary Care Provider Tiffany Stein Unavailable [phone] Allergies No Known Allergies Results Component Value Reference Range Notes HEMOGLOBIN A1C (GLYCOHEMOGLO BIN) Reviewed date:04/10/2024 08:56:04 AM Interpretation: Performing Lab: Notes/Report: HEMOGLOBIN A1C % (HH) 6.7 Reason For Referral No Information Medications Medication SIG (Take, Route, Frequency, Duration) Notes Start Date End Date Status Cimzia Active Trulicity Active Gabapentin 100 MG 1 capsule Orally Once a day; Duration: 30 day(s) Active Lisinopril 2.5 MG 1 tablet Orally Once a day Active Lisinopril Active Amitriptyline HCl Ac tive HumaLOG Active Omeprazole Active Cosentyx Not-Taking Methotrexate 2.5 MG 1 tablet Orally Three times a Week; Duration: 30 day(s) Not-Taking CeleBREX 100 MG 1 capsule Orally Twice a day; Duration: 30 day(s) Not-Taking Lamisil 250 250 MG 1 Tab Oral Daily; Duration: 90 02/22/2013 Not-Taking Otezla Active Propranolol HCl Acti ve glipiZIDE 5 MG 1 tablet Orally Once [...] Januvia 40mg Twice a day Not-T aking Extra-Depth Diabetic Shoes with 3 Pair Custom [...] Once a day; Duration: 30 day(s) Not-Taking Simvastatin 10 MG 1 tablet in the evening Orally Once a day; Duration: 30 day(s) Active Tresiba Active Work Note . . .Dx: Niddm with neuropathy, arthritic toe deformity .Rx: this patient must avoid steel toe shoes permanently to avoid infection; Duration: . 08/28/2013 Not-Taking Immunizations Vaccine Route Administration Date Status Comme nts Influenza Unknown 07/29/2015 Pending Influenza Unknown 02/15/2017 Refused Influenza Unknown 05/24/2017 Refused Influenza Unknown 12/25/2017 Refused Influenza Unknown 09/04/2019 Refused Influenza Unknown 11/25/2020 Administered Influenza Unknown 10/16/2024 Refused Pneumococcal Unknown 11/11/2020 Administered COVID-19 Pfizer BioNTech Vaccine Unknown 11/15/2024 Administered COVID-19 Justin & Justin/Camilo Unknown 11/25/2020 [...] Problem Acquired hammer toe of right foot (1670928672119211 ) Other hammer toe(s) (acquired), right foot (M20.41) [facility] Acquired hammer toe of left foot (8866724746553116 ) Other hammer toe(s) (acquired), left foot (M20.42) Active confirmed [facility] Problem Polyneuropathy due to diabetes mellitus type I (371267884) Type 1 diabetes mellitus with diabetic polyneuropathy (E10.42) Active confirmed Problem Polyneuropathy due to type 2 diabetes mellitus (358614484) Type 2 diabetes mellitus with diabetic polyneuropathy (E11.42) Active confirmed Vital Signs Blood pressure diastolic 65 mm Hg 01/15/2025 Height 7ky55ip in 01/15/2025 Blood pressure systolic 120 mm Hg 01/15/2025 Weight 185 lbs 01/15/2025 BMI 25.8 kg/m2 01/15/2025 Procedures Procedure Date Ordered Date Performed Result Body Sit e 18070-TTXSHEZ NAIL, 6 OR MORE 04/10/2024 N/A 10599-FRSQ SKIN LESIONS, 2 TO 4 04/10/2024 N/A 20553-ZCDHSMI NAIL, 6 OR MORE 07/11/2024 N/A 96050-UDRY SKIN LESIONS, 2 TO 4 07/11/2024 N/A Encounters Encounter [facility] Date [facility] [address] [facility]/10/[facility]24 Tiffany Salas Other hammer toe(s) (acquired), right foot M20.41 ; Other hammer toe(s) (acquired), left foot M20.42 ; Type 2 diabetes mellitus with diabetic polyneuropathy E11.42 and Tinea unguium B35.[address] [address] 07/11/2024 Tiffany Salas Type 2 diabetes mellitus with diabetic polyneuropathy E11.42 ; Tinea unguium B35.1 ; Other hammer toe(s) (acquired), right foot M20.41 and Other hammer toe(s) (acquired), left foot M20.[address] [address] 10/16/2024 Tiffany Salas Type 2 diabetes mellitus with diabetic polyneuropathy E11.42 and Tinea unguium B35.[address] [address] 01/15/2025 Tiffany Salas Type 2 diabetes mellitus [...] E11.42) 10/16/2024 Tinea unguium (ICD-10 - B35.1) 01/15/2025 Type 2 diabetes mellitus with diabetic polyneuropathy (ICD-10 - E11.42) 01/15/2025 Tinea unguium (ICD-10 - B35.1) 07/11/2024 Other hammer toe(s) (acquired), right foot (ICD-10 - M20.41) Response to treatment,Impro vement 04/10/2024 Type 2 diabetes mellitus with diabetic polyneuropathy (ICD-10 - E11.42) 04/10/2024 Tinea unguium (ICD-10 - B35.1) 07/11/2024 Other hammer toe(s) (acquired), left foot (ICD-10 - M20.42) Response to treatment,Impro vement Plan Of Treatment Pending Test Test Name Order Date 12370-DYPOVNY NAIL, 6 OR MORE 02/20/2013 03653-VHKDBPZ NAIL, 6 OR MORE 05/29/2013 13649-TXVVHUW NAIL, 6 OR MORE 08/28/2013 88431-MKPAXSD NAIL, 6 OR MORE 12/11/2013 34659-NSWKPKV NAIL, 6 OR MORE 05/07/2014 43297-ZVIUOYD NAIL, 6 OR MORE 08/06/2014 21657-CFACPFG NAIL, 6 OR MORE 04/13/2015 08079-ZOPNBIP NAIL, 6 OR MORE 12/31/2014 56018-ZVEQITT NAIL, 6 OR MORE 07/29/2015 64747-AXPEBNQ NAIL, 6 OR MORE 10/28/2015 61300-VWUMMEX NAIL, 6 OR MORE 01/27/2016 53884-IXOVIUH NAIL, 6 OR MORE 04/27/2016 51763-RERTPKA NAIL, 6 OR MORE 11/02/2016 34133-CMQMFZT NAIL, 6 OR MORE 02/15/2017 04239-VHBNICW NAIL, 6 OR MORE 05/24/2017 52072-PPUOIGC NAIL, 6 OR MORE 08/30/2017 05422-BVVRURP NAIL, 6 OR MORE 12/25/2017 00742-CNMNEOX NAIL, 6 OR MORE 04/10/2024 87997-QVZOEKD NAIL, 6 OR MORE 07/11/2024 06388-Imuiciud Plate 08/30/2017 38408-Qhauudhd Plate 11/02/2016 56564-Kccznatg Plate 12/31/2014 06976-Hodcfhgp Plate 04/13/2015 21472-Tzbqhdwe Plate 08/06/2014 73282-Clgijxsp Plate 05/07/2014 33199-Wdvdpdoh Plate 12/11/2013 24069-Jlshgjtc Plate 09/11/2013 81513-Nmodmubr Plate 05/29/2013 10989-Ochvpsgs Plate 02/20/2013 34807-Fkeybool Plate Each Additional 04/2013 05881-Zkmpjsaf Plate Each Additional 44079-Usltjygi Plate Each Additional 53642-Hotsyuqc Plate Each Additional 03/2015 17922-Niwovnzk Plate Each Additional 57447- Debride <25 sq cm 07/06/2020 58215- Debride <25 sq cm 08/28/2013 35944-GBYH SKIN LESIONS, OVER 4 05/07/19 15 12323-JYKI SKIN LESIONS, OVER 4 12/12/19 14 65456-YTHZ SKIN LESIONS, OVER 4 02/21/20 13 12408-RXLL SKIN LESIONS, OVER 4 05/30/19 14 74304-UZTZ SKIN LESIONS, OVER 4 08/29/19 14 16710-XNYU SKIN LESIONS, OVER 4 04/13/19 16 23407-YPPV SKIN LESIONS, OVER 4 08/07/19 15 30994-YOPC SKIN LESIONS, OVER 4 01/01/20 15 95754-WQPT SKIN LESIONS, OVER 4 07/29/19 16 44790-LFUO SKIN LESIONS, OVER 4 01/27/20 16 69051-EOOI SKIN LESIONS, OVER 4 10/28/19 16 20071-CDIS SKIN LESIONS, OVER 4 07/07/19 21 66091-UIGC SKIN LESIONS, OVER 4 01/14/20 21 67486-AKHZ SKIN LESIONS, OVER 4 11/03/19 17 88153-BVLS SKIN LESIONS, OVER 4 04/27/19 17 79740-TPFA SKIN LESIONS, OVER 4 07/28/19 17 25914-NNZC SKIN LESIONS, OVER 4 05/25/19 18 75457-KFHL SKIN LESIONS, OVER 4 02/16/20 17 92207-UWCH SKIN LESIONS, OVER 4 08/31/19 18 02724-MIYN SKIN LESIONS, OVER 4 12/26/19 18 86697-MSTZ SKIN LESIONS, OVER 4 04/16/19 19 29118-RIFN SKIN LESIONS, OVER 4 08/16/19 19 33367-FGKQ SKIN LESIONS, OVER 4 11/15/19 19 36448-HMPW SKIN LESIONS, OVER 4 03/18/19 20 86267-VYIK SKIN LESIONS, OVER 4 09/04/19 20 43439-MHOG SKIN LESIONS, OVER 4 01/06/20 20 99325-AXMH SKIN LESIONS, 2 TO 4 04/10/19 67391-SQZA SKIN LESIONS, 2 TO 4 07/12/19 Next Appt Details Provider Name:Tiffany del angel, 04/21/2025 09:00:00 AM, [address] [facility], [place], [address], Insurance Providers Payer Name Payer Address Payer Phone Subscriber Number Group Number Insured Name Patient Relationship to Insured Coverage Start Date Coverage End Date Medicare [employer] [address] [place] [address] [id number] LuísTereso shaferna Self - patient is the insured [facility] [address] [place] [address] [id number] Tereso Rodgersna Self - patient is the insured Medical (General) History Medical History History ICD Code Arthritis headaches/migraines high blood pressure psoriasis/eczema type II diabetes Surgical History Surgery Date(Month/Year) bx left leg 2015
--- OUTSIDE RECORDS SUMMARY | 2025-01-20 10:35 | XMS_ITS | Encounter Summary ---
Author Organization [facility] Address [address] [place] [address] [address] [place] [address] Phone Care Team Providers Care Tilt Wall Supervisor Name Role Phone Vinod Borjas MD Primary Care Provider [phone] Encounter Details Date Type Department Care Team (Late Contact Info) Description 12/25/2024 Orders Only [facility] Rheumatology [address] [place] [address] Georgia Paniagua MD 22 [facility], [address] [place] [address] [email or web address] Social History Tobacco Use Types Packs/Day Years [...] Description 05/02/2025 10:30 AM EST Office Visit [facility] [place] [address] Georgia Paniagua MD 22 [facility], [address] [place] [address] [email or web address] documented as of this encounter Procedures Procedure Name Priority Date/Time Associated Diagnosis Comments COMPREHENSIVE METABOLIC PANEL (CMP) Routine 12/12/2024 2:17 PM EDT SEDIMENTATION RATE (ESR) Routine 025 2:17 PM EDT CBC AND DIFFERENTIAL Routine 12/12/2024 2:17 PM EDT C-REACTIVE PROTEIN (CRP) Routine 025 2:17 PM EDT documented in this encounter Results * CBC and differential (12/12/2024 2:17 PM EDT) Blood us Georgia Paniagua MD LAB BLOOD BKR ORDERABLES Final Result * Sedimentation rate (ESR) (12/12/2024 2:17 PM EDT) Result Jimbo Paniagua MD LAB BLOOD BKR ORDERABLES Final Result * C-Reactive Protein (12/12/2024 2:17 PM EDT) Result Jimbo Paniagua MD LAB BLOOD BKR ORDERABLES Final Result * Comprehensive metabolic panel (12/12/2024 2:17 PM EDT) us Georgia Paniagua MD LAB BLOOD BKR ORDERABLES Final Result documented in this encounter Visit Diagnoses Not on filedocumented in this encounter Care Teams Tilt Wall Supervisor Relationship Specialty Start Date End Date Vinod Borjas MD [address] [place] [address] [place] [address] PCP - General Internal Medicine 08/19/24 documented as of this encounter Additional Source Comments The information contained in this document represents components of the legal health record. It is not the complete legal health record.[facility]
== END 2025-01-20 10:37 | disposition home or self-care (01) ==
LOC: HO.HMCH 09:31
PROVIDERS: PCP Internal Medicine; Visit Provider Internal Medicine
DX: I10 Essential (primary) hypertension (principal); R42 Dizziness and giddiness; E78.00 Pure hypercholesterolemia, unspecified; E11.22 Type 2 diabetes mellitus with diabetic chronic kidney disease; N18.31 Chronic kidney disease, stage 3a; G43.909 Migraine, unspecified, not intractable, without status migrainosus; G62.9 Polyneuropathy, unspecified; L40.50 Arthropathic psoriasis, unspecified; K59.09 Other constipation; K31.84 Gastroparesis; K21.9 Gastro-esophageal reflux disease without esophagitis; E55.9 Vitamin D deficiency, unspecified; E53.8 Deficiency of other specified B group vitamins; E66.3 Overweight

== ENCOUNTER → 2025-01-20 09:30 | Outpatient (BNVA) | payer MEDICARE, BC, SELFPAY | PROVIDERS: PCP Internal Medicine; Visit Provider Internal Medicine | DX: E78.00 Pure hypercholesterolemia, unspecified (principal); I12.9 Hypertensive chronic kidney disease with stage 1 through stage 4 chronic kidney disease, or unspecified chronic kidney disease; E11.22 Type 2 diabetes mellitus with diabetic chronic kidney disease; N18.31 Chronic kidney disease, stage 3a; G62.9 Polyneuropathy, unspecified; L40.50 Arthropathic psoriasis, unspecified; K59.09 Other constipation; K31.84 Gastroparesis; K21.9 Gastro-esophageal reflux disease without esophagitis; E55.9 Vitamin D deficiency, unspecified; E53.8 Deficiency of other specified B group vitamins; E66.3 Overweight; Z68.28 Body mass index [BMI] 28.0-28.9, adult; Z71.3 Dietary counseling and surveillance | CPT/HCPCS: 96127; 99212 ==

== ENCOUNTER → 2025-01-23 08:41 | Outpatient (REF) | payer MEDICARE, BC, SELFPAY ==
--- OUTSIDE RECORDS SUMMARY | 2023-12-04 04:15 | XMS_ITS ---
Author Organization [facility] Address [address] [place] [address] Care Team Providers Care Bull Wheel Worker Name Role Phone Indio SANTOS, Vinod Primary Care Provider Tiffany Stein Unavailable [phone] Wang De León Unavailable [phone] Encounters Encounter Location Date Provider Diagnosis [address] [address] 12/04/2023 Wang De León Plan Of Treatment Next Appt Details Provider Name:Tiffany Oksana del angel, 04/21/2025 09:00:00 AM, [address] [place], [address], Progress Notes * Yumiko VELÁZQUEZ MDOB: (69 yo F)Acc No.[id number]:12/04/2023 Progress Note Patient: Yumiko TOURE Provider: Yevgeniy Navas DPM :1955 A ge:68 Y S ex:Female Date:12/04/2023 Address:[address] [place] [address] [id number] Pcp:Vinod Borjas MD Subjective: * Chief Complaints: [...] 12/04/2023 Generated for Raj cutler/Azul/Mojgan on: 1 03/25/2024 09:02 AM EST
--- NOTE | ~2025-01-23 | NM_ITS ---
EXERCISE MYOCARDIAL PERFUSION STUDY INDICATION: Shortness of breath TECHNIQUE: The patient was brought in for an exercise perfusion study on 01/23/2025. Patient performed exercise as per [facility] protocol and was injected 30 mCi of sestamibi once target heart rate was achieved. Images were obtained using the SPECT gamma camera interlaced with the gating device. Images were obtained in supine position. Resting perfusion study was performed on 01/27/2025. Patient was administered 30 mCi of sestamibi intravenously at rest. Images were then obtained in supine position. Total DLP 124 mGy-cm. Images were processed with the software and compared side to side in short axis, horizontal long axis and vertical long axis views. FINDINGS: Raw aquisition reviewed. Arms by the patient's sides. The stress perfusion study showed mildly diminished tracer uptake in the basal part of inferior wall. With CT attenuation correction, there is improvement suggestive of diaphragmatic attenuation artifact. The gated study shows normal LV systolic function with calculated LVEF of > 70%. LV cavity is normal in size. The gated study shows normal wall thickening and contraction of segments. Resting study shows no significant perfusion abnormality. Gating at rest reveals normal wall motion with ejection fraction at 66%. The findings are consistent with no clear reversible or fixed perfusion abnormality. NM/NM cardiolite stress test IMPRESSION: 1. Myocardial perfusion imaging study shows normal myocardial perfusion. 2. Gated LVEF is > 70% during stress and 66% during rest. 3. Transient ischemic dilatation not present. EKG component of the test reported separately. Electronically signed by: Crispin Jarrett MD 01/28/2025 11:41 AM [facility]
--- NOTE | 2025-01-23 08:44 | CA_ITS ---
Acquisition Time: 2025-01-23 09:25:11 Total Exercise Time: 00:05:31 Test Indications: r06.09 Medications: see h&p Protocol: GREG Max HR: 148 BPM 97% of Pred: 152 BPM Max BP: 186/58 mmHG Max Work Load: 7.0 METS Exercise stress test with exercise 5 mins 31 secs of Greg Protocol, achieving 97% MPHR, with reports of SOB, no chets pain, with isolated PACs and PVCs, one 3 beat PVCs and one brief atrial run of 12 beats, with normotensive response to exercise. Without any EKG changes meeting criteria for ischemia. In recovery, breathing slowly improved to baseline. Nuclear images pending. Test reviewed with Dr. Padilla. Referred By: Crispin Jarrett Electronically Signed By: Hector Delacruz
--- OUTSIDE RECORDS SUMMARY | 2025-01-23 09:03 | XMS_ITS | Encounter Summary ---
Author Organization [facility] Address [address] [place] [address] Phone Care Team Providers Care Insecticide Expert Name Role Phone Vinod Borjas MD Primary Care Provider [phone] Encounter Details Date Type Department Care Team (Late Contact Info) Description 01/06/2025 Orders Only [facility] Rheumatology [address] [place] [address] [place], [place] [id number] Chary Palacios NE [address] [place] [address] [email or web address] Psoriatic arthritis; De Quervain's [...] 05/02/2025 10:30 AM EST Office Visit [facility] Rheumatology [address] [place] [address] Georgia Paniagua MD 22 [facility], [address] [place] [address] documented as of this encounter Procedures Procedure [...] right documented in this encounter Care Teams Insecticide Expert Relationship Specialty Start Date End Date Vinod Borjas MD PCP - General Internal Medicine 08/19/24 documented as of this encounter Additional Source Comments The information contained in this document represents components of the legal health record. It is not the complete legal health record.[facility]
--- OUTSIDE RECORDS SUMMARY | 2025-01-23 09:03 | XMS_ITS | Encounter Summary ---
Author Organization [facility] Address [address] [place] [address] [address] [place] [address] Phone Care Team Providers Care Ore Crushing Dust Collector Name Role Phone Vinod Borjas MD Primary Care Provider [phone] Encounter Details Date Type Department Care Team (Late st Contact Info) Description 12/25/2024 Orders Only [facility] Rheumatology [address] [place] [address] Georgia Paniagua MD 22 [facility], [address] [place] [address] [email or web address] Social History Tobacco Use Types Packs/Day Years [...] Description 05/02/2025 10:30 AM EST Office Visit [facility] Rheumatology [place] [address] Georgia Paniagua MD 22 [facility], [address] [place] [address] [email or web address] documented as of this encounter Procedures Procedure [...] on filedocumented in this encounter Care Teams Ore Crushing Dust Collector Relationship Specialty Start Date End Date Vinod Borjas MD PCP - General Internal Medicine 08/19/24 documented as of this encounter Additional Source Comments The information contained in this document represents components of the legal health record. It is not the complete legal health record.[facility]
--- OUTSIDE RECORDS SUMMARY | 2025-01-23 09:03 | XMS_ITS | Clinical Summary ---
Author Organization [facility] Address [address] [place] [address] Phone Care Team Providers Care Vamp Maker Name Role Phone Vinod Borjas MD Primary Care Provider [phone] Allergies No known active allergies Medications simvastatin [...] sure to inform any new DAMEON SANTOS, CLINICAL NURSING INSTRUCTOR about chronic immunosuppression with Cimzia particularly in [...] sure to inform any new DAMEON SANTOS, CLINICAL NURSING INSTRUCTOR about chronic immunosuppression with Cimzia particularly in [...] sure to inform any new DAMEON SANTOS CLINICAL NURSING INSTRUCTOR about chronic immunosuppression with Cimzia particularly in [...] sure to inform any new MD, PA, CLINICAL NURSING INSTRUCTOR about chronic immunosuppression with Cimzia particularly in emergency situations. Postmenopausal 02/22/2022 Assessment & Plan (02/22/2022 11:59 AM EST): Fall and fracture prevention strategies. Daily weightbearing exercises. Proper calcium and vitamin D supplementation. She is [facility] on 01/28/2022. NSAID long-term use 01/27/2022 [...] least twice daily and follow closely with coil tier and PCP as scheduled. Muscle spasm 08/20/2020 [...] visit in 4 months-standing orders in [facility]. Carefully continue weekly subcutaneous Cimzia + twice [...] visit in 4 months-standing orders in [facility]. Carefully continue weekly subcutaneous Cimzia + twice [...] visit in 4 months-standing orders in [facility]. Carefully continue weekly subcutaneous Cimzia + twice [...] visit in 4 months-standing orders in [facility]. Carefully continue weekly subcutaneous Cimzia + twice [...] visit in 6 months-standing orders in [facility]. Carefully continue weekly subcutaneous Cimzia + twice [...] visit in 4 months-standing orders in [facility]. Carefully continue weekly subcutaneous Cimzia + twice [...] visit in 4 months-standing orders in [facility]. Carefully continue weekly subcutaneous Cimzia + twice [...] visit in 3 months-standing orders in [facility]. Carefully continue monthly subcutaneous Cimzia + twice [...] visit in 3 months-standing orders in [facility]. Carefully continue weekly subcutaneous Humira every Monday+ [...] visit in 3 months-standing orders in [facility]. Carefully continue weekly subcutaneous Humira every Monday+ [...] On her request I filled application for Walk-in Appointment Schedulerg Departing-see details in media section of [email or web address] with today's date. Assessment & Plan (12/14/2020 [...] as prescribed and follow closely with prescribing car rental manager as scheduled. Assessment & Plan (08/19/2024 10:44 AM EDT): Take exactly as prescribed and follow closely with prescribing car rental manager as scheduled. Assessment & Plan (04/22/2024 10:17 AM EST): Take exactly as prescribed and follow closely with prescribing car rental manager as scheduled. Assessment & Plan (12/21/2023 9:38 AM EDT): Take exactly as prescribed and follow closely with prescribing car rental manager as scheduled. Assessment & Plan (06/21/2023 9:43 AM EDT): Take exactly as prescribed and follow closely with prescribing car rental manager as scheduled. Assessment & Plan (01/20/2023 11:21 AM EST): Take exactly as prescribed and follow closely with prescribing car rental manager as scheduled. Assessment & Plan (09/21/2022 12:41 PM EDT): Take exactly as prescribed and follow closely with prescribing car rental manager as scheduled. Assessment & Plan (05/27/2022 10:57 AM EDT): Take exactly as prescribed and follow closely with prescribing car rental manager as scheduled. Assessment & Plan (01/27/2022 10:41 AM EST): Take exactly as prescribed and follow closely with prescribing car rental manager as scheduled. Assessment & Plan (10/20/2021 8:37 AM EDT): Take exactly as prescribed and follow closely with prescribing car rental manager as scheduled. Assessment & Plan (07/12/2021 10:10 AM EDT): Take exactly as prescribed and follow closely with prescribing car rental manager as scheduled. Assessment & Plan (04/15/2021 10:15 AM EST): Take exactly as prescribed and follow closely with prescribing car rental manager as scheduled. Assessment & Plan (12/14/2020 10:02 AM EDT): Take exactly as prescribed and follow closely with prescribing car rental manager as scheduled. Assessment & Plan (08/20/2020 10:23 AM EDT): Take exactly as prescribed and follow closely with prescribing car rental manager as scheduled. Assessment & Plan (2020 9:47 PM EST): Take exactly as prescribed and follow closely with prescribing car rental manager as scheduled. Assessment & Plan (01/26/2020 4:17 PM EST): Take exactly as prescribed and follow closely with prescribing car rental manager as scheduled. (Last visit in September 2019-typically [...] least twice daily and follow closely with coil tier and PCP as scheduled. Assessment & Plan (12/21/2023 9:37 AM EDT): Continue watchful diet avoiding concentrated sugars. Proper hydration. Monitor blood glucose at least twice daily and follow closely with coil tier and PCP as scheduled. Assessment & Plan (10/20/2021 8:42 AM EDT): Continue watchful diet avoiding concentrated sugars. Proper hydration. Monitor blood glucose at least twice daily and follow closely with coil tier and PCP as scheduled. Assessment & Plan (04/18/2021 3:31 PM EST): Continue watchful diet avoiding concentrated sugars. Proper hydration. Monitor blood glucose at least twice daily and follow closely with coil tier and PCP as scheduled. Diabetes type 2, [...] sure to inform any new MD PA, CLINICAL NURSING INSTRUCTOR about chronic immunosuppression with Humira particularly in [...] sure to inform any new MD PA, CLINICAL NURSING INSTRUCTOR about chronic immunosuppression with Humira particularly in [...] sure to inform any new MD, PA, CLINICAL NURSING INSTRUCTOR about chronic immunosuppression with Humira particularly in [...] sure to inform any new DAMEON SANTOS, CLINICAL NURSING INSTRUCTOR about chronic immunosuppression with Humira particularly in emergency situations. Encounters Date Type Department Care Team Description 01/06/2025 Orders Only [facility] Rheumatology [address] [place] [address] Chary Palacios [place] Psoriatic arthritis; De Quervain's tenosynovitis, right 01/03/2025 9:30 AM EDT Office Visit [facility] [address] [place] [address] Georgia Paniagua MD McCullough, Sheila, OT Pain of right hand (Primary Dx) 12/31/2024 9:30 AM EDT Office Visit [facility] [address] [place] [address] Georgia Paniagua MD McCullough, Sheila, OT Pain of right hand (Primary Dx) 12/27/2024 10:15 AM EDT Office Visit [facility] [address] [place] [address] Georgia Paniagua MD McCullough, Sheila, OT Pain of right hand (Primary Dx) 12/26/2024 10:30 AM EDT Office Visit [facility] Rheumatology [address] [place] [address] Georgia Paniagua MD Psoriatic arthritis (Primary Dx); Primary osteoarthritis involving multiple joints; Type 2 diabetes mellitus with diabetic neuropathy, with long-term current use of insulin; Encounter for monitoring certolizumab therapy; Long-term current use of apremilast; Gastroesophageal reflux disease without esophagitis; De Quervain's tenosynovitis, right 12/26/2024 Telephone [facility] [address] [place] [address] [place] [address] Georgia Paniagua MD Referral 12/25/2024 Orders Only [facility] Rheumatology [address] [place] [address] Georgia Paniagua MD 12/24/2024 9:30 AM EDT Office Visit [facility] [address] [place] [address] Georgia Paniagua MD McCullough, Sheila, OT Pain of right hand (Primary Dx) 12/20/2024 9:30 AM EDT Office Visit [facility] [address] [place] [address] Georgia Paniagua MD McCullough, Sheila, OT Pain of right hand (Primary Dx) 12/17/2024 8:45 AM EDT Office Visit [facility] [address] [place] [address] Georgia Paniagua MD McCullough, Sheila, OT Pain of right hand (Primary Dx) 12/12/2024 9:30 AM EDT Office Visit [facility] [address] [place] [address] Georgia Paniagua MD McCullough, Sheila, OT Pain of right hand (Primary Dx) 12/10/2024 9:30 AM EDT Office Visit [facility] [address] [place] [address] Georgia Paniagua MD McCullough, Sheila, OT Pain of right hand (Primary Dx) 12/06/2024 8:45 AM EDT Office Visit [facility] [address] [place] [address] Georgia Paniagua MD McCullough, Sheila, OT Pain of right hand (Primary Dx) 12/06/2024 Plan of Care Documentation [facility] [address] [place] [address] 11/19/2024 8:45 AM EDT Office Visit [facility] [address] [place] [address] Georgia Paniagua MD McCullough, Sheila, OT Tendinitis, de Quervain's (Primary Dx) 11/15/2024 8:45 AM EDT Office Visit [facility] [address] [place] [address] Georgia Paniagua MD McCullough, Sheila, OT Tendinitis, de Quervain's (Primary Dx) 11/12/2024 9:30 AM EDT Office Visit [facility] [address] [place] [address] Georgia Paniagua MD McCullough, Sheila, OT Tendinitis, de Quervain's (Primary Dx) 11/06/2024 12:00 PM EDT Office Visit [facility] Rheumatology [address] [place] [address] Georgia Paniagua MD De Quervain's tenosynovitis, right (Primary Dx) 11/04/2024 9:00 AM EDT Office Visit [facility] [address] [place] [address] Georgia Paniagua MD McCullough, Sheila, OT Tendinitis, de Quervain's (Primary Dx) 11/04/2024 Telephone [facility] Rheumatology [address] [place] [address] Georgia Paniagua MD 10/28/2024 9:45 AM EDT Office Visit [facility] [address] [place] [address] Georgia Paniagua MD McCullough, Sheila, OT Tendinitis, de Quervain's (Primary Dx) 10/25/2024 8:45 AM EDT Office Visit [facility] [address] [place] [address] Georgia Paniagua MD McCullough, Sheila, OT Tendinitis, [...] Description 05/02/2025 10:30 AM EST Office Visit [facility] Rheumatology [address] [place] [address] Georgia Paniagua MD 22 [facility], [address] [place] [address] [email or web address] Health Maintenance Due Date Last Done Comments [...] Most Recently Relevant to Health Maintenance Insurance [facility] MEDICARE PART A & B [facility] MEDICARE PART A & B [facility] MEDICAL [facility] Address: [facility] [address] [place] [address] MEDICARE PART A & B [facility] MEDICARE PART A & B [facility] MEDICARE PART A & B [facility] MEDICARE PART A & B [facility] MEDICARE PART A & B [facility] MEDICARE PART A & B [facility] MEDICARE PART A & B Care Teams Vamp Maker Relationship Specialty Start Date End Date Vinod Borjas MD PCP - General Internal Medicine 08/19/24 Additional Source Comments The information contained in this document represents components of the legal health record. It is not the complete legal health record.[facility]
--- OUTSIDE RECORDS SUMMARY | 2025-01-23 09:03 | XMS_ITS | Patient Health Record ---
Author Organization [facility] Address [address] [place] [address] Care Team Providers Care Sausage Wrapper Name Role Phone Edin Borjas MDh Primary Care Provider Tiffany Stein Unavailable [phone] Allergies No Known Allergies Results Component Value [...] & Justin/Camilo Unknown 11/25/2020 Administered 1st 05/17/2020 COVID-19 Pfizer BioNTech Vaccine Unknown 11/15/2024 Administered Influenza Unknown 07/29/2015 Pending Influenza Unknown 02/15/2017 Refused Influenza Unknown 05/24/2017 Refused Influenza Unknown 12/25/2017 Refused Influenza Unknown 09/04/2019 Refused Influenza Unknown 11/25/2020 Administered Influenza Unknown 10/16/2024 Refused Pneumococcal Unknown 11/11/2020 Administered Social History Tobacco [...] Problem Acquired hammer toe of right foot (1629932508006005 ) Other hammer toe(s) (acquired), right foot (M20.41) [facility] Acquired hammer toe of left foot (3888972157138401 ) Other hammer toe(s) (acquired), left foot (M20.42) [facility] Problem Polyneuropathy due to diabetes mellitus type I (506675054) Type 1 diabetes mellitus with diabetic polyneuropathy (E10.42) Active confirmed Problem Polyneuropathy due to type 2 diabetes mellitus (365254944) Type 2 diabetes mellitus with diabetic polyneuropathy (E11.42) Active confirmed Vital Signs Blood pressure diastolic 65 mm Hg 01/15/2025 Height 7xz00tv in 01/15/2025 Blood pressure systolic 120 mm Hg 01/15/2025 Weight 185 lbs 01/15/2025 BMI 25.8 kg/m2 01/15/2025 Procedures Procedure Date Ordered Date Performed Result Body Sit e 77824-HGNVAKP NAIL, 6 OR MORE 04/10/2024 N/A 12329-DIEG SKIN LESIONS, 2 TO 4 04/10/2024 N/A 11992-WWCRRXH NAIL, 6 OR MORE 07/11/2024 N/A 91717-ARSJ SKIN LESIONS, 2 TO 4 07/11/2024 N/A Encounters Encounter [facility] Date [facility] [address] [facility]/10/[facility]24 Tiffany Salas Other hammer toe(s) (acquired), right foot M20.41 ; Other hammer toe(s) (acquired), left foot M20.42 ; Type 2 diabetes mellitus with diabetic polyneuropathy E11.42 and Tinea unguium B35.[address] [address] 07/11/2024 Tiffany Salas Type 2 diabetes mellitus with diabetic polyneuropathy E11.42 ; Tinea unguium B35.1 ; Other hammer toe(s) (acquired), right foot M20.41 and Other hammer toe(s) (acquired), left foot M20.[address] [address] 10/16/2024 Tiffany Salas Type 2 diabetes mellitus with diabetic polyneuropathy E11.42 and Tinea unguium B35.[address] [address] 01/15/2025 Tiffany Salas Type 2 diabetes mellitus [...] Treatment Pending Test Test Name Order Date 38700-UZCMKBG NAIL, 6 OR MORE 02/20/2013 24882-SLBHYWM NAIL, 6 OR MORE 05/29/2013 08571-HQQVQLB NAIL, 6 OR MORE 08/28/2013 35976-XLKAQBV NAIL, 6 OR MORE 12/11/2013 74777-BDDDNWG NAIL, 6 OR MORE 05/07/2014 82224-XKOWDTZ NAIL, 6 OR MORE 08/06/2014 02459-BLJGQHC NAIL, 6 OR MORE 04/13/2015 95629-COEOUFZ NAIL, 6 OR MORE 12/31/2014 19868-VSYUTTW NAIL, 6 OR MORE 07/29/2015 55685-QTNZAHY NAIL, 6 OR MORE 10/28/2015 78786-HQSHVWK NAIL, 6 OR MORE 01/27/2016 67765-TRIQGXW NAIL, 6 OR MORE 04/27/2016 92787-KLBANDK NAIL, 6 OR MORE 11/02/2016 04895-OHRLTXO NAIL, 6 OR MORE 02/15/2017 26160-DYKAZBL NAIL, 6 OR MORE 05/24/2017 01148-XVYGPSZ NAIL, 6 OR MORE 08/30/2017 74260-WNRRYFQ NAIL, 6 OR MORE 12/25/2017 64473-USBLPUJ NAIL, 6 OR MORE 04/10/2024 66471-YYKMIQO NAIL, 6 OR MORE 07/11/2024 80386-Fndpocjs Plate 08/30/2017 17639-Wvoqkutq Plate 11/02/2016 02978-Jcxohbnh Plate 12/31/2014 30835-Uvpigrpe Plate 04/13/2015 12190-Dshvmmxo Plate 08/06/2014 27423-Xadowfgc Plate 05/07/2014 00672-Czohkzyv Plate 12/11/2013 25952-Zvtwttrv Plate 09/11/2013 12293-Zbpjdjtq Plate 05/29/2013 26359-Kmdefqgx Plate 02/20/2013 29415-Udpkqvmb Plate Each Additional 04/2013 20989-Kwnhjbyq Plate Each Additional 94597-Jhdeynyi Plate Each Additional 15206-Pznnlpkx Plate Each Additional 03/2015 50011-Irfgvkwz Plate Each Additional 39341- Debride <25 sq cm 07/06/2020 57429- Debride <25 sq cm 08/28/2013 93020-JKFU SKIN LESIONS, OVER 4 05/07/19 15 02169-TOAN SKIN LESIONS, OVER 4 12/12/19 14 86331-VBGQ SKIN LESIONS, OVER 4 02/21/20 13 05939-MEBV SKIN LESIONS, OVER 4 05/30/19 14 85550-OYJT SKIN LESIONS, OVER 4 08/29/19 14 11898-FZGL SKIN LESIONS, OVER 4 04/13/19 16 34791-RKRR SKIN LESIONS, OVER 4 08/07/19 15 52045-YIFA SKIN LESIONS, OVER 4 01/01/20 15 04625-MDTE SKIN LESIONS, OVER 4 07/29/19 16 17101-ULCX SKIN LESIONS, OVER 4 01/27/20 16 37566-WFZL SKIN LESIONS, OVER 4 10/28/19 16 81497-TUIP SKIN LESIONS, OVER 4 07/07/19 21 10731-BGNR SKIN LESIONS, OVER 4 01/14/20 21 81938-BPKV SKIN LESIONS, OVER 4 11/03/19 17 03934-LQZA SKIN LESIONS, OVER 4 04/27/19 17 41477-UFMB SKIN LESIONS, OVER 4 07/28/19 17 50444-BXRX SKIN LESIONS, OVER 4 05/25/19 18 03003-YVAH SKIN LESIONS, OVER 4 02/16/20 17 70396-HFHO SKIN LESIONS, OVER 4 08/31/19 18 54338-NTWP SKIN LESIONS, OVER 4 12/26/19 18 07211-ATWZ SKIN LESIONS, OVER 4 04/16/19 19 51969-HEMN SKIN LESIONS, OVER 4 08/16/19 19 53697-EHHN SKIN LESIONS, OVER 4 11/15/19 19 02045-XMWA SKIN LESIONS, OVER 4 03/18/19 20 75328-JFQC SKIN LESIONS, OVER 4 09/04/19 20 31883-IHNW SKIN LESIONS, OVER 4 01/06/20 20 53352-KPBA SKIN LESIONS, 2 TO 4 04/10/19 41071-QSMF SKIN LESIONS, 2 TO 4 07/12/19 Next Appt Details Provider Name:Tiffany del angel, 04/21/2025 09:00:00 AM, [address] [facility], [place], [address], Insurance Providers Payer Name Payer Address Payer Phone Subscriber Number Group Number Insured Name Patient Relationship to Insured Coverage Start Date Coverage End Date Medicare National [employer] [address] [place] [address] [id number] LuísTereso shaferna Self - patient is the insured [facility] [address] [place] [address] [id number] Tereso Rodgersna Self - patient is the insured Medical (General) History Medical History History ICD Code Arthritis headaches/migraines high blood pressure psoriasis/eczema type II diabetes Surgical History Surgery Date(Month/Year) bx left leg 2015
== END ==
LOC: HO.CARD 08:41
PROVIDERS: PCP Internal Medicine; Visit Provider Internal Medicine
DX: I25.10 Atherosclerotic heart disease of native coronary artery without angina pectoris (principal); R06.09 Other forms of dyspnea
CPT/HCPCS: 78452; 93017; A9500

== ENCOUNTER → 2025-01-23 08:44 | Outpatient (BNV) | payer MEDICARE, BC, SELFPAY | PROVIDERS: PCP Internal Medicine | DX: R06.02 Shortness of breath (principal) | CPT/HCPCS: 78452; 93016; 93018 ==

== ENCOUNTER 2025-01-27 14:08 | Outpatient (AMB) | payer MEDICARE, BC, SELFPAY ==
[2025-01-27 14:12] VITALS: BP 178/80; PULSE 115; O2SAT 97; BMI 28.4
--- NOTE | 2025-01-27 14:12 | HO.NEPHOV_ITS ---
Vital Signs 01/27/25 14:12 Height 5 ft 10 in Weight 198 lb BMI 28.4 BP 178/80 H Blood Pressure Location Rt brachial Position Sitting Pulse 115 H Pulse Source Pulse Oximeter Pulse Oximetry (%) 97 Oxygen Delivery Method Room Air Intake Visit Reasons: INP: Chronic Kidney Dz Steamer Gum Candy Required: No Accompanied by: Self / Same As Patient Allergies grass pollen Allergy (Mild, Verified 01/27/25 14:14) hives Medication List - Last Reconciled 01/27/25 by Alberto Perez MD amitriptyline 25 mg PO BEDTIME apremilast (Otezla) 30 mg PO BID ascorbate calcium (vitamin C) 1 g PO Q6H atogepant (Qulipta) 60 mg PO PRN certolizumab pegol (Cimzia) 200 mg subcut QWEEK cholecalciferol (vitamin D3) 50 mcg PO DAILY cyanocobalamin (vitamin B-12) 5,000 mcg PO .everyotherday dulaglutide (Trulicity) 3 mg subcut QWEEK flash glucose scanning reader (FreeStyle Natasha 2 Regina) As directed flash glucose sensor (FreeStyle Natasha 2 Sensor kit) As directed gabapentin 100 to 300 mg orally bedtime PRN; hydroxyzine HCl 25 mg PO BID PRN insulin degludec (Tresiba FlexTouch U-100 insulin) 44 units subcut DAILY insulin syringe-needle U-100 As directed lisinopril 2.5 mg PO DAILY omeprazole magnesium 20 mg PO DAILY prucalopride 1 mg PO DAILY simvastatin 40 mg PO BEDTIME HPI Comments Details: 69-year-old women presenting with management of CKD in a setting of Type 2 Diabetes Mellitus and Hypertension. The patient has had Type 2 Diabetes Mellitus for approximately 15 years. Her diabetes was well-controlled for a long period but has recently become more challenging to manage, with a recent HbA1c of 7.9%. She has experienced gastrointestinal side effects from metformin, which has complicated her management. h/o Gastroparesis The patient has a history of hypertension for about 20 years. Her blood pressure was previously well-controlled but has recently become more difficult to manage, requiring adjustments in her medication regimen. She has been on various antihypertensive medications, including propranolol, which caused dizziness at higher doses and therefore discontinued. The patient reports a history of heartburn for which she is taking omeprazole. She had COVID-19 a year ago, which has since resolved without ongoing respiratory issues. Still has dyspnea PFTs were reportedly normal Cardiac work up in progress History of psoriasis. Complicated by psoriatic arthritis. She has been followed by generator worker She has CKd with a serucm creatinine of 1.35 Creatinine has been fluctuating between 1.1 and 1.3 for the last 4 years. Back in 2018 serum creatinine was 0.86. [facility]LY [facility] Medical History Constipation Abdominal pain, right lower quadrant Vitamin B12 deficiency Overweight (BMI 25.0-29.9) GERD without esophagitis Vitamin D deficiency Neuropathy Chronic kidney disease, stage III (moderate) Migraine Psoriatic arthritis Pure hypercholesterolemia Essential hypertension Diabetes mellitus Surgical History History of esophagogastroduodenoscopy (EGD) No pertinent past surgical history Family History Father No problems noted. Mother Gastroparesis Heart problem Paternal Grandmother Gastroparesis Family/Other Gastroparesis Social History Housing: House Alcohol intake: never Patient Tobacco Use Status: Never used Tobacco e-Cigarette/Vaping Use: Never Used Second Hand Smoke Exposure: No service: No Current occupational status: retired Cognitive needs: No Hearing needs: No Vision needs: Yes (glasses) Review of Systems Const Denies fever(s) and Denies weight loss Card Denies chest pain Resp Denies cough and Denies hemoptysis GI Denies abdominal pain, Denies diarrhea and Denies nausea Musc Denies back pain Neuro Denies focal weakness Physical Exam Vital Signs: Last Vital Signs Pulse 115 H 01/27/25 14:12 BP 178/80 H 01/27/25 14:12 Pulse Ox 97 01/27/25 14:12 Oxygen Delivery Method Room Air 01/27/25 14:12 BMI result Body Mass Index 28.4 Const General: comfortable Nutritional Appearance: well nourished Orientation/consciousness: patient oriented x3 HEENT Head: No normal to inspection Mouth: moist mucous membranes Neck Neck: Yes supple and Yes no JVD Resp Auscultation: clear to auscultation bilaterally, no rales and No rub present Cardio Jugular venous distension: no JVD Palpation: no palpable S3 and no palpable S4 Heart sounds: no rubs GI Palpation (GI): Soft to palpation and nontender Percussion: No Fluid wave present General: Yes no CVA tenderness Back/Spine/Pelvis Back: no CVA tenderness Skin General skin exam: no rashes or lesions noted Neuro General: patient oriented x3 Extrem General: Yes no pedal edema and No clubbing Results Reviewed Nephrology Results: Hgb, (12.0-16.0) 13.0 g/dl 01/13/25 WBC, (4.8-10.8) 8.5 X10*3/uL 01/13/25 Plt Count, (160-400) 290 X10*3/uL 01/13/25 Sodium, (135-145) 138 mmol/L 01/13/25 Potassium, (3.3-5.1) 4.4 mmol/L 01/13/25 Chloride, (96-108) 105 mmol/L 01/13/25 Carbon Dioxide, (22-29) 26 mmol/L 01/13/25 BUN, (9-16) 20 mg/dL H 01/13/25 Creatinine, (0.5-1.4) 1.35 mg/dL 01/13/25 Calcium, (8.4-10.2) 9.3 mg/dL 01/13/25 Urine Protein, (Neg-Trace) Negative mg/dL 01/13/25 Urine Creatinine 101.57 mg/dL 01/13/25 Assessment & Plan Assessment & Plan (1) Chronic kidney disease, stage III (moderate): Code(s): N18.30 - Chronic kidney disease, stage 3 unspecified Category: Medical Qualifiers: Chronic kidney disease stage 3 subtype: stage 3a (GFR 45-59) Qualified Code(s): N18.31 - Chronic kidney disease, stage 3a Plan 69-year-old woman with CKD 3 in a setting of longstanding diabetes mellitus hypertension along with psoriasis. Serum creatinine has been staying around 1.1-1.3 mg/dL for almost 4 years. Workup initiated for CKD. Obtain renal ultrasonogram to assess echogenicity and to rule out obstruction. Check urine studies for routine protein creatinine ratio. In the past urinalysis did not reveal any significant hematuria or proteinuria. Obtain 24 urine collection for creatinine clearance which might be more accurate Further workup will be based on the outcome of the baseline investigations. Goal is to slow the progression of renal disease Optimize blood pressure. Maintain blood pressure less than 130/80. Optimize blood sugar and maintain A1c less than 7%. She will benefit from SGLT2 inhibitors. Continue to avoid nephrotoxic agents including NSAIDs. Returned to the office in the next few weeks Orders: Orders Creatinine Clearance Urine 24U Today N18.31 - Chronic kidney disease, stage 3a Protein, 24 Hr Urine Group Today N18.31 - Chronic kidney disease, stage 3a US renal BI Today N18.31 - Chronic kidney disease, stage 3a Basic Metabolic Panel Today N18.31 - Chronic kidney disease, stage 3a Complete Blood Count no Diff Today N18.31 - Chronic kidney disease, stage 3a Medications: New metoprolol succinate ER 25 mg PO DAILY 90 tabs 0RF Coding Level of Care Code New Pt Level 4 (45430) Diagnoses Stage 3a chronic kidney disease N18.31 Chronic kidney disease stage 3 subtype: stage 3a (GFR 45-59)
== END 2025-01-27 14:41 | disposition home or self-care (01) ==
LOC: HO.HKA 14:09
PROVIDERS: PCP Internal Medicine; Visit Provider Internal Medicine Hypertension Specialist
DX: N18.31 Chronic kidney disease, stage 3a (principal)
CPT/HCPCS: 99204

== ENCOUNTER → 2025-01-27 14:08 | Outpatient (BNVA) | payer MEDICARE, BC, SELFPAY | PROVIDERS: PCP Internal Medicine; Visit Provider Internal Medicine Hypertension Specialist | DX: N18.31 Chronic kidney disease, stage 3a (principal); E11.22 Type 2 diabetes mellitus with diabetic chronic kidney disease; I12.9 Hypertensive chronic kidney disease with stage 1 through stage 4 chronic kidney disease, or unspecified chronic kidney disease; L40.9 Psoriasis, unspecified | CPT/HCPCS: 99202 ==

== ENCOUNTER 2025-02-03 10:21 | Outpatient (REF) | payer MEDICARE, BC, SELFPAY ==
[2025-02-03 13:27] LABS: Hematocrit 43.1 % (37.0-47.0); Hemoglobin 13.4 g/dl (12.0-16.0); Mean Corpuscular HGB Conc 31.1 g/dl (31.0-35.0); Mean Corpuscular Hemoglobin 26.1 pg (27.0-33.0); Mean Corpuscular Volume 83.9 fL (80.0-98.0); NRBC Abs Auto 0.000 X10*3/uL (0.0-0.012); NRBC Pct Auto 0.0 /100WBC (0.0-0.2); Platelet Count 300 X10*3/uL (160-400); Red Blood Count 5.14 X10*6/uL (4.20-5.50); White Blood Count 9.0 X10*3/uL (4.8-10.8)
[2025-02-03 14:10] LABS: Anion Gap 12 (12-20); Blood Urea Nitrogen 24 mg/dL (9-16); Calcium 9.2 mg/dL (8.4-10.2); Carbon Dioxide 28 mmol/L (22-29); Chloride 106 mmol/L (96-108); Estimated Glomerular Filt Rate 40; Potassium 4.5 mmol/L (3.3-5.1); Sodium 141 mmol/L (135-145)
== END 2025-02-03 10:22 | disposition home or self-care (01) ==
LOC: HO.HMGCLDS 10:21
PROVIDERS: PCP Internal Medicine; Visit Provider Internal Medicine Hypertension Specialist
DX: N18.31 Chronic kidney disease, stage 3a (principal)
CPT/HCPCS: 36415; 80048; 82575; 84156; 85027

== ENCOUNTER 2025-02-11 13:00 | Outpatient (REF) | payer MEDICARE, BC, SELFPAY ==
--- NOTE | ~2025-02-11 | US_ITS ---
CLINICAL HISTORY: N18.31 - Chronic kidney disease, stage 3a Ultrasound kidneys. COMPARISON: None provided. Technique: Real time sonographic imaging, including color-flow imaging, was performed by the welder fitter. Multiple sales representative advertising static images were saved for review. FINDINGS: Right kidney: Cortical medullary differentiation is maintained. Normal color flow by Doppler. No calculus or focal parenchymal abnormality identified. No hydronephrosis. Right kidney size: 10.7 x 5.1 x 5.1 cm Left kidney: Cortical medullary differentiation is maintained. Normal color flow by Doppler. No calculus or focal parenchymal abnormality identified. No hydronephrosis. Left kidney size: 10.1 x 4.4 x 5.2 cm IMPRESSION: 1. No evidence of renal obstruction. No renal or ureteral calculus bilaterally. This document has been electronically signed by: Dave Ricardo MD on 02/11/2025 15:53:07
--- OUTSIDE RECORDS SUMMARY | 2025-02-11 14:56 | XMS_ITS | Clinical Summary ---
Author Organization [facility] Address [address] [place] [phone] Phone Care Team Providers Care Dental Specialist Name Role Phone Vinod Borjas MD Primary Care Provider [phone] Allergies No known active allergies Medications simvastatin [...] sure to inform any new DAMEON SANTOS CHLORINE OPERATOR about chronic immunosuppression with Cimzia particularly in [...] sure to inform any new DAMEON SANTOS CHLORINE OPERATOR about chronic immunosuppression with Cimzia particularly in [...] sure to inform any new DAMEON SANTOS CHLORINE OPERATOR about chronic immunosuppression with Cimzia particularly in [...] sure to inform any new DAMEON SANTOS CHLORINE OPERATOR about chronic immunosuppression with Cimzia particularly in [...] sure to inform any new DAMEON SANTOS CHLORINE OPERATOR about chronic immunosuppression with Cimzia particularly in [...] sure to inform any new DAMEON SANTOS CHLORINE OPERATOR about chronic immunosuppression with Cimzia particularly in emergency situations. Postmenopausal 02/22/2022 Assessment & Plan (02/22/2022 11:59 AM EST): Fall and fracture prevention strategies. Daily weightbearing exercises. Proper calcium and vitamin D supplementation. She is due for BMD at [facility] on 01/28/2022. NSAID long-term use 01/27/2022 Assessment [...] least twice daily and follow closely with online publisher and PCP as scheduled. Muscle spasm 08/20/2020 [...] (12/26/2024 10:56 AM EDT): Clinically and laboratory john appears stable on current regimen. Get monitoring labs prior to next visit in 4 months-standing orders in [facility]. Carefully continue weekly subcutaneous Cimzia + [...] (08/19/2024 10:43 AM EDT): Clinically and laboratory john appears stable on current regimen. Get monitoring labs prior to next visit in 4 months-standing orders in [facility]. Carefully continue weekly subcutaneous Cimzia + [...] (04/22/2024 10:17 AM EST): Clinically and laboratory john appears stable on current regimen. Get monitoring labs prior to next visit in 4 months-standing orders in [facility]. Carefully continue weekly subcutaneous Cimzia + [...] next visit in 4 months-standing orders in [facility]. Carefully continue weekly subcutaneous Cimzia + [...] next visit in 6 months-standing orders in [facility]. Carefully continue weekly subcutaneous Cimzia + [...] next visit in 4 months-standing orders in [facility]. Carefully continue weekly subcutaneous Cimzia + [...] next visit in 4 months-standing orders in [facility]. Carefully continue weekly subcutaneous Cimzia + [...] next visit in 3 months-standing orders in [facility]. Carefully continue monthly subcutaneous Cimzia + [...] next visit in 3 months-standing orders in [facility]. Carefully continue weekly subcutaneous Humira every [...] next visit in 3 months-standing orders in [facility]. Carefully continue weekly subcutaneous Humira every [...] her request I filled application for disabled parking placard-see details in media section of [employer] with today's date. Assessment & Plan (12/14/2020 [...] as prescribed and follow closely with prescribing senior windows engineer as scheduled. Assessment & Plan (08/19/2024 10:44 AM EDT): Take exactly as prescribed and follow closely with prescribing senior windows engineer as scheduled. Assessment & Plan (04/22/2024 10:17 AM EST): Take exactly as prescribed and follow closely with prescribing senior windows engineer as scheduled. Assessment & Plan (12/21/2023 9:38 AM EDT): Take exactly as prescribed and follow closely with prescribing senior windows engineer as scheduled. Assessment & Plan (06/21/2023 9:43 AM EDT): Take exactly as prescribed and follow closely with prescribing senior windows engineer as scheduled. Assessment & Plan (01/20/2023 11:21 AM EST): Take exactly as prescribed and follow closely with prescribing senior windows engineer as scheduled. Assessment & Plan (09/21/2022 12:41 PM EDT): Take exactly as prescribed and follow closely with prescribing senior windows engineer as scheduled. Assessment & Plan (05/27/2022 10:57 AM EDT): Take exactly as prescribed and follow closely with prescribing senior windows engineer as scheduled. Assessment & Plan (01/27/2022 10:41 AM EST): Take exactly as prescribed and follow closely with prescribing senior windows engineer as scheduled. Assessment & Plan (10/20/2021 8:37 AM EDT): Take exactly as prescribed and follow closely with prescribing senior windows engineer as scheduled. Assessment & Plan (07/12/2021 10:10 AM EDT): Take exactly as prescribed and follow closely with prescribing senior windows engineer as scheduled. Assessment & Plan (04/15/2021 10:15 AM EST): Take exactly as prescribed and follow closely with prescribing senior windows engineer as scheduled. Assessment & Plan (12/14/2020 10:02 AM EDT): Take exactly as prescribed and follow closely with prescribing senior windows engineer as scheduled. Assessment & Plan (08/20/2020 10:23 AM EDT): Take exactly as prescribed and follow closely with prescribing senior windows engineer as scheduled. Assessment & Plan (2020 9:47 PM EST): Take exactly as prescribed and follow closely with prescribing senior windows engineer as scheduled. Assessment & Plan (01/26/2020 4:17 PM EST): Take exactly as prescribed and follow closely with prescribing senior windows engineer as scheduled. (Last visit in September 2019-typically [...] least twice daily and follow closely with online publisher and PCP as scheduled. Assessment & Plan (12/21/2023 9:37 AM EDT): Continue watchful diet avoiding concentrated sugars. Proper hydration. Monitor blood glucose at least twice daily and follow closely with online publisher and PCP as scheduled. Assessment & Plan (10/20/2021 8:42 AM EDT): Continue watchful diet avoiding concentrated sugars. Proper hydration. Monitor blood glucose at least twice daily and follow closely with online publisher and PCP as scheduled. Assessment & Plan (04/18/2021 3:31 PM EST): Continue watchful diet avoiding concentrated sugars. Proper hydration. Monitor blood glucose at least twice daily and follow closely with online publisher and PCP as scheduled. Diabetes type 2, [...] sure to inform any new DAMEON SANTOS CHLORINE OPERATOR about chronic immunosuppression with Humira particularly in [...] sure to inform any new DAMEON SANTOS, CHLORINE OPERATOR about chronic immunosuppression with Humira particularly in [...] sure to inform any new DAMEON SANTOS, CHLORINE OPERATOR about chronic immunosuppression with Humira particularly in [...] Encounters Date Type Department Care Team Description 01/24/2025 Orders Only [facility] Rhe[facility]ology [address] [place] [address] Chary Palacios MA Psoriatic arthritis; Encounter for monitoring certolizumab therapy; Long-term current use of apremilast 01/06/2025 Orders Only [facility] Rheumatology [address] [place] [address] Chary Palacios MA Psoriatic arthritis; De Quervain's tenosynovitis, right 01/03/2025 9:30 AM EDT Office Visit [facility] [address] [place] [address] Georgia Paniagua MD McCullough, Sheila, OT Pain of right hand (Primary Dx) 12/31/2024 9:30 AM EDT Office Visit [address] [place] [address] Georgia Paniagua MD McCullough, Sheila, OT Pain of right hand (Primary Dx) 12/27/2024 10:15 AM EDT Office Visit [address] [place] [address] Georgia Paniagua MD McCullough, Sheila, OT Pain of right hand (Primary Dx) 12/26/2024 10:30 AM EDT Office Visit [facility] Rhe[facility]ology [address] [place] [address] [place] [address] Georgia Paniagua MD Psoriatic arthritis (Primary Dx); Primary osteoarthritis involving multiple joints; Type 2 diabetes mellitus with diabetic neuropathy, with long-term current use of insulin; Encounter for monitoring certolizumab therapy; Long-term current use of apremilast; Gastroesophageal reflux disease without esophagitis; De Quervain's tenosynovitis, right 12/26/2024 Telephone [facility] [address] [place] [address] [place] [address] Georgia Paniagua MD Referral 12/25/2024 Orders Only [facility] Rheumatology [address] [place] [address] Georgia Paniagua MD 12/24/2024 9:30 AM EDT Office Visit [facility] [address] [place] [address] Georgia Paniagua MD McCullough, Sheila, OT Pain of right hand (Primary Dx) 12/20/2024 9:30 AM EDT Office Visit [facility] [address] [place] [address] Georgia Paniagua MD McCullough, Sheila, OT Pain of right hand (Primary Dx) 12/17/2024 8:45 AM EDT Office Visit [facility] [address] [place] [address] Georgia Paniagua MD McCullough, Sheila, OT Pain of right hand (Primary Dx) 12/12/2024 9:30 AM EDT Office Visit [facility] [address] [place] [address] Georgia Paniagua MD McCullough, Sheila, OT Pain of right hand (Primary Dx) 12/10/2024 9:30 AM EDT Office Visit [facility] [address] [place] [address] Georgia Paniagua MD McCullough, Sheila, OT Pain of right hand (Primary Dx) 12/06/2024 8:45 AM EDT Office Visit [facility] [address] [place] [address] Georgia Paniagua MD McCullough, Sheila, OT Pain of right hand (Primary Dx) 12/06/2024 Plan of Care Documentation [facility] [address] [place] [address] 11/19/2024 8:45 AM EDT Office Visit [facility] [address] [place] [address] Georgia Paniagua MD McCullough, Sheila OT Tendinitis, Castilol'lizbeth (Primary Dx) 11/15/2024 8:45 AM EDT Office Visit [facility] [address] [place] [address] Georgia Paniagua MD McCullough, Sheila OT Tendinitis, de Quervaherberth'lizbeth (Primary Dx) 11/12/2024 9:30 AM EDT Office Visit [facility] [address] [place] [address] Georgia Paniagua MD McCullough, Sheila OT Tendinitis, de Quervain'lizbeth (Primary Dx) from Last 3 Months Immunizations [...] Description 05/02/2025 10:30 AM EST Office Visit [facility] [address] [place] [address] Georgia Paniagua MD [address] [place] [address], [address] [place] [address] [email or web address] Health Maintenance Due Date Last Done Comments [...] exists BLOOD PRESSURE 06/26/2025 12/26/2024 CREATININE LEVEL 01/13/2026 01/13/2025, 04/2024, 09/04/2024, Additional history exists Adult Td,Tdap Booster 12/31/2031 [...] Associated Diagnosis Comments CBC AND DIFFERENTIAL Routine 01/24/2025 2:49 PM EST Psoriatic arthritis Encounter for monitoring certolizumab therapy Long-term current use of apremilast T-SPOT .TB Routine 01/13/2025 2:52 PM EST Psoriatic arthritis Encounter for monitoring certolizumab therapy Long-term current use of apremilast CBC AND DIFFERENTIAL Routine 01/13/2025 2:51 PM EST Psoriatic arthritis Encounter for monitoring certolizumab therapy Long-term current use of apremilast SEDIMENTATION RATE (ESR) Routine 01/13/2025 2:50 PM EST Psoriatic arthritis Encounter for monitoring certolizumab therapy Long-term current use of apremilast C-REACTIVE PROTEIN (CRP) Routine 01/13/2025 2:50 PM EST Psoriatic arthritis Encounter for monitoring certolizumab therapy Long-term current use of apremilast COMPREHENSIVE METABOLIC PANEL (CMP) Routine 01/13/2025 2:50 PM EST Psoriatic arthritis Encounter for monitoring certolizumab therapy Long-term current use of apremilast XR HAND (RIGHT) Routine 12/26/2024 3:53 PM [...] Recently Relevant to Health Maintenance Results * T-SPOT??.TB (01/13/2025 2:52 PM EST) Blood (Blood) Georgia Paniagua MD LAB BLOOD BKR ORDERABLES Final Result Performing Organization Address [facility] de Phone Number EXTERNAL NON-INTERFACED REF LAB * CBC and Differential (01/13/2025 2:51 PM EST) Blood (Blood) Georgia Paniagua MD LAB BLOOD BKR ORDERABLES Final Result Performing Organization Address City/[facility] de Phone Number EXTERNAL NON-INTERFACED REF LAB * Erythrocyte Sedimentation Rate (ESR) (01/13/2025 2:50 PM EST) Only the most recent of2 resultswithin the time period is included. Blood (Blood) Georgia Paniagua MD LAB BLOOD BKR ORDERABLES Final Result Performing Organization Address [facility] de Phone Number EXTERNAL NON-INTERFACED REF LAB * C-Reactive Protein (CRP) (01/13/2025 2:50 PM EST) Only the most recent of2 resultswithin the time period is included. Blood (Blood) us Georgia Paniagua MD LAB BLOOD BKR ORDERABLES Final Result Performing Organization Address [facility] Co de Phone Number EXTERNAL NON-INTERFACED REF LAB * Comprehensive Metabolic Panel (CMP) (01/13/2025 2:50 PM EST) Only the most recent of3 resultswithin the time period is included. Blood (Blood) Result Jimbo Paniagua MD LAB BLOOD BKR ORDERABLES Final Result Performing Organization Address [facility] de Phone Number EXTERNAL NON-INTERFACED REF LAB * XR Hand (Right) (12/26/2024 3:53 PM EDT) Anatomical Region Laterality Modality Hand Right XR Diagnostic Result Jimbo Paniagua MD IMG XR UPPER EXTREMITY F inal Result * CBC and differential (12/12/2024 2:17 PM EDT) Blood Result Jimbo Paniagua MD LAB BLOOD BKR ORDERABLES Final Result from Last 3 Months or Most Recently Relevant to Health Maintenance Insurance [facility] [employer] MEDICARE PART A & B [facility] MEDIC[facility] PART A & B [facility] MEDICARE [facility] A & B [place] [employer] [facility] MEDICARE PART A & B [place] [employer] [facility] MEDICARE [facility] A & B [facility] MEDIC[facility] A & B [facility] MEDICARE PART A & [place] [id number] [facility] MEDIC[facility] PART A & B [facility] MEDICARE PART A & B Care Teams Dental Specialist Relationship Specialty Start Date End Date Vinod Borjas MD [address] [place] [address] [place] [address] PCP - General Internal Medicine 08/19/24 Additional Source Comments The information contained in this document represents components of the legal health record. It is not the complete legal health record.[facility]
--- OUTSIDE RECORDS SUMMARY | 2025-02-11 14:56 | XMS_ITS | Encounter Summary ---
Author Organization [facility] Address [address] [place] [address] Phone Care Team Providers Care Maitre D Name Role Phone Vinod Borjas MD Primary Care Provider [phone] Encounter Details Date Type Department Care Team (Late Contact Info) Description 01/24/2025 Orders Only [facility] Rheumatology [address] [place], [place] [id number] Chary Palacios [place] [address] [place] [address] [email or web address] Psoriatic arthritis; Encounter for monitoring certolizumab therapy; Long-term current use of apremilast Social History Tobacco Use Types Packs/Day Years [...] Description 05/02/2025 10:30 AM EST Office Visit [facility] Rheumatology [address] [place] [address] Georgia Paniagua MD [address] [facility], [address] [place] [address] [email or web address] documented as of this encounter Procedures Procedure [...] certolizumab therapy Long-term current use of apremilast documented in this encounter Results * T-SPOT??.TB (01/13/2025 2:52 PM EST) Blood (Blood) us Georgia Paniagua MD LAB BLOOD BKR ORDERABLES Final Result EXTERNAL NON-INTERFACED REF LAB * CBC and Differential (01/13/2025 2:51 PM EST) Blood (Blood) Georgia Paniagua MD LAB BLOOD BKR ORDERABLES Final Result Performing Organization Address [facility] de Phone Number EXTERNAL NON-INTERFACED REF LAB * Erythrocyte Sedimentation Rate (ESR) (01/13/2025 2:50 PM EST) Blood (Blood) Georgia Paniagua MD LAB BLOOD BKR ORDERABLES Final Result Performing Organization Address [facility] de Phone Number EXTERNAL NON-INTERFACED REF LAB * C-Reactive Protein (CRP) (01/13/2025 2:50 PM EST) Blood (Blood) Georgia Paniagua MD LAB BLOOD BKR ORDERABLES Final Result Performing Organization Address [facility] de Phone Number EXTERNAL NON-INTERFACED REF LAB * Comprehensive Metabolic Panel (CMP) (01/13/2025 2:50 PM EST) Blood (Blood) Georgia Paniagua MD LAB BLOOD BKR ORDERABLES Final Result Performing Organization Address [facility] de Phone Number EXTERNAL NON-INTERFACED REF LAB documented in this encounter Visit Diagnoses Diagnosis Psoriatic arthritis Psoriatic arthropathy Encounter for monitoring certolizumab therapy Long-term current use of apremilast documented in this encounter Care Teams Maitre D Relationship Specialty Start Date End Date Vinod Borjas MD [address] [place] [address] [place] [address] PCP - General Internal Medicine 08/19/24 documented as of this encounter Additional Source Comments The information contained in this document represents components of the legal health record. It is not the complete legal health record.[facility]
--- OUTSIDE RECORDS SUMMARY | 2025-02-11 14:56 | XMS_ITS | Encounter Summary ---
Author Organization [facility] Address [address] [place] [address] Phone Care Team Providers Care Senior Revenue Accountant Name Role Phone Vinod Borjas MD Primary Care Provider [phone] Encounter Details Date Type Department Care Team (Late Contact Info) Description 01/06/2025 Orders Only [facility] Rheumatology [address] [place] [address] [place], [place] [phone] Chary Palacios [place] [address] [place] [address] [email or web address] Psoriatic arthritis; De Quervain's tenosynovitis, right Social [...] Description 05/02/2025 10:30 AM EST Office Visit [facility] Rheumatology [address] [place] [address] Georgia Paniagua MD [address] [facility], [address] [place] [address] documented as of this encounter Procedures Procedure [...] right documented in this encounter Care Teams Senior Revenue Accountant Relationship Specialty Start Date End Date Vinod Borjas MD [address] [place] [address] [facility] [place] [address] PCP - General Internal Medicine 08/19/24 documented as of this encounter Additional Source Comments The information contained in this document represents components of the legal health record. It is not the complete legal health record.[facility]
== END 2025-02-11 13:01 | disposition home or self-care (01) ==
LOC: HO.HMGCX 13:00
PROVIDERS: PCP Internal Medicine; Visit Provider Internal Medicine Hypertension Specialist
DX: N18.31 Chronic kidney disease, stage 3a (principal)
CPT/HCPCS: 76775

== ENCOUNTER → 2025-02-11 13:04 | Outpatient (BNV) | payer MEDICARE, BC, SELFPAY | PROVIDERS: PCP Internal Medicine; Visit Provider Radiology Diagnostic Radiology | DX: N18.31 Chronic kidney disease, stage 3a (principal) | CPT/HCPCS: 76775 ==

== ENCOUNTER 2025-02-17 10:10 | Outpatient (AMB) | payer MEDICARE, BC, SELFPAY ==
[2025-02-17 10:11] VITALS: BP 170/80; PULSE 117; O2SAT 99; BMI 28.7
--- NOTE | 2025-02-17 10:11 | HO.NEPHOV_ITS ---
Vital Signs 02/17/25 10:11 Height 5 ft 10 in Weight 200 lb 2 oz BMI 28.7 BP 170/80 H Blood Pressure Location Rt brachial Position Sitting Pulse 117 H Pulse Source Pulse Oximeter Pulse Oximetry (%) 99 Oxygen Delivery Method Room Air Intake Visit Reasons: 3 wks f/u w/ labs and Ultrasound Stamping Mill Tender Required: No Accompanied by: Self / Same As Patient Allergies grass pollen Allergy (Mild, Verified 02/17/25 10:12) hives Medication List - Last Reconciled 02/17/25 by Alberto Perez MD amitriptyline 25 mg PO BEDTIME apremilast (Otezla) 30 mg PO BID ascorbate calcium (vitamin C) 1 g PO Q6H atogepant (Qulipta) 60 mg PO PRN certolizumab pegol (Cimzia) 200 mg subcut QWEEK cholecalciferol (vitamin D3) 50 mcg PO DAILY cyanocobalamin (vitamin B-12) 5,000 mcg PO .everyotherday dulaglutide (Trulicity) 3 mg subcut QWEEK flash glucose scanning reader (FreeStyle Natasha 2 [place]) As directed flash glucose sensor (FreeStyle Natasha 2 Sensor kit) As directed gabapentin 100 to 300 mg orally bedtime PRN; hydroxyzine HCl 25 mg PO BID PRN insulin degludec (Tresiba FlexTouch U-100 insulin) 44 units subcut DAILY insulin syringe-needle U-100 As directed lisinopril 2.5 mg PO DAILY metoprolol succinate ER 25 mg PO DAILY omeprazole magnesium 20 mg PO DAILY prucalopride 1 mg PO DAILY simvastatin 40 mg PO BEDTIME HPI Comments Details: 69-year-old women presenting with management of CKD in a setting of Type 2 Diabetes Mellitus and Hypertension. The patient has had Type 2 Diabetes Mellitus for approximately 15 years. Her diabetes was well-controlled for a long period but has recently become more challenging to manage, with a recent HbA1c of 7.9%. She has experienced gastrointestinal side effects from metformin, which has complicated her management. h/o Gastroparesis The patient has a history of hypertension for about 20 years. Her blood pressure was previously well-controlled but has recently become more difficult to manage, requiring adjustments in her medication regimen. She has been on various antihypertensive medications, including propranolol, which caused dizziness at higher doses and therefore discontinued. The patient reports a history of heartburn for which she is taking omeprazole. She had COVID-19 a year ago, which has since resolved without ongoing respiratory issues. Still has dyspnea PFTs were reportedly normal Cardiac work up in progress History of psoriasis. Complicated by psoriatic arthritis. She has been followed by echometer engineer She has CKd with a serucm creatinine of 1.35 Creatinine has been fluctuating between 1.1 and 1.3 for the last 4 years. Back in 2018 serum creatinine was 0.86. 02/17/25 The patient is a 69 year old female presenting for follow-up management of hypertension and diabetes. She reports that her blood pressure remains high while on lisinopril 2.5 mg and metoprolol. In relation to her kidney health, which is affected by hypertension and diabetes, the patient recently underwent an ultrasound and a 24-hour urine collection. She reports her kidney function is a little better based on the urine test. Her blood sugar has been well-controlled, with a reading of 81 mg/dL this morning, which was after having a snack last night. The patient denies blood glucose levels reaching 200. Regarding her lifestyle, she walks for about an hour daily, which helps control her blood sugar and blood pressure. She reports low salt intake, using sea salt sparingly, and acknowledges not drinking much water, preferring tea. The patient experiences shortness of breath only with exertion, and a prior stress test was negative. She had a history of frequent leg cramps which have since improved, and she denies any symptoms of depression. [facility] Medical History Constipation Abdominal pain, right lower quadrant Vitamin B12 deficiency Overweight (BMI 25.0-29.9) GERD without esophagitis Vitamin D deficiency Neuropathy Chronic kidney disease, stage III (moderate) Migraine Psoriatic arthritis Pure hypercholesterolemia Essential hypertension Diabetes mellitus Surgical History History of esophagogastroduodenoscopy (EGD) No pertinent past surgical history Family History Father No problems noted. Mother Gastroparesis Heart problem Paternal Grandmother Gastroparesis Family/Other Gastroparesis Social History (Reviewed 02/17/25 @ 10:11 by CAROLINE Torres Housing: House Alcohol intake: never Patient Tobacco Use Status: Never used Tobacco e-Cigarette/Vaping Use: Never Used Second Hand Smoke Exposure: No service: No Current occupational status: retired Cognitive needs: No Hearing needs: No Vision needs: Yes (glasses) Physical Exam Vital Signs: Last Vital Signs Pulse 117 H 02/17/25 10:11 BP 170/80 H 02/17/25 10:11 Pulse Ox 99 02/17/25 10:11 Oxygen Delivery Method Room Air 02/17/25 10:11 BMI result Body Mass Index 28.7 Comfortable Neck supple no JVD. Lungs entry equal no rales. Heart S1-S2 heard no gallop or rub. Abdomen soft nontender. Neuro alert awake oriented. No asterixis. Extremities no edema. Results Reviewed Results Reviewed: Jan USG Right kidney: Cortical medullary differentiation is maintained. Normal color flow by Doppler. No calculus or focal parenchymal abnormality identified. No hydronephrosis. Right kidney size: 10.7 x 5.1 x 5.1 cm Left kidney: Cortical medullary differentiation is maintained. Normal color flow by Doppler. No calculus or focal parenchymal abnormality identified. No hydronephrosis. Left kidney size: 10.1 x 4.4 x 5.2 cm IMPRESSION: 1. No evidence of renal obstruction. No renal or ureteral calculus bilaterally. Nephrology Results: Hgb, (12.0-16.0) 13.4 g/dl 02/03/25 WBC, (4.8-10.8) 9.0 X10*3/uL 02/03/25 Plt Count, (160-400) 300 X10*3/uL 02/03/25 Sodium, (135-145) 141 mmol/L 02/03/25 Potassium, (3.3-5.1) 4.5 mmol/L 02/03/25 Chloride, (96-108) 106 mmol/L 02/03/25 Carbon Dioxide, (22-29) 28 mmol/L 02/03/25 BUN, (9-16) 24 mg/dL H 02/03/25 Creatinine, (0.5-1.4) 1.33 mg/dL 02/03/25 Calcium, (8.4-10.2) 9.2 mg/dL 02/03/25 Urine Protein, (Neg-Trace) Negative mg/dL 01/13/25 Urine Creatinine 101.57 mg/dL 01/13/25 Renal US 02/11/25 Assessment & Plan Assessment & Plan (1) Chronic kidney disease, stage III (moderate): Code(s): N18.30 - Chronic kidney disease, stage 3 unspecified Category: Medical Qualifiers: Chronic kidney disease stage 3 subtype: stage 3a (GFR 45-59) Qualified Code(s): N18.31 - Chronic kidney disease, stage 3a Plan 69-year-old woman with CKD 3 in a setting of longstanding diabetes mellitus hypertension along with psoriasis. Serum creatinine has been staying around 1.1-1.3 mg/dL for almost 4 years. renal ultrasonogram - unremarkable. 24 urine collection for creatinine clearance = 50 ml/mt Goal is to slow the progression of renal disease Optimize blood pressure. Maintain blood pressure less than 130/80. Optimize blood sugar and maintain A1c less than 7%. She will benefit from SGLT2 inhibitors. Continue to avoid nephrotoxic agents including NSAIDs. Increase Lisinopril to 5 mg QD Increase Metoprolol XL to 50 mg QD ( HR 117/mt) Orders: Orders Basic Metabolic Panel 4 Weeks I10 - Essential (primary) hypertension, N18.9 - Chronic kidney disease, unspecified Medications: Changed From lisinopril 2.5 mg PO DAILY 90 tabs 3RF To lisinopril 5 mg PO DAILY 30 tabs 3RF From metoprolol succinate ER 25 mg PO DAILY 90 tabs 0RF To metoprolol succinate ER 50 mg PO DAILY 30 tabs 2RF Coding Level of Care Code Est Pt Level 4 (97376) Diagnoses Stage 3a chronic kidney disease N18.31 Chronic kidney disease stage 3 subtype: stage 3a (GFR 45-59)
== END 2025-02-17 10:26 | disposition home or self-care (01) ==
LOC: HO.HKA 10:11
PROVIDERS: PCP Internal Medicine; Visit Provider Internal Medicine Hypertension Specialist
DX: N18.31 Chronic kidney disease, stage 3a (principal)
CPT/HCPCS: 99214

== ENCOUNTER → 2025-02-17 10:10 | Outpatient (BNVA) | payer MEDICARE, BC, SELFPAY | PROVIDERS: PCP Internal Medicine; Visit Provider Internal Medicine Hypertension Specialist | DX: N18.31 Chronic kidney disease, stage 3a (principal); E11.9 Type 2 diabetes mellitus without complications; L40.9 Psoriasis, unspecified | CPT/HCPCS: 99212 ==

== ENCOUNTER 2025-03-04 09:55 | Outpatient (REF) | payer MEDICARE, BC, SELFPAY ==
--- OUTSIDE RECORDS SUMMARY | 2023-12-04 04:15 | XMS_ITS ---
Author Organization [facility] Address [address] [place] [address] Care Team Providers Care Firer Kiln Name Role Phone Indio SANTOS, Vinod Primary Care Provider Tiffany Stein Unavailable [phone] Wang De León Unavailable [phone] Encounters Encounter Location Date Provider Diagnosis [address] [address] 12/04/2023 Wang De León Plan Of Treatment Next Appt Details Provider Name:Tiffany Oksana del angel, 04/21/2025 09:00:00 AM, [address] [place] [address], [phone], Progress Notes * Yumiko VELÁZQUEZ MDOB: (69 yo F)Acc No.[id number]:12/04/2023 Progress Note Patient: Yumiko TOURE Provider: Yevgeniy Navas DPM :1955 A ge:68 Y S ex:Female Date:12/04/2023 Address:[address] [place] [address] [id number] Pcp:Vinod Borjas MD Subjective: * Chief Complaints: [...] 12/04/2023 Generated for Raj cutler/Azul/Mojgan on: 1 05/05/2024 10:50 AM EST
--- OUTSIDE RECORDS SUMMARY | 2025-03-04 10:50 | XMS_ITS | Patient Health Record ---
[facility] Address [address] [place] [address] Care Team Providers Care Aluminum Molding Machine Operator Name Role Phone Edin Borjas MDh Primary Care Provider Tiffany Stein Unavailable [phone] Allergies No Known Allergies Results Component Value [...] Problem Acquired hammer toe of right foot (3047260241124069 ) Other hammer toe(s) (acquired), right foot (M20.41) Active confirmed [facility] Problem Acquired hammer toe of left foot (6483485473296404 ) Other hammer toe(s) (acquired), left foot (M20.42) Active confirmed [facility] Problem Polyneuropathy due to diabetes mellitus type I (573212427) Type 1 diabetes mellitus with diabetic polyneuropathy (E10.42) Active confirmed Problem Polyneuropathy due to type 2 diabetes mellitus (981117587) Type 2 diabetes mellitus with diabetic polyneuropathy (E11.42) Active confirmed Vital Signs Blood pressure diastolic 65 mm Hg 01/15/2025 Height 0tx96zu in 01/15/2025 Blood pressure systolic 120 mm Hg 01/15/2025 Weight 185 lbs 01/15/2025 BMI 25.8 kg/m2 01/15/2025 Procedures Procedure Date Ordered Date Performed Result Body Sit e 53342-NCGFZFM NAIL, 6 OR MORE 04/10/2024 N/A 25742-PVEV SKIN LESIONS, 2 TO 4 04/10/2024 N/A 53195-DERFNKA NAIL, 6 OR MORE 07/11/2024 N/A 89692-MRBL SKIN LESIONS, 2 TO 4 07/11/2024 N/A Encounters Encounter Location Date [facility] [address] 04/10/2024 Tiffany Salas Other hammer toe(s) (acquired), right foot M20.41 ; Other hammer toe(s) (acquired), left foot M20.42 ; Type 2 diabetes mellitus with diabetic polyneuropathy E11.42 and Tinea unguium B35.[address] [address] 07/11/2024 Tiffany Salas Type 2 diabetes mellitus with diabetic polyneuropathy E11.42 ; Tinea unguium B35.1 ; Other hammer toe(s) (acquired), right foot M20.41 and Other hammer toe(s) (acquired), left foot M20.[address] [address] 10/16/2024 Tiffany Salas Type 2 diabetes mellitus with diabetic polyneuropathy E11.42 and Tinea unguium B35.[address] [address] 01/15/2025 Tiffany Salas Type 2 diabetes mellitus [...] Treatment Pending Test Test Name Order Date 46755-PMKFONR NAIL, 6 OR MORE 02/20/2013 55638-XAWIKKY NAIL, 6 OR MORE 05/29/2013 96637-UWFXAFS NAIL, 6 OR MORE 08/28/2013 96075-BMSTAXD NAIL, 6 OR MORE 12/11/2013 00250-TQEEEIK NAIL, 6 OR MORE 05/07/2014 24051-SMRGBGE NAIL, 6 OR MORE 08/06/2014 47831-IDWMAQD NAIL, 6 OR MORE 04/13/2015 19993-ZOIWHFX NAIL, 6 OR MORE 12/31/2014 87500-RCYYNXR NAIL, 6 OR MORE 07/29/2015 52776-LRWSFJY NAIL, 6 OR MORE 10/28/2015 66060-VVUVPRA NAIL, 6 OR MORE 01/27/2016 51087-PZLZMCT NAIL, 6 OR MORE 04/27/2016 18219-ESOLGVW NAIL, 6 OR MORE 11/02/2016 67519-SXZSRRQ NAIL, 6 OR MORE 02/15/2017 57333-GRQSSUU NAIL, 6 OR MORE 05/24/2017 49651-VMNWGGG NAIL, 6 OR MORE 08/30/2017 77628-SVAMEKB NAIL, 6 OR MORE 12/25/2017 71304-IFLOBJV NAIL, 6 OR MORE 04/10/2024 88723-QSPWDEZ NAIL, 6 OR MORE 07/11/2024 97114-Dmxwziqr Plate 08/30/2017 19964-Ztmpqffv Plate 11/02/2016 62862-Loyxyfsm Plate 12/31/2014 63865-Gejnkqkk Plate 04/13/2015 68726-Ukeptyks Plate 08/06/2014 02450-Qzudylrv Plate 05/07/2014 07369-Bdswcxbg Plate 12/11/2013 02791-Nhfoawam Plate 09/11/2013 44229-Jngxiovy Plate 05/29/2013 53658-Sxholovr Plate 02/20/2013 43440-Ndbihgdu Plate Each Additional 04/2013 85110-Bzfhcygt Plate Each Additional 87850-Viymrmvy Plate Each Additional 37771-Ylhgtecg Plate Each Additional 03/2015 32636-Lrlwhcjn Plate Each Additional 94136- Debride <25 sq cm 07/06/2020 43496- Debride <25 sq cm 08/28/2013 18352-CEEW SKIN LESIONS, OVER 4 05/07/19 15 26428-IFRN SKIN LESIONS, OVER 4 12/12/19 14 25737-ZWMC SKIN LESIONS, OVER 4 02/21/20 13 49604-JICI SKIN LESIONS, OVER 4 05/30/19 14 03175-PXQI SKIN LESIONS, OVER 4 08/29/19 14 61036-OAPZ SKIN LESIONS, OVER 4 04/13/19 16 77308-PCFM SKIN LESIONS, OVER 4 08/07/19 15 27019-RMTN SKIN LESIONS, OVER 4 01/01/20 15 45211-ECAJ SKIN LESIONS, OVER 4 07/29/19 16 15668-DRHH SKIN LESIONS, OVER 4 01/27/20 16 09387-JSNG SKIN LESIONS, OVER 4 10/28/19 16 45800-GGCP SKIN LESIONS, OVER 4 07/07/19 21 14441-LLWC SKIN LESIONS, OVER 4 01/14/20 21 76083-HPGY SKIN LESIONS, OVER 4 11/03/19 17 42348-PPCN SKIN LESIONS, OVER 4 04/27/19 17 28631-NEVJ SKIN LESIONS, OVER 4 07/28/19 17 73487-JIMM SKIN LESIONS, OVER 4 05/25/19 18 41998-FTHG SKIN LESIONS, OVER 4 02/16/20 17 75950-KGBJ SKIN LESIONS, OVER 4 08/31/19 18 32271-CHCO SKIN LESIONS, OVER 4 12/26/19 18 65691-JGHH SKIN LESIONS, OVER 4 04/16/19 19 16324-FJJY SKIN LESIONS, OVER 4 08/16/19 19 29885-BAYC SKIN LESIONS, OVER 4 11/15/19 19 34396-MKYC SKIN LESIONS, OVER 4 03/18/19 20 45876-BPWM SKIN LESIONS, OVER 4 09/04/19 20 45470-UTBS SKIN LESIONS, OVER 4 01/06/20 20 73523-FXEB SKIN LESIONS, 2 TO 4 04/10/19 70338-QIUU SKIN LESIONS, 2 TO 4 07/12/19 Next Appt Details Provider Name:Tiffany del angel, 04/21/2025 09:00:00 AM, [address] [facility], [place], [address], Insurance Providers Payer Name Payer Address Payer Phone Subscriber Number Group Number Insured Name Patient Relationship to Insured Coverage Start Date Coverage End Date Medicare National [employer] [address] [place] [address] [id number] LuísTereso shaferna Self - patient is the insured [facility] [address] [place] [address] [id number] Tereso Rodgersna Self - patient is the insured Medical (General) History Medical History History ICD Code Arthritis headaches/migraines high blood pressure psoriasis/eczema type II diabetes Surgical History Surgery Date(Month/Year) bx left leg 2015
--- OUTSIDE RECORDS SUMMARY | 2025-03-04 10:51 | XMS_ITS | Clinical Summary ---
Author Organization [facility] Address [address] [place] [phone] Phone Care Team Providers Care Food And Beverage Server Name Role Phone Vinod Borjas MD Primary Care Provider [phone] Allergies No known active allergies Medications simvastatin [...] sure to inform any new DAMEON SANTOS JOGGER OPERATOR about chronic immunosuppression with Cimzia particularly [...] sure to inform any new DAMEON SANTOS JOGGER OPERATOR about chronic immunosuppression with Cimzia particularly [...] sure to inform any new DAMEON SANTOS JOGGER OPERATOR about chronic immunosuppression with Cimzia particularly [...] sure to inform any new DAMEON SANTOS JOGGER OPERATOR about chronic immunosuppression with Cimzia particularly [...] sure to inform any new DAMEON SANTOS JOGGER OPERATOR about chronic immunosuppression with Cimzia particularly [...] sure to inform any new DAMEON SANTOS JOGGER OPERATOR about chronic immunosuppression with Cimzia particularly in emergency situations. Postmenopausal 02/22/2022 Assessment & Plan (02/22/2022 11:59 AM EST): Fall and fracture prevention strategies. Daily weightbearing exercises. Proper calcium and vitamin D supplementation. She is due for BMD at [facility] on 01/28/2022. NSAID long-term use 01/27/2022 [...] least twice daily and follow closely with student support advisor and PCP as scheduled. Muscle spasm 08/20/2020 [...] next visit in 4 months-standing orders in [facility]. Carefully continue weekly subcutaneous Cimzia + [...] next visit in 4 months-standing orders in [facility]. Carefully continue weekly subcutaneous Cimzia + [...] next visit in 4 months-standing orders in [facility]. Carefully continue weekly subcutaneous Cimzia + [...] next visit in 4 months-standing orders in [facility]. Carefully continue weekly subcutaneous Cimzia + [...] next visit in 6 months-standing orders in [facility]. Carefully continue weekly subcutaneous Cimzia + [...] next visit in 4 months-standing orders in [facility]. Carefully continue weekly subcutaneous Cimzia + [...] next visit in 4 months-standing orders in [facility]. Carefully continue weekly subcutaneous Cimzia + [...] next visit in 3 months-standing orders in [facility]. Carefully continue monthly subcutaneous Cimzia + [...] next visit in 3 months-standing orders in [facility]. Carefully continue weekly subcutaneous Humira every [...] next visit in 3 months-standing orders in [facility]. Carefully continue weekly subcutaneous Humira every [...] parking placard-see details in media section of [employer] with today's date. Assessment & Plan (12/14/2020 10:00 AM EDT): Get monitoring labs today. Carefully continue weekly subcutaneous Humira every Krian, twice daily Otezla 30 mg and meloxicam [...] as prescribed and follow closely with prescribing trucker as scheduled. Assessment & Plan (08/19/2024 10:44 AM EDT): Take exactly as prescribed and follow closely with prescribing trucker as scheduled. Assessment & Plan (04/22/2024 10:17 AM EST): Take exactly as prescribed and follow closely with prescribing trucker as scheduled. Assessment & Plan (12/21/2023 9:38 AM EDT): Take exactly as prescribed and follow closely with prescribing trucker as scheduled. Assessment & Plan (06/21/2023 9:43 AM EDT): Take exactly as prescribed and follow closely with prescribing trucker as scheduled. Assessment & Plan (01/20/2023 11:21 AM EST): Take exactly as prescribed and follow closely with prescribing trucker as scheduled. Assessment & Plan (09/21/2022 12:41 PM EDT): Take exactly as prescribed and follow closely with prescribing trucker as scheduled. Assessment & Plan (05/27/2022 10:57 AM EDT): Take exactly as prescribed and follow closely with prescribing trucker as scheduled. Assessment & Plan (01/27/2022 10:41 AM EST): Take exactly as prescribed and follow closely with prescribing trucker as scheduled. Assessment & Plan (10/20/2021 8:37 AM EDT): Take exactly as prescribed and follow closely with prescribing trucker as scheduled. Assessment & Plan (07/12/2021 10:10 AM EDT): Take exactly as prescribed and follow closely with prescribing trucker as scheduled. Assessment & Plan (04/15/2021 10:15 AM EST): Take exactly as prescribed and follow closely with prescribing trucker as scheduled. Assessment & Plan (12/14/2020 10:02 AM EDT): Take exactly as prescribed and follow closely with prescribing trucker as scheduled. Assessment & Plan (08/20/2020 10:23 AM EDT): Take exactly as prescribed and follow closely with prescribing trucker as scheduled. Assessment & Plan (2020 9:47 PM EST): Take exactly as prescribed and follow closely with prescribing trucker as scheduled. Assessment & Plan (01/26/2020 4:17 PM EST): Take exactly as prescribed and follow closely with prescribing trucker as scheduled. (Last visit in September 2019-typically [...] least twice daily and follow closely with student support advisor and PCP as scheduled. Assessment & Plan (12/21/2023 9:37 AM EDT): Continue watchful diet avoiding concentrated sugars. Proper hydration. Monitor blood glucose at least twice daily and follow closely with student support advisor and PCP as scheduled. Assessment & Plan (10/20/2021 8:42 AM EDT): Continue watchful diet avoiding concentrated sugars. Proper hydration. Monitor blood glucose at least twice daily and follow closely with student support advisor and PCP as scheduled. Assessment & Plan (04/18/2021 3:31 PM EST): Continue watchful diet avoiding concentrated sugars. Proper hydration. Monitor blood glucose at least twice daily and follow closely with student support advisor and PCP as scheduled. Diabetes type 2, [...] sure to inform any new DAMEON SANTOS JOGGER OPERATOR about chronic immunosuppression with Humira particularly [...] sure to inform any new DAMEON SANTOS, JOGGER OPERATOR about chronic immunosuppression with Humira particularly [...] sure to inform any new DAMEON SANTOS, JOGGER OPERATOR about chronic immunosuppression with Humira particularly [...] Department Care Team Description 01/24/2025 Orders Only [facility] [address] [place] [address] Chary Palacios MA Psoriatic arthritis; Encounter for monitoring certolizumab therapy; Long-term current use of apremilast 01/06/2025 Orders Only [facility] [address] [place] [address] Chary Palacios MA Psoriatic arthritis; De Quervain's tenosynovitis, right 01/03/2025 9:30 AM EDT Office Visit [facility] [address] [place] [address] Georgia Paniagua MD McCullough, Sheila, OT Pain of right hand (Primary Dx) 12/31/2024 9:30 AM EDT Office Visit [facility] [address] [place] [address] Georgia Paniagua MD McCullough, Sheila, OT Pain of right hand (Primary Dx) 12/27/2024 10:15 AM EDT Office Visit [facility] [address] [place] [address] Georgia Paniagua MD McCullough, Sheila, OT Pain of right hand (Primary Dx) 12/26/2024 10:30 AM EDT Office Visit [facility] [address] [place] [address] Georgia Paniagua MD Psoriatic arthritis (Primary Dx); Primary osteoarthritis involving multiple joints; Type 2 diabetes mellitus with diabetic neuropathy, with long-term current use of insulin; Encounter for monitoring certolizumab therapy; Long-term current use of apremilast; Gastroesophageal reflux disease without esophagitis; De Quervain's tenosynovitis, right 12/26/2024 Telephone [facility] [address] [place] [address] [place] [address] Georgia Paniagua MD Referral 12/25/2024 Orders Only [facility] [address] [place] [address] Georgia Paniagua MD 12/24/2024 9:30 AM EDT Office Visit [facility] [address] [place] [address] Georgia Paniagua MD McCullough, Sheila, OT Pain of right hand (Primary Dx) 12/20/2024 9:30 AM EDT Office Visit [facility] [address] [place] [address] Georgia Paniagua MD McCullough, Sheila, OT Pain of right hand (Primary Dx) 12/17/2024 8:45 AM EDT Office Visit [facility] [address] [place] [address] Georgia Paniagua MD McCullough, Sheila, OT Pain of right hand (Primary Dx) 12/12/2024 9:30 AM EDT Office Visit [facility] [address] [place] [address] Georgia Paniagua MD McCullough, Sheila, OT Pain of right hand (Primary Dx) 12/10/2024 9:30 AM EDT Office Visit [facility] [address] [place] [address] Georgia Paniagua MD McCullough, Sheila, OT Pain of right hand (Primary Dx) 12/06/2024 8:45 AM EDT Office Visit [facility] [address] [place] [address] [place] [address] Georgia Paniagua MD McCullough, Sheila, OT Pain of right hand (Primary Dx) 12/06/2024 Plan of Care Documentation [facility] [address] [place] [address] from Last 3 Months Immunizations Immunization Administration Dates Next Due COVID-19 (Pre-01/02) [employer] Vaccine, [id number], P F 05/17/2020 INFLUENZA, SPLIT [...] Description 05/02/2025 10:30 AM EST Office Visit [facility] [address] [place] [address] KlGeorgia Contreras MD [address] [place] [address], [address] [place] [address] [email or web address] Maintenance Due Date Last Done Comments [...] BKR ORDERABLES Final Result Performing Organization Address [facility] de Phone Number EXTERNAL NON-INTERFACED REF LAB * CBC and Differential (01/13/2025 2:51 PM EST) Blood (Blood) Georgia Paniagua MD LAB BLOOD BKR ORDERABLES Final Result Performing Organization Address [facility] de Phone Number EXTERNAL NON-INTERFACED REF LAB * Erythrocyte Sedimentation Rate (ESR) (01/13/2025 2:50 PM EST) Only the most recent of2 resultswithin the time period is included. Blood (Blood) Georgia Paniagua MD LAB BLOOD BKR ORDERABLES Final Result Performing Organization Address [facility] de Phone Number EXTERNAL NON-INTERFACED REF LAB * C-Reactive Protein (CRP) (01/13/2025 2:50 PM EST) Only the most recent of2 resultswithin the time period is included. Blood (Blood) Georgia Paniagua MD LAB BLOOD BKR ORDERABLES Final Result Performing Organization Address [facility] de Phone Number EXTERNAL NON-INTERFACED REF LAB * Comprehensive Metabolic Panel (CMP) (01/13/2025 2:50 PM EST) Only the most recent of3 resultswithin the time period is included. Blood (Blood) Georgia Paniagua MD LAB BLOOD BKR ORDERABLES Final Result Performing Organization Address [facility] de Phone Number EXTERNAL NON-INTERFACED REF LAB * XR Hand (Right) (12/26/2024 3:53 PM EDT) Anatomical Region Laterality Modality Hand Right XR Diagnostic Georgia Paniagua MD IMG XR UPPER EXTREMITY F inal Result * CBC and differential (12/12/2024 2:17 PM EDT) Blood Georgia Paniagua MD LAB BLOOD BKR ORDERABLES Final Result from Last 3 Months or Most Recently Relevant to Health Maintenance Insurance [facility] MEDIC[facility] PART A & B Member Subscriber Plan / Payer ( fective 2021-Present) Name:Vishal Yumiko Member ID:[id number] Relation to Subscriber:Self Name:VishalTeresona Subscriber ID:[id number] Payer ID:[id number] Group ID:Not on file Type:Medicare Address: [facility] Kids Calendar [facility]. [address] [place] [phone] [facility] PART A & B [facility] MEDIC[facility] PART A & B [facility] MEDIC[facility] PART A & B [facility] MEDIC[facility] PART A & B [facility] MEDICARE PART A & B [facility] MEDICARE PART A & B [facility] MEDICARE PART A & B [facility] MEDICARE PART A & B Care Teams Food And Beverage Server Relationship Specialty Start Date End Date Vinod Borjas MD [address] [place] [address] [place] [address] PCP - General Internal Medicine 08/19/24 Additional Source Comments The information contained in this document represents components of the legal health record. It is not the complete legal health record.[facility]
[2025-03-04 13:42] LABS: MANUAL DIFF FLAG NO
[2025-03-04 14:00] LABS: Hematocrit 44.7 % (37.0-47.0); Hemoglobin 13.9 g/dl (12.0-16.0); Imm Gran Abs Auto 0.02 X10*3/uL (0.00-0.03); Imm Gran Pct Auto 0.3 % (0.0-0.4); Lymphocytes Absolute Auto 2.7 X10*3/uL (1.2-4.9); Mean Corpuscular HGB Conc 31.1 g/dl (31.0-35.0); Mean Corpuscular Hemoglobin 26.6 pg (27.0-33.0); Mean Corpuscular Volume 85.6 fL (80.0-98.0); NRBC Abs Auto 0.000 X10*3/uL (0.0-0.012); NRBC Pct Auto 0.0 /100WBC (0.0-0.2); Platelet Count 319 X10*3/uL (160-400); Red Blood Count 5.22 X10*6/uL (4.20-5.50); White Blood Count 6.6 X10*3/uL (4.8-10.8)
[2025-03-04 14:09] LABS: Alanine Aminotransferase 32 U/L (0-31); Albumin Level 4.3 g/dL (3.5-5.0); Alkaline Phosphatase 148 U/L (39-117); Anion Gap 15 (12-20); Aspartate Amino Transferase 42 U/L (5-31); Blood Urea Nitrogen 28 mg/dL (9-16); Calcium 9.9 mg/dL (8.4-10.2); Carbon Dioxide 26 mmol/L (22-29); Chloride 105 mmol/L (96-108); Estimated Glomerular Filt Rate 33; Potassium 5.6 mmol/L (3.3-5.1); Sodium 140 mmol/L (135-145); Total Protein 7.5 g/dL (6.5-8.0)
[2025-03-07 00:59] LABS: TS Negative Control Passed; TS Panel A 0; TS Panel B 1; TS Positive Control Passed; TSpotTB Negative (Negative)
== END 2025-03-04 09:56 | disposition home or self-care (01) ==
LOC: HO.HMGCLR 09:55
PROVIDERS: Absent Provider Internal Medicine Hypertension Specialist; PCP Internal Medicine; Visit Provider Internal Medicine Rheumatology
DX: Z11.1 Encounter for screening for respiratory tuberculosis (principal); Z51.81 Encounter for therapeutic drug level monitoring; L40.50 Arthropathic psoriasis, unspecified; Z79.620 Long term (current) use of immunosuppressive biologic; Z79.61 Long term (current) use of immunomodulator
CPT/HCPCS: 36415; 80053; 85025; 85652; 86140; 86481